=== PATIENT | female | born 1935 | race African-American/Black ===

== ENCOUNTER 2018-06-22 07:30 | Inpatient (IN) | payer MEDICARE, MEDICAID ==
[~2018-06-22] VITALS: Ht 157.5 cm; Wt 79.4 kg
[2018-06-22] MEDS ORDERED: Metoclopramide 10mg/2ml Inj IVP ONE (07:45)
[2018-06-22] MEDS ORDERED: Tylenol #3 tab (300mg/30mg) ORAL ONE (07:45)
[2018-06-22] MEDS ORDERED: DiphenhydrAMINE 50mg/ml Inj IVP ONE (07:45)
--- NOTE | 2018-06-22 07:50 | Emergency Room Report ---
History of Present Illness General Chief Complaint: Nausea Source: Patient Present Illness HPI 83-year-old female with history of hypertension presents with room spinning dizziness and multiple bouts of vomiting nonbloody nonbilious material that started at 5:30 this morning, so just 2 hours prior to arrival. She does report minimal headache, denies any abdominal pain, slurred speech, numbness, tingling, weakness, neck pain, fevers, chest pain, shortness of breath, any other symptoms. He reports he's never had this before, and reports that whenever she opens her eyes she feels the room is spinning. She is not taking anything for symptoms. Allergies: Coded Allergies: No Known Allergies (Unverified , 06/22/18) Patient History Past Medical History: see triage record Reviewed Nursing Documentation: PMH: Agreed; PSxH: Agreed Nursing Documentation-PMH Past Medical History: No History, Except For Hx Hypertension: Yes Review of Systems All Other Systems: negative except mentioned in HPI Physical Exam Vital Signs Date Time Temp Pulse Resp B/P (MAP) Pulse Ox O2 Delivery O2 Flow Rate FiO2 06/22/18 07:30 97.5 95 18 162/85 97 Sp02 EP Interpretation: reviewed, normal General Appearance: no apparent distress, alert, non-toxic Head: normocephalic Eyes: bilateral eye normal inspection, bilateral eye PERRL, bilateral eye EOMI ENT: normal ENT inspection, hearing grossly normal, normal pharynx, no angioedema, normal voice, moist mucus membranes Neck: normal inspection, full range of motion, supple, supple/symm/no masses Respiratory: chest non-tender, lungs clear, normal breath sounds, speaking full sentences, chest symmetrical, palpation of chest normal Cardiovascular #1: normal peripheral pulses, regular rate, rhythm, no edema, no gallop, no JVD, no murmur, no rub Cardiovascular #2: 2+ radial (R), 2+ radial (L) Gastrointestinal: normal inspection, non tender, soft, no mass, no guarding, no rebound Rectal: deferred Genitourinary: normal inspection, no CVA tenderness Musculoskeletal: back normal, gait/station normal, normal range of motion, non- tender, no calf tenderness, Nelli's Sign negative Neurologic: alert, oriented x3, responsive, vault installer III-XII nml as tested, motor strength/tone normal, sensory intact, speech normal, nystagmus - Positive horizontal bilaterally Psychiatric: judgement/insight normal, memory normal, mood/affect normal Skin: normal color, no rash, warm/dry, normal turgor Lymphatic: no adenopathy Medical Decision Making Diagnostic Impression: Primary Impression: Vertigo ER Course 83-year-old female with history of hypertension presents with vertigo that started 2 hours prior to arrival, was offered medications for nausea, vertigo but did not want any medications, and since she wasn't having a headache she didn't want any Tylenol either. I suspect peripheral vertigo, workup thus far has been unremarkable. CT head with chronic changes, no acute bleed or infarct. Patient with no CP, but troponin slightly elevated and potassium low. Will give ASA, KCl, admit for further treatment. Patient now accepting meds. Will give meclizine, reglan, IVF. EKG Diagnostic Results EKG Time: 07:49 EP Interpretation: no stemi Rate: normal Rhythm: NSR ST Segments: no acute changes ASA given to the pt in ED: No Rhythm Strip Diag. Results Rhythm Strip Time: 07:48 EP Interpretation: yes Rate: 103 Rhythm: NSR, no PVC's, no ectopy Chest X-Ray Diagnostic Results Chest X-Ray Diagnostic Results : Chest X-Ray Ordered: Yes # of Views/Limited/Complete: 1 View Indication: Other - htn, dizziness EP Interpretation: Yes Interpretation: no consolidation, no effusion, no pneumothorax, no acute cardiopulmonary disease Impression: No acute disease Electronically Signed by: Logan Blanco MD CT/MRI/US Diagnostic Results CT/MRI/US Diagnostic Results : Imaging Test Ordered: ct head noncontrast Last Vital Signs Date Time Temp Pulse Resp B/P (MAP) Pulse Ox O2 Delivery O2 Flow Rate FiO2 06/22/18 07:30 97.5 95 18 162/85 97 Disposition: ADMITTED INPATIENT Condition: Stable LOGAN BLANCO M.D Jun 22, 2018 07:50
[2018-06-22] MEDS ORDERED: AMLODIPINE BESY10 MG ORAL (07:53)
[2018-06-22] MEDS ORDERED: LOSARTAN-HCTZ1 EACH ORAL (07:53)
[2018-06-22] MEDS ORDERED: CATAPRES0.1 MG ORAL (07:53)
[2018-06-22] MEDS ORDERED: METOPROLOL SUCC50 MG ORAL (07:53)
--- NOTE | 2018-06-22 07:59 | NUR ---
ED Nurse Note: OT LUBNA WISE 89 FROM HOME DAUGHTER CALLED RA. PT STATES SHE WOKE UP AT 0530 AND STARTED VOMITING X10 A HOME AND ONCE IN ED. BLOOD SENT TO LAB. EKG DONE PT DOWN TO CT.
[2018-06-22 08:00] VITALS: BP 151/60
--- NOTE | 2018-06-22 08:05 | NUR ---
ED Nurse Note: PT REFUSING MEDS ERMD AWARE
[2018-06-22 08:10] LABS: BASOPHILS % (AUTO) 0.6 % (0.0-2.0); EOSINOPHILS % (AUTO) 1.7 % (0.0-3.0); HEMATOCRIT 44.3 % (37.0-47.0); HEMOGLOBIN 14.1 G/DL (12.0-16.0); MEAN CORPUSCULAR VOLUME 87 FL (80-99); MONOCYTES % (AUTO) 6.3 % (1.0-10.0); NEUTROPHILS % (AUTO) 65.5 % (45.0-75.0); PLATELET COUNT 313 K/UL (150-450); RED BLOOD COUNT 5.12 M/UL (4.20-5.40); RED CELL DISTRIBUTION WIDTH 12.4 % (11.6-14.8)
[2018-06-22 08:18] LABS: INR 1.1 (0.9-1.1)
[2018-06-22 08:20] LABS: ANION GAP 9 mmol/L (5-15); BLOOD UREA NITROGEN 26 mg/dL (7-18); CALCIUM 9.6 MG/DL (8.5-10.1); CARBON DIOXIDE 30 MMOL/L (21-32); CHLORIDE 103 MMOL/L (98-107); CREATININE 1.6 MG/DL (0.55-1.30); POTASSIUM 3.1 MMOL/L (3.5-5.1); SODIUM 142 MMOL/L (136-145)
--- NOTE | 2018-06-22 08:23 | Diagnostic Imaging Report ---
Indications: Vertigo, room spinning, dizziness, multiple bouts of vomiting, headache Technique: Spiral acquisitions obtained through the brain. Angled axial and coronal 5 x 5 mm slices were reconstructed. Total dose length product 1284.6 mGycm. CTDI vol(s) 70.38 mGy. Dose reduction achieved using automated exposure control Comparison: None. Findings: There is age-related enlargement of the ventricles and extra-axial CSF spaces. There is periventricular deep white matter low-attenuation consistent with chronic microvascular ischemic change. No acute intracranial hemorrhage nor edema. No mass effect nor midline shift. Normal bryant-white differentiation. Visualized orbits are unremarkable. The sinuses are clear. The mastoids are clear. Impression: Chronic and age-related changes Negative for acute intracranial bleed or mass effect The CT scanner at [facility] is accredited by the [employer] and the scans are performed using protocols designed to limit radiation exposure to as low as reasonably achievable to attain images of sufficient resolution adequate for diagnostic evaluation.
[2018-06-22 08:26] LABS: ALANINE AMINOTRANSFERASE 27 U/L (12-78); ALBUMIN 3.7 G/DL (3.4-5.0); ALBUMIN/GLOBULIN RATIO 0.9 (1.0-2.7); ALKALINE PHOSPHATASE 71 U/L (46-116); ASPARTATE AMINO TRANSFERASE 20 U/L (15-37); BILIRUBIN,TOTAL 0.3 MG/DL (0.2-1.0); CHOLESTEROL 140 MG/DL (< 200); HDL CHOLESTEROL 61 MG/DL (40-60); TRIGLYCERIDES 60 MG/DL (30-150)
[2018-06-22] MEDS ORDERED: Aspirin Baby 81mg ORAL ONE (08:30)
[2018-06-22] MEDS: Meclizine 25mg tab ORAL PRN (08:36)
--- NOTE | 2018-06-22 08:54 | Diagnostic Imaging Report ---
Indication: Cough Technique: One view of the chest Comparison: none Findings: No acute infiltrates, effusions, or congestion. Tortuous calcified aorta. Normal heart size. Upper mediastinum unremarkable. Impression: No acute process.
--- NOTE | 2018-06-22 09:14 | NUR ---
ED Nurse Note: urine sent belongings list done pt medicated. Meds well tolerated family at bedside awaiting tele bed. will monitor
[2018-06-22 09:16] VITALS: BP 160/80
[2018-06-22 09:23] LABS: APPEARANCE,URINE CLEAR; BILIRUBIN, URINE NEGATIVE (NEGATIVE); COLOR,URINE PALE YELLOW; GLUCOSE, URINE (UA) NEGATIVE (NEGATIVE); KETONES,URINE NEGATIVE (NEGATIVE); LEUKOCYTE ESTERASE ,URINE 1+ (NEGATIVE); NITRITE,URINE NEGATIVE (NEGATIVE); PH,URINE 7 (4.5-8.0); PROTEIN,URINE NEGATIVE (NEGATIVE); UROBILINOGEN,URINE NORMAL MG/DL (0.0-1.0)
[2018-06-22] MEDS ORDERED: Miralax 17gm pkt ORAL PRN (10:15)
[2018-06-22] MEDS ORDERED: Morphine Sulfate 2mg/ml Inj(IV/IM USE ONLY) IVP PRN (10:15)
[2018-06-22] MEDS ORDERED: Nitroglycerin Subl 0.4mg tab SL PRN (10:15)
[2018-06-22] MEDS ORDERED: Mylanta II UD 30ml ORAL PRN (10:15)
--- NOTE | 2018-06-22 10:40 | NUR ---
NURSE NOTES: Received report from Ed nurse Love/RN, Patient is awake and alert. Inventory check done, Heart monitor placed, IV intact on left forearm 20 sharri. Family at bedside. Bed in low position, Call light within reach. Will continue plan of care.
--- NOTE | 2018-06-22 11:03 | NUR ---
ED Nurse Note: pt up to floor abx ordered by Dr. Scott to be given on floor. Floor RN called and informed.
--- NOTE | 2018-06-22 11:10 | NUR ---
RADIOLOGY DEPT., CHEST X-RAY COMPLETED IN ER PRIOR TO ADMIT.RAMON
--- NOTE | 2018-06-22 11:14 | NUR ---
ED Nurse Note: Dr. Scott stated the pt does not need abx and did not put in order.
[2018-06-22] MEDS: D5 1/2NS 1,000 ML IV SCH ×2 (11:45→22:24)
--- NOTE | 2018-06-22 11:50 | GI Progress Note ---
Assessment/Plan Assessment/Plan patient seen and examined please, see full dictation Objective Last 24 Hour Vital Signs Date Time Temp Pulse Resp B/P (MAP) Pulse Ox O2 Delivery O2 Flow Rate FiO2 06/22/18 10:40 97.5 90 16 160/80 98 Room Air 06/22/18 09:16 97.5 90 16 160/80 98 Room Air 06/22/18 08:00 97.5 89 13 151/60 99 Room Air 06/22/18 07:30 97.5 95 18 162/85 97 Laboratory Tests Test 06/22/18 07:53 06/22/18 09:04 White Blood Count 13.0 K/UL (4.8-10.8) H Red Blood Count 5.12 M/UL (4.20-5.40) Hemoglobin 14.1 G/DL (12.0-16.0) Hematocrit 44.3 % (37.0-47.0) Mean Corpuscular Volume 87 FL (80-99) Mean Corpuscular Hemoglobin 27.6 PG (27.0-31.0) Mean Corpuscular Hemoglobin Concent 31.9 G/DL (32.0-36.0) L Red Cell Distribution Width 12.4 % (11.6-14.8) Platelet Count 313 K/UL (150-450) Mean Platelet Volume 5.8 FL (6.5-10.1) L Neutrophils (%) (Auto) 65.5 % (45.0-75.0) Lymphocytes (%) (Auto) 26.0 % (20.0-45.0) Monocytes (%) (Auto) 6.3 % (1.0-10.0) Eosinophils (%) (Auto) 1.7 % (0.0-3.0) Basophils (%) (Auto) 0.6 % (0.0-2.0) Prothrombin Time 11.7 SEC (9.30-11.50) H Prothromb Time International Ratio 1.1 (0.9-1.1) Activated Partial Thromboplast Time 24 SEC (23-33) Sodium Level 142 MMOL/L (136-145) Potassium Level 3.1 MMOL/L (3.5-5.1) L Chloride Level 103 MMOL/L (98-107) Carbon Dioxide Level 30 MMOL/L (21-32) Anion Gap 9 mmol/L (5-15) Blood Urea Nitrogen 26 mg/dL (7-18) H Creatinine 1.6 MG/DL (0.55-1.30) H Estimat Glomerular Filtration Rate mL/min (>60) Glucose Level 188 MG/DL (74-106) H Calcium Level 9.6 MG/DL (8.5-10.1) Total Bilirubin 0.3 MG/DL (0.2-1.0) Aspartate Amino Transf (AST/SGOT) 20 U/L (15-37) Alanine Aminotransferase (ALT/SGPT) 27 U/L (12-78) Alkaline Phosphatase 71 U/L (46-116) Troponin I 0.068 ng/mL (0.000-0.056) Total Protein 7.8 G/DL (6.4-8.2) Albumin 3.7 G/DL (3.4-5.0) Globulin 4.1 g/dL Albumin/Globulin Ratio 0.9 (1.0-2.7) L Triglycerides Level 60 MG/DL (30-150) Cholesterol Level 140 MG/DL (< 200) LDL Cholesterol 67 mg/dL (<100) HDL Cholesterol 61 MG/DL (40-60) H Cholesterol/HDL Ratio 2.3 (3.3-4.4) L Urine Color Pale yellow Urine Appearance Clear Urine pH 7 (4.5-8.0) Urine Specific [place] 1.010 (1.005-1.035) Urine Protein Negative (NEGATIVE) Urine Glucose (UA) Negative (NEGATIVE) Urine Ketones Negative (NEGATIVE) Urine Blood Negative (NEGATIVE) Urine Nitrite Negative (NEGATIVE) Urine Bilirubin Negative (NEGATIVE) Urine Urobilinogen Normal MG/DL (0.0-1.0) Urine Leukocyte Esterase 1+ (NEGATIVE) H Urine RBC 0-2 /HPF (0 - 2) Urine WBC 0-2 /HPF (0 - 2) Urine Squamous Epithelial Cells Occasional /LPF Urine Bacteria Moderate /HPF (NONE) H Height (Feet): 5 Height (Inches): 2.00 Weight (Pounds): 170 General Appearance: alert Cardiovascular: normal rate Respiratory/Chest: lungs clear Abdominal Exam: soft Giacomo Osborne MD Jun 22, 2018 11:50
--- NOTE | 2018-06-22 12:40 | Consultation ---
History of Present Illness General Date patient seen: Jun 22, 2018 Chief Complaint: Nausea Reason for Consultation: inpatient management Present Illness HPI 83-year-old female with history of hypertension presented to ER with CC of dizziness and multiple bouts of vomiting nonbloody nonbilious this morning. She does report minimal headache, denies any abdominal pain, slurred speech, numbness, tingling, weakness, neck pain, fevers, chest pain, shortness of breath , any other symptoms. she was found to have leukocytosis and her troponin was elevated as well. she is admitted to telemetry for further evaluation. Allergies: Coded Allergies: No Known Allergies (Unverified , 06/22/18) Medication History Scheduled Amlodipine Besylate* (Amlodipine Besylate*), 10 MG ORAL DAILY, (Reported) Clonidine Hcl* (Catapres*), 0.1 MG ORAL EVERY 12 HOURS, (Reported) Losartan/Hydrochlorothiazide (Losartan-Hctz 100-12.5 Mg Tab), 1 TAB ORAL DAILY, (Reported) Metoprolol Succinate* (Metoprolol Succinate*), 50 MG ORAL DAILY, (Reported) Patient History Healthcare decision maker Resuscitation status Advanced Directive on File Past Medical/Surgical History Past Medical/Surgical History: (1) History of hypertension Review of Systems All Other Systems: negative except mentioned in HPI Physical Exam General Appearance: WD/WN Lines, tubes and drains: peripheral HEENT: normocephalic, atraumatic Neck: non-tender, normal alignment Respiratory/Chest: chest wall non-tender, lungs clear Breasts: no masses Cardiovascular/Chest: normal peripheral pulses Abdomen: normal bowel sounds Genitourinary/Rectal: normal genital exam Extremities: normal range of motion Last 24 Hour Vital Signs Date Time Temp Pulse Resp B/P (MAP) Pulse Ox O2 Delivery O2 Flow Rate FiO2 06/22/18 10:40 97.5 90 16 160/80 98 Room Air 06/22/18 09:16 97.5 90 16 160/80 98 Room Air 06/22/18 08:00 97.5 89 13 151/60 99 Room Air 06/22/18 07:30 97.5 95 18 162/85 97 Laboratory Tests Test 06/22/18 07:53 06/22/18 09:04 White Blood Count 13.0 K/UL (4.8-10.8) H Red Blood Count 5.12 M/UL (4.20-5.40) Hemoglobin 14.1 G/DL (12.0-16.0) Hematocrit 44.3 % (37.0-47.0) Mean Corpuscular Volume 87 FL (80-99) Mean Corpuscular Hemoglobin 27.6 PG (27.0-31.0) Mean Corpuscular Hemoglobin Concent 31.9 G/DL (32.0-36.0) L Red Cell Distribution Width 12.4 % (11.6-14.8) Platelet Count 313 K/UL (150-450) Mean Platelet Volume 5.8 FL (6.5-10.1) L Neutrophils (%) (Auto) 65.5 % (45.0-75.0) Lymphocytes (%) (Auto) 26.0 % (20.0-45.0) Monocytes (%) (Auto) 6.3 % (1.0-10.0) Eosinophils (%) (Auto) 1.7 % (0.0-3.0) Basophils (%) (Auto) 0.6 % (0.0-2.0) Prothrombin Time 11.7 SEC (9.30-11.50) H Prothromb Time International Ratio 1.1 (0.9-1.1) Activated Partial Thromboplast Time 24 SEC (23-33) Sodium Level 142 MMOL/L (136-145) Potassium Level 3.1 MMOL/L (3.5-5.1) L Chloride Level 103 MMOL/L (98-107) Carbon Dioxide Level 30 MMOL/L (21-32) Anion Gap 9 mmol/L (5-15) Blood Urea Nitrogen 26 mg/dL (7-18) H Creatinine 1.6 MG/DL (0.55-1.30) H Estimat Glomerular Filtration Rate mL/min (>60) Glucose Level 188 MG/DL (74-106) H Calcium Level 9.6 MG/DL (8.5-10.1) Total Bilirubin 0.3 MG/DL (0.2-1.0) Aspartate Amino Transf (AST/SGOT) 20 U/L (15-37) Alanine Aminotransferase (ALT/SGPT) 27 U/L (12-78) Alkaline Phosphatase 71 U/L (46-116) Troponin I 0.068 ng/mL (0.000-0.056) Total Protein 7.8 G/DL (6.4-8.2) Albumin 3.7 G/DL (3.4-5.0) Globulin 4.1 g/dL Albumin/Globulin Ratio 0.9 (1.0-2.7) L Triglycerides Level 60 MG/DL (30-150) Cholesterol Level 140 MG/DL (< 200) LDL Cholesterol 67 mg/dL (<100) HDL Cholesterol 61 MG/DL (40-60) H Cholesterol/HDL Ratio 2.3 (3.3-4.4) L Urine Color Pale yellow Urine Appearance Clear Urine pH 7 (4.5-8.0) Urine Specific [place] 1.010 (1.005-1.035) Urine Protein Negative (NEGATIVE) Urine Glucose (UA) Negative (NEGATIVE) Urine Ketones Negative (NEGATIVE) Urine Blood Negative (NEGATIVE) Urine Nitrite Negative (NEGATIVE) Urine Bilirubin Negative (NEGATIVE) Urine Urobilinogen Normal MG/DL (0.0-1.0) Urine Leukocyte Esterase 1+ (NEGATIVE) H Urine RBC 0-2 /HPF (0 - 2) Urine WBC 0-2 /HPF (0 - 2) Urine Squamous Epithelial Cells Occasional /LPF Urine Bacteria Moderate /HPF (NONE) H Height (Feet): 5 Height (Inches): 2.00 Weight (Pounds): 170 Medications Current Medications Medications (Trade) Dose Ordered Sig/Radha Route PRN Reason Start Time Stop Time Status Last Admin Dose Admin Acetaminophen (Tylenol) 650 mg Q4H PRN ORAL fever 06/22/18 10:15 07/22/18 10:14 Al Hydroxide/Mg Hydroxide (Mylanta II) 30 ml Q6H PRN ORAL dyspepsia 06/22/18 10:15 07/22/18 10:14 Amlodipine Besylate (Norvasc) 10 mg DAILY ORAL 06/23/18 09:00 07/23/18 08:59 Dextrose (Dextrose 50%) 25 ml Q30M PRN IV Hypoglycemia 06/22/18 10:15 07/22/18 10:14 Dextrose (Dextrose 50%) 50 ml Q30M PRN IV Hypoglycemia 06/22/18 10:15 07/22/18 10:14 Dextrose/Sodium Chloride 1,000 ml @ 75 mls/hr [id number] IV 06/22/18 10:30 07/22/18 10:29 06/22/18 11:45 Diphenhydramine HCl (Benadryl) 25 mg Q6H PRN ORAL Itching/Pruritis 06/22/18 10:15 07/22/18 10:14 Heparin Sodium (Porcine) (Heparin 5000 units/ml) 5,000 units EVERY 12 HOURS SUBQ 06/22/18 21:00 07/22/18 20:59 Meclizine HCl (Antivert) 25 mg Q6H PRN ORAL for dizziness 06/22/18 08:00 07/22/18 07:59 06/22/18 08:36 Metoprolol Succinate (Toprol XL) 50 mg DAILY ORAL 06/23/18 09:00 07/23/18 08:59 Morphine Sulfate (Morphine Sulfate) 2 mg Q4H PRN IVP severe Pain (Pain Scale 7-10) 06/22/18 10:15 06/29/18 10:14 Nitroglycerin (Ntg) 0.4 mg Q5M X 3 DOSES PRN SL Prn Chest Pain 06/22/18 10:15 07/22/18 10:14 Ondansetron HCl (Zofran) 4 mg Q6H PRN IVP Nausea & Vomiting 06/22/18 10:15 07/22/18 10:14 Pantoprazole (Protonix) 40 mg DAILY IVP 06/23/18 09:00 07/23/18 08:59 Polyethylene Glycol (Miralax) 17 gm HSPRN PRN ORAL Constipation 06/22/18 10:15 07/22/18 10:14 Temazepam (Restoril) 15 mg HSPRN PRN ORAL Insomnia 06/22/18 10:15 06/29/18 10:14 Assessment/Plan Problem List: (1) Vertigo ICD Codes: R42 - Dizziness and giddiness SNOMED: 425463172 (2) Intractable nausea and vomiting ICD Codes: R11.2 - Nausea with vomiting, unspecified SNOMED: 269126483 (3) Non-ST elevation (NSTEMI) myocardial infarction ICD Codes: I21.4 - Non-ST elevation (NSTEMI) myocardial infarction SNOMED: 26872624 (4) UTI (urinary tract infection) ICD Codes: N39.0 - Urinary tract infection, site not specified SNOMED: 83834161 (5) History of hypertension ICD Codes: Z86.79 - Personal history of other diseases of the circulatory system SNOMED: 616138908 Assessment/Plan: NPO IV fluids symptomatic treatment echo cardiology evaluation check electrolytes renal studies urine for electrolytes. dvt prophylaxis. Laci Pat MD Jun 22, 2018 12:40
--- NOTE | 2018-06-22 12:41 | Consultation ---
History of Present Illness General Date patient seen: Jun 22, 2018 Chief Complaint: Nausea Present Illness HPI 83 y /o F with hx of HTN presents to ED on 06/22 with dizziness (room spinning sensation) and multiple bouts of vomiting (non bloody/non bilious) that started 2 hours prior to arrival to ED. Also reports minimal headache Denied abd pain, fevers, CP, SOB, dysuria upon admission. Allergies: Coded Allergies: No Known Allergies (Unverified , 06/22/18) Medication History Scheduled Amlodipine Besylate* (Amlodipine Besylate*), 10 MG ORAL DAILY, (Reported) Clonidine Hcl* (Catapres*), 0.1 MG ORAL EVERY 12 HOURS, (Reported) Losartan/Hydrochlorothiazide (Losartan-Hctz 100-12.5 Mg Tab), 1 TAB ORAL DAILY, (Reported) Metoprolol Succinate* (Metoprolol Succinate*), 50 MG ORAL DAILY, (Reported) Patient History Healthcare decision maker Resuscitation status Advanced Directive on File Patient History Narrative Pmhx: as above Shx: reviewed Fhx: non contributory Review of Systems All Other Systems: negative except mentioned in HPI Physical Exam Physical Exam Narrative General Appearance: no apparent distress, alert, non-toxic Head: normocephalic Eyes: bilateral eye normal inspection, bilateral eye PERRL, bilateral eye EOMI ENT: normal ENT inspection, hearing grossly normal, normal pharynx, no angioedema, normal voice, moist mucus membranes Neck: normal inspection, full range of motion, supple, supple/symm/no masses Respiratory: chest non-tender, lungs clear, normal breath sounds, speaking full sentences, chest symmetrical, palpation of chest normal Cardiovascular: normal peripheral pulses, regular rate, rhythm, no edema, no gallop, no JVD, no murmur, no rub Gastrointestinal: normal inspection, non tender, soft, no mass, no guarding, no rebound Genitourinary: normal inspection, no CVA tenderness Musculoskeletal: back normal, gait/station normal, normal range of motion, non- tender, no calf tenderness, Nelli's Sign negative Neurologic: alert, oriented x3, responsive, insurance marketing rep III-XII nml as tested, motor strength/tone normal, sensory intact, speech normal, nystagmus - Positive horizontal bilaterally Skin: normal color, no rash, warm/dry, normal turgor Lymphatic: no adenopathy Last 24 Hour Vital Signs Date Time Temp Pulse Resp B/P (MAP) Pulse Ox O2 Delivery O2 Flow Rate FiO2 06/22/18 10:40 97.5 90 16 160/80 98 Room Air 06/22/18 09:16 97.5 90 16 160/80 98 Room Air 06/22/18 08:00 97.5 89 13 151/60 99 Room Air 06/22/18 07:30 97.5 95 18 162/85 97 Laboratory Tests Test 06/22/18 07:53 06/22/18 09:04 White Blood Count 13.0 K/UL (4.8-10.8) H Red Blood Count 5.12 M/UL (4.20-5.40) Hemoglobin 14.1 G/DL (12.0-16.0) Hematocrit 44.3 % (37.0-47.0) Mean Corpuscular Volume 87 FL (80-99) Mean Corpuscular Hemoglobin 27.6 PG (27.0-31.0) Mean Corpuscular Hemoglobin Concent 31.9 G/DL (32.0-36.0) L Red Cell Distribution Width 12.4 % (11.6-14.8) Platelet Count 313 K/UL (150-450) Mean Platelet Volume 5.8 FL (6.5-10.1) L Neutrophils (%) (Auto) 65.5 % (45.0-75.0) Lymphocytes (%) (Auto) 26.0 % (20.0-45.0) Monocytes (%) (Auto) 6.3 % (1.0-10.0) Eosinophils (%) (Auto) 1.7 % (0.0-3.0) Basophils (%) (Auto) 0.6 % (0.0-2.0) Prothrombin Time 11.7 SEC (9.30-11.50) H Prothromb Time International Ratio 1.1 (0.9-1.1) Activated Partial Thromboplast Time 24 SEC (23-33) Sodium Level 142 MMOL/L (136-145) Potassium Level 3.1 MMOL/L (3.5-5.1) L Chloride Level 103 MMOL/L (98-107) Carbon Dioxide Level 30 MMOL/L (21-32) Anion Gap 9 mmol/L (5-15) Blood Urea Nitrogen 26 mg/dL (7-18) H Creatinine 1.6 MG/DL (0.55-1.30) H Estimat Glomerular Filtration Rate mL/min (>60) Glucose Level 188 MG/DL (74-106) H Calcium Level 9.6 MG/DL (8.5-10.1) Total Bilirubin 0.3 MG/DL (0.2-1.0) Aspartate Amino Transf (AST/SGOT) 20 U/L (15-37) Alanine Aminotransferase (ALT/SGPT) 27 U/L (12-78) Alkaline Phosphatase 71 U/L (46-116) Troponin I 0.068 ng/mL (0.000-0.056) Total Protein 7.8 G/DL (6.4-8.2) Albumin 3.7 G/DL (3.4-5.0) Globulin 4.1 g/dL Albumin/Globulin Ratio 0.9 (1.0-2.7) L Triglycerides Level 60 MG/DL (30-150) Cholesterol Level 140 MG/DL (< 200) LDL Cholesterol 67 mg/dL (<100) HDL Cholesterol 61 MG/DL (40-60) H Cholesterol/HDL Ratio 2.3 (3.3-4.4) L Urine Color Pale yellow Urine Appearance Clear Urine pH 7 (4.5-8.0) Urine Specific [place] 1.010 (1.005-1.035) Urine Protein Negative (NEGATIVE) Urine Glucose (UA) Negative (NEGATIVE) Urine Ketones Negative (NEGATIVE) Urine Blood Negative (NEGATIVE) Urine Nitrite Negative (NEGATIVE) Urine Bilirubin Negative (NEGATIVE) Urine Urobilinogen Normal MG/DL (0.0-1.0) Urine Leukocyte Esterase 1+ (NEGATIVE) H Urine RBC 0-2 /HPF (0 - 2) Urine WBC 0-2 /HPF (0 - 2) Urine Squamous Epithelial Cells Occasional /LPF Urine Bacteria Moderate /HPF (NONE) H Height (Feet): 5 Height (Inches): 2.00 Weight (Pounds): 170 Medications Current Medications Medications (Trade) Dose Ordered Sig/Radha Route PRN Reason Start Time Stop Time Status Last Admin Dose Admin Acetaminophen (Tylenol) 650 mg Q4H PRN ORAL fever 06/22/18 10:15 07/22/18 10:14 Al Hydroxide/Mg Hydroxide (Mylanta II) 30 ml Q6H PRN ORAL dyspepsia 06/22/18 10:15 07/22/18 10:14 Amlodipine Besylate (Norvasc) 10 mg DAILY ORAL 06/23/18 09:00 07/23/18 08:59 Dextrose (Dextrose 50%) 25 ml Q30M PRN IV Hypoglycemia 06/22/18 10:15 07/22/18 10:14 Dextrose (Dextrose 50%) 50 ml Q30M PRN IV Hypoglycemia 06/22/18 10:15 07/22/18 10:14 Dextrose/Sodium Chloride 1,000 ml @ 75 mls/hr [id number] IV 06/22/18 10:30 07/22/18 10:29 06/22/18 11:45 Diphenhydramine HCl (Benadryl) 25 mg Q6H PRN ORAL Itching/Pruritis 06/22/18 10:15 07/22/18 10:14 Heparin Sodium (Porcine) (Heparin 5000 units/ml) 5,000 units EVERY 12 HOURS SUBQ 06/22/18 21:00 07/22/18 20:59 Meclizine HCl (Antivert) 25 mg Q6H PRN ORAL for dizziness 06/22/18 08:00 07/22/18 07:59 06/22/18 08:36 Metoprolol Succinate (Toprol XL) 50 mg DAILY ORAL 06/23/18 09:00 07/23/18 08:59 Morphine Sulfate (Morphine Sulfate) 2 mg Q4H PRN IVP severe Pain (Pain Scale 7-10) 06/22/18 10:15 06/29/18 10:14 Nitroglycerin (Ntg) 0.4 mg Q5M X 3 DOSES PRN SL Prn Chest Pain 06/22/18 10:15 07/22/18 10:14 Ondansetron HCl (Zofran) 4 mg Q6H PRN IVP Nausea & Vomiting 06/22/18 10:15 07/22/18 10:14 Pantoprazole (Protonix) 40 mg DAILY IVP 06/23/18 09:00 07/23/18 08:59 Polyethylene Glycol (Miralax) 17 gm HSPRN PRN ORAL Constipation 06/22/18 10:15 07/22/18 10:14 Temazepam (Restoril) 15 mg HSPRN PRN ORAL Insomnia 06/22/18 10:15 06/29/18 10:14 Assessment/Plan Assessment/Plan: Abx: None Assessment: Dizziness/Nausea/vomiting- has positive trops- ?NSTEMI vs viral gastroenteritis -CT head: no acute findings Afebrile Mild leukocytosis- suspect reactive -CXR: No acute process. -u/a no pyuria AVA vs CKD Hypokalemia HTN Plan: -Continue to monitor off abx unless febrile, increasing WBC and/or HD instability -f/u cx -Monitor CBC/CMP, temperatures -Influenza sc -Trend trops -aspiration precautions Thank you for this consultation. Will continue to follow along with you. Discussed with PAUL. Izabel Mary M.D. Jun 22, 2018 12:41
--- NOTE | 2018-06-22 14:55 | NUR ---
RADIOLOGY DEPT., ABDOMEN X-RAY DONE.-P.DYE
--- NOTE | 2018-06-22 17:15 | Consultation ---
DATE OF CONSULTATION: 06/22/2018 GASTROENTEROLOGY CONSULTATION CHIEF COMPLAINT: Nausea and vomiting. HISTORY OF PRESENT ILLNESS: This is a very pleasant 83-year-old female with past medical history of hypertension, presents to the hospital complaining of severe dizziness and vomited nonbloody bilious material and she was admitted for that. The patient denies any gastrointestinal problems. No prior history of endoscopy. No colonoscopy. No gastrointestinal bleeding. No constipation or diarrhea. No dysphagia. No odynophagia. No melena. No hematochezia. PAST MEDICAL HISTORY: Hypertension. PAST SURGICAL HISTORY: None. MEDICATIONS: Please see medication reconciliation list. ALLERGIES: No known drug allergies. SOCIAL HISTORY: The patient denies any tobacco, alcohol, or drug abuse. FAMILY HISTORY: Noncontributory. REVIEW OF SYSTEMS: A 10-point review of systems was performed and pertinent positives in HPI. PHYSICAL EXAMINATION: VITAL SIGNS: Temperature 97.5, pulse of 90, respirations 16, and blood pressure is 160/80. HEENT: Normocephalic and atraumatic. Sclerae anicteric. NECK: Supple. No obvious evidence of lymphadenopathy. CARDIOVASCULAR: Regular rate and rhythm. Plus S1 and S2. No obvious murmur. LUNGS: Clear to auscultation bilaterally. ABDOMEN: Positive bowel sounds. Soft and nontender. No rebound. No guarding. No peritoneal sign. EXTREMITIES: No cyanosis, no clubbing, no edema. LABORATORY DATA: White count is 13, hemoglobin 14, hematocrit 44, and platelets are 313,000. Chem-7, sodium 142, potassium 3.1, BUN is 26, creatinine 1.2, and glucose is 188. Troponin mildly elevated at 0.068. ASSESSMENT AND PLAN: An 83-year-old female with dizziness causing vomiting. No obvious gastrointestinal problems at this time. No abdominal pain. No dysphagia. No odynophagia. No anemia. Given no prior history of colonoscopy, the patient at least needs a screening colonoscopy. She was given my business card to call my office for follow up. Meanwhile, we are going to order KUB and we are going to order amylase and lipase for tomorrow. We are going to order hemoglobin A1c given glucose of 188 to rule out the new onset diabetes. We are also going to start the patient on diet for now. We will re-examine the patient again tomorrow and make further recommendation. I want to thank, Dr. Stanton, for this kind referral. Giacomo Osborne M.D. DR: OSBALDO JOB#: [id number] CC: Oscar Stanton M.D.; Fax#: [phone]
--- NOTE | 2018-06-22 17:18 | Diagnostic Imaging Report ---
Indication: Abdominal pain Technique: Supine view of the abdomen Comparison: none Findings: Unremarkable bowel gas pattern. No masses or unusual calcifications. There are mild degenerative changes of the lumbar spine and bilateral hips. Impression: Negative
--- NOTE | 2018-06-22 18:39 | History & Physical ---
History and Physical History & Physicial Dictated for Int Med-Dr Stanton no. [id number]. Shailesh Li MD Jun 22, 2018 18:38
[2018-06-22 19:47] LABS: APPEARANCE,URINE CLOUDY; BILIRUBIN, URINE NEGATIVE (NEGATIVE); COLOR,URINE PALE YELLOW; GLUCOSE, URINE (UA) NEGATIVE (NEGATIVE); KETONES,URINE NEGATIVE (NEGATIVE); LEUKOCYTE ESTERASE ,URINE 3+ (NEGATIVE); NITRITE,URINE NEGATIVE (NEGATIVE); PH,URINE 8 (4.5-8.0); PROTEIN,URINE NEGATIVE (NEGATIVE); UROBILINOGEN,URINE NORMAL MG/DL (0.0-1.0)
[2018-06-22 20:00] VITALS: BP 162/88
--- NOTE | 2018-06-22 20:05 | NUR ---
HAND-OFF: Report given to Annabella/RN, Patient is awake and in stable condition. Endorsed plan of care.
--- NOTE | 2018-06-22 20:06 | NUR ---
NURSE NOTES: Received pt from PAUL Figueredo. pt awake, alert, and talkative. Bed in lowest position. Call light within reach. Will continue to monitor.
[2018-06-22 21:35] LABS: CREATINE KINASE 67 U/L (26-308)
--- NOTE | 2018-06-22 21:48 | NUR ---
NURSE NOTES: Called and left a message with Dr. Stanton regarding pts HTN. He gave orders for hydralazine 50 mg q6 prn if sbp>160. Will input orders and will continue to monitor.
[2018-06-22 21:50] VITALS: BP 165/86
[2018-06-22] MEDS: HydrALAZINE 50mg tab ORAL PRN (22:08)
[2018-06-22] MEDS: Heparin 5000 units/ml inj SUBQ SCH (22:18)
--- NOTE | 2018-06-22 23:45 | History and Physical Report ---
DATE OF ADMISSION: 06/22/2018 CHIEF COMPLAINT: The patient is an 83-year-old female, who presents with a chief complaint of "dizzy." HISTORY OF PRESENT ILLNESS: The patient awoke this morning at 5 a.m. The patient states the room was spinning. The patient states it is worse with change of head position. The patient also was experiencing nausea and vomiting. The patient presented to [facility] emergency room. The patient was admitted for vertigo and nausea and vomiting. REVIEW OF SYSTEMS: CONSTITUTIONAL: The patient denies weight loss or weight gain. The patient denies fevers or chills. HEENT: The patient denies ear or throat pain. The patient denies headache. CARDIOVASCULAR: The patient denies palpitations or chest pain. CHEST: The patient denies wheeze or shortness of breath. ABDOMINAL: The patient denies nausea, vomiting, diarrhea, or constipation. GENITOURINARY: The patient denies dysuria or increased frequency of urination. NEUROMUSCULAR: The patient complains of dizziness as above. The patient denies seizures or generalized weakness. PAST MEDICAL HISTORY: Significant for hypertension. PAST SURGICAL HISTORY: Patient denies. CURRENT MEDICATIONS: 1. Amlodipine 10 mg one tablet p.o. daily. 2. Clonidine 0.1 mg p.o. twice daily. 3. Losartan/hydrochlorothiazide 100/12.5 one tablet p.o. daily. 4. Metoprolol 50 mg p.o. daily. ALLERGIES: No known drug allergies. SOCIAL HISTORY: The patient is single and lives alone. The patient is currently . The patient denies tobacco or alcohol use. PHYSICAL EXAMINATION: VITAL SIGNS: Temperature 97.5, respirations 18, pulse 75, and blood pressure 162/85. GENERAL: The patient is well-developed and well-nourished female, in no apparent distress. HEENT: Eyes, pupils are equal and responsive to light and accommodation. Extraocular movements are intact. NECK: Supple without lymphadenopathy. CHEST: Lungs are clear to auscultation bilaterally without wheezes or rales. CARDIOVASCULAR: Regular rhythm and rate. S1 and S2 are normal without murmurs, rubs, or gallops. ABDOMEN: Ssoft, nontender, and nondistended. Positive bowel sounds. No evidence of hepatosplenomegaly. Currently, no rebound or guarding noted. EXTREMITIES: Negative for clubbing, cyanosis, or edema. RECTAL/GENITAL: Refused. NEUROLOGIC: Cranial nerves II through XII are grossly intact without focal deficits. Motor strength is 5/5 bilaterally. Deep tendon reflexes are 2+ plantar. LABORATORY STUDIES: WBC 13.0, hemoglobin 14.1, hematocrit 44.3, and platelets 316,000. Sodium 142, potassium 3.1, chloride 103, CO2 30, BUN 26, creatinine 1.6, and glucose 188. Troponin elevated at 0.068. Urinalysis showed 1+ leukocyte esterase with 0 to 2 wbc's and moderate bacteria. A CT scan of the brain was reported as no acute bleed or mass. ASSESSMENT: This is an 83-year-old female. 1. Vertigo. 2. Nausea with vomiting. 3. Hypertension. 4. Urinary tract infection. TREATMENT: 1. Urinary tract infection. The patient has been started empirically on Levaquin. A culture and sensitivity is pending. Await results of culture and sensitivity as above. 2. Vertigo. This may be secondary to urinary tract infection versus benign positional vertigo. Vertigo is worse with change of head position. 3. Nausea with vomiting. A Gastroenterology consultation has been obtained with Dr. Giacomo Osborne. 4. Hypertension. Continue amlodipine, clonidine, losartan/hydrochlorothiazide, and metoprolol as above. Shailesh Li M.D. DR: ROBERT JOB#: [id number] CC:
[2018-06-23] VITALS (7 sets, daily range): BP systolic 147–176; BP diastolic 71–97
[2018-06-23 07:07] LABS: BASOPHILS % (AUTO) 0.7 % (0.0-2.0); EOSINOPHILS % (AUTO) 0.6 % (0.0-3.0); HEMATOCRIT 42.7 % (37.0-47.0); HEMOGLOBIN 13.8 G/DL (12.0-16.0); LYMPHOCYTES % (AUTO) 19.7 % (20.0-45.0); MEAN CORPUSCULAR VOLUME 87 FL (80-99); MONOCYTES % (AUTO) 8.2 % (1.0-10.0); NEUTROPHILS % (AUTO) 70.8 % (45.0-75.0); PLATELET COUNT 332 K/UL (150-450); RED BLOOD COUNT 4.91 M/UL (4.20-5.40); RED CELL DISTRIBUTION WIDTH 12.7 % (11.6-14.8); WHITE BLOOD COUNT 11.4 K/UL (4.8-10.8)
[2018-06-23 07:28] LABS: ALANINE AMINOTRANSFERASE 26 U/L (12-78); ALBUMIN 3.5 G/DL (3.4-5.0); ALBUMIN/GLOBULIN RATIO 0.9 (1.0-2.7); ALKALINE PHOSPHATASE 68 U/L (46-116); AMYLASE 39 U/L (25-115); ANION GAP 10 mmol/L (5-15); ASPARTATE AMINO TRANSFERASE 29 U/L (15-37); BILIRUBIN,TOTAL 0.5 MG/DL (0.2-1.0); BLOOD UREA NITROGEN 17 mg/dL (7-18); CALCIUM 9.5 MG/DL (8.5-10.1); CARBON DIOXIDE 29 MMOL/L (21-32); CHLORIDE 104 MMOL/L (98-107); CREATININE 1.2 MG/DL (0.55-1.30); POTASSIUM 3.6 MMOL/L (3.5-5.1); SODIUM 142 MMOL/L (136-145)
--- NOTE | 2018-06-23 07:48 | NUR ---
HAND-OFF: Report given to PAUL Laguerre. pt stable.
--- NOTE | 2018-06-23 08:00 | NUR ---
NURSE NOTES: Pt awake/alert in bed, breathing easily on room air, denies SOB and denies pain at this time. Pt denies vertigo at this time. Vital signs stable with SR at 96 on monitor. IV access left forearm with D5 !/2 NS running at 75/hr. Pt places herself on bedpan as needed. Bed left in low position, side rails up x 2 and call light left near pt's hand.
--- NOTE | 2018-06-23 08:52 | NUR ---
CASE MANAGEMENT:REVIEW 83 YR OLD FEMALE BIBA FROM HOME CC: HEADACHE, NAUSEA AND VOMITING X3 HOURS SI: VERTIGO. ELEVATED TROPONIN 97.6 95 18 97% ON RA 162/85 WBC+13.0 K-3.1 BUN+26 CR+1.6 TROPONIN(+) 0.068 IS: 500CC NS BOLUS IV BENADRYL IV REGLAN TYLENOL PO ASA PO K-DUR PO CT HEAD CHEST XRAY : TO TELEMETRY IS: URINE CX IV LEVAQUIN Q24 PLAN: NEURO CHECKS Q4
[2018-06-23] MEDS: Heparin 5000 units/ml inj SUBQ SCH ×2 (09:00→21:47)
[2018-06-23] MEDS ORDERED: Pantoprazole Inj IVP SCH (09:00)
[2018-06-23] MEDS ORDERED: Metoprolol Succinate XL 50mg tab ORAL SCH (09:00)
[2018-06-23] MEDS: Meclizine 25mg tab ORAL PRN (10:19)
--- NOTE | 2018-06-23 10:41 | GI Progress Note ---
Assessment/Plan Problems: (1) Intractable nausea and vomiting ICD Codes: R11.2 - Nausea with vomiting, unspecified SNOMED: 639330403 (2) Vertigo ICD Codes: R42 - Dizziness and giddiness SNOMED: 679564639 Status: unchanged Status Narrative Discussed with Dr. Osborne. Assessment/Plan Vertigo secondary to ?hypertension No obvious gastrointestinal problems at this time KUB negative Amylase and lipase within normal limits Continue meclizine as needed, consider scopolamine patch if patient has persistent vertigo Revert to full liquid diet per request the patient, advance as tolerated ppi fu cardiology recs IV/PO hydration + electrolyte correction Follow labs Outpatient GI procedures The patient was seen and examined at bedside and all new and available data was reviewed in the patients chart. I agree with the above findings, impression and plan. (Patient seen earlier today. Signature stamp does not reflect patient encounter time.). - Giacomo Osborne MD Subjective Subjective The patient still has complaints of dizziness States he had an episode of emesis this morning, denied any hematemesis or coffee-ground Denies any abdominal pain Denies any constipation or diarrhea Objective Last 24 Hour Vital Signs Date Time Temp Pulse Resp B/P (MAP) Pulse Ox O2 Delivery O2 Flow Rate FiO2 06/23/18 10:20 91 158/76 06/23/18 10:20 91 158/76 06/23/18 04:00 91 06/23/18 04:00 98.0 98 18 158/76 (103) 97 06/23/18 00:00 106 06/23/18 00:00 97.9 101 24 158/76 (103) 96 06/22/18 22:08 165/86 06/22/18 21:50 90 165/86 (112) 06/22/18 21:00 Room Air 06/22/18 20:00 98.0 97 24 162/88 (112) 96 06/22/18 20:00 93 06/22/18 16:00 77 06/22/18 15:19 Room Air 06/22/18 12:00 84 06/22/18 10:40 97.5 90 16 160/80 98 Room Air Intake and Output 06/22/18 06/23/18 18:59 06:59 Intake Total 240 ml Output Total 15 ml Balance 225 ml Intake Oral 240 ml Output Emesis 15 ml # Voids 3 4 Laboratory Tests Test 06/22/18 15:20 06/22/18 18:55 06/23/18 06:23 Troponin I 0.055 ng/mL (0.000-0.056) 0.054 ng/mL (0.000-0.056) Urine Color Pale yellow Urine Appearance Cloudy Urine pH 8 (4.5-8.0) Urine Specific [place] 1.010 (1.005-1.035) Urine Protein Negative (NEGATIVE) Urine Glucose (UA) Negative (NEGATIVE) Urine Ketones Negative (NEGATIVE) Urine Blood 2+ (NEGATIVE) H Urine Nitrite Negative (NEGATIVE) Urine Bilirubin Negative (NEGATIVE) Urine Urobilinogen Normal MG/DL (0.0-1.0) Urine Leukocyte Esterase 3+ (NEGATIVE) H Urine RBC 2-4 /HPF (0 - 2) H Urine WBC 40-60 /HPF (0 - 2) H Urine Squamous Epithelial Cells Moderate /LPF (NONE/OCC) H Urine Bacteria Many /HPF (NONE) H Urine Eosinophils None seen (NONE SEEN) Urine Random Creatinine Pending Urine Random Microalbumin Pending Urine Random Sodium 58 mmol/L (20-110) Urine Creatinine 38.4 MG/DL (30.0-125.0) Urine Microalbumin/Creatinine Ratio Pending Urine Potassium Timed 24 mmol/L (12-62) White Blood Count 11.4 K/UL (4.8-10.8) H Red Blood Count 4.91 M/UL (4.20-5.40) Hemoglobin 13.8 G/DL (12.0-16.0) Hematocrit 42.7 % (37.0-47.0) Mean Corpuscular Volume 87 FL (80-99) Mean Corpuscular Hemoglobin 28.1 PG (27.0-31.0) Mean Corpuscular Hemoglobin Concent 32.4 G/DL (32.0-36.0) Red Cell Distribution Width 12.7 % (11.6-14.8) Platelet Count 332 K/UL (150-450) Mean Platelet Volume 5.8 FL (6.5-10.1) L Neutrophils (%) (Auto) 70.8 % (45.0-75.0) Lymphocytes (%) (Auto) 19.7 % (20.0-45.0) L Monocytes (%) (Auto) 8.2 % (1.0-10.0) Eosinophils (%) (Auto) 0.6 % (0.0-3.0) Basophils (%) (Auto) 0.7 % (0.0-2.0) Activated Partial Thromboplast Time 26 SEC (23-33) Sodium Level 142 MMOL/L (136-145) Potassium Level 3.6 MMOL/L (3.5-5.1) Chloride Level 104 MMOL/L (98-107) Carbon Dioxide Level 29 MMOL/L (21-32) Anion Gap 10 mmol/L (5-15) Blood Urea Nitrogen 17 mg/dL (7-18) Creatinine 1.2 MG/DL (0.55-1.30) Estimat Glomerular Filtration Rate mL/min (>60) Glucose Level 133 MG/DL (74-106) H Hemoglobin A1c 6.6 % (4.3-6.0) H Lactic Acid Level 1.40 mmol/L (0.4-2.0) Calcium Level 9.5 MG/DL (8.5-10.1) Total Bilirubin 0.5 MG/DL (0.2-1.0) Aspartate Amino Transf (AST/SGOT) 29 U/L (15-37) Alanine Aminotransferase (ALT/SGPT) 26 U/L (12-78) Alkaline Phosphatase 68 U/L (46-116) Total Protein 7.2 G/DL (6.4-8.2) Albumin 3.5 G/DL (3.4-5.0) Globulin 3.7 g/dL Albumin/Globulin Ratio 0.9 (1.0-2.7) L Amylase Level 39 U/L (25-115) Lipase 147 U/L (73-393) Microbiology Date/Time Source Procedure Growth Status 06/22/18 18:55 Urine,Clean Catch Urine Culture - Preliminary NO GROWTH Resulted Height (Feet): 5 Height (Inches): 2.00 Weight (Pounds): 175 General Appearance: WD/WN, no apparent distress, alert Cardiovascular: normal rate Respiratory/Chest: normal breath sounds, no respiratory distress Abdominal Exam: normal bowel sounds, non tender, soft Extremities: normal range of motion, non-tender Louis Cardoso [employer]PER[employer] Jun 23, 2018 10:41
--- NOTE | 2018-06-23 11:28 | Diagnostic Imaging Report ---
Indication:Elevated Bun and Creatinine. Technique: Grayscale and duplex Doppler imaging of the kidneys performed. Comparison: None Findings: No hydronephrosis demonstrated. Renal cortical echogenicity is within normal limits. Visualized IVC is unremarkable. Echogenic foci noted within cortex of the both kidneys likely scarring. Multiple liver cysts are present. The right kidney measures about 9 cm. Left kidney 8.3 cm. Bladder is unremarkable. IMPRESSION: Borderline small kidneys with the areas of scarring particularly in the right kidney. No hydronephrosis. Liver cysts.
--- NOTE | 2018-06-23 13:07 | Pulmonology Progress Note ---
Assessment/Plan Problems: (1) Vertigo (2) Intractable nausea and vomiting (3) Non-ST elevation (NSTEMI) myocardial infarction (4) UTI (urinary tract infection) (5) History of hypertension Assessment/Plan improving wbc lower urine cultures pending continue iv fluids check electrolytes dvt prophylaxis. Subjective ROS Limited/Unobtainable: No Interval Events: doing better Allergies: Coded Allergies: No Known Allergies (Unverified , 06/22/18) Objective Last 24 Hour Vital Signs Date Time Temp Pulse Resp B/P (MAP) Pulse Ox O2 Delivery O2 Flow Rate FiO2 06/23/18 10:20 91 158/76 06/23/18 10:20 91 158/76 06/23/18 04:00 91 06/23/18 04:00 98.0 98 18 158/76 (103) 97 06/23/18 00:00 106 06/23/18 00:00 97.9 101 24 158/76 (103) 96 06/22/18 22:08 165/86 06/22/18 21:50 90 165/86 (112) 06/22/18 21:00 Room Air 06/22/18 20:00 98.0 97 24 162/88 (112) 96 06/22/18 20:00 93 06/22/18 16:00 77 06/22/18 15:19 Room Air Intake and Output 06/22/18 06/23/18 19:00 07:00 Intake Total 240 ml Output Total 15 ml Balance 225 ml Intake Oral 240 ml Emesis 15 ml # Voids 3 4 General Appearance: WD/WN HEENT: normocephalic Respiratory/Chest: chest wall non-tender, lungs clear Breasts: no masses Cardiovascular: normal peripheral pulses Abdomen: normal bowel sounds, no organomegaly Genitourinary: normal external genitalia Extremities: no clubbing Skin: no rash Microbiology Date/Time Source Procedure Growth Status 06/22/18 18:55 Urine,Clean Catch Urine Culture - Preliminary NO GROWTH Resulted 06/22/18 09:04 Urine,Clean Catch Urine Culture - Preliminary Gram Negative Alfredo Resulted Laboratory Tests 06/22/18 15:20: Troponin I 0.055 06/22/18 18:55: Urine Color Pale yellow, Urine Appearance Cloudy, Urine pH 8, Urine Specific [place] 1.010, Urine Protein Negative, Urine Glucose (UA) Negative, Urine Ketones Negative, Urine Blood 2+H, Urine Nitrite Negative, Urine Bilirubin Negative, Urine Urobilinogen Normal, Urine Leukocyte Esterase 3+H, Urine RBC 2- 4H, Urine WBC 40-60H, Urine Squamous Epithelial Cells ModerateH, Urine Bacteria ManyH, Urine Eosinophils None seen, Urine Random Creatinine [Pending], Urine Random Microalbumin [Pending], Urine Random Sodium 58, Urine Creatinine 38.4, Urine Microalbumin/Creatinine Ratio [Pending], Urine Potassium Timed 24 06/23/18 06:23: Troponin I 0.054, White Blood Count 11.4H, Red Blood Count 4.91, Hemoglobin 13.8 , Hematocrit 42.7, Mean Corpuscular Volume 87, Mean Corpuscular Hemoglobin 28.1 , Mean Corpuscular Hemoglobin Concent 32.4, Red Cell Distribution Width 12.7, Platelet Count 332, Mean Platelet Volume 5.8L, Neutrophils (%) (Auto) 70.8, Lymphocytes (%) (Auto) 19.7L, Monocytes (%) (Auto) 8.2, Eosinophils (%) (Auto) 0.6, Basophils (%) (Auto) 0.7, Activated Partial Thromboplast Time 26, Sodium Level 142, Potassium Level 3.6, Chloride Level 104, Carbon Dioxide Level 29, Anion Gap 10, Blood Urea Nitrogen 17, Creatinine 1.2, Estimat Glomerular Filtration Rate , Glucose Level 133H, Hemoglobin A1c 6.6H, Lactic Acid Level 1.40, Calcium Level 9.5, Total Bilirubin 0.5, Aspartate Amino Transf (AST/SGOT) 29, Alanine Aminotransferase (ALT/SGPT) 26, Alkaline Phosphatase 68, Total Protein 7.2, Albumin 3.5, Globulin 3.7, Albumin/Globulin Ratio 0.9L, Amylase Level 39, Lipase 147 Current Medications Medications (Trade) Dose Ordered Sig/Radha Route PRN Reason Start Time Stop Time Status Last Admin Dose Admin Acetaminophen (Tylenol) 650 mg Q4H PRN ORAL fever 06/22/18 10:15 07/22/18 10:14 Al Hydroxide/Mg Hydroxide (Mylanta II) 30 ml Q6H PRN ORAL dyspepsia 06/22/18 10:15 07/22/18 10:14 Amlodipine Besylate (Norvasc) 10 mg DAILY ORAL 06/23/18 09:00 07/23/18 08:59 06/23/18 10:20 Dextrose (Dextrose 50%) 25 ml Q30M PRN IV Hypoglycemia 06/22/18 10:15 07/22/18 10:14 Dextrose (Dextrose 50%) 50 ml Q30M PRN IV Hypoglycemia 06/22/18 10:15 07/22/18 10:14 Dextrose/Sodium Chloride 1,000 ml @ 75 mls/hr [id number] IV 06/22/18 10:30 07/22/18 10:29 06/22/18 11:45 Diphenhydramine HCl (Benadryl) 25 mg Q6H PRN ORAL Itching/Pruritis 06/22/18 10:15 07/22/18 10:14 Heparin Sodium (Porcine) (Heparin 5000 units/ml) 5,000 units EVERY 12 HOURS SUBQ 06/22/18 21:00 07/22/18 20:59 06/22/18 22:18 Hydralazine HCl (Apresoline) 50 mg Q6H PRN ORAL for SBP > 160 06/22/18 21:52 07/22/18 21:51 06/22/18 22:08 Levofloxacin 50 ml @ 50 mls/hr Q24H IVPB 06/23/18 14:00 06/30/18 13:59 Meclizine HCl (Antivert) 25 mg Q6H PRN ORAL for dizziness 06/22/18 08:00 07/22/18 07:59 06/23/18 10:19 Metoprolol Succinate (Toprol XL) 50 mg DAILY ORAL 06/23/18 09:00 07/23/18 08:59 06/23/18 10:20 Morphine Sulfate (Morphine Sulfate) 2 mg Q4H PRN IVP severe Pain (Pain Scale 7-10) 06/22/18 10:15 06/29/18 10:14 Nitroglycerin (Ntg) 0.4 mg Q5M X 3 DOSES PRN SL Prn Chest Pain 06/22/18 10:15 07/22/18 10:14 Ondansetron HCl (Zofran) 4 mg Q6H PRN IVP Nausea & Vomiting 06/22/18 10:15 07/22/18 10:14 Pantoprazole (Protonix) 40 mg DAILY IVP 06/23/18 09:00 07/23/18 08:59 06/23/18 10:19 Polyethylene Glycol (Miralax) 17 gm HSPRN PRN ORAL Constipation 06/22/18 10:15 07/22/18 10:14 Temazepam (Restoril) 15 mg HSPRN PRN ORAL Insomnia 06/22/18 10:15 06/29/18 10:14 Laci Pat MD Jun 23, 2018 13:07
[2018-06-23] MEDS: D5 1/2NS 1,000 ML IV SCH ×2 (13:14→20:00)
--- NOTE | 2018-06-23 13:19 | NUR ---
NURSE NOTES: Patient arrived to [facility] at 1:10pm. Received report from Clarice Mejia RN. Reported included sigmoid colon mass and only partial colonoscopy. Dr. Velazquez went and spoke with family and patient to discuss findings. Patient was reenforced NPO status for CT of chest and abd/pelvis. Will be endorsed to primary nurse.
[2018-06-23] MEDS ORDERED: Levofloxacin 250mg/D5W 50ml IVPB SCH (14:00)
[2018-06-23] MEDS: HydrALAZINE 50mg tab ORAL PRN (15:01)
--- NOTE | 2018-06-23 15:43 | Infectious Diseases Prog Note ---
Assessment/Plan Assessment/Plan Assessment: Dizziness/Nausea/vomiting- has positive trops - ?NSTEMI vs viral gastroenteritis ; 2nd and 3rd trop normal -KUB: no acute findings -CT head: no acute findings Afebrile Mild leukocytosis- suspect reactive; improving -CXR: No acute process. Bacteriuria (assymptomatic) -u/a no pyuria, ucx >100k GNR; repeat u/a wbc 60-80, nit neg, leuk +3, sq cells moderate; ucx NTD AVA vs CKD; imrpoving Hypokalemia -renal US: Borderline small kidneys with the areas of scarring particularly in the right kidney.No hydronephrosis.Liver cysts. HTN Plan: -Noticed Levaquin #2 started per primary team -f/u cx -Monitor CBC/CMP, temperatures -f/u Influenza sc -Cards, GI, renal f/u -aspiration precautions Thank you for this consultation. Will continue to follow along with you. Discussed with RN. Subjective Allergies: Coded Allergies: No Known Allergies (Unverified , 06/22/18) Subjective afebrile wbc improving started on levaquin per primary Objective Vital Signs Last 24 Hour Vital Signs Date Time Temp Pulse Resp B/P (MAP) Pulse Ox O2 Delivery O2 Flow Rate FiO2 06/23/18 15:01 175/87 06/23/18 12:00 101 06/23/18 10:20 91 158/76 06/23/18 10:20 91 158/76 06/23/18 09:00 Room Air 06/23/18 08:00 98 06/23/18 04:00 91 06/23/18 04:00 98.0 98 18 158/76 (103) 97 06/23/18 00:00 106 06/23/18 00:00 97.9 101 24 158/76 (103) 96 06/22/18 22:08 165/86 06/22/18 21:50 90 165/86 (112) 06/22/18 21:00 Room Air 06/22/18 20:00 98.0 97 24 162/88 (112) 96 06/22/18 20:00 93 06/22/18 16:00 77 Height (Feet): 5 Height (Inches): 2.00 Weight (Pounds): 175 Objective General Appearance: no apparent distress, alert, non-toxic Head: normocephalic Eyes: bilateral eye normal inspection, bilateral eye PERRL, bilateral eye EOMI ENT: normal ENT inspection, hearing grossly normal, normal pharynx, no angioedema, normal voice, moist mucus membranes Neck: normal inspection, full range of motion, supple, supple/symm/no masses Respiratory: chest non-tender, lungs clear, normal breath sounds, speaking full sentences, chest symmetrical, palpation of chest normal Cardiovascular: normal peripheral pulses, regular rate, rhythm, no edema, no gallop, no JVD, no murmur, no rub Gastrointestinal: normal inspection, non tender, soft, no mass, no guarding, no rebound Genitourinary: normal inspection, no CVA tenderness Musculoskeletal: back normal, gait/station normal, normal range of motion, non- tender, no calf tenderness, Nelli's Sign negative Neurologic: alert, oriented x3, responsive, gore maker III-XII nml as tested, motor strength/tone normal, sensory intact, speech normal, nystagmus - Positive horizontal bilaterally Skin: normal color, no rash, warm/dry, normal turgor Microbiology Date/Time Source Procedure Growth Status 06/22/18 18:55 Urine,Clean Catch Urine Culture - Preliminary NO GROWTH Resulted 06/22/18 09:04 Urine,Clean Catch Urine Culture - Preliminary Gram Negative Alfredo Resulted Laboratory Tests Test 06/22/18 18:55 06/23/18 06:23 Urine Color Pale yellow Urine Appearance Cloudy Urine pH 8 (4.5-8.0) Urine Specific [place] 1.010 (1.005-1.035) Urine Protein Negative (NEGATIVE) Urine Glucose (UA) Negative (NEGATIVE) Urine Ketones Negative (NEGATIVE) Urine Blood 2+ (NEGATIVE) H Urine Nitrite Negative (NEGATIVE) Urine Bilirubin Negative (NEGATIVE) Urine Urobilinogen Normal MG/DL (0.0-1.0) Urine Leukocyte Esterase 3+ (NEGATIVE) H Urine RBC 2-4 /HPF (0 - 2) H Urine WBC 40-60 /HPF (0 - 2) H Urine Squamous Epithelial Cells Moderate /LPF (NONE/OCC) H Urine Bacteria Many /HPF (NONE) H Urine Eosinophils None seen (NONE SEEN) Urine Random Creatinine Pending Urine Random Microalbumin Pending Urine Random Sodium 58 mmol/L (20-110) Urine Creatinine 38.4 MG/DL (30.0-125.0) Urine Microalbumin/Creatinine Ratio Pending Urine Potassium Timed 24 mmol/L (12-62) White Blood Count 11.4 K/UL (4.8-10.8) H Red Blood Count 4.91 M/UL (4.20-5.40) Hemoglobin 13.8 G/DL (12.0-16.0) Hematocrit 42.7 % (37.0-47.0) Mean Corpuscular Volume 87 FL (80-99) Mean Corpuscular Hemoglobin 28.1 PG (27.0-31.0) Mean Corpuscular Hemoglobin Concent 32.4 G/DL (32.0-36.0) Red Cell Distribution Width 12.7 % (11.6-14.8) Platelet Count 332 K/UL (150-450) Mean Platelet Volume 5.8 FL (6.5-10.1) L Neutrophils (%) (Auto) 70.8 % (45.0-75.0) Lymphocytes (%) (Auto) 19.7 % (20.0-45.0) L Monocytes (%) (Auto) 8.2 % (1.0-10.0) Eosinophils (%) (Auto) 0.6 % (0.0-3.0) Basophils (%) (Auto) 0.7 % (0.0-2.0) Activated Partial Thromboplast Time 26 SEC (23-33) Sodium Level 142 MMOL/L (136-145) Potassium Level 3.6 MMOL/L (3.5-5.1) Chloride Level 104 MMOL/L (98-107) Carbon Dioxide Level 29 MMOL/L (21-32) Anion Gap 10 mmol/L (5-15) Blood Urea Nitrogen 17 mg/dL (7-18) Creatinine 1.2 MG/DL (0.55-1.30) Estimat Glomerular Filtration Rate mL/min (>60) Glucose Level 133 MG/DL (74-106) H Hemoglobin A1c 6.6 % (4.3-6.0) H Lactic Acid Level 1.40 mmol/L (0.4-2.0) Calcium Level 9.5 MG/DL (8.5-10.1) Total Bilirubin 0.5 MG/DL (0.2-1.0) Aspartate Amino Transf (AST/SGOT) 29 U/L (15-37) Alanine Aminotransferase (ALT/SGPT) 26 U/L (12-78) Alkaline Phosphatase 68 U/L (46-116) Troponin I 0.054 ng/mL (0.000-0.056) Total Protein 7.2 G/DL (6.4-8.2) Albumin 3.5 G/DL (3.4-5.0) Globulin 3.7 g/dL Albumin/Globulin Ratio 0.9 (1.0-2.7) L Amylase Level 39 U/L (25-115) Lipase 147 U/L (73-393) Current Medications Medications (Trade) Dose Ordered Sig/Radha Route PRN Reason Start Time Stop Time Status Last Admin Dose Admin Acetaminophen (Tylenol) 650 mg Q4H PRN ORAL fever 06/22/18 10:15 07/22/18 10:14 Al Hydroxide/Mg Hydroxide (Mylanta II) 30 ml Q6H PRN ORAL dyspepsia 06/22/18 10:15 07/22/18 10:14 Amlodipine Besylate (Norvasc) 10 mg DAILY ORAL 06/23/18 09:00 07/23/18 08:59 06/23/18 10:20 Dextrose (Dextrose 50%) 25 ml Q30M PRN IV Hypoglycemia 06/22/18 10:15 07/22/18 10:14 Dextrose (Dextrose 50%) 50 ml Q30M PRN IV Hypoglycemia 06/22/18 10:15 07/22/18 10:14 Dextrose/Sodium Chloride 1,000 ml @ 75 mls/hr [id number] IV 06/22/18 10:30 07/22/18 10:29 06/23/18 13:14 Diphenhydramine HCl (Benadryl) 25 mg Q6H PRN ORAL Itching/Pruritis 06/22/18 10:15 07/22/18 10:14 Heparin Sodium (Porcine) (Heparin 5000 units/ml) 5,000 units EVERY 12 HOURS SUBQ 06/22/18 21:00 07/22/18 20:59 06/22/18 22:18 Hydralazine HCl (Apresoline) 50 mg Q6H PRN ORAL for SBP > 160 06/22/18 21:52 07/22/18 21:51 06/23/18 15:01 Levofloxacin 50 ml @ 50 mls/hr Q24H IVPB 06/23/18 14:00 06/30/18 13:59 06/23/18 14:25 Meclizine HCl (Antivert) 25 mg Q6H PRN ORAL for dizziness 06/22/18 08:00 07/22/18 07:59 06/23/18 10:19 Metoprolol Succinate (Toprol XL) 50 mg DAILY ORAL 06/23/18 09:00 07/23/18 08:59 06/23/18 10:20 Morphine Sulfate (Morphine Sulfate) 2 mg Q4H PRN IVP severe Pain (Pain Scale 7-10) 06/22/18 10:15 06/29/18 10:14 Nitroglycerin (Ntg) 0.4 mg Q5M X 3 DOSES PRN SL Prn Chest Pain 06/22/18 10:15 07/22/18 10:14 Ondansetron HCl (Zofran) 4 mg Q6H PRN IVP Nausea & Vomiting 06/22/18 10:15 07/22/18 10:14 Pantoprazole (Protonix) 40 mg DAILY IVP 06/23/18 09:00 07/23/18 08:59 06/23/18 10:19 Polyethylene Glycol (Miralax) 17 gm HSPRN PRN ORAL Constipation 06/22/18 10:15 07/22/18 10:14 Temazepam (Restoril) 15 mg HSPRN PRN ORAL Insomnia 06/22/18 10:15 06/29/18 10:14 Izabel Mary M.D. Jun 23, 2018 15:43
--- NOTE | 2018-06-23 16:00 | NUR ---
NURSE NOTES: Pt awake/alert in bed breathing easily on room air, moved to rm [id number] with belongings, chart, bin meds and IV pump. Family at bedside. Report given to PAUL Gutierrez.
--- NOTE | 2018-06-23 18:24 | Internal Med Progress Note ---
Subjective Date of Service: Jun 23, 2018 Physician Name Shailesh Li Attending Physician Oscar Stanton MD Current Medications Medications (Trade) Dose Ordered Sig/Radha Route PRN Reason Start Time Stop Time Status Last Admin Dose Admin Acetaminophen (Tylenol) 650 mg Q4H PRN ORAL fever 06/22/18 10:15 07/22/18 10:14 Al Hydroxide/Mg Hydroxide (Mylanta II) 30 ml Q6H PRN ORAL dyspepsia 06/22/18 10:15 07/22/18 10:14 Amlodipine Besylate (Norvasc) 10 mg DAILY ORAL 06/23/18 09:00 07/23/18 08:59 06/23/18 10:20 Dextrose (Dextrose 50%) 25 ml Q30M PRN IV Hypoglycemia 06/22/18 10:15 07/22/18 10:14 Dextrose (Dextrose 50%) 50 ml Q30M PRN IV Hypoglycemia 06/22/18 10:15 07/22/18 10:14 Dextrose/Sodium Chloride 1,000 ml @ 75 mls/hr [id number] IV 06/22/18 10:30 07/22/18 10:29 06/23/18 13:14 Diphenhydramine HCl (Benadryl) 25 mg Q6H PRN ORAL Itching/Pruritis 06/22/18 10:15 07/22/18 10:14 Heparin Sodium (Porcine) (Heparin 5000 units/ml) 5,000 units EVERY 12 HOURS SUBQ 06/22/18 21:00 07/22/18 20:59 06/22/18 22:18 Hydralazine HCl (Apresoline) 50 mg Q6H PRN ORAL for SBP > 160 06/22/18 21:52 07/22/18 21:51 06/23/18 15:01 Levofloxacin 50 ml @ 50 mls/hr Q24H IVPB 06/23/18 14:00 06/30/18 13:59 06/23/18 14:25 Meclizine HCl (Antivert) 25 mg Q6H PRN ORAL for dizziness 06/22/18 08:00 07/22/18 07:59 06/23/18 10:19 Metoprolol Succinate (Toprol XL) 50 mg DAILY ORAL 06/23/18 09:00 07/23/18 08:59 06/23/18 10:20 Morphine Sulfate (Morphine Sulfate) 2 mg Q4H PRN IVP severe Pain (Pain Scale 7-10) 06/22/18 10:15 06/29/18 10:14 Nitroglycerin (Ntg) 0.4 mg Q5M X 3 DOSES PRN SL Prn Chest Pain 06/22/18 10:15 07/22/18 10:14 Ondansetron HCl (Zofran) 4 mg Q6H PRN IVP Nausea & Vomiting 06/22/18 10:15 07/22/18 10:14 Pantoprazole (Protonix) 40 mg DAILY IVP 06/23/18 09:00 07/23/18 08:59 06/23/18 10:19 Polyethylene Glycol (Miralax) 17 gm HSPRN PRN ORAL Constipation 06/22/18 10:15 07/22/18 10:14 Temazepam (Restoril) 15 mg HSPRN PRN ORAL Insomnia 06/22/18 10:15 06/29/18 10:14 Allergies: Coded Allergies: No Known Allergies (Unverified , 06/22/18) ROS Limited/Unobtainable: No Constitutional: Reports: no symptoms HEENT: Reports: no symptoms Cardiovascular: Reports: no symptoms Respiratory: Reports: no symptoms Gastrointestinal/Abdominal: Reports: no symptoms Genitourinary: Reports: no symptoms Neurologic/Psychiatric: Reports: headache Subjective 83 YO F admitted with vertigo. Now UTI and elevated troponin. Cover for Int Miles-Dr Orourke Objective Last Vital Signs Date Time Temp Pulse Resp B/P (MAP) Pulse Ox O2 Delivery O2 Flow Rate FiO2 06/23/18 16:00 97.6 116 20 165/81 (109) 97 06/23/18 09:00 Room Air Laboratory Tests Test 06/22/18 18:55 06/23/18 06:23 Urine Color Pale yellow Urine Appearance Cloudy Urine pH 8 (4.5-8.0) Urine Specific [place] 1.010 (1.005-1.035) Urine Protein Negative (NEGATIVE) Urine Glucose (UA) Negative (NEGATIVE) Urine Ketones Negative (NEGATIVE) Urine Blood 2+ (NEGATIVE) H Urine Nitrite Negative (NEGATIVE) Urine Bilirubin Negative (NEGATIVE) Urine Urobilinogen Normal MG/DL (0.0-1.0) Urine Leukocyte Esterase 3+ (NEGATIVE) H Urine RBC 2-4 /HPF (0 - 2) H Urine WBC 40-60 /HPF (0 - 2) H Urine Squamous Epithelial Cells Moderate /LPF (NONE/OCC) H Urine Bacteria Many /HPF (NONE) H Urine Eosinophils None seen (NONE SEEN) Urine Random Creatinine Pending Urine Random Microalbumin Pending Urine Random Sodium 58 mmol/L (20-110) Urine Creatinine 38.4 MG/DL (30.0-125.0) Urine Microalbumin/Creatinine Ratio Pending Urine Potassium Timed 24 mmol/L (12-62) White Blood Count 11.4 K/UL (4.8-10.8) H Red Blood Count 4.91 M/UL (4.20-5.40) Hemoglobin 13.8 G/DL (12.0-16.0) Hematocrit 42.7 % (37.0-47.0) Mean Corpuscular Volume 87 FL (80-99) Mean Corpuscular Hemoglobin 28.1 PG (27.0-31.0) Mean Corpuscular Hemoglobin Concent 32.4 G/DL (32.0-36.0) Red Cell Distribution Width 12.7 % (11.6-14.8) Platelet Count 332 K/UL (150-450) Mean Platelet Volume 5.8 FL (6.5-10.1) L Neutrophils (%) (Auto) 70.8 % (45.0-75.0) Lymphocytes (%) (Auto) 19.7 % (20.0-45.0) L Monocytes (%) (Auto) 8.2 % (1.0-10.0) Eosinophils (%) (Auto) 0.6 % (0.0-3.0) Basophils (%) (Auto) 0.7 % (0.0-2.0) Activated Partial Thromboplast Time 26 SEC (23-33) Sodium Level 142 MMOL/L (136-145) Potassium Level 3.6 MMOL/L (3.5-5.1) Chloride Level 104 MMOL/L (98-107) Carbon Dioxide Level 29 MMOL/L (21-32) Anion Gap 10 mmol/L (5-15) Blood Urea Nitrogen 17 mg/dL (7-18) Creatinine 1.2 MG/DL (0.55-1.30) Estimat Glomerular Filtration Rate mL/min (>60) Glucose Level 133 MG/DL (74-106) H Hemoglobin A1c 6.6 % (4.3-6.0) H Lactic Acid Level 1.40 mmol/L (0.4-2.0) Calcium Level 9.5 MG/DL (8.5-10.1) Total Bilirubin 0.5 MG/DL (0.2-1.0) Aspartate Amino Transf (AST/SGOT) 29 U/L (15-37) Alanine Aminotransferase (ALT/SGPT) 26 U/L (12-78) Alkaline Phosphatase 68 U/L (46-116) Troponin I 0.054 ng/mL (0.000-0.056) Total Protein 7.2 G/DL (6.4-8.2) Albumin 3.5 G/DL (3.4-5.0) Globulin 3.7 g/dL Albumin/Globulin Ratio 0.9 (1.0-2.7) L Amylase Level 39 U/L (25-115) Lipase 147 U/L (73-393) Microbiology Date/Time Source Procedure Growth Status 06/22/18 18:55 Urine,Clean Catch Urine Culture - Preliminary NO GROWTH Resulted 06/22/18 09:04 Urine,Clean Catch Urine Culture - Preliminary Gram Negative Alfredo Resulted Intake and Output 06/22/18 06/23/18 19:00 07:00 Intake Total 240 ml Output Total 15 ml Balance 225 ml Intake Oral 240 ml Emesis 15 ml # Voids 3 4 Objective PHYSICAL EXAMINATION: GENERAL: The patient is well-developed and well-nourished female, in no apparent distress. HEENT: Eyes, pupils are equal and responsive to light and accommodation. Extraocular movements are intact. NECK: Supple without lymphadenopathy. CHEST: Lungs are clear to auscultation bilaterally without wheezes or rales. CARDIOVASCULAR: Regular rhythm and rate. S1 and S2 are normal without murmurs, rubs, or gallops. ABDOMEN: Ssoft, nontender, and nondistended. Positive bowel sounds. No evidence of hepatosplenomegaly. Currently, no rebound or guarding noted. EXTREMITIES: Negative for clubbing, cyanosis, or edema. RECTAL/GENITAL: Refused. NEUROLOGIC: Cranial nerves II through XII are grossly intact without focal deficits. Motor strength is 5/5 bilaterally. Deep tendon reflexes are 2+ plantar. Assessment/Plan Assessment/Plan ASSESSMENT: This is an 83-year-old female. 1. Vertigo. 2. Nausea with vomiting. 3. Hypertension. 4. Urinary tract infection. TREATMENT: 1. Urinary tract infection. The patient has been started empirically on Levaquin. A culture and sensitivity is pending. Await results of culture and sensitivity as above. 2. Vertigo. This may be secondary to urinary tract infection versus benign positional vertigo. Vertigo is worse with change of head position. 3. Nausea with vomiting. A Gastroenterology consultation has been obtained with Dr. Giacomo Osborne. 4. Hypertension. Continue amlodipine, clonidine, losartan/hydrochlorothiazide, and metoprolol as above. Shailesh Li MD Jun 23, 2018 18:24
--- NOTE | 2018-06-23 19:02 | NUR ---
HAND-OFF: Report given to MOLINA Ken.
--- NOTE | 2018-06-23 19:30 | NUR ---
NURSE NOTES: RECEIVED PATIENT LYING IN BED, AWAKE, ALERT/ORIENTED X4, ABLE TO VERBALIZE NEEDS, WITH COMPLAINTS OF INTERMITTENT VERTIGO, NO SIGNS AND SYMPTOMS OF ACUTE CARDIO RESPIRATORY DISTRESS/SHORTNESS OF BREATH, DENIES CHEST PAIN, NO PERIPHERAL EDEMA NOTED. CONTINENT OF B/B, BEDPAN WITHIN REACH; ABDOMEN SOFT/NON DISTENDED, BOWEL SOUNDS AUDIBLE. SIDE RAILS UP X3/BED IN LOWEST POSITION FOR SAFETY. ENCOURAGED PATIENT NOT TO ATTEMPT AMBULATION INDEPENDENTLY FOR PREVENTIVE MEASURES, VERBALIZED UNDERSTANDING. CALL LIGHT WITHIN EAST ACCESS AT ALL TIMES. FREQUENT ROUNDING FOR SAFETY/NEEDS.
[2018-06-23] MEDS ORDERED: Mylanta II UD 30ml ORAL PRN (19:46)
[2018-06-23] MEDS ORDERED: Nitroglycerin Subl 0.4mg tab SL PRN (19:46)
[2018-06-23] MEDS ORDERED: HydrALAZINE 50mg tab ORAL PRN (19:48)
[2018-06-23] MEDS ORDERED: Morphine Sulfate 2mg/ml Inj(IV/IM USE ONLY) IVP PRN (19:48)
[2018-06-23] MEDS ORDERED: Meclizine 25mg tab ORAL PRN (19:48)
[2018-06-23] MEDS ORDERED: Miralax 17gm pkt ORAL PRN (21:00)
--- NOTE | 2018-06-23 21:59 | Cardiology Report ---
APPROVED REPORT EKG Measurement Heart [id number] Sinus rhythm with 1st degree AV block Possible Left atrial enlargement Borderline ECG
[2018-06-24] VITALS: BP 107/69
[2018-06-24 04:00] VITALS: BP 136/65
[2018-06-24] MEDS: D5 1/2NS 1,000 ML IV SCH (05:11)
--- NOTE | 2018-06-24 06:17 | NUR ---
NURSE NOTES: RESTED WELL, NO SIGNIFICANT CHANGE OF CONDITION NOTED THROUGHOUT THE NIGHT. SAFETY MAINTAINED. NAD.
[2018-06-24 07:42] LABS: BASOPHILS % (AUTO) 0.9 % (0.0-2.0); EOSINOPHILS % (AUTO) 1.4 % (0.0-3.0); HEMOGLOBIN 14.4 G/DL (12.0-16.0); LYMPHOCYTES % (AUTO) 31.4 % (20.0-45.0); MEAN CORPUSCULAR VOLUME 87 FL (80-99); MONOCYTES % (AUTO) 7.7 % (1.0-10.0); NEUTROPHILS % (AUTO) 58.6 % (45.0-75.0); PLATELET COUNT 335 K/UL (150-450); RED BLOOD COUNT 5.17 M/UL (4.20-5.40); RED CELL DISTRIBUTION WIDTH 12.9 % (11.6-14.8); WHITE BLOOD COUNT 9.7 K/UL (4.8-10.8)
--- NOTE | 2018-06-24 07:48 | NUR ---
HAND-OFF: Report given to MOLINA BENNETT.
[2018-06-24 08:00] VITALS: BP 134/77
--- NOTE | 2018-06-24 08:00 | NUR ---
NURSE NOTES: PATIENT IS VERBALLY RESPONSIVE. ABLE TO TOLERATE FULL LIQUID DIET THIS BREAKFAST. NO ACUTE RESP DISTRESS NOTED. NO DIZZINESS SPELLS NOTED @ THIS TIME. KEEP BED IN THE LOWEST POSITION. SIDERAILS ARE UP X3. CALL LIGHT IS WITHIN REACH. BED ALARM IS ACTIVATED. WILL CONT TO MONITOR.
[2018-06-24 08:17] LABS: ANION GAP 9 mmol/L (5-15); BLOOD UREA NITROGEN 15 mg/dL (7-18); CALCIUM 9.5 MG/DL (8.5-10.1); CARBON DIOXIDE 27 MMOL/L (21-32); CHLORIDE 106 MMOL/L (98-107); CREATININE 1.3 MG/DL (0.55-1.30); PHOSPHORUS 3.5 MG/DL (2.5-4.9); POTASSIUM 3.5 MMOL/L (3.5-5.1); SODIUM 142 MMOL/L (136-145)
[2018-06-24] MEDS: Metoprolol Succinate XL 50mg tab ORAL SCH (09:05)
[2018-06-24] MEDS: Heparin 5000 units/ml inj SUBQ SCH ×2 (09:09→21:19)
[2018-06-24] MEDS: Pantoprazole Inj IVP SCH (09:19)
--- NOTE | 2018-06-24 09:45 | General Progress Note ---
Assessment/Plan Problem List: (1) New onset type 2 diabetes mellitus ICD Codes: E11.9 - Type 2 diabetes mellitus without complications SNOMED: 36233132 (2) Constipation ICD Codes: K59.00 - Constipation, unspecified SNOMED: 65479096 (3) UTI (urinary tract infection) ICD Codes: N39.0 - Urinary tract infection, site not specified SNOMED: 00850158 (4) History of hypertension ICD Codes: Z86.79 - Personal history of other diseases of the circulatory system SNOMED: 157527790 (5) Vertigo ICD Codes: R42 - Dizziness and giddiness SNOMED: 209576694 (6) Intractable nausea and vomiting ICD Codes: R11.2 - Nausea with vomiting, unspecified SNOMED: 594482662 Status: unchanged Assessment/Plan: bowel regimen advance diet consider colonoscopy either as in patient if nausea better o/w as out patient Subjective ROS Limited/Unobtainable: Yes Allergies: Coded Allergies: No Known Allergies (Unverified , 06/22/18) Subjective c/o constipation Objective Last 24 Hour Vital Signs Date Time Temp Pulse Resp B/P (MAP) Pulse Ox O2 Delivery O2 Flow Rate FiO2 06/24/18 09:05 109 134/77 06/24/18 09:05 109 134/77 06/24/18 09:00 Room Air 06/24/18 08:00 98.1 109 20 134/77 (96) 99 06/24/18 04:00 98.0 107 20 136/65 (88) 97 06/24/18 00:00 97.4 101 20 107/69 (82) 06/23/18 21:53 105 152/71 (98) 06/23/18 21:39 162/71 06/23/18 21:00 Room Air 06/23/18 20:00 98.9 108 20 176/97 (123) 98 06/23/18 16:00 97.6 116 20 165/81 (109) 97 06/23/18 15:01 175/87 06/23/18 12:00 101 06/23/18 12:00 98.2 101 18 157/76 (103) 96 06/23/18 10:20 91 158/76 06/23/18 10:20 91 158/76 Intake and Output 06/23/18 06/24/18 19:00 07:00 Intake Total 120 ml 1230 ml Output Total 500 ml Balance -380 ml 1230 ml Intake Oral 120 ml 480 ml IV Total 750 ml Output Urine Total 500 ml Laboratory Tests 06/24/18 06:13: White Blood Count 9.7, Red Blood Count 5.17, Hemoglobin 14.4, Hematocrit 45.0, Mean Corpuscular Volume 87, Mean Corpuscular Hemoglobin 27.9, Mean Corpuscular Hemoglobin Concent 32.0, Red Cell Distribution Width 12.9, Platelet Count 335, Mean Platelet Volume 5.7L, Neutrophils (%) (Auto) 58.6, Lymphocytes (%) (Auto) 31.4, Monocytes (%) (Auto) 7.7, Eosinophils (%) (Auto) 1.4, Basophils (%) (Auto ) 0.9, Sodium Level 142, Potassium Level 3.5, Chloride Level 106, Carbon Dioxide Level 27, Anion Gap 9, Blood Urea Nitrogen 15, Creatinine 1.3, Estimat Glomerular Filtration Rate , Glucose Level 115H, Calcium Level 9.5, Phosphorus Level 3.5, Magnesium Level 2.0 Height (Feet): 5 Height (Inches): 2.00 Weight (Pounds): 175 General Appearance: alert EENT: normal ENT inspection Neck: supple Cardiovascular: normal rate Respiratory/Chest: lungs clear Abdomen: normal bowel sounds, non tender, soft Extremities: non-tender Giacomo Osborne MD Jun 24, 2018 09:45
--- NOTE | 2018-06-24 10:31 | Infectious Diseases Prog Note ---
Assessment/Plan Assessment/Plan Assessment: Dizziness/Nausea/vomiting- has positive trops - ?NSTEMI vs viral gastroenteritis ; 2nd and 3rd trop normal -KUB: no acute findings -CT head: no acute findings Afebrile Mild leukocytosis- suspect reactive; resolved -CXR: No acute process. Bacteriuria (assymptomatic) -u/a no pyuria, ucx >100k E.coli (R Cipro, Levo,Amp); repeat u/a wbc 60-80, nit neg, leuk +3, sq cells moderate; ucx >100K GNR AVA vs CKD; imrpoving Hypokalemia, SP -renal US: Borderline small kidneys with the areas of scarring particularly in the right kidney.No hydronephrosis.Liver cysts. HTN Plan: -Noticed Levaquin #3 started per primary team -f/u cx -Monitor CBC/CMP, temperatures -f/u Influenza sc -Cards, GI, renal f/u -aspiration precautions Thank you for this consultation. Will continue to follow along with you. Discussed with RN. Subjective Allergies: Coded Allergies: No Known Allergies (Unverified , 06/22/18) Subjective afebrile leukocytosis resolved Objective Vital Signs Last 24 Hour Vital Signs Date Time Temp Pulse Resp B/P (MAP) Pulse Ox O2 Delivery O2 Flow Rate FiO2 06/24/18 09:05 109 134/77 06/24/18 09:05 109 134/77 06/24/18 09:00 Room Air 06/24/18 08:00 98.1 109 20 134/77 (96) 99 06/24/18 04:00 98.0 107 20 136/65 (88) 97 06/24/18 00:00 97.4 101 20 107/69 (82) 06/23/18 21:53 105 152/71 (98) 06/23/18 21:39 162/71 06/23/18 21:00 Room Air 06/23/18 20:00 98.9 108 20 176/97 (123) 98 06/23/18 16:00 97.6 116 20 165/81 (109) 97 06/23/18 15:01 175/87 06/23/18 12:00 101 06/23/18 12:00 98.2 101 18 157/76 (103) 96 Height (Feet): 5 Height (Inches): 2.00 Weight (Pounds): 175 Objective General Appearance: no apparent distress, alert, non-toxic Head: normocephalic Eyes: bilateral eye normal inspection, bilateral eye PERRL, bilateral eye EOMI ENT: normal ENT inspection, hearing grossly normal, normal pharynx, no angioedema, normal voice, moist mucus membranes Neck: normal inspection, full range of motion, supple, supple/symm/no masses Respiratory: chest non-tender, lungs clear, normal breath sounds, speaking full sentences, chest symmetrical, palpation of chest normal Cardiovascular: normal peripheral pulses, regular rate, rhythm, no edema, no gallop, no JVD, no murmur, no rub Gastrointestinal: normal inspection, non tender, soft, no mass, no guarding, no rebound Genitourinary: normal inspection, no CVA tenderness Musculoskeletal: back normal, gait/station normal, normal range of motion, non- tender, no calf tenderness, Nelli's Sign negative Neurologic: alert, oriented x3, responsive, hand sewer shoes III-XII nml as tested, motor strength/tone normal, sensory intact, speech normal, nystagmus - Positive horizontal bilaterally Skin: normal color, no rash, warm/dry, normal turgor Microbiology Date/Time Source Procedure Growth Status 06/22/18 18:55 Urine,Clean Catch Urine Culture - Preliminary Gram Negative Alfredo Resulted 06/22/18 09:04 Urine,Clean Catch Urine Culture - Final Escherichia Coli Complete Laboratory Tests Test 06/24/18 06:13 White Blood Count 9.7 K/UL (4.8-10.8) Red Blood Count 5.17 M/UL (4.20-5.40) Hemoglobin 14.4 G/DL (12.0-16.0) Hematocrit 45.0 % (37.0-47.0) Mean Corpuscular Volume 87 FL (80-99) Mean Corpuscular Hemoglobin 27.9 PG (27.0-31.0) Mean Corpuscular Hemoglobin Concent 32.0 G/DL (32.0-36.0) Red Cell Distribution Width 12.9 % (11.6-14.8) Platelet Count 335 K/UL (150-450) Mean Platelet Volume 5.7 FL (6.5-10.1) L Neutrophils (%) (Auto) 58.6 % (45.0-75.0) Lymphocytes (%) (Auto) 31.4 % (20.0-45.0) Monocytes (%) (Auto) 7.7 % (1.0-10.0) Eosinophils (%) (Auto) 1.4 % (0.0-3.0) Basophils (%) (Auto) 0.9 % (0.0-2.0) Sodium Level 142 MMOL/L (136-145) Potassium Level 3.5 MMOL/L (3.5-5.1) Chloride Level 106 MMOL/L (98-107) Carbon Dioxide Level 27 MMOL/L (21-32) Anion Gap 9 mmol/L (5-15) Blood Urea Nitrogen 15 mg/dL (7-18) Creatinine 1.3 MG/DL (0.55-1.30) Estimat Glomerular Filtration Rate mL/min (>60) Glucose Level 115 MG/DL (74-106) H Calcium Level 9.5 MG/DL (8.5-10.1) Phosphorus Level 3.5 MG/DL (2.5-4.9) Magnesium Level 2.0 MG/DL (1.8-2.4) Current Medications Medications (Trade) Dose Ordered Sig/Radha Route PRN Reason Start Time Stop Time Status Last Admin Dose Admin Acetaminophen (Tylenol) 650 mg Q4H PRN ORAL fever 06/23/18 19:46 07/22/18 19:45 Al Hydroxide/Mg Hydroxide (Mylanta II) 30 ml Q6H PRN ORAL dyspepsia 06/23/18 19:46 07/22/18 19:45 Amlodipine Besylate (Norvasc) 10 mg DAILY ORAL 06/24/18 09:00 07/23/18 08:59 06/24/18 09:05 Bisacodyl (Dulcolax) 10 mg ONCE RECTAL 06/24/18 10:10 06/24/18 11:10 Dextrose (Dextrose 50%) 25 ml Q30M PRN IV Hypoglycemia 06/23/18 19:46 07/22/18 19:45 Dextrose (Dextrose 50%) 50 ml Q30M PRN IV Hypoglycemia 06/23/18 19:46 07/22/18 19:45 Dextrose/Sodium Chloride 1,000 ml @ 75 mls/hr [id number] IV 06/23/18 20:00 07/22/18 19:59 06/24/18 05:11 Diphenhydramine HCl (Benadryl) 25 mg Q6H PRN ORAL Itching/Pruritis 06/23/18 19:47 07/22/18 19:46 Docusate Sodium (Colace) 100 mg TWICE A DAY ORAL 06/24/18 18:00 07/24/18 17:59 Heparin Sodium (Porcine) (Heparin 5000 units/ml) 5,000 units EVERY 12 HOURS SUBQ 06/23/18 21:00 07/22/18 20:59 06/24/18 09:09 Hydralazine HCl (Apresoline) 50 mg Q6H PRN ORAL for SBP > 160 06/23/18 19:48 07/22/18 19:47 06/23/18 21:39 Levofloxacin 50 ml @ 50 mls/hr Q24H IVPB 06/24/18 14:00 06/30/18 13:59 Meclizine HCl (Antivert) 25 mg Q6H PRN ORAL for dizziness 06/23/18 19:48 07/22/18 19:47 Metoprolol Succinate (Toprol XL) 50 mg DAILY ORAL 06/24/18 09:00 07/23/18 08:59 06/24/18 09:05 Morphine Sulfate (Morphine Sulfate) 2 mg Q4H PRN IVP severe Pain (Pain Scale 7-10) 06/23/18 19:48 06/29/18 19:47 Nitroglycerin (Ntg) 0.4 mg Q5M X 3 DOSES PRN SL Prn Chest Pain 06/23/18 19:46 07/22/18 19:45 Ondansetron HCl (Zofran) 4 mg Q6H PRN IVP Nausea & Vomiting 06/23/18 19:46 07/22/18 19:45 06/24/18 09:30 Pantoprazole (Protonix) 40 mg DAILY IVP 06/24/18 09:00 07/23/18 08:59 06/24/18 09:19 Polyethylene Glycol (Miralax) 17 gm BEDTIME ORAL 06/24/18 21:00 07/24/18 20:59 Polyethylene Glycol (Miralax) 17 gm HSPRN PRN ORAL Constipation 06/23/18 21:00 07/23/18 20:59 Temazepam (Restoril) 15 mg HSPRN PRN ORAL Insomnia 06/23/18 21:00 06/30/18 20:59 Izabel Mary M.D. Jun 24, 2018 10:31
--- NOTE | 2018-06-24 11:02 | Pulmonology Progress Note ---
Assessment/Plan Problems: (1) Vertigo (2) Intractable nausea and vomiting (3) Non-ST elevation (NSTEMI) myocardial infarction (4) UTI (urinary tract infection) (5) History of hypertension Assessment/Plan improving, still some vertigo wbc lower urine cultures pending continue iv fluids check electrolytes dvt prophylaxis. Subjective ROS Limited/Unobtainable: No Constitutional: Reports: no symptoms Allergies: Coded Allergies: No Known Allergies (Unverified , 06/22/18) Objective Last 24 Hour Vital Signs Date Time Temp Pulse Resp B/P (MAP) Pulse Ox O2 Delivery O2 Flow Rate FiO2 06/24/18 09:05 109 134/77 06/24/18 09:05 109 134/77 06/24/18 09:00 Room Air 06/24/18 08:00 98.1 109 20 134/77 (96) 99 06/24/18 04:00 98.0 107 20 136/65 (88) 97 06/24/18 00:00 97.4 101 20 107/69 (82) 06/23/18 21:53 105 152/71 (98) 06/23/18 21:39 162/71 06/23/18 21:00 Room Air 06/23/18 20:00 98.9 108 20 176/97 (123) 98 06/23/18 16:00 97.6 116 20 165/81 (109) 97 06/23/18 15:01 175/87 06/23/18 12:00 101 06/23/18 12:00 98.2 101 18 157/76 (103) 96 Intake and Output 06/23/18 06/24/18 19:00 07:00 Intake Total 120 ml 1230 ml Output Total 500 ml Balance -380 ml 1230 ml Intake Oral 120 ml 480 ml IV Total 750 ml Output Urine Total 500 ml Objective General Appearance: WD/WN Lines, tubes and drains: peripheral HEENT: normocephalic, atraumatic Neck: non-tender, normal alignment Respiratory/Chest: chest wall non-tender, lungs clear Cardiovascular/Chest: normal peripheral pulses, normal rate Abdomen: normal bowel sounds Extremities: normal range of motion Microbiology Date/Time Source Procedure Growth Status 06/22/18 18:55 Urine,Clean Catch Urine Culture - Preliminary Gram Negative Alfredo Resulted 06/22/18 09:04 Urine,Clean Catch Urine Culture - Final Escherichia Coli Complete Laboratory Tests 06/24/18 06:13: White Blood Count 9.7, Red Blood Count 5.17, Hemoglobin 14.4, Hematocrit 45.0, Mean Corpuscular Volume 87, Mean Corpuscular Hemoglobin 27.9, Mean Corpuscular Hemoglobin Concent 32.0, Red Cell Distribution Width 12.9, Platelet Count 335, Mean Platelet Volume 5.7L, Neutrophils (%) (Auto) 58.6, Lymphocytes (%) (Auto) 31.4, Monocytes (%) (Auto) 7.7, Eosinophils (%) (Auto) 1.4, Basophils (%) (Auto ) 0.9, Sodium Level 142, Potassium Level 3.5, Chloride Level 106, Carbon Dioxide Level 27, Anion Gap 9, Blood Urea Nitrogen 15, Creatinine 1.3, Estimat Glomerular Filtration Rate , Glucose Level 115H, Calcium Level 9.5, Phosphorus Level 3.5, Magnesium Level 2.0 Current Medications Medications (Trade) Dose Ordered Sig/Radha Route PRN Reason Start Time Stop Time Status Last Admin Dose Admin Acetaminophen (Tylenol) 650 mg Q4H PRN ORAL fever 06/23/18 19:46 07/22/18 19:45 Al Hydroxide/Mg Hydroxide (Mylanta II) 30 ml Q6H PRN ORAL dyspepsia 06/23/18 19:46 07/22/18 19:45 Amlodipine Besylate (Norvasc) 10 mg DAILY ORAL 06/24/18 09:00 07/23/18 08:59 06/24/18 09:05 Bisacodyl (Dulcolax) 10 mg ONCE RECTAL 06/24/18 10:10 06/24/18 11:10 Dextrose (Dextrose 50%) 25 ml Q30M PRN IV Hypoglycemia 06/23/18 19:46 07/22/18 19:45 Dextrose (Dextrose 50%) 50 ml Q30M PRN IV Hypoglycemia 06/23/18 19:46 07/22/18 19:45 Dextrose/Sodium Chloride 1,000 ml @ 75 mls/hr [id number] IV 06/23/18 20:00 07/22/18 19:59 06/24/18 05:11 Diphenhydramine HCl (Benadryl) 25 mg Q6H PRN ORAL Itching/Pruritis 06/23/18 19:47 07/22/18 19:46 Docusate Sodium (Colace) 100 mg TWICE A DAY ORAL 06/24/18 18:00 07/24/18 17:59 Heparin Sodium (Porcine) (Heparin 5000 units/ml) 5,000 units EVERY 12 HOURS SUBQ 06/23/18 21:00 07/22/18 20:59 06/24/18 09:09 Hydralazine HCl (Apresoline) 50 mg Q6H PRN ORAL for SBP > 160 06/23/18 19:48 07/22/18 19:47 06/23/18 21:39 Levofloxacin 50 ml @ 50 mls/hr Q24H IVPB 06/24/18 14:00 06/30/18 13:59 Meclizine HCl (Antivert) 25 mg Q6H PRN ORAL for dizziness 06/23/18 19:48 07/22/18 19:47 Metoprolol Succinate (Toprol XL) 50 mg DAILY ORAL 06/24/18 09:00 07/23/18 08:59 06/24/18 09:05 Morphine Sulfate (Morphine Sulfate) 2 mg Q4H PRN IVP severe Pain (Pain Scale 7-10) 06/23/18 19:48 06/29/18 19:47 Nitroglycerin (Ntg) 0.4 mg Q5M X 3 DOSES PRN SL Prn Chest Pain 06/23/18 19:46 07/22/18 19:45 Ondansetron HCl (Zofran) 4 mg Q6H PRN IVP Nausea & Vomiting 06/23/18 19:46 07/22/18 19:45 06/24/18 09:30 Pantoprazole (Protonix) 40 mg DAILY IVP 06/24/18 09:00 07/23/18 08:59 06/24/18 09:19 Polyethylene Glycol (Miralax) 17 gm BEDTIME ORAL 06/24/18 21:00 07/24/18 20:59 Polyethylene Glycol (Miralax) 17 gm HSPRN PRN ORAL Constipation 06/23/18 21:00 07/23/18 20:59 Temazepam (Restoril) 15 mg HSPRN PRN ORAL Insomnia 06/23/18 21:00 06/30/18 20:59 Laci Pat MD Jun 24, 2018 11:02
[2018-06-24 12:00] VITALS: BP 148/76
--- NOTE | 2018-06-24 13:31 | Cardiology Report ---
APPROVED REPORT EXAM: Two-dimensional and M-mode echocardiogram with Doppler and color Doppler. INDICATION C.A.D M-Mode DIMENSIONS IVSd0.8 (0.7-1.1cm)Left Atrium (MM)3.1 (1.6-4.0cm) LVDd4.3 (3.5-5.6cm)Aortic Root2.4 (2.0-3.7cm) PWd0.8 (0.7-1.1cm)Aortic Cusp Exc.1.6 (1.5-2.0cm) IVSs1.3 cm LVDs2.5 (2.5-4.0cm) PWs1.3 cm Technically difficult study due to poor acoustical windows. Normal left ventricular chamber size, systolic function and wall motion to extent visualized. Left ventricular ejection fraction estimated to be 60-65%. No evidence of left ventricular hypertrophy . Anterior Echo-free space, may be due to pericardial fat or effusion. All other cardiac chamber sizes are within normal limits. Focal aortic valve sclerosis with adequate cusp excursion. Thickened mitral valve leaflets with normal excursion. Mitral annulus and aortic root calcification. Normal pulmonic valve structure. Normal tricuspid valve structure. IVC at normal size with physiologic collapse. A color flow and spectral Doppler study was performed and revealed: No aortic insufficiency . Mild to moderate mitral regurgitation. Mitral diastolic velocities suggest reduced left ventricular relaxation c/w mild LV diastolic dysfunction (Grade I ). Mild tricuspid regurgitation. Tricuspid systolic velocities suggests peak right ventricular systolic pressure of 39 mmHg,consistent with mild pulmonary hypertension .
[2018-06-24 16:00] VITALS: BP 133/69
--- NOTE | 2018-06-24 16:18 | Internal Med Progress Note ---
Subjective Date of Service: Jun 24, 2018 Physician Name Shailesh Li Attending Physician Oscar Stanton MD Current Medications Medications (Trade) Dose Ordered Sig/Radha Route PRN Reason Start Time Stop Time Status Last Admin Dose Admin Acetaminophen (Tylenol) 650 mg Q4H PRN ORAL fever 06/23/18 19:46 07/22/18 19:45 Al Hydroxide/Mg Hydroxide (Mylanta II) 30 ml Q6H PRN ORAL dyspepsia 06/23/18 19:46 07/22/18 19:45 Amlodipine Besylate (Norvasc) 10 mg DAILY ORAL 06/24/18 09:00 07/23/18 08:59 06/24/18 09:05 Dextrose (Dextrose 50%) 25 ml Q30M PRN IV Hypoglycemia 06/23/18 19:46 07/22/18 19:45 Dextrose (Dextrose 50%) 50 ml Q30M PRN IV Hypoglycemia 06/23/18 19:46 07/22/18 19:45 Dextrose/Sodium Chloride 1,000 ml @ 75 mls/hr [id number] IV 06/23/18 20:00 07/22/18 19:59 06/24/18 05:11 Diphenhydramine HCl (Benadryl) 25 mg Q6H PRN ORAL Itching/Pruritis 06/23/18 19:47 07/22/18 19:46 Docusate Sodium (Colace) 100 mg TWICE A DAY ORAL 06/24/18 18:00 07/24/18 17:59 Heparin Sodium (Porcine) (Heparin 5000 units/ml) 5,000 units EVERY 12 HOURS SUBQ 06/23/18 21:00 07/22/18 20:59 06/24/18 09:09 Hydralazine HCl (Apresoline) 50 mg Q6H PRN ORAL for SBP > 160 06/23/18 19:48 07/22/18 19:47 06/23/18 21:39 Meclizine HCl (Antivert) 25 mg Q6H PRN ORAL for dizziness 06/23/18 19:48 07/22/18 19:47 Metoprolol Succinate (Toprol XL) 50 mg DAILY ORAL 06/24/18 09:00 07/23/18 08:59 06/24/18 09:05 Morphine Sulfate (Morphine Sulfate) 2 mg Q4H PRN IVP severe Pain (Pain Scale 7-10) 06/23/18 19:48 06/29/18 19:47 Nitroglycerin (Ntg) 0.4 mg Q5M X 3 DOSES PRN SL Prn Chest Pain 06/23/18 19:46 07/22/18 19:45 Ondansetron HCl (Zofran) 4 mg Q6H PRN IVP Nausea & Vomiting 06/23/18 19:46 07/22/18 19:45 06/24/18 09:30 Pantoprazole (Protonix) 40 mg DAILY IVP 06/24/18 09:00 07/23/18 08:59 06/24/18 09:19 Polyethylene Glycol (Miralax) 17 gm BEDTIME ORAL 06/24/18 21:00 07/24/18 20:59 Polyethylene Glycol (Miralax) 17 gm HSPRN PRN ORAL Constipation 06/23/18 21:00 07/23/18 20:59 Temazepam (Restoril) 15 mg HSPRN PRN ORAL Insomnia 06/23/18 21:00 06/30/18 20:59 Allergies: Coded Allergies: No Known Allergies (Unverified , 06/22/18) ROS Limited/Unobtainable: No Constitutional: Reports: no symptoms HEENT: Reports: no symptoms Cardiovascular: Reports: no symptoms Respiratory: Reports: no symptoms Gastrointestinal/Abdominal: Reports: no symptoms Genitourinary: Reports: no symptoms Neurologic/Psychiatric: Reports: no symptoms Subjective 83 YO F admitted with vertigo. Now UTI and elevated troponin. Cover for Int Miles-Dr Orourke Objective Last Vital Signs Date Time Temp Pulse Resp B/P (MAP) Pulse Ox O2 Delivery O2 Flow Rate FiO2 06/24/18 12:00 97.8 90 18 148/76 (100) 98 06/24/18 09:00 Room Air Laboratory Tests Test 06/24/18 06:13 White Blood Count 9.7 K/UL (4.8-10.8) Red Blood Count 5.17 M/UL (4.20-5.40) Hemoglobin 14.4 G/DL (12.0-16.0) Hematocrit 45.0 % (37.0-47.0) Mean Corpuscular Volume 87 FL (80-99) Mean Corpuscular Hemoglobin 27.9 PG (27.0-31.0) Mean Corpuscular Hemoglobin Concent 32.0 G/DL (32.0-36.0) Red Cell Distribution Width 12.9 % (11.6-14.8) Platelet Count 335 K/UL (150-450) Mean Platelet Volume 5.7 FL (6.5-10.1) L Neutrophils (%) (Auto) 58.6 % (45.0-75.0) Lymphocytes (%) (Auto) 31.4 % (20.0-45.0) Monocytes (%) (Auto) 7.7 % (1.0-10.0) Eosinophils (%) (Auto) 1.4 % (0.0-3.0) Basophils (%) (Auto) 0.9 % (0.0-2.0) Sodium Level 142 MMOL/L (136-145) Potassium Level 3.5 MMOL/L (3.5-5.1) Chloride Level 106 MMOL/L (98-107) Carbon Dioxide Level 27 MMOL/L (21-32) Anion Gap 9 mmol/L (5-15) Blood Urea Nitrogen 15 mg/dL (7-18) Creatinine 1.3 MG/DL (0.55-1.30) Estimat Glomerular Filtration Rate mL/min (>60) Glucose Level 115 MG/DL (74-106) H Calcium Level 9.5 MG/DL (8.5-10.1) Phosphorus Level 3.5 MG/DL (2.5-4.9) Magnesium Level 2.0 MG/DL (1.8-2.4) Microbiology Date/Time Source Procedure Growth Status 06/22/18 18:55 Urine,Clean Catch Urine Culture - Preliminary Gram Negative Alfredo Resulted 06/22/18 09:04 Urine,Clean Catch Urine Culture - Final Escherichia Coli Complete Intake and Output 06/23/18 06/24/18 19:00 07:00 Intake Total 120 ml 1230 ml Output Total 500 ml Balance -380 ml 1230 ml Intake Oral 120 ml 480 ml IV Total 750 ml Output Urine Total 500 ml Objective PHYSICAL EXAMINATION: GENERAL: The patient is well-developed and well-nourished female, in no apparent distress. HEENT: Eyes, pupils are equal and responsive to light and accommodation. Extraocular movements are intact. NECK: Supple without lymphadenopathy. CHEST: Lungs are clear to auscultation bilaterally without wheezes or rales. CARDIOVASCULAR: Regular rhythm and rate. S1 and S2 are normal without murmurs, rubs, or gallops. ABDOMEN: Ssoft, nontender, and nondistended. Positive bowel sounds. No evidence of hepatosplenomegaly. Currently, no rebound or guarding noted. EXTREMITIES: Negative for clubbing, cyanosis, or edema. RECTAL/GENITAL: Refused. NEUROLOGIC: Cranial nerves II through XII are grossly intact without focal deficits. Motor strength is 5/5 bilaterally. Deep tendon reflexes are 2+ plantar. Assessment/Plan Assessment/Plan ASSESSMENT: This is an 83-year-old female. 1. Vertigo. 2. Nausea with vomiting. 3. Hypertension. 4. Urinary tract infection=E. Coli TREATMENT: 1. Urinary tract infection=E. Coli. Resistant to Levaquin; Start Ceftriaxone 2. Vertigo. This may be secondary to urinary tract infection versus benign positional vertigo. Vertigo is worse with change of head position. 3. Nausea with vomiting. A Gastroenterology consultation has been obtained with Dr. Giacomo Osborne. 4. Hypertension. Continue amlodipine, clonidine, losartan/hydrochlorothiazide, and metoprolol as above. Shailesh Li MD Jun 24, 2018 16:18
[2018-06-24] MEDS: Docusate 100mg cap ORAL SCH (17:15)
[2018-06-24] MEDS: cefTRIAXone 1 GM in D5W 55 ML IVPB SCH (17:45)
--- NOTE | 2018-06-24 19:34 | NUR ---
HAND-OFF: Report given to
[2018-06-24 20:00] VITALS: BP 158/76
[2018-06-24] MEDS: Miralax 17gm pkt ORAL SCH (21:00)
[2018-06-25] VITALS: BP 135/69
[2018-06-25] MEDS: D5 1/2NS 1,000 ML IV SCH ×2 (00:05→12:11)
[2018-06-25 04:00] VITALS: BP 116/62
[2018-06-25 07:01] LABS: ANION GAP 5 mmol/L (5-15); BLOOD UREA NITROGEN 20 mg/dL (7-18); CALCIUM 9.1 MG/DL (8.5-10.1); CARBON DIOXIDE 28 MMOL/L (21-32); CHLORIDE 108 MMOL/L (98-107); CREATININE 1.5 MG/DL (0.55-1.30); SODIUM 141 MMOL/L (136-145)
[2018-06-25 07:07] LABS: BASOPHILS % (AUTO) 0.8 % (0.0-2.0); EOSINOPHILS % (AUTO) 2.8 % (0.0-3.0); HEMATOCRIT 40.2 % (37.0-47.0); HEMOGLOBIN 12.9 G/DL (12.0-16.0); LYMPHOCYTES % (AUTO) 31.2 % (20.0-45.0); MEAN CORPUSCULAR VOLUME 88 FL (80-99); MONOCYTES % (AUTO) 8.7 % (1.0-10.0); NEUTROPHILS % (AUTO) 56.5 % (45.0-75.0); PLATELET COUNT 284 K/UL (150-450); RED BLOOD COUNT 4.58 M/UL (4.20-5.40)
--- NOTE | 2018-06-25 07:27 | NUR ---
HAND-OFF: Report given to MICHELLE AUGUSTE.
--- NOTE | 2018-06-25 07:32 | General Progress Note ---
Assessment/Plan Problem List: (1) New onset type 2 diabetes mellitus ICD Codes: E11.9 - Type 2 diabetes mellitus without complications SNOMED: 02584193 (2) Constipation ICD Codes: K59.00 - Constipation, unspecified SNOMED: 19282404 (3) UTI (urinary tract infection) ICD Codes: N39.0 - Urinary tract infection, site not specified SNOMED: 32954924 (4) History of hypertension ICD Codes: Z86.79 - Personal history of other diseases of the circulatory system SNOMED: 005102278 (5) Vertigo ICD Codes: R42 - Dizziness and giddiness SNOMED: 102675146 (6) Intractable nausea and vomiting ICD Codes: R11.2 - Nausea with vomiting, unspecified SNOMED: 531447047 Status: unchanged Assessment/Plan: bowel regimen feeling much better today consider colonoscopy as out patient Subjective ROS Limited/Unobtainable: Yes Allergies: Coded Allergies: No Known Allergies (Unverified , 06/22/18) Subjective c/o constipation Objective Last 24 Hour Vital Signs Date Time Temp Pulse Resp B/P (MAP) Pulse Ox O2 Delivery O2 Flow Rate FiO2 06/25/18 04:00 98.3 80 18 116/62 (80) 94 06/25/18 00:00 98.2 89 18 135/69 (91) 94 06/24/18 21:00 Room Air 06/24/18 20:00 97.8 86 18 158/76 (103) 97 06/24/18 16:00 98.0 90 18 133/69 (90) 97 06/24/18 12:00 97.8 90 18 148/76 (100) 98 06/24/18 09:05 109 134/77 06/24/18 09:05 109 134/77 06/24/18 09:00 Room Air 06/24/18 08:00 98.1 109 20 134/77 (96) 99 Intake and Output 06/24/18 06/25/18 19:00 07:00 Intake Total 1730 ml 525 ml Balance 1730 ml 525 ml Intake Oral 720 ml IV Total 1010 ml 525 ml # Voids 4 1 # Bowel Movements 2 Laboratory Tests 06/25/18 05:15: White Blood Count 10.0, Red Blood Count 4.58, Hemoglobin 12.9, Hematocrit 40.2, Mean Corpuscular Volume 88, Mean Corpuscular Hemoglobin 28.2, Mean Corpuscular Hemoglobin Concent 32.0, Red Cell Distribution Width 13.0, Platelet Count 284, Mean Platelet Volume 5.7L, Neutrophils (%) (Auto) 56.5, Lymphocytes (%) (Auto) 31.2, Monocytes (%) (Auto) 8.7, Eosinophils (%) (Auto) 2.8, Basophils (%) (Auto ) 0.8, Sodium Level 141, Potassium Level 4.0, Chloride Level 108H, Carbon Dioxide Level 28, Anion Gap 5, Blood Urea Nitrogen 20H, Creatinine 1.5H, Estimat Glomerular Filtration Rate , Glucose Level 102, Calcium Level 9.1 Height (Feet): 5 Height (Inches): 2.00 Weight (Pounds): 175 General Appearance: alert EENT: normal ENT inspection Neck: normal alignment Cardiovascular: normal rate Respiratory/Chest: lungs clear Abdomen: non tender, soft, hypoactive bowel sounds Extremities: non-tender Giacomo Osborne MD Jun 25, 2018 07:32
[2018-06-25 08:00] VITALS: BP 128/59
[2018-06-25] MEDS: Metoprolol Succinate XL 50mg tab ORAL SCH (08:36)
[2018-06-25] MEDS: Docusate 100mg cap ORAL SCH ×3 (08:36→17:36)
[2018-06-25] MEDS: Heparin 5000 units/ml inj SUBQ SCH ×2 (08:37→20:14)
[2018-06-25] MEDS ORDERED: D5 1/2NS 1000ml IV ONE ×2 (08:40→15:45)
[2018-06-25] MEDS: Pantoprazole Inj IVP SCH (09:22)
--- NOTE | 2018-06-25 10:18 | NUR ---
NURSE NOTES: Physical Therapist was ordered per Dr Stanton. will cont to monitor.
[2018-06-25 12:00] VITALS: BP 124/85
--- NOTE | 2018-06-25 14:44 | Pulmonology Progress Note ---
Assessment/Plan Problems: (1) UTI (urinary tract infection) (2) Vertigo (3) Intractable nausea and vomiting (4) Non-ST elevation (NSTEMI) myocardial infarction (5) History of hypertension Assessment/Plan improving, still some vertigo wbc lower urine cultures pending continue iv fluids check electrolytes dvt prophylaxis. Subjective ROS Limited/Unobtainable: No Constitutional: Reports: no symptoms HEENT: Repors: no symptoms Respiratory: Reports: no symptoms Allergies: Coded Allergies: No Known Allergies (Unverified , 06/22/18) Objective Last 24 Hour Vital Signs Date Time Temp Pulse Resp B/P (MAP) Pulse Ox O2 Delivery O2 Flow Rate FiO2 06/25/18 12:00 98.3 90 20 124/85 (98) 99 06/25/18 09:00 Room Air 06/25/18 08:36 82 128/59 06/25/18 08:36 82 128/59 06/25/18 08:00 97.8 82 20 128/59 (82) 96 06/25/18 04:00 98.3 80 18 116/62 (80) 94 06/25/18 00:00 98.2 89 18 135/69 (91) 94 06/24/18 21:00 Room Air 06/24/18 20:00 97.8 86 18 158/76 (103) 97 06/24/18 16:00 98.0 90 18 133/69 (90) 97 Intake and Output 06/24/18 06/25/18 19:00 07:00 Intake Total 1730 ml 600 ml Balance 1730 ml 600 ml Intake Oral 720 ml IV Total 1010 ml 600 ml # Voids 4 1 # Bowel Movements 2 Objective General Appearance: WD/WN Lines, tubes and drains: peripheral HEENT: normocephalic, atraumatic Neck: non-tender, normal alignment Respiratory/Chest: chest wall non-tender, lungs clear Cardiovascular/Chest: normal peripheral pulses, normal rate Abdomen: normal bowel sounds Extremities: normal range of motion Microbiology Date/Time Source Procedure Growth Status 06/22/18 18:55 Urine,Clean Catch Urine Culture - Final Escherichia Coli Complete Laboratory Tests 06/25/18 05:15: White Blood Count 10.0, Red Blood Count 4.58, Hemoglobin 12.9, Hematocrit 40.2, Mean Corpuscular Volume 88, Mean Corpuscular Hemoglobin 28.2, Mean Corpuscular Hemoglobin Concent 32.0, Red Cell Distribution Width 13.0, Platelet Count 284, Mean Platelet Volume 5.7L, Neutrophils (%) (Auto) 56.5, Lymphocytes (%) (Auto) 31.2, Monocytes (%) (Auto) 8.7, Eosinophils (%) (Auto) 2.8, Basophils (%) (Auto ) 0.8, Sodium Level 141, Potassium Level 4.0, Chloride Level 108H, Carbon Dioxide Level 28, Anion Gap 5, Blood Urea Nitrogen 20H, Creatinine 1.5H, Estimat Glomerular Filtration Rate , Glucose Level 102, Calcium Level 9.1 Current Medications Medications (Trade) Dose Ordered Sig/Radha Route PRN Reason Start Time Stop Time Status Last Admin Dose Admin Acetaminophen (Tylenol) 650 mg Q4H PRN ORAL fever 06/23/18 19:46 07/22/18 19:45 Al Hydroxide/Mg Hydroxide (Mylanta II) 30 ml Q6H PRN ORAL dyspepsia 06/23/18 19:46 07/22/18 19:45 Amlodipine Besylate (Norvasc) 10 mg DAILY ORAL 06/24/18 09:00 07/23/18 08:59 06/25/18 08:36 Ceftriaxone Sodium 1 gm/ Dextrose 55 ml @ 110 mls/hr Q24H IVPB 06/24/18 18:00 07/01/18 17:59 06/24/18 17:45 Dextrose (Dextrose 50%) 25 ml Q30M PRN IV Hypoglycemia 06/23/18 19:46 07/22/18 19:45 Dextrose (Dextrose 50%) 50 ml Q30M PRN IV Hypoglycemia 06/23/18 19:46 07/22/18 19:45 Dextrose/Sodium Chloride 1,000 ml @ 75 mls/hr [id number] IV 06/23/18 20:00 07/22/18 19:59 06/25/18 12:11 Diphenhydramine HCl (Benadryl) 25 mg Q6H PRN ORAL Itching/Pruritis 06/23/18 19:47 07/22/18 19:46 Docusate Sodium (Colace) 100 mg TWICE A DAY ORAL 06/24/18 18:00 07/24/18 17:59 Heparin Sodium (Porcine) (Heparin 5000 units/ml) 5,000 units EVERY 12 HOURS SUBQ 06/23/18 21:00 07/22/18 20:59 06/25/18 08:37 Hydralazine HCl (Apresoline) 50 mg Q6H PRN ORAL for SBP > 160 06/23/18 19:48 07/22/18 19:47 06/23/18 21:39 Meclizine HCl (Antivert) 25 mg Q6H PRN ORAL for dizziness 06/23/18 19:48 07/22/18 19:47 06/25/18 08:35 Metoprolol Succinate (Toprol XL) 50 mg DAILY ORAL 06/24/18 09:00 07/23/18 08:59 06/25/18 08:36 Morphine Sulfate (Morphine Sulfate) 2 mg Q4H PRN IVP severe Pain (Pain Scale 7-10) 06/23/18 19:48 06/29/18 19:47 Nitroglycerin (Ntg) 0.4 mg Q5M X 3 DOSES PRN SL Prn Chest Pain 06/23/18 19:46 07/22/18 19:45 Ondansetron HCl (Zofran) 4 mg Q6H PRN IVP Nausea & Vomiting 06/23/18 19:46 07/22/18 19:45 06/24/18 09:30 Pantoprazole (Protonix) 40 mg DAILY IVP 06/24/18 09:00 07/23/18 08:59 06/25/18 09:22 Polyethylene Glycol (Miralax) 17 gm BEDTIME ORAL 06/24/18 21:00 07/24/18 20:59 Polyethylene Glycol (Miralax) 17 gm HSPRN PRN ORAL Constipation 06/23/18 21:00 07/23/18 20:59 Temazepam (Restoril) 15 mg HSPRN PRN ORAL Insomnia 06/23/18 21:00 06/30/18 20:59 Laci Pat MD Jun 25, 2018 14:44
[2018-06-25 16:00] VITALS: BP 148/74
--- NOTE | 2018-06-25 16:22 | Internal Med Progress Note ---
Subjective Date of Service: Jun 25, 2018 Physician Name Shailesh Li Attending Physician Oscar Stanton MD Current Medications Medications (Trade) Dose Ordered Sig/Radha Route PRN Reason Start Time Stop Time Status Last Admin Dose Admin Acetaminophen (Tylenol) 650 mg Q4H PRN ORAL fever 06/23/18 19:46 07/22/18 19:45 Al Hydroxide/Mg Hydroxide (Mylanta II) 30 ml Q6H PRN ORAL dyspepsia 06/23/18 19:46 07/22/18 19:45 Amlodipine Besylate (Norvasc) 10 mg DAILY ORAL 06/24/18 09:00 07/23/18 08:59 06/25/18 08:36 Ceftriaxone Sodium 1 gm/ Dextrose 55 ml @ 110 mls/hr Q24H IVPB 06/24/18 18:00 07/01/18 17:59 06/24/18 17:45 Dextrose (Dextrose 50%) 25 ml Q30M PRN IV Hypoglycemia 06/23/18 19:46 07/22/18 19:45 Dextrose (Dextrose 50%) 50 ml Q30M PRN IV Hypoglycemia 06/23/18 19:46 07/22/18 19:45 Dextrose/Sodium Chloride 1,000 ml @ 75 mls/hr [id number] IV 06/23/18 20:00 07/22/18 19:59 06/25/18 12:11 Diphenhydramine HCl (Benadryl) 25 mg Q6H PRN ORAL Itching/Pruritis 06/23/18 19:47 07/22/18 19:46 Docusate Sodium (Colace) 100 mg TWICE A DAY ORAL 06/24/18 18:00 07/24/18 17:59 Heparin Sodium (Porcine) (Heparin 5000 units/ml) 5,000 units EVERY 12 HOURS SUBQ 06/23/18 21:00 07/22/18 20:59 06/25/18 08:37 Hydralazine HCl (Apresoline) 50 mg Q6H PRN ORAL for SBP > 160 06/23/18 19:48 07/22/18 19:47 06/23/18 21:39 Meclizine HCl (Antivert) 25 mg Q6H PRN ORAL for dizziness 06/23/18 19:48 07/22/18 19:47 06/25/18 08:35 Metoprolol Succinate (Toprol XL) 50 mg DAILY ORAL 06/24/18 09:00 07/23/18 08:59 06/25/18 08:36 Morphine Sulfate (Morphine Sulfate) 2 mg Q4H PRN IVP severe Pain (Pain Scale 7-10) 06/23/18 19:48 06/29/18 19:47 Nitroglycerin (Ntg) 0.4 mg Q5M X 3 DOSES PRN SL Prn Chest Pain 06/23/18 19:46 07/22/18 19:45 Ondansetron HCl (Zofran) 4 mg Q6H PRN IVP Nausea & Vomiting 06/23/18 19:46 07/22/18 19:45 06/24/18 09:30 Pantoprazole (Protonix) 40 mg DAILY IVP 06/24/18 09:00 07/23/18 08:59 06/25/18 09:22 Polyethylene Glycol (Miralax) 17 gm BEDTIME ORAL 06/24/18 21:00 07/24/18 20:59 Polyethylene Glycol (Miralax) 17 gm HSPRN PRN ORAL Constipation 06/23/18 21:00 07/23/18 20:59 Temazepam (Restoril) 15 mg HSPRN PRN ORAL Insomnia 06/23/18 21:00 06/30/18 20:59 Allergies: Coded Allergies: No Known Allergies (Unverified , 06/22/18) ROS Limited/Unobtainable: No Constitutional: Reports: no symptoms HEENT: Reports: no symptoms Cardiovascular: Reports: no symptoms Respiratory: Reports: no symptoms Gastrointestinal/Abdominal: Reports: no symptoms Genitourinary: Reports: no symptoms Neurologic/Psychiatric: Reports: no symptoms Subjective 83 YO F admitted with vertigo. Now UTI and elevated troponin. Cover for Int [facility]-Dr Orourke Objective Last Vital Signs Date Time Temp Pulse Resp B/P (MAP) Pulse Ox O2 Delivery O2 Flow Rate FiO2 06/25/18 12:00 98.3 90 20 124/85 (98) 99 06/25/18 09:00 Room Air Laboratory Tests Test 06/25/18 05:15 White Blood Count 10.0 K/UL (4.8-10.8) Red Blood Count 4.58 M/UL (4.20-5.40) Hemoglobin 12.9 G/DL (12.0-16.0) Hematocrit 40.2 % (37.0-47.0) Mean Corpuscular Volume 88 FL (80-99) Mean Corpuscular Hemoglobin 28.2 PG (27.0-31.0) Mean Corpuscular Hemoglobin Concent 32.0 G/DL (32.0-36.0) Red Cell Distribution Width 13.0 % (11.6-14.8) Platelet Count 284 K/UL (150-450) Mean Platelet Volume 5.7 FL (6.5-10.1) L Neutrophils (%) (Auto) 56.5 % (45.0-75.0) Lymphocytes (%) (Auto) 31.2 % (20.0-45.0) Monocytes (%) (Auto) 8.7 % (1.0-10.0) Eosinophils (%) (Auto) 2.8 % (0.0-3.0) Basophils (%) (Auto) 0.8 % (0.0-2.0) Sodium Level 141 MMOL/L (136-145) Potassium Level 4.0 MMOL/L (3.5-5.1) Chloride Level 108 MMOL/L (98-107) H Carbon Dioxide Level 28 MMOL/L (21-32) Anion Gap 5 mmol/L (5-15) Blood Urea Nitrogen 20 mg/dL (7-18) H Creatinine 1.5 MG/DL (0.55-1.30) H Estimat Glomerular Filtration Rate mL/min (>60) Glucose Level 102 MG/DL (74-106) Calcium Level 9.1 MG/DL (8.5-10.1) Microbiology Date/Time Source Procedure Growth Status 06/22/18 18:55 Urine,Clean Catch Urine Culture - Final Escherichia Coli Complete Intake and Output 06/24/18 06/25/18 19:00 07:00 Intake Total 1730 ml 600 ml Balance 1730 ml 600 ml Intake Oral 720 ml IV Total 1010 ml 600 ml # Voids 4 1 # Bowel Movements 2 Objective PHYSICAL EXAMINATION: GENERAL: The patient is well-developed and well-nourished female, in no apparent distress. HEENT: Eyes, pupils are equal and responsive to light and accommodation. Extraocular movements are intact. NECK: Supple without lymphadenopathy. CHEST: Lungs are clear to auscultation bilaterally without wheezes or rales. CARDIOVASCULAR: Regular rhythm and rate. S1 and S2 are normal without murmurs, rubs, or gallops. ABDOMEN: Ssoft, nontender, and nondistended. Positive bowel sounds. No evidence of hepatosplenomegaly. Currently, no rebound or guarding noted. EXTREMITIES: Negative for clubbing, cyanosis, or edema. RECTAL/GENITAL: Refused. NEUROLOGIC: Cranial nerves II through XII are grossly intact without focal deficits. Motor strength is 5/5 bilaterally. Deep tendon reflexes are 2+ plantar. Assessment/Plan Assessment/Plan ASSESSMENT: This is an 83-year-old female. 1. Vertigo. 2. Nausea with vomiting. 3. Hypertension. 4. Urinary tract infection=E. Coli TREATMENT: 1. Urinary tract infection=E. Coli. Resistant to Levaquin; Start Ceftriaxone 2. Vertigo. This may be secondary to urinary tract infection versus benign positional vertigo. Vertigo is worse with change of head position. 3. Nausea with vomiting. A Gastroenterology consultation has been obtained with Dr. Giacomo Osborne. 4. Hypertension. Continue amlodipine, clonidine, losartan/hydrochlorothiazide, and metoprolol as above. Shailesh Li MD Jun 25, 2018 16:22
[2018-06-25] MEDS: cefTRIAXone 1 GM in D5W 55 ML IVPB SCH (18:20)
--- NOTE | 2018-06-25 19:23 | NUR ---
HAND-OFF: Report given to Renita.
--- NOTE | 2018-06-25 19:43 | NUR ---
NURSE NOTES: Received patient awake in bed, no c/o pain at this time, no s/s of acute distress. IV access asymptomatic running abx. Fall and safety precautions taken. Call light and belongings within reach.
[2018-06-25 20:00] VITALS: BP 147/86
[2018-06-25] MEDS: Miralax 17gm pkt ORAL SCH (20:14)
[2018-06-26] VITALS: BP 137/70
[2018-06-26] MEDS: D5 1/2NS 1,000 ML IV SCH (01:20)
[2018-06-26 04:00] VITALS: BP 143/68
[2018-06-26 06:50] LABS: BASOPHILS % (AUTO) 0.9 % (0.0-2.0); EOSINOPHILS % (AUTO) 3.6 % (0.0-3.0); HEMATOCRIT 39.2 % (37.0-47.0); HEMOGLOBIN 12.6 G/DL (12.0-16.0); LYMPHOCYTES % (AUTO) 27.5 % (20.0-45.0); MEAN CORPUSCULAR VOLUME 87 FL (80-99); MONOCYTES % (AUTO) 9.8 % (1.0-10.0); NEUTROPHILS % (AUTO) 58.3 % (45.0-75.0); PLATELET COUNT 277 K/UL (150-450); RED BLOOD COUNT 4.48 M/UL (4.20-5.40); RED CELL DISTRIBUTION WIDTH 12.6 % (11.6-14.8); WHITE BLOOD COUNT 9.3 K/UL (4.8-10.8)
[2018-06-26 07:05] LABS: ANION GAP 7 mmol/L (5-15); BLOOD UREA NITROGEN 22 mg/dL (7-18); CARBON DIOXIDE 27 MMOL/L (21-32); CHLORIDE 107 MMOL/L (98-107); CREATININE 1.4 MG/DL (0.55-1.30); POTASSIUM 4.3 MMOL/L (3.5-5.1); SODIUM 141 MMOL/L (136-145)
--- NOTE | 2018-06-26 07:56 | NUR ---
NURSE NOTES: pt in bed with no sob nor in any form of distress noted. breathing regular and unlabored. denies any pain at this time. bed in lowest position. call light within reach. fall precaution provided. will continue to monitor
[2018-06-26 08:00] VITALS: BP 144/72
[2018-06-26 08:36] VITALS: BP 144/72
[2018-06-26] MEDS: Metoprolol Succinate XL 50mg tab ORAL SCH (08:36)
[2018-06-26] MEDS: Pantoprazole Inj IVP SCH (08:36)
[2018-06-26] MEDS: Heparin 5000 units/ml inj SUBQ SCH (08:37)
[2018-06-26] MEDS: Docusate 100mg cap ORAL SCH (08:37)
--- NOTE | 2018-06-26 10:51 | GI Progress Note ---
Assessment/Plan Problems: (1) Intractable nausea and vomiting ICD Codes: R11.2 - Nausea with vomiting, unspecified SNOMED: 367616344 (2) Vertigo ICD Codes: R42 - Dizziness and giddiness SNOMED: 731940866 Status: stable Status Narrative Discussed with Dr. Osborne Assessment/Plan okay for DC per GI standpoint bowel regimen feeling much better today PT evaluation zofran prn consider colonoscopy as out patient The patient was seen and examined at bedside and all new and available data was reviewed in the patients chart. I agree with the above findings, impression and plan. (Patient seen earlier today. Signature stamp does not reflect patient encounter time.). - Giacomo Osborne MD Subjective Subjective States her vertigo has resolved Denies any nausea or vomiting Has been working with physical therapy Denies any abdominal pain Denies any constipation or diarrhea Objective Last 24 Hour Vital Signs Date Time Temp Pulse Resp B/P (MAP) Pulse Ox O2 Delivery O2 Flow Rate FiO2 06/26/18 09:47 Room Air 06/26/18 08:36 100 144/72 06/26/18 08:36 100 144/72 06/26/18 08:00 98.7 100 18 144/72 (96) 97 06/26/18 04:00 98.4 80 18 143/68 (93) 96 06/26/18 00:00 97.4 82 18 137/70 (92) 95 06/25/18 22:39 Room Air 06/25/18 20:00 98.3 83 20 147/86 (106) 95 06/25/18 16:00 98.2 81 20 148/74 (98) 95 06/25/18 12:00 98.3 90 20 124/85 (98) 99 Intake and Output 06/25/18 06/26/18 19:00 07:00 Intake Total 1200 ml 1425 ml Output Total 1000 ml 500 ml Balance 200 ml 925 ml Intake Oral 300 ml 900 ml IV Total 900 ml 525 ml Output Urine Total 1000 ml Stool Total 500 ml # Voids 3 Laboratory Tests Test 06/26/18 05:50 White Blood Count 9.3 K/UL (4.8-10.8) Red Blood Count 4.48 M/UL (4.20-5.40) Hemoglobin 12.6 G/DL (12.0-16.0) Hematocrit 39.2 % (37.0-47.0) Mean Corpuscular Volume 87 FL (80-99) Mean Corpuscular Hemoglobin 28.1 PG (27.0-31.0) Mean Corpuscular Hemoglobin Concent 32.2 G/DL (32.0-36.0) Red Cell Distribution Width 12.6 % (11.6-14.8) Platelet Count 277 K/UL (150-450) Mean Platelet Volume 5.8 FL (6.5-10.1) L Neutrophils (%) (Auto) 58.3 % (45.0-75.0) Lymphocytes (%) (Auto) 27.5 % (20.0-45.0) Monocytes (%) (Auto) 9.8 % (1.0-10.0) Eosinophils (%) (Auto) 3.6 % (0.0-3.0) H Basophils (%) (Auto) 0.9 % (0.0-2.0) Sodium Level 141 MMOL/L (136-145) Potassium Level 4.3 MMOL/L (3.5-5.1) Chloride Level 107 MMOL/L (98-107) Carbon Dioxide Level 27 MMOL/L (21-32) Anion Gap 7 mmol/L (5-15) Blood Urea Nitrogen 22 mg/dL (7-18) H Creatinine 1.4 MG/DL (0.55-1.30) H Estimat Glomerular Filtration Rate mL/min (>60) Glucose Level 102 MG/DL (74-106) Calcium Level 9.0 MG/DL (8.5-10.1) Height (Feet): 5 Height (Inches): 2.00 Weight (Pounds): 175 General Appearance: WD/WN, no apparent distress, alert Cardiovascular: normal rate Respiratory/Chest: normal breath sounds, no respiratory distress Abdominal Exam: normal bowel sounds, non tender, soft Extremities: normal range of motion, non-tender Louis Cardoso NP Jun 26, 2018 10:51
--- NOTE | 2018-06-26 11:34 | Infectious Diseases Prog Note ---
Assessment/Plan Assessment/Plan Assessment: Dizziness/Nausea/vomiting- has positive trops - ?NSTEMI vs viral gastroenteritis ; 2nd and 3rd trop normal -KUB: no acute findings -CT head: no acute findings Afebrile Mild leukocytosis- suspect reactive; resolved -CXR: No acute process. Bacteriuria (assymptomatic) -u/a no pyuria, ucx >100k E.coli (R Cipro, Levo,Amp); repeat u/a wbc 60-80, nit neg, leuk +3, sq cells moderate; ucx >100K GNR AVA vs CKD; imrpoving Hypokalemia, SP -renal US: Borderline small kidneys with the areas of scarring particularly in the right kidney.No hydronephrosis.Liver cysts. HTN Plan: - Rocephin # 3 ( may DC AB Rx upon Discharge ) 427 Sp Levaquin d# 3 -Monitor CBC/CMP, temperatures -f/u Influenza sc -Cards, GI, renal f/u -aspiration precautions Subjective Constitutional: Denies: no symptoms, fever, chills, fatigue, anorexia, drenching sweats, other Allergies: Coded Allergies: No Known Allergies (Unverified , 06/22/18) Objective Vital Signs Last 24 Hour Vital Signs Date Time Temp Pulse Resp B/P (MAP) Pulse Ox O2 Delivery O2 Flow Rate FiO2 06/26/18 09:47 Room Air 06/26/18 08:36 100 144/72 06/26/18 08:36 100 144/72 06/26/18 08:00 98.7 100 18 144/72 (96) 97 06/26/18 04:00 98.4 80 18 143/68 (93) 96 06/26/18 00:00 97.4 82 18 137/70 (92) 95 06/25/18 22:39 Room Air 06/25/18 20:00 98.3 83 20 147/86 (106) 95 06/25/18 16:00 98.2 81 20 148/74 (98) 95 06/25/18 12:00 98.3 90 20 124/85 (98) 99 Height (Feet): 5 Height (Inches): 2.00 Weight (Pounds): 175 HEENT: anicteric Respiratory/Chest: normal breath sounds Cardiovascular: normal rate Abdomen: soft, non tender Laboratory Tests Test 06/26/18 05:50 White Blood Count 9.3 K/UL (4.8-10.8) Red Blood Count 4.48 M/UL (4.20-5.40) Hemoglobin 12.6 G/DL (12.0-16.0) Hematocrit 39.2 % (37.0-47.0) Mean Corpuscular Volume 87 FL (80-99) Mean Corpuscular Hemoglobin 28.1 PG (27.0-31.0) Mean Corpuscular Hemoglobin Concent 32.2 G/DL (32.0-36.0) Red Cell Distribution Width 12.6 % (11.6-14.8) Platelet Count 277 K/UL (150-450) Mean Platelet Volume 5.8 FL (6.5-10.1) L Neutrophils (%) (Auto) 58.3 % (45.0-75.0) Lymphocytes (%) (Auto) 27.5 % (20.0-45.0) Monocytes (%) (Auto) 9.8 % (1.0-10.0) Eosinophils (%) (Auto) 3.6 % (0.0-3.0) H Basophils (%) (Auto) 0.9 % (0.0-2.0) Sodium Level 141 MMOL/L (136-145) Potassium Level 4.3 MMOL/L (3.5-5.1) Chloride Level 107 MMOL/L (98-107) Carbon Dioxide Level 27 MMOL/L (21-32) Anion Gap 7 mmol/L (5-15) Blood Urea Nitrogen 22 mg/dL (7-18) H Creatinine 1.4 MG/DL (0.55-1.30) H Estimat Glomerular Filtration Rate mL/min (>60) Glucose Level 102 MG/DL (74-106) Calcium Level 9.0 MG/DL (8.5-10.1) Current Medications Medications (Trade) Dose Ordered Sig/Radha Route PRN Reason Start Time Stop Time Status Last Admin Dose Admin Acetaminophen (Tylenol) 650 mg Q4H PRN ORAL fever 06/23/18 19:46 07/22/18 19:45 Al Hydroxide/Mg Hydroxide (Mylanta II) 30 ml Q6H PRN ORAL dyspepsia 06/23/18 19:46 07/22/18 19:45 Amlodipine Besylate (Norvasc) 10 mg DAILY ORAL 06/24/18 09:00 07/23/18 08:59 06/26/18 08:36 Ceftriaxone Sodium 1 gm/ Dextrose 55 ml @ 110 mls/hr Q24H IVPB 06/24/18 18:00 07/01/18 17:59 06/25/18 18:20 Dextrose (Dextrose 50%) 25 ml Q30M PRN IV Hypoglycemia 06/23/18 19:46 07/22/18 19:45 Dextrose (Dextrose 50%) 50 ml Q30M PRN IV Hypoglycemia 06/23/18 19:46 07/22/18 19:45 Dextrose/Sodium Chloride 1,000 ml @ 75 mls/hr [id number] IV 06/23/18 20:00 07/22/18 19:59 06/25/18 12:11 Diphenhydramine HCl (Benadryl) 25 mg Q6H PRN ORAL Itching/Pruritis 06/23/18 19:47 07/22/18 19:46 Docusate Sodium (Colace) 100 mg TWICE A DAY ORAL 06/24/18 18:00 07/24/18 17:59 Heparin Sodium (Porcine) (Heparin 5000 units/ml) 5,000 units EVERY 12 HOURS SUBQ 06/23/18 21:00 07/22/18 20:59 06/25/18 08:37 Hydralazine HCl (Apresoline) 50 mg Q6H PRN ORAL for SBP > 160 06/23/18 19:48 07/22/18 19:47 06/23/18 21:39 Meclizine HCl (Antivert) 25 mg Q6H PRN ORAL for dizziness 06/23/18 19:48 07/22/18 19:47 06/25/18 08:35 Metoprolol Succinate (Toprol XL) 50 mg DAILY ORAL 06/24/18 09:00 07/23/18 08:59 06/26/18 08:36 Morphine Sulfate (Morphine Sulfate) 2 mg Q4H PRN IVP severe Pain (Pain Scale 7-10) 06/23/18 19:48 06/29/18 19:47 Nitroglycerin (Ntg) 0.4 mg Q5M X 3 DOSES PRN SL Prn Chest Pain 06/23/18 19:46 07/22/18 19:45 Ondansetron HCl (Zofran) 4 mg Q6H PRN IVP Nausea & Vomiting 06/23/18 19:46 07/22/18 19:45 06/24/18 09:30 Pantoprazole (Protonix) 40 mg DAILY IVP 06/24/18 09:00 07/23/18 08:59 06/26/18 08:36 Polyethylene Glycol (Miralax) 17 gm BEDTIME ORAL 06/24/18 21:00 07/24/18 20:59 Polyethylene Glycol (Miralax) 17 gm HSPRN PRN ORAL Constipation 06/23/18 21:00 07/23/18 20:59 Temazepam (Restoril) 15 mg HSPRN PRN ORAL Insomnia 06/23/18 21:00 06/30/18 20:59 06/25/18 20:54 Jason Charles MD Jun 26, 2018 11:34
[2018-06-26] MEDS ORDERED: MECLIZINE HCL25 MG ORAL (12:17)
--- NOTE | 2018-06-26 12:18 | Pulmonology Progress Note ---
Assessment/Plan Problems: (1) UTI (urinary tract infection) (2) Vertigo (3) Intractable nausea and vomiting (4) Non-ST elevation (NSTEMI) myocardial infarction (5) History of hypertension Assessment/Plan feeling better wbc lower urine cultures pending continue iv fluids check electrolytes dvt prophylaxis. wants to go home Subjective ROS Limited/Unobtainable: No Constitutional: Reports: no symptoms HEENT: Repors: no symptoms Respiratory: Reports: no symptoms Allergies: Coded Allergies: No Known Allergies (Unverified , 06/22/18) Objective Last 24 Hour Vital Signs Date Time Temp Pulse Resp B/P (MAP) Pulse Ox O2 Delivery O2 Flow Rate FiO2 06/26/18 09:47 Room Air 06/26/18 08:36 100 144/72 06/26/18 08:36 100 144/72 06/26/18 08:00 98.7 100 18 144/72 (96) 97 06/26/18 04:00 98.4 80 18 143/68 (93) 96 06/26/18 00:00 97.4 82 18 137/70 (92) 95 06/25/18 22:39 Room Air 06/25/18 20:00 98.3 83 20 147/86 (106) 95 06/25/18 16:00 98.2 81 20 148/74 (98) 95 Intake and Output 06/25/18 06/26/18 19:00 07:00 Intake Total 1200 ml 1425 ml Output Total 1000 ml 500 ml Balance 200 ml 925 ml Intake Oral 300 ml 900 ml IV Total 900 ml 525 ml Output Urine Total 1000 ml Stool Total 500 ml # Voids 3 Objective General Appearance: WD/WN Lines, tubes and drains: peripheral HEENT: normocephalic, atraumatic Neck: non-tender, normal alignment Respiratory/Chest: chest wall non-tender, lungs clear Cardiovascular/Chest: normal peripheral pulses, normal rate Abdomen: normal bowel sounds Extremities: normal range of motion Laboratory Tests 06/26/18 05:50: White Blood Count 9.3, Red Blood Count 4.48, Hemoglobin 12.6, Hematocrit 39.2, Mean Corpuscular Volume 87, Mean Corpuscular Hemoglobin 28.1, Mean Corpuscular Hemoglobin Concent 32.2, Red Cell Distribution Width 12.6, Platelet Count 277, Mean Platelet Volume 5.8L, Neutrophils (%) (Auto) 58.3, Lymphocytes (%) (Auto) 27.5, Monocytes (%) (Auto) 9.8, Eosinophils (%) (Auto) 3.6H, Basophils (%) (Auto ) 0.9, Sodium Level 141, Potassium Level 4.3, Chloride Level 107, Carbon Dioxide Level 27, Anion Gap 7, Blood Urea Nitrogen 22H, Creatinine 1.4H, Estimat Glomerular Filtration Rate , Glucose Level 102, Calcium Level 9.0 Current Medications Medications (Trade) Dose Ordered Sig/Radha Route PRN Reason Start Time Stop Time Status Last Admin Dose Admin Acetaminophen (Tylenol) 650 mg Q4H PRN ORAL fever 06/23/18 19:46 07/22/18 19:45 Al Hydroxide/Mg Hydroxide (Mylanta II) 30 ml Q6H PRN ORAL dyspepsia 06/23/18 19:46 07/22/18 19:45 Amlodipine Besylate (Norvasc) 10 mg DAILY ORAL 06/24/18 09:00 07/23/18 08:59 06/26/18 08:36 Ceftriaxone Sodium 1 gm/ Dextrose 55 ml @ 110 mls/hr Q24H IVPB 06/24/18 18:00 07/01/18 17:59 06/25/18 18:20 Dextrose (Dextrose 50%) 25 ml Q30M PRN IV Hypoglycemia 06/23/18 19:46 07/22/18 19:45 Dextrose (Dextrose 50%) 50 ml Q30M PRN IV Hypoglycemia 06/23/18 19:46 07/22/18 19:45 Dextrose/Sodium Chloride 1,000 ml @ 75 mls/hr [id number] IV 06/23/18 20:00 07/22/18 19:59 06/25/18 12:11 Diphenhydramine HCl (Benadryl) 25 mg Q6H PRN ORAL Itching/Pruritis 06/23/18 19:47 07/22/18 19:46 Docusate Sodium (Colace) 100 mg TWICE A DAY ORAL 06/24/18 18:00 07/24/18 17:59 Heparin Sodium (Porcine) (Heparin 5000 units/ml) 5,000 units EVERY 12 HOURS SUBQ 06/23/18 21:00 07/22/18 20:59 06/25/18 08:37 Hydralazine HCl (Apresoline) 50 mg Q6H PRN ORAL for SBP > 160 06/23/18 19:48 07/22/18 19:47 06/23/18 21:39 Meclizine HCl (Antivert) 25 mg Q6H PRN ORAL for dizziness 06/23/18 19:48 07/22/18 19:47 06/25/18 08:35 Metoprolol Succinate (Toprol XL) 50 mg DAILY ORAL 06/24/18 09:00 07/23/18 08:59 06/26/18 08:36 Morphine Sulfate (Morphine Sulfate) 2 mg Q4H PRN IVP severe Pain (Pain Scale 7-10) 06/23/18 19:48 06/29/18 19:47 Nitroglycerin (Ntg) 0.4 mg Q5M X 3 DOSES PRN SL Prn Chest Pain 06/23/18 19:46 07/22/18 19:45 Ondansetron HCl (Zofran) 4 mg Q6H PRN IVP Nausea & Vomiting 06/23/18 19:46 07/22/18 19:45 06/24/18 09:30 Pantoprazole (Protonix) 40 mg DAILY IVP 06/24/18 09:00 07/23/18 08:59 06/26/18 08:36 Polyethylene Glycol (Miralax) 17 gm BEDTIME ORAL 06/24/18 21:00 07/24/18 20:59 Polyethylene Glycol (Miralax) 17 gm HSPRN PRN ORAL Constipation 06/23/18 21:00 07/23/18 20:59 Temazepam (Restoril) 15 mg HSPRN PRN ORAL Insomnia 06/23/18 21:00 06/30/18 20:59 06/25/18 20:54 Laci Pat MD Jun 26, 2018 12:18
--- NOTE | 2018-06-26 12:52 | NUR ---
P.T Note: P.T evaluation completed. Pt is currently baseline independent with ADL/functional mobility and gait/locomotion. Skilled P.T service not needed at this time. See P.T evaluation for details.
--- NOTE | 2018-06-26 14:10 | NUR ---
NURSE NOTES: pt discharged to home picked up by family member with stable condition. all discharge instruction given to pt and verbalized understanding. iv heplock removed and covered with gauze and taped. no bleeding noted. denies any pain. vss.
--- NOTE | 2018-06-27 12:34 | Discharge Summary ---
Discharge Summary Discharge Summary _ DATE OF ADMISSION: 06/22/2018 DATE OF DISCHARGE: 06/26/2018 DISCHARGED BY: Dr. Stanton REASON FOR ADMISSION: 83 years old female with past medical history of hypertension, presented to emergency department with chief complaint of room spinning dizziness and multiple bouts of nonbloody nonbilious vomiting. Symptoms started 2 hours prior to arrival. Patient reported minimal headache. Patient denied abdominal pain. No slurred speech , no numbness , no tingling, no focal weakness, no neck pain. Patient denied fever or chills. Patient denied chest pain or shortness of breath. On evaluation vital signs revealed elevated blood pressure 162/85 , otherwise we re stable. Chest x-ray revealed no acute cardiopulmonary pathology. EKG revealed sinus rhythm , no acute ischemic changes. CT of the head demonstrated no acute intracranial pathology. Chronic and age- related changes noted. Laboratory work-up revealed leukocytosis with WBC 13 , stable hemoglobin and hematocrit. Potassium 3.1. BUN 26, creatinine 1.6. Glucose 188. Troponin elevated 0.068. Urinalysis revealed moderate bacteria, +1 leukocyte esterase. Patient subsequently admitted for work-up for vertigo. CONSULTANTS: pulmonary Dr. Pat ID specialist Dr. Charles GI specialist Dr. Osborne [facility] COURSE: Patient initially admitted to telemetry floor. The next two troponin were negative. EKG revealed no acute ischemic changes. Echocardiogram demonstrated preserved ejection fraction of 60 to 65% with no evidence of left ventricular hypertrophy. No evidence of wall motion abnormality. Right ventricular systolic pressure of 39 consistent with mild pulmonary hypertension. Mild to moderate mitral agitation. Lipid panel was stable. Patient started on antiplatelet therapy with aspirin and beta blockage. Blood pressure was managed with calcium channel owen and beta-owen. Patient started on meclizine. Fall precaution maintained. Patient was working with physical therapist. Renal parameters and electrolytes were closely monitored. Electrolytes further corrected as needed/ potassium. Nephrotoxins were avoided. Renal ultrasound revealed borderline small kidneys with areas of scaring, particular in the right kidney , but no hydronephrosis. Prior to discharge BUN from 26 down to 22 and creatinine from 1.6 down to 1.4. Potassium stable after replacement -3.6. Patient apparently had acute kidney injury on chronic renal insufficiency. DVT prophylaxis provided. Symptomatic care provided. Bowel regimen instituted. GI prophylaxis provided . Infectious disease specialist followed . Urine culture revealed E. coli. Patient was on antibiotic while in the hospital no need for outpatient antibiotic as per ID recommendation. Initial leukocytosis resolved , no fevers. Dizziness, nausea and vomiting with a single positive troponin were possibly due to non-STEMI versus viral gastroenteritis. KUB revealed no acute findings. CT of the head revealed no acute findings. Hemoglobin A1c 6.6. Patient apparently had a new onset of diabetes. Diabetic diet provided. Patient was provided with a basic diabetic teaching. Blood sugar was closely monitored and remained stable. Patient recommended to follow-up with her primary care provider to initiate anti -glycemic regimen . At this time blood sugar was stable and anti-glycemic regimen was not initiated. GI specialist followed. Per GI specialist intractable nausea and vomiting were possibly due to viral gastroenteritis. Patient was on GI prophylaxis, antiemetic provided as needed. Bowel regimen instituted. Diet started and was advanced as tolerated. Patient was able to tolerate diet. GI specialist recommended to consider colonoscopy as outpatient. Patient clinically stabilized, vertigo resolved Vertigo was potentially due to non-STEMI versus viral gastroenteritis . Patient was on meclizine which controlled her symptoms . patient clinically stabilized , vertigo subsided. Patient was ready for discharge home. Outpatient follow-up with a primary care provider in 1 week recommended. FINAL DIAGNOSES: Vertigo -resolved Possible NSTEMI Possible viral gastroenteritis New onset of type 2 diabetes mellitus UTI with E. coli Acute kidney injury on chronic kidney disease Hypokalemia-resolved Hypertension DISCHARGE MEDICATIONS: See Medication Reconciliation list. DISCHARGE INSTRUCTIONS: Patient was discharged home . Follow up with primary care provider in one week. I have been assigned to dictate discharge summary for this account. I was not involved in the patient's management. Michelle Baig NP Jun 27, 2018 12:34
== END 2018-06-26 14:10 | disposition home or self-care (01) | DRG 281 ==
LOC: EDBD 07:30 → EMR 07:50 → 2E 08:43 → EDBEDREQ 10:24 → 4E 06-23 16:07
DX: I21.4 Non-ST elevation (NSTEMI) myocardial infarction (principal); N39.0 Urinary tract infection, site not specified; N17.9 Acute kidney failure, unspecified; A08.4 Viral intestinal infection, unspecified; I12.9 Hypertensive chronic kidney disease with stage 1 through stage 4 chronic kidney disease, or unspecified chronic kidney disease; N18.9 Chronic kidney disease, unspecified; B96.20 Unspecified Escherichia coli [E. coli] as the cause of diseases classified elsewhere; E87.6 Hypokalemia; E11.22 Type 2 diabetes mellitus with diabetic chronic kidney disease; R42 Dizziness and giddiness
CPT/HCPCS: 36415; 70450; 71045; 74018; 76770; 80048; 80053; 80061; 81001; 81003; 82043; 82150; 82550; 82570; 82962; 83036; 83605; 83690; 83735; 84100; 84133; 84300; 84484; 84550; 85025; 85610; 85730; 86710; 87086; 87181; 89050; 93005; 93306; 96374; 96375; 99285; J2405; J2765; J8499

== ENCOUNTER 2018-08-11 13:02 | Emergency (ER) | payer MEDICARE, MEDICAID ==
[~2018-08-11] VITALS: Ht 157.5 cm; Wt 80.7 kg
[~2018-08-11 13:02] MED LIST: AMLODIPINE BESY10 MG ORAL; CATAPRES0.1 MG ORAL; LOSARTAN-HCTZ1 EACH ORAL; MECLIZINE HCL25 MG ORAL; METOPROLOL SUCC50 MG ORAL
[2018-08-11 13:11] VITALS: BP 148/84
--- NOTE | 2018-08-11 13:26 | NUR ---
ED Nurse Note: pt walked in c/o left knee pain denies any injury pt pacing in room awaiting concepción soliz
--- NOTE | 2018-08-11 13:58 | Emergency Room Report ---
History of Present Illness General Chief Complaint: Pain Source: Medical Record Present Illness HPI 83 YO female presents to the ED c/o 12/07 in severity progressive pain with associated ST tenderness and swelling to the posterior left knee x 3 days. Has not tried any otc medications. Denies trauma or fall. denies calf pain/ claudication. only pmhx is HTN. pt. reports she is an avid walker and walks regularly. Denies fevers, chills, CP, SOB, palpitations, paresthesias or weakness. palpation aggravates her sx. She denies knee instability. Pt. reports she is able to bear weight. Denies recent travel and is not taking estrogen. Pt. denies CP or SOB. Denies hx of arthritis. Allergies: Coded Allergies: No Known Allergies (Unverified , 06/22/18) Patient History Past Medical History: see triage record Past Surgical History: none Pertinent Family History: HTN Now: No Reviewed Nursing Documentation: PMH: Agreed; PSxH: Agreed Nursing Documentation-PMH Past Medical History: No History, Except For Hx Cardiac Problems: No Hx Hypertension: Yes Hx Cancer: No Hx Gastrointestinal Problems: No Hx Neurological Problems: No Review of Systems All Other Systems: negative except mentioned in HPI Physical Exam Vital Signs Date Time Temp Pulse Resp B/P (MAP) Pulse Ox O2 Delivery O2 Flow Rate FiO2 08/11/18 13:07 98.1 84 16 148/84 (105) 96 Room Air Sp02 EP Interpretation: reviewed, normal General Appearance: no apparent distress, alert, GCS 15, non-toxic Head: normocephalic, atraumatic Eyes: bilateral eye normal inspection, bilateral eye PERRL ENT: hearing grossly normal, normal voice Neck: full range of motion Respiratory: lungs clear, normal breath sounds, no accessory muscle use, no wheezing, speaking full sentences Cardiovascular #1: regular rate, rhythm, no edema, normal capillary refill Cardiovascular #2: 2+ dorsalis pedis (R), 2+ dorsalis pedis (L) Musculoskeletal: back normal, gait/station normal, normal range of motion, tender - posterior left knee, ST, FROm , no instability, no obvious deformity, palpable posterior ST swelling, no palpable pulsatile mass. Neurologic: alert, oriented x3, responsive, motor strength/tone normal, sensory intact, speech normal, grossly normal Psychiatric: judgement/insight normal Skin: normal color, no rash, warm/dry, well hydrated Medical Decision Making PA Attestation Dr. Marcano is my supervising Physician whom patient management has been discussed with. Diagnostic Impression: Primary Impression: Knee effusion, left ER Course 83 YO female presents to the ED c/o 12/07 in severity progressive pain with associated ST tenderness and swelling to the posterior left knee x 3 days. Has not tried any otc medications. Denies trauma or fall. denies calf pain/ claudication. only pmhx is HTN. pt. reports she is an avid walker and walks regularly. Denies fevers, chills, CP, SOB, palpitations, paresthesias or weakness. palpation aggravates her sx. She denies knee instability. Pt. reports she is able to bear weight. Denies recent travel and is not taking estrogen. Pt. denies CP or SOB. Denies hx of arthritis. Ddx considered but are not limited to Cellulitis, DVT, varicose vein, PAD, Venous insufficiency, popliteal artery dissection, bakers cyst, MSK injury just to name a few. Vital signs: are WNL, pt. is afebrile H&PE are most consistent with possible Bakers cyst will r/o dvt. ORDERS: LE duplex U/s to R/O dvt. : Negative, effusion noted. ED INTERVENTIONS: -Motrin PO -Leonardo wrap applied by electronic train control technician. Pt. remains neurovascularly intact. --Patient is provided with a cane and instructed on its use -I do not identify an emergent condition at this time. With current presentation , pt. is stable for close outpatient follow up and conservative treatment. D/ w pt. to return promptly to ED with worsening or new symptoms.- Pt. verbalizes' understanding and agreement with proposed treatment plan. DISCHARGE: At this time pt. is stable for d/c to home. Will provide printed patient care instructions, and any necessary prescriptions. Care plan and follow up instructions have been discussed with the patient prior to discharge. CT/MRI/US Diagnostic Results CT/MRI/US Diagnostic Results : Imaging Test Ordered: Venous Duplex Left LE Impression Negative for DVT Last Vital Signs Date Time Temp Pulse Resp B/P (MAP) Pulse Ox O2 Delivery O2 Flow Rate FiO2 08/11/18 13:11 98.1 16 148/84 96 Room Air 08/11/18 13:07 84 Status: improved Disposition: HOME, SELF-CARE Condition: Stable Scripts Acetaminophen With Codeine (T#3) (TYLENOL #3 TAB*) Y Tab 1 TAB ORAL Q8HR PRN for For Pain, #12 TAB Prov: Saray Oshea 08/11/18 Naproxen* (NAPROXEN*) 500 Mg Tablet 500 MG ORAL TWICE A DAY for 7 Days, #14 TAB Prov: Saray Oshea 08/11/18 Patient Instructions: Knee Effusion Additional Instructions: Take medications as directed. Follow up with an [facility] in 3-5 days, even if your symptoms have resolved. If symptoms persist MRI may be required at the discretion of your PCP or Ortho Specialist. --Please review list of primary care clinics, if you do not already have a primary care provider who can give you an Orthopedic Referral. Return sooner to ED if new symptoms occur, or current symptoms become worse. Do not drink alcohol, drive, or operate heavy machinery while taking Tylenol # 3 as this may cause drowsiness. - Please note that this Emergency Department Report was dictated using [employer] sourcer technology software, occasionally this can lead to erroneous entry secondary to interpretation by the dictation equipment. Saray Oshea Aug 11, 2018 13:58
[2018-08-11] MEDS ORDERED: ACETAMINOPHEN-1 EAC1 ORAL (14:52)
[2018-08-11] MEDS ORDERED: NAPROXEN500 M2 ORAL (14:52)
--- NOTE | 2018-08-11 14:54 | NUR ---
ED Nurse Note: doppler done acre wrap applied by shield operator awaiting further orders.
--- NOTE | 2018-08-11 15:12 | Diagnostic Imaging Report ---
Indication: Left leg pain Technique: Grayscale and duplex images of the left lower extremity veins Comparison: none Findings: Grayscale cyst images demonstrate no evidence of intraluminal thrombus. Normal phasic Doppler waveforms, demonstrating normal augmentation response. No evidence of valvular insufficiency. Incidentally noted is a left knee joint effusion Impression: Negative for left lower extremity deep venous thrombosis Left knee joint effusion incidentally noted
[2018-08-11 15:31] VITALS: BP 148/84
--- NOTE | 2018-08-11 15:32 | NUR ---
ED Nurse Note: pt also provided with a cane ermd re-eval done pt given aci and script verbalized understanding ambulated out of er with strong and steady gait with daughter at side.
== END 2018-08-11 15:34 | disposition home or self-care (01) ==
LOC: EMR 13:40
DX: M25.462 Effusion, left knee (principal); I10 Essential (primary) hypertension
CPT/HCPCS: 93971; 99284

== ENCOUNTER 2018-10-03 10:02 | Outpatient (CLI) | payer MEDICARE, MEDICAID ==
[~2018-10-03 10:02] MED LIST changes: +ACETAMINOPHEN-1 EAC1 ORAL; +NAPROXEN500 M2 ORAL
--- NOTE | 2018-10-03 17:15 | Consultation ---
DATE OF CONSULTATION: 10/03/2018 CONSULTING PHYSICIAN: Giacomo Osborne M.D. REFERRING PHYSICIAN: Oscar Stanton M.D. CHIEF COMPLAINT: Referral for screening colonoscopy. HISTORY OF PRESENT ILLNESS: This is a very pleasant 83-year-old female without any significant past medical history except for high blood pressure, who recently was admitted to the hospital with having dizzy spell. The patient, GI garcia, complained of some chronic GERD, never had a colonoscopy and the primary physician was concerned and referred to us for that. PAST MEDICAL HISTORY: 1. Hypertension. 2. GERD. PAST SURGICAL HISTORY: None. MEDICATIONS: Amlodipine, metoprolol, and hydralazine. FAMILY HISTORY: No family history of GI malignancies. SOCIAL HISTORY: The patient drinks beers here and there. No tobacco or drug abuse. Lives at home. ALLERGIES: No known allergies. REVIEW OF SYSTEMS: A 10-point review of systems was performed and pertinent positives in HPI. PHYSICAL EXAMINATION: GENERAL: This is a well-developed female, in no acute distress. HEENT: Normocephalic and atraumatic. Sclerae anicteric. NECK: Supple. No obvious evidence of lymphadenopathy. CARDIOVASCULAR: Regular rate and rhythm. Plus S1 and S2. No obvious murmur. LUNGS: Clear to auscultation bilaterally. ABDOMEN: Positive bowel sounds. Soft and nontender. No rebound. No guarding. No peritoneal sign. EXTREMITIES: No cyanosis, no clubbing, no edema. ASSESSMENT AND PLAN: This is an 83-year-old female with chronic GERD and need for screening colonoscopy. The risks and benefits of procedure was explained to the patient. She is 83 and she was told that there is no colonoscopy at this age has some risk and given she is 83 and never had a problem she can skip it, but she is really adamant that she wants to have a colonoscopy. She is a very active 83, she is not bedbound and she is walking everyday over half an hour at least and states she wants to have a colonoscopy. So, we will plan to do endoscopy and colonoscopy scheduled for 10/13/2018 at 7 a.m. I want to thank Dr. Oscar Stanton for this kind referral. Giacomo Pooja Osborne DR: SNEHAL JOB#: [id number] CC: Oscar Stanton M.D.; Fax#: [phone]
== END 2018-10-03 12:02 | disposition home or self-care (01) ==
LOC: PAN 10:02
DX: K21.9 Gastro-esophageal reflux disease without esophagitis (principal); I10 Essential (primary) hypertension; Z79.899 Other long term (current) drug therapy

== ENCOUNTER 2018-10-13 07:26 | Day surgery (SDC) | payer MEDICARE, MEDICAID ==
[2018-10-13] VITALS (10 sets, daily range): BP systolic 166–219; BP diastolic 84–104
[~2018-10-13] VITALS: Ht 157.5 cm; Wt 77.6 kg
[2018-10-13] MEDS ORDERED: NAPROXEN SODIU500 MG PO (08:02)
[2018-10-13] MEDS ORDERED: Succinylcholine 20mg/ml 10ml vial ONE (08:09)
[2018-10-13] MEDS ORDERED: LR 1000ml 1,000 ML IVLG SCH (08:19)
--- NOTE | 2018-10-13 08:19 | Anethesia Preoperative Eval ---
Anesthesia Pre-op PMH/ROS General Date of Evaluation: Oct 13, 2018 Anesthesiologist: Braden ASA Score: ASA 2 Mallampati Score Class I : Soft palate, uvula, fauces, pillars visible Class II: Soft palate, uvula, fauces visible Class III: Soft palate, base of uvula visible Class IV: Only hard plate visible Mallampati Classification: Class II Surgeon: [place] Diagnosis: screening Surgical Procedure: egd and colonoscopy Anesthesia History: none Family History: no anesthesia problems Allergies: Coded Allergies: No Known Allergies (Unverified , 10/13/18) Medications: see eMAR Patient NPO?: Yes NPO Date: Oct 12, 2018 NPO Time: 22:00 Past Medical History Cardiovascular: Reports: HTN; Denies: CAD, ME, valve dz, arrhythmia, other Pulmonary: Denies: asthma, COPD, KARLA, other Gastrointestinal/Genitourinary: Denies: GERD, CRI, ESRD, other Neurologic/Psychiatric: Reports: other - migraines; Denies: dementia, CVA, depression/anxiety, TIA Endocrine: Denies: DM, hypothyroidism, steroids, other HEENT: Denies: cataract (L), cataract (R), glaucoma, SHINNECOCK (L), SHINNECOCK (R), other Hematology/Immune: Denies: anemia, DVT, bleeding disorder, other Musculoskeletal/Integumentary: Reports: OA; Denies: RA, DJD, DDD, edema, other PSxH Narrative: Denies Anesthesia Pre-op Phys. Exam Physician Exam Last Vital Signs Date Time Temp Pulse Resp B/P (MAP) Pulse Ox O2 Delivery O2 Flow Rate FiO2 10/13/18 08:14 97.0 71 18 166/93 98 Room Air Constitutional: NAD Cardiovascular: RRR Respiratory: CTA Airway Exam Mallampati Score: Class II MO: full ROM: full Anesthesia Pre-op A/P Labs see chart Studies Pre-op Studies: EKG - sr Risk Assessment & Plan Assessment: ASA II Plan: MAC Status Change Before Surgery: No Pre-Antibiotics Drug: N/A Rosie Joya MD Oct 13, 2018 08:19
[2018-10-13] MEDS ORDERED: DiphenhydrAMINE 50mg/ml Inj IVP PRN (08:30)
[2018-10-13] MEDS ORDERED: Propofol 200mg/20ml IV ONE (08:30)
[2018-10-13] MEDS ORDERED: Lidocaine 1% MPF 10mg/ml 5ml ONE (08:30)
--- NOTE | 2018-10-13 08:37 | Pre-Procedure Note/Attestation ---
Pre-Procedure Note/Attestation Complete Prior to Procedure Planned Procedure: not applicable Procedure Narrative: esophagogastroduodenoscopy and colonoscopy Indications for Procedure Pre-Operative Diagnosis: screening colon GERD Attestation I attest that I discussed the nature of the procedure; its benefits; risks and complications; and alternatives (and the risks and benefits of such alternatives ), prior to the procedure, with the patient (or the patient's legal leather goods sales representative). I attest that, if there was a reasonable possibility of needing a blood transfusion, the patient (or the patient's legal leather goods sales representative) was given the [facility] standardized written summary, pursuant to the Marcelino Edgar Blood Safety Act ([place] Health and Safety Code # 1645, as amended). I attest that I re-evaluated the patient just prior to the surgery and that there has been no change in the patient's H&P, except as documented below: Giacomo Osborne MD Oct 13, 2018 08:37
--- NOTE | 2018-10-13 08:37 | Short Stay Surgery H&P ---
History of Present Illness History of Present Illness Chief Complaint see recent office note HPI Julianne Garcia is a 83 year old female who was admitted on for Abdominal Pain, Gerd Patient History Allergies: Coded Allergies: No Known Allergies (Unverified , 10/13/18) Medication History Scheduled Losartan/Hydrochlorothiazide (Losartan-Hctz 100-12.5 Mg Tab), 1 TAB ORAL DAILY, (Reported) Metoprolol Succinate* (Metoprolol Succinate*), 50 MG ORAL DAILY, (Reported) Naproxen Sodium (Naproxen Sodium ER), 500 MG PO NEEDED, (Reported) Scheduled PRN Acetaminophen With Codeine (T#3) (Tylenol #3 Tab*), 1 TAB ORAL Q8HR PRN for For Pain Discontinued Medications Amlodipine Besylate* (Amlodipine Besylate*), 10 MG ORAL DAILY, (Reported) Discontinued Reason: Pt stopped taking med Clonidine Hcl* (Catapres*), 0.1 MG ORAL EVERY 12 HOURS, (Reported) Discontinued Reason: Pt stopped taking med Meclizine Hcl* (Meclizine*), 25 MG ORAL Q6H PRN Discontinued Reason: Pt stopped taking med Physical Exam Vital Signs Last Vital Signs Date Time Temp Pulse Resp B/P (MAP) Pulse Ox O2 Delivery O2 Flow Rate FiO2 10/13/18 08:14 97.0 71 18 166/93 98 Room Air Plan Attestation Are the patient's medical conditions optimized for surgery? Giacomo Osborne MD Oct 13, 2018 08:37
--- NOTE | 2018-10-13 09:07 | Endoscopy Procedure Note ---
Endoscopy Procedure Note General Indication for Procedure: screening colon, GERD Procedures Performed: EGD, colonoscopy Operative Findings/Diagnosis: 4 polyps, diverticulosis Specimen: yes Pt Tolerated Procedure Well: Yes Estimated Blood Loss: none Anesthesia Anesthesiologist: jerome Anesthesia: MAC Inserted Devices Implant(s) used?: No Quality Quality of Bowel Preparation: Good Did scope reach the cecum?: Yes Was there any complications?: No GI Core Measures 50 yrs or older w/o bx or poly: No 10yrs. F/U recommended: Yes If not recommended, why?: Above average risk 18 years or older w/prev. colo: No Giacomo Osborne MD Oct 13, 2018 09:07
--- NOTE | 2018-10-13 09:14 | Immediate Post-Op Evaluation ---
Immediate Post-Op Evalulation Immediate Post-Op Evalulation Procedure: EGD and colonoscopy Date of Evaluation: Oct 13, 2018 Time of Evaluation: 09:15 IV Fluids: 200 Blood Products: 0 Estimated Blood Loss: 0 Urinary Output: 0 Pulse Rate: 62 Respiratory Rate: 16 O2 Sat by Pulse Oximetry: 97 Temperature (Fahrenheit): 97.5 Pain Score (1-10): 0 Nausea: No Vomiting: No Complications 0 Patient Status: awake, reacts, patent, none Hydration Status: adequate Drug: N/A Rosie Joya MD Oct 13, 2018 09:14
--- NOTE | 2018-10-13 09:15 | 48 Hour Post Anesthesia Eval ---
Post Anesthesia Evaluation Procedure: EGD and colonoscopy Date of Evaluation: Oct 13, 2018 Airway: patent Nausea: No Vomiting: No Hydration Status: adequate Cardiopulmonary Status: at baseline Mental Status/LOC: patient returned to baseline Post-Anesthesia Complications: 0 Follow-up care needed: ready to discharge Rosie Joya MD Oct 13, 2018 09:15
--- NOTE | 2018-10-13 17:15 | Procedure Note ---
DATE OF PROCEDURE: 10/13/2018 SURGEON: Giacomo Osborne M.D. PROCEDURE: Upper endoscopy with biopsy and colonoscopy with biopsy. ANESTHESIA: Per Dr. Feliciano. INSTRUMENT: Olympus adult flexible upper endoscope and colonoscope. INDICATION: Screening colonoscopy evaluation chronic. REASON FOR PROCEDURE: The procedure, risks, benefits, and possible consequences, including hemorrhage, aspiration, perforation and infection, and alternative treatments, were explained to the patient/legal guardian by Dr. Giacomo Osborne and the patient/legal guardian understood and accepted these risks. PROCEDURE IN DETAIL: After informed consent was obtained and the patient was adequately sedated, Olympus upper endoscope was advanced from mouth into the second portion of the duodenum and retroflexion was performed in the stomach. The patient had evidence of diffuse atrophic gastritis. Random biopsies from antrum and body was obtained to rule out H. pylori infection. GE junction was found to be about 37 cm from the incisors. No evidence of any esophagitis or esophageal pathology. At this time, the upper endoscope was retrieved and the patient was turned over for colonoscopy. normal. Then, the scope was advanced from the rectum into the cecum, the appendix orifice, ileocecal valve, and right upper quadrant palpation. Quality of prep was good. 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 The patient had total of four polyps in the transverse colon are diminutive, all removed with the cold biopsy forceps technique. The rest of the examination was within normal limits. Retroflexion of rectum showed no obvious large internal hemorrhoids. The patient had evidence of moderate diverticulosis in the left colon. SUMMARY OF FINDINGS: 1. Atrophic gastritis, status post biopsy. 2. Diverticulosis. 3. Four colonic polyps removed, see above for details. 4. Melanosis coli. RECOMMENDATIONS: Follow up path and treat accordingly. I want to thank Dr. Stanton, for this kind referral. Giacomo Osborne M.D. DR: YEE JOB#: [id number] CC: Oscar Stanton M.D.; Fax#: [phone]
--- NOTE | 2018-10-14 14:41 | Cardiology Report ---
APPROVED REPORT EKG Measurement Heart [id number] Normal sinus rhythm Normal ECG
== END 2018-10-13 11:10 | disposition home or self-care (01) ==
LOC: GAS 07:26
DX: Z12.11 Encounter for screening for malignant neoplasm of colon (principal); K29.70 Gastritis, unspecified, without bleeding; K57.90 Diverticulosis of intestine, part unspecified, without perforation or abscess without bleeding; K63.5 Polyp of colon; K63.89 Other specified diseases of intestine; K21.9 Gastro-esophageal reflux disease without esophagitis; Z79.899 Other long term (current) drug therapy; I10 Essential (primary) hypertension; M19.90 Unspecified osteoarthritis, unspecified site; K29.50 Unspecified chronic gastritis without bleeding; D12.3 Benign neoplasm of transverse colon
CPT/HCPCS: 43239; 45380; 93005; J0330; J2704; 94003; 94150

== ENCOUNTER 2018-10-26 13:32 | Outpatient (CLI) | payer MEDICARE, MEDICAID ==
[~2018-10-26 13:32] MED LIST changes: +NAPROXEN SODIU500 MG PO
--- NOTE | 2018-11-02 13:24 | General Progress Note ---
Assessment/Plan Problem List: (1) Non-ST elevation (NSTEMI) myocardial infarction ICD Codes: I21.4 - Non-ST elevation (NSTEMI) myocardial infarction SNOMED: 09121156 (2) History of hypertension ICD Codes: Z86.79 - Personal history of other diseases of the circulatory system SNOMED: 022856570 (3) New onset type 2 diabetes mellitus ICD Codes: E11.9 - Type 2 diabetes mellitus without complications SNOMED: 10470956 (4) Constipation ICD Codes: K59.00 - Constipation, unspecified SNOMED: 45432956 (5) Intractable nausea and vomiting ICD Codes: R11.2 - Nausea with vomiting, unspecified SNOMED: 483171966 Assessment/Plan: INDICATION: Screening colonoscopy evaluation chronic. REASON FOR PROCEDURE: The procedure, risks, benefits, and possible consequences, including hemorrhage, aspiration, perforation and infection, and alternative treatments, were explained to the patient/legal guardian by Dr. Giacomo Osborne and the patient/legal guardian understood and accepted these risks. PROCEDURE IN DETAIL: After informed consent was obtained and the patient was adequately sedated, Olympus upper endoscope was advanced from mouth into the second portion of the duodenum and retroflexion was performed in the stomach. The patient had evidence of diffuse atrophic gastritis. Random biopsies from antrum and body was obtained to rule out H. pylori infection. GE junction was found to be about 37 cm from the incisors. No evidence of any esophagitis or esophageal pathology. At this time, the upper endoscope was retrieved and the patient was turned over for colonoscopy. normal. Then, the scope was advanced from the rectum into the cecum, the appendix orifice, ileocecal valve, and right upper quadrant palpation. Quality of prep was good. 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 The patient had total of four polyps in the transverse colon are diminutive, all removed with the cold biopsy forceps technique. The rest of the examination was within normal limits. Retroflexion of rectum showed no obvious large internal hemorrhoids. The patient had evidence of moderate diverticulosis in the left colon. SUMMARY OF FINDINGS: 1. Atrophic gastritis, status post biopsy. 2. Diverticulosis. 3. Four colonic polyps removed, see above for details. 4. Melanosis coli. Repeat colonoscopy in 3 years Subjective ROS Limited/Unobtainable: Yes Allergies: Coded Allergies: No Known Allergies (Unverified , 10/13/18) Objective General Appearance: alert EENT: normal ENT inspection Neck: supple Cardiovascular: normal rate Respiratory/Chest: decreased breath sounds Abdomen: normal bowel sounds, non tender, soft Extremities: non-tender Giacomo Osborne MD Nov 02, 2018 13:24
== END 2018-10-26 15:32 | disposition home or self-care (01) ==
LOC: PAN 13:32
DX: K59.00 Constipation, unspecified (principal); R11.2 Nausea with vomiting, unspecified; E11.9 Type 2 diabetes mellitus without complications; Z86.79 Personal history of other diseases of the circulatory system; I21.4 Non-ST elevation (NSTEMI) myocardial infarction; K29.40 Chronic atrophic gastritis without bleeding; B96.89 Other specified bacterial agents as the cause of diseases classified elsewhere; K57.90 Diverticulosis of intestine, part unspecified, without perforation or abscess without bleeding; Z86.010 Personal history of colon polyps
CPT/HCPCS: 99212

== ENCOUNTER 2019-01-12 19:03 | Inpatient (IN) | payer MEDICARE, MEDICAID ==
[~2019-01-12] VITALS: Ht 157.5 cm; Wt 72.6 kg
--- NOTE | 2019-01-12 20:15 | NUR ---
NURSE NOTES: Received report from PAUL Sheridan from [facility].
--- NOTE | 2019-01-12 22:15 | NUR ---
NURSE NOTES: Patient arrived to tele unit via [facility] ambulance transportation, transferred to bed with 4 staff member assist without incidence. Daughter, Ace, and grand daughter, Kate, at the bedside with the patient. Patient AOx4, talkative. No signs of distress, shortness of breath, or pain noted. Skin assessed, intact. Belongings list signed by patient, no belongings. IV site checked, intact and patent, no bleeding, redness, or infiltration noted. Patient oriented to room. Bed in lowest position, brakes on, side rails up x2, and call light within reach. Will continue to monitor.
[2019-01-12] MEDS ORDERED: AMLODIPINE BESY10 MG ORAL (22:29)
[2019-01-12] MEDS ORDERED: MECLIZINE HCL25 MG ORAL (22:29)
[2019-01-12] MEDS ORDERED: HYDRALAZINE HCL50 MG ORAL (22:29)
[2019-01-12] MEDS ORDERED: ASPIRIN81 MG ORAL (22:32)
[2019-01-12 22:34] VITALS: BP 182/69
--- NOTE | 2019-01-12 22:51 | NUR ---
NURSE NOTES: Received admission orders from Dr. Stanton. Noted and carried out.
[2019-01-12] MEDS ORDERED: HydrALAZINE 50mg tab ORAL PRN (23:15)
[2019-01-12] MEDS ORDERED: Meclizine 25mg tab ORAL PRN (23:15)
[2019-01-13] VITALS: BP 157/98
[2019-01-13 04:00] VITALS: BP 156/73
[2019-01-13] MEDS ORDERED: HydrALAZINE 50mg tab ORAL SCH (06:00)
[2019-01-13 06:17] LABS: BASOPHILS % (AUTO) 0.9 % (0.0-2.0); EOSINOPHILS % (AUTO) 2.8 % (0.0-3.0); HEMATOCRIT 40.3 % (37.0-47.0); HEMOGLOBIN 13.2 G/DL (12.0-16.0); LYMPHOCYTES % (AUTO) 28.6 % (20.0-45.0); MEAN CORPUSCULAR VOLUME 87 FL (80-99); MONOCYTES % (AUTO) 7.8 % (1.0-10.0); NEUTROPHILS % (AUTO) 59.9 % (45.0-75.0); PLATELET COUNT 276 K/UL (150-450); RED BLOOD COUNT 4.64 M/UL (4.20-5.40); RED CELL DISTRIBUTION WIDTH 12.8 % (11.6-14.8); WHITE BLOOD COUNT 9.2 K/UL (4.8-10.8)
[2019-01-13 06:53] LABS: ALANINE AMINOTRANSFERASE 20 U/L (12-78); ALBUMIN 3.4 G/DL (3.4-5.0); ALBUMIN/GLOBULIN RATIO 0.9 (1.0-2.7); ALKALINE PHOSPHATASE 58 U/L (46-116); ANION GAP 9 mmol/L (5-15); ASPARTATE AMINO TRANSFERASE 19 U/L (15-37); BILIRUBIN,TOTAL 0.5 MG/DL (0.2-1.0); BLOOD UREA NITROGEN 21 mg/dL (7-18); CARBON DIOXIDE 27 MMOL/L (21-32); CHLORIDE 108 MMOL/L (98-107); CHOLESTEROL 178 MG/DL (< 200); CREATININE 1.3 MG/DL (0.55-1.30); HDL CHOLESTEROL 53 MG/DL (40-60); PHOSPHORUS 3.8 MG/DL (2.5-4.9); POTASSIUM 3.9 MMOL/L (3.5-5.1); SODIUM 144 MMOL/L (136-145); TRIGLYCERIDES 68 MG/DL (30-150)
[2019-01-13] MEDS: Heparin 5000 units/ml inj SUBQ SCH ×3 (07:10→21:09)
--- NOTE | 2019-01-13 07:20 | NUR ---
NURSE NOTES: Report received from PAUL Mcdaniels. Pt. AOx4. In RA. Denies any pain or SOB. No S/S of neurological deficit noted at this time. R IV 20g SL. Bed on lowest position, side rails upx2, brakes engaged, alarm on. Call light left within easy reach.
--- NOTE | 2019-01-13 07:22 | NUR ---
HAND-OFF: Report given to PAUL Pascal. Plan of care endorsed.
[2019-01-13 08:00] VITALS: BP 102/58
[2019-01-13] MEDS: Aspirin Baby 81mg ORAL SCH (08:23)
--- NOTE | 2019-01-13 08:23 | NUR ---
NURSE NOTES: Pt. had hydralizine >2hrs ago BP 102/58 P 91 at this time. Pt. feeling dizzy. BP medication held. Will check BP and administer med per protocol
--- NOTE | 2019-01-13 08:46 | NUR ---
NURSE NOTES: Pt. communicated concern regarding not feeling her usual self and she might be having stroke. communicated with PRODUCT SAFETY EXPERT Claudia.
[2019-01-13] MEDS ORDERED: Metoprolol Succinate XL 25mg tab ORAL SCH ×2 (09:00→21:00)
--- NOTE | 2019-01-13 10:22 | Diagnostic Imaging Report ---
EXAM: US Duplex Bilateral Extracranial Arteries CLINICAL HISTORY: DIZZY TECHNIQUE: Real-time duplex ultrasound scan of the extracranial arteries integrating B-mode two-dimensional vascular structure, Doppler spectral analysis and color flow Doppler imaging. COMPARISON: None FINDINGS: Right common carotid artery: Unremarkable. No occlusion or significant stenosis on color flow and spectral Doppler imaging. Right internal carotid artery: Peak systolic velocity in the right ICA measures 64.1 cm s. Nonspecific decreased flow velocities obtained in the distal right ICA measuring 17.5 cm s. No occlusion or significant stenosis on color flow and spectral Doppler imaging. Right external carotid artery: Unremarkable. No occlusion or significant stenosis on color flow and spectral Doppler imaging. Right vertebral artery: Unremarkable. Antegrade flow. Right ICA CCA ratio: 0.6. Within normal limits. Left common carotid artery: Unremarkable. No occlusion or significant stenosis on color flow and spectral Doppler imaging. Left internal carotid artery: Peak systolic velocity in the left ICA measures 73.8 cm s. Nonspecific decreased flow velocities obtained in the distal left ICA, measuring 25.2 cm s. No occlusion or significant stenosis on color flow and spectral Doppler imaging. Left external carotid artery: Unremarkable. No occlusion or significant stenosis on color flow and spectral Doppler imaging. Left vertebral artery: Unremarkable. Antegrade flow. Left ICA CCA ratio: Unremarkable. Within normal limits. Lymph nodes: 0.7. No lymphadenopathy. CAROTID STENOSIS REFERENCE USING SRU CRITERIA: Mild - <50% stenosis. ICA PSV is less than 125 cm second and plaque or intimal thickening is visible. Moderate - 50-69% stenosis. ICA PSV is 125 to 230 cm second and plaque is visible. Severe - 70-94% stenosis. ICA PSV is more than 230 cm second and visible plaque with lumen narrowing is seen. Near occlusion - 95-99% stenosis. ICA PSV is variable and significant plaque with luminal narrowing is seen. Occluded - 100% stenosis. No flow identified. IMPRESSION: 1. No hemodynamically significant stenosis identified in either ICA. However, decreased flow velocities in the distal portions of both ICAs are nonspecific, and an upstream stenosis not visualized on this exam is not excluded. 2. Normal antegrade flow in bilateral vertebral arteries.
--- NOTE | 2019-01-13 11:43 | NUR ---
NURSE NOTES: Patient's concern regarding not feeling self communicated with Dr. Stanton.
--- NOTE | 2019-01-13 11:55 | Consultation ---
History of Present Illness General Date patient seen: Jan 13, 2019 Time patient seen: 10:00 Chief Complaint: HTN crisis, TIA Referring physician: Dr Stanton Reason for Consultation: in hospital manageemnt /critical care Present Illness HPI 83 y/old female with PMH of HTN initially presented to [facility] for evaluation . She reported slurred speech and left side weakness for 15-20 minutes, which resolved. Upon evaluation CT head revealed no acute IC pathology, patient was found to have HTN emergency with BP 236/102. Patient received ASA and Labetalol, however physician preferred to have permissive hypertension in lieu of probable recent cerebrovascular event. Patient was subsequently transferred to [facility] for further management. Upon evaluation patient denied chest pain, SOB. She does have slightly dysarthric speech. No new focal weakness No fevers, chills . No headache, BP stabilized. Allergies: Coded Allergies: No Known Allergies (Unverified , 10/13/18) Medication History Scheduled Amlodipine Besylate* (Amlodipine Besylate*), 10 MG ORAL DAILY, (Reported) Aspirin* (Aspirin*), 81 MG ORAL DAILY, (Reported) Hydralazine Hcl* (Hydralazine Hcl*), 50 MG ORAL DAILY, (Reported) Meclizine Hcl* (Meclizine*), 25 MG ORAL DAILY, (Reported) Metoprolol Succinate* (Metoprolol Succinate*), 50 MG ORAL DAILY, (Reported) Discontinued Medications Acetaminophen With Codeine (T#3) (Tylenol #3 Tab*), 1 TAB ORAL Q8HR PRN for For Pain Discontinued Reason: Pt stopped taking med Losartan/Hydrochlorothiazide (Losartan-Hctz 100-12.5 Mg Tab), 1 TAB ORAL DAILY, (Reported) Discontinued Reason: Pt stopped taking med Naproxen Sodium (Naproxen Sodium ER), 500 MG PO NEEDED, (Reported) Discontinued Reason: Pt stopped taking med Patient History History Provided By: Patient Healthcare decision maker N Resuscitation status Full Code Advanced Directive on File No Past Medical/Surgical History Past Medical/Surgical History: (1) Non-ST elevation (NSTEMI) myocardial infarction (2) History of hypertension Review of Systems Constitutional: Reports: other - slurred speech x 15 min Eye: Reports: no symptoms Respiratory: Reports: no symptoms Cardiovascular: Reports: other - severely elevated BP Gastrointestinal: Reports: constipation Genitourinary: Reports: other - hx of UTI Musculoskeletal: Reports: joint pain Skin: Reports: no symptoms Psychiatric: Reports: no symptoms Neurological: Reports: see HPI Endocrine: Reports: no symptoms Hematologic/Lymphatic: Reports: no symptoms Physical Exam General Appearance: WD/WN, no apparent distress, alert Lines, tubes and drains: peripheral HEENT: normocephalic, atraumatic, anicteric, mucous membranes moist, PERRL Neck: supple Respiratory/Chest: lungs clear, no respiratory distress, no accessory muscle use Cardiovascular/Chest: normal rate, regular rhythm - SR on tele Abdomen: normal bowel sounds, non tender, soft Extremities: normal range of motion, no calf tenderness Skin Exam: warm/dry Neurologic: alert, oriented x 3, responsive, other - motor stsrength 5/5 BUE and BLE , no arm drift Musculoskeletal: normal muscle bulk Last 24 Hour Vital Signs Date Time Temp Pulse Resp B/P (MAP) Pulse Ox O2 Delivery O2 Flow Rate FiO2 01/13/19 09:00 Room Air 01/13/19 08:44 91 102/58 01/13/19 08:00 97.5 91 17 102/58 (73) 97 01/13/19 08:00 97 01/13/19 06:09 128/75 01/13/19 04:09 Room Air 01/13/19 04:00 98.1 77 16 156/73 (100) 99 01/13/19 04:00 86 01/13/19 00:00 98.0 77 16 157/98 (117) 100 01/13/19 00:00 77 01/12/19 22:34 97.9 79 18 182/69 (106) 97 01/12/19 22:33 Room Air Intake and Output 01/12/19 01/13/19 18:59 06:59 Intake Total 60 ml Output Total 200 ml Balance -140 ml Intake Oral 60 ml Output Urine Total 200 ml Laboratory Tests Test 01/13/19 05:30 White Blood Count 9.2 K/UL (4.8-10.8) Red Blood Count 4.64 M/UL (4.20-5.40) Hemoglobin 13.2 G/DL (12.0-16.0) Hematocrit 40.3 % (37.0-47.0) Mean Corpuscular Volume 87 FL (80-99) Mean Corpuscular Hemoglobin 28.4 PG (27.0-31.0) Mean Corpuscular Hemoglobin Concent 32.6 G/DL (32.0-36.0) Red Cell Distribution Width 12.8 % (11.6-14.8) Platelet Count 276 K/UL (150-450) Mean Platelet Volume 5.6 FL (6.5-10.1) L Neutrophils (%) (Auto) 59.9 % (45.0-75.0) Lymphocytes (%) (Auto) 28.6 % (20.0-45.0) Monocytes (%) (Auto) 7.8 % (1.0-10.0) Eosinophils (%) (Auto) 2.8 % (0.0-3.0) Basophils (%) (Auto) 0.9 % (0.0-2.0) Sodium Level 144 MMOL/L (136-145) Potassium Level 3.9 MMOL/L (3.5-5.1) Chloride Level 108 MMOL/L (98-107) H Carbon Dioxide Level 27 MMOL/L (21-32) Anion Gap 9 mmol/L (5-15) Blood Urea Nitrogen 21 mg/dL (7-18) H Creatinine 1.3 MG/DL (0.55-1.30) Estimat Glomerular Filtration Rate mL/min (>60) Glucose Level 97 MG/DL (74-106) Calcium Level 9.0 MG/DL (8.5-10.1) Phosphorus Level 3.8 MG/DL (2.5-4.9) Magnesium Level 1.9 MG/DL (1.8-2.4) Total Bilirubin 0.5 MG/DL (0.2-1.0) Aspartate Amino Transf (AST/SGOT) 19 U/L (15-37) Alanine Aminotransferase (ALT/SGPT) 20 U/L (12-78) Alkaline Phosphatase 58 U/L (46-116) Troponin I 0.064 ng/mL (0.000-0.056) Total Protein 7.0 G/DL (6.4-8.2) Albumin 3.4 G/DL (3.4-5.0) Globulin 3.6 g/dL Albumin/Globulin Ratio 0.9 (1.0-2.7) L Triglycerides Level 68 MG/DL (30-150) Cholesterol Level 178 MG/DL (< 200) LDL Cholesterol 112 mg/dL (<100) H HDL Cholesterol 53 MG/DL (40-60) Cholesterol/HDL Ratio 3.4 (3.3-4.4) Microbiology Date/Time Source Procedure Growth Status 01/12/19 21:45 Rectum Received Height (Feet): 5 Height (Inches): 2.00 Weight (Pounds): 160 Medications Current Medications Medications (Trade) Dose Ordered Sig/Radha Route PRN Reason Start Time Stop Time Status Last Admin Dose Admin Acetaminophen (Tylenol) 650 mg Q6H PRN ORAL Mild Pain/Temp > 100.5 01/12/19 23:15 02/11/19 23:14 Amlodipine Besylate (Norvasc) 10 mg DAILY ORAL 01/13/19 09:00 02/12/19 08:59 01/13/19 08:44 Aspirin (ASA) 81 mg DAILY ORAL 01/13/19 09:00 02/12/19 08:59 01/13/19 08:23 Atorvastatin Calcium (Lipitor) 40 mg BEDTIME ORAL 01/13/19 21:00 02/12/19 20:59 Heparin Sodium (Porcine) (Heparin 5000 units/ml) 5,000 units EVERY 8 HOURS SUBQ 01/13/19 07:00 02/12/19 06:59 01/13/19 07:10 Hydralazine HCl (Apresoline) 50 mg Q6H PRN ORAL SBP >160 01/12/19 23:15 02/11/19 23:14 Hydralazine HCl (Apresoline) 50 mg TID@0600,1400,2200 ORAL 01/13/19 06:00 02/12/19 05:59 01/13/19 06:09 Meclizine HCl (Antivert) 25 mg Q8H PRN ORAL for dizziness 01/12/19 23:15 02/11/19 23:14 Metoprolol Succinate (Toprol XL) 50 mg BID ORAL 01/13/19 09:00 02/12/19 08:59 UNV Ondansetron HCl (Zofran) 4 mg Q4H PRN IVP Nausea & Vomiting 01/12/19 23:15 02/11/19 23:14 Assessment/Plan Assessment/Plan: ASSESSMENT Possible TIA HTN emergency Elevated troponin, r/o ACS vs demand ischemia Hyperlipidemia PLAN OF CARE tele MRI brain Carotid Duplex ASA, statin lipid panel noted low fat low cholesterol cardiac diet consider neuro eval swallow eval PT eval BP management with CCB and BB, decrease metoprolol dose, holding parameters, not to get BP too low O2 prn titrate to keep sat above 92% Venous Duplex BLE serial troponin, ECG , ECHO-> although minimal elevation, no ECG changes, no complain of chest pain supportive care case discussed and evaluated by supervising physician Michelle Baig NP Jan 13, 2019 11:55
[2019-01-13 12:00] VITALS: BP 170/98
--- NOTE | 2019-01-13 14:23 | Cardiology Report ---
APPROVED REPORT EXAM: Two-dimensional and M-mode echocardiogram with Doppler and color Doppler. INDICATION HTN M-Mode DIMENSIONS IVSd1.0 (0.7-1.1cm)Left Atrium (MM)3.5 (1.6-4.0cm) LVDd3.4 (3.5-5.6cm)Aortic Root2.7 (2.0-3.7cm) PWd0.8 (0.7-1.1cm)Aortic Cusp Exc.1.6 (1.5-2.0cm) IVSs1.0 cm LVDs2.2 (2.5-4.0cm) PWs1.0 cm Technically difficult study due to poor acoustical windows. Normal left ventricular chamber size, systolic function and wall motion to extent visualized. Left ventricular ejection fraction estimated to be 55-60 %. No evidence of left ventricular hypertrophy. No evidence of pericardial effusion. All other cardiac chamber sizes are within normal limits. Focal aortic valve sclerosis with adequate cusp excursion. Thickened mitral valve leaflets with normal excursion. Mitral annulus and aortic root calcification. Normal pulmonic valve structure. Normal tricuspid valve structure. IVC at normal size with physiologic collapse. A color flow and spectral Doppler study was performed and revealed: No aortic insufficiency. Moderate mitral regurgitation. Mitral diastolic velocities suggest reduced left ventricular relaxation c/w mild LV diastolic dysfunction (Grade I ). Mild tricuspid regurgitation. Tricuspid systolic velocities suggests peak right ventricular systolic pressure of 31 mmHg.
--- NOTE | 2019-01-13 14:27 | History & Physical ---
History and Physical History & Physicial Dictated for Int Med-Dr Stanton no. [id number]. Shailesh Li MD Jan 13, 2019 14:27
--- NOTE | 2019-01-13 14:38 | NUR ---
MRI BRAIN COMPLETED.
--- NOTE | 2019-01-13 15:24 | Diagnostic Imaging Report ---
EXAM: MR Head Without Intravenous Contrast CLINICAL HISTORY: CVA TECHNIQUE: Magnetic resonance images of the head brain without intravenous contrast in multiple planes. COMPARISON: Head CT of 06 22 18 FINDINGS: Brain: No acute infarct. 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 T2 prolongation within periventricular and subcortical white matter most likely reflects advanced microvascular ischemia. Several tiny foci of susceptibility artifact on T2 gradient echo sequence. These are predominantly subcortical in distribution. Possible amyloid angiopathy related microhemorrhage syndrome. Ventricles: Unremarkable. No ventriculomegaly. Bones joints: Unremarkable. Sinuses: Unremarkable as visualized. No acute sinusitis. Mastoid air cells: Unremarkable as visualized. No mastoid effusion. Orbits: Unremarkable as visualized. IMPRESSION: No acute infarct. 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 Tiny subcortical hemosiderin deposits may reflect a chronic micro- hemorrhagic syndrome such as amyloid angiopathy. Extensive white matter signal abnormality, most likely advanced microvascular ischemia. Moderate atrophy.
[2019-01-13] MEDS: HydrALAZINE 50mg tab ORAL SCH ×2 (15:25→21:07)
[2019-01-13 16:00] VITALS: BP 116/59
--- NOTE | 2019-01-13 19:15 | NUR ---
NURSE NOTES: Received report from PAUL Pascal. Patient is awake, lying in semi camarena's; resting comfortably. A/Ox4. Denies pain at this time. No signs of distress noted. Checked IV site and flushed. No erythema, bleeding or infiltration noted. Bed at lowest position, brakes on, siderailsx3. Call light within reach. Will continue to monitor.
--- NOTE | 2019-01-13 19:16 | History and Physical Report ---
DATE OF ADMISSION: 01/12/2019 CHIEF COMPLAINT: The patient is an 83-year-old female, who presents with a chief complaint of slurred speech. HISTORY OF PRESENT ILLNESS: The patient has a history of cerebrovascular accident approximately 10 years ago. The patient also has a history of hypertension. The patient presented initially to [facility] emergency room with complaint of slurred speech. The patient states her tongue felt heavy. The patient was unable to speak for approximately 5 minutes. Those symptoms resolved by the time the patient presented to [facility] emergency room. The patient is transferred to [facility] for insurance purposes. The patient is admitted with slurred speech to rule out acute cerebrovascular accident. REVIEW OF SYSTEMS: CONSTITUTIONAL: The patient denies weight loss or weight gain. The patient denies fevers or chills. HEENT: The patient denies ear or throat pain. The patient denies headache. CARDIOVASCULAR: The patient denies palpitations or chest pain. CHEST: The patient denies wheeze or shortness of breath. ABDOMEN: The patient denies nausea, vomiting, diarrhea, or constipation. GENITOURINARY: The patient denies dysuria or increased frequency of urination. NEUROMUSCULAR: The patient complains of slurred speech as above. The patient denies seizures or generalized weakness. PAST MEDICAL HISTORY: Significant for: 1. Hypertension. 2. History of cerebrovascular disease, status post cerebrovascular accident 10 years ago. PAST SURGICAL HISTORY: The patient denies. CURRENT MEDICATIONS: 1. Amlodipine 10 mg one tablet p.o. daily. 2. Aspirin 81 mg p.o. daily. 3. Hydralazine 50 mg p.o. daily. 4. Metoprolol 50 mg p.o. daily. ALLERGIES: No known drug allergies. SOCIAL HISTORY: The patient is single and lives alone. The patient denies tobacco or alcohol use. PHYSICAL EXAMINATION: VITAL SIGNS: Temperature 97.9, respirations 16, pulse 72, and blood pressure 236/102. GENERAL: The patient is a well-developed and well-nourished female, in no apparent distress. HEENT: Eyes, pupils are equal and responsive to light and accommodation. Extraocular movements are intact. NECK: Supple without lymphadenopathy. CHEST: Lungs are clear to auscultation bilaterally without wheezes or rales. CARDIOVASCULAR: Regular rhythm and rate. S1, S2 normal without murmurs, rubs, or gallops. ABDOMEN: Soft, nontender, and nondistended. Positive bowel sounds. No evidence of hepatosplenomegaly. Currently, no rebound or guarding noted. EXTREMITIES: Negative for clubbing, cyanosis, or edema. RECTAL/GENITAL: Not performed. NEUROLOGICAL: Cranial nerves II through XII are grossly intact without focal deficits. Motor strength is 5/5 bilaterally. Deep tendon reflexes are 2+ plantar. LABORATORY STUDIES: WBC 8.7, hemoglobin 13.9, hematocrit 45.0, and platelets 321,000. Sodium 140, potassium 4.0, chloride 101, CO2 27, BUN 21, and creatinine 1.33. Glucose 100. A CT scan of the brain without contrast failed to demonstrate acute bleed or mass. ASSESSMENT: This is an 83-year-old female with: 1. Dysarthria. 2. Probable transient ischemic attack. 3. History of cerebrovascular disease. 4. Hypertensive emergency. TREATMENT: 1. Dysarthria/transient ischemic attack/cerebrovascular disease. An MRI of the brain is pending. A Neurology consultation has been obtained with Dr. Philippe Lofton. We will follow recommendations of Neurology. This appears to be a transient ischemic attack since the symptoms have now resolved. 2. Hypertensive emergency. A Cardiology consultation has been obtained with Dr. Micah Vega. The patient has been started empirically on amlodipine, hydralazine, and metoprolol. Shailesh Li M.D. DR: HEAVEN JOB#: [id number] CC:
--- NOTE | 2019-01-13 19:30 | NUR ---
HAND-OFF: Report given to PAUL Reyna. Pt. in stable condition. VS stable.
[2019-01-13 20:00] VITALS: BP 120/63
[2019-01-13] MEDS: Metoprolol 25mg tab ORAL SCH (20:23)
[2019-01-13] MEDS: Atorvastatin 20mg tab ORAL SCH (20:23)
[2019-01-14] VITALS: BP 118/60
--- NOTE | 2019-01-14 01:20 | NUR ---
NURSE NOTES: Patient is SR with PVC on the monitor, 89 bpm. No signs of distress noted. Paged Dr. Stanton for further orders. Awaiting for callback.
--- NOTE | 2019-01-14 01:22 | NUR ---
NURSE NOTES: Per Dr. Stanton, no new orders at this time.
--- NOTE | 2019-01-14 02:14 | NUR ---
NURSE NOTES: Resting throughout the night. No significant change of condition noted. Will continue to monitor.
[2019-01-14 04:00] VITALS: BP 140/64
[2019-01-14] MEDS: HydrALAZINE 50mg tab ORAL SCH ×3 (05:22→21:13)
[2019-01-14] MEDS: Heparin 5000 units/ml inj SUBQ SCH (05:23)
--- NOTE | 2019-01-14 07:30 | NUR ---
HAND-OFF: Report given to PAUL Pascal. Plan of care endorsed. Patient is in stable condition.
[2019-01-14 07:36] LABS: BASOPHILS % (AUTO) 0.8 % (0.0-2.0); EOSINOPHILS % (AUTO) 1.3 % (0.0-3.0); HEMATOCRIT 40.4 % (37.0-47.0); HEMOGLOBIN 13.3 G/DL (12.0-16.0); LYMPHOCYTES % (AUTO) 31.9 % (20.0-45.0); MEAN CORPUSCULAR VOLUME 86 FL (80-99); MONOCYTES % (AUTO) 7.8 % (1.0-10.0); NEUTROPHILS % (AUTO) 58.2 % (45.0-75.0); PLATELET COUNT 309 K/UL (150-450); RED CELL DISTRIBUTION WIDTH 12.6 % (11.6-14.8); WHITE BLOOD COUNT 11.8 K/UL (4.8-10.8)
[2019-01-14 07:47] LABS: ANION GAP 3 mmol/L (5-15); BLOOD UREA NITROGEN 34 mg/dL (7-18); CALCIUM 9.2 MG/DL (8.5-10.1); CARBON DIOXIDE 29 MMOL/L (21-32); CHLORIDE 102 MMOL/L (98-107); CREATININE 1.8 MG/DL (0.55-1.30); POTASSIUM 3.5 MMOL/L (3.5-5.1); SODIUM 134 MMOL/L (136-145)
[2019-01-14 08:00] VITALS: BP 99/60
--- NOTE | 2019-01-14 08:26 | NUR ---
NURSE NOTES: BP results communicated with Michelle Baig NP. Medications to be adjusted.
[2019-01-14] MEDS ORDERED: Heparin 25,000u/D5W 500ml 500 ML IV SCH ×2 (08:30→20:30)
[2019-01-14] MEDS ORDERED: Heparin 5000 units/ml inj IV SCH (08:30)
--- NOTE | 2019-01-14 08:48 | Pulmonology Progress Note ---
Assessment/Plan Assessment/Plan ASSESSMENT Cerebrovasculars disease, probably TIA HTN emergency-resolved Elevated troponin, possible NSTEMI type2 Hyperlipidemia AVA PLAN OF CARE tele MRI brain -negative for acute IC pathology, + cerebrovascular disease Carotid Duplex essentially stable ASA, statin lipid panel noted low fat low cholesterol cardiac diet neuro eval pending elevated troponin -8.9 this am pt asymptomatic will start heparin gtt, until evaluated by cardio repeat troponin in 6 hrs x 2, get ECG cardio eval pending BP management with CCB , hydralazine and BB, decreased metoprolol dose yesterday , holding parameters, O2 prn titrate to keep sat above 92% Venous Duplex BLE evidence of AVA today 500 ml NS bolus monitor renal paramerts, lytes, avoid nephrotoxic mild leukocytosis possibly reactive, due tto elev troponin; will monitor swallow eval PT eval case discussed and evaluated by supervising physician Subjective Allergies: Coded Allergies: No Known Allergies (Unverified , 10/13/18) Subjective reports feeling better MRI brain no acute IC pathology troponin back elevated-8. tele SR no c/o CP, SOB, palpitations, abd pain creat up to 1.8 mild leukocytosis, no fever pulse ox stable on RA Objective Last 24 Hour Vital Signs Date Time Temp Pulse Resp B/P (MAP) Pulse Ox O2 Delivery O2 Flow Rate FiO2 01/14/19 08:00 98.1 91 18 99/60 (73) 96 01/14/19 05:22 140/64 01/14/19 04:00 86 01/14/19 04:00 98.7 91 18 140/64 (89) 98 01/14/19 00:00 98.8 92 18 118/60 (79) 96 01/14/19 00:00 89 01/13/19 21:07 132/52 01/13/19 21:00 Room Air 01/13/19 20:23 110 120/63 01/13/19 20:00 99.7 110 20 120/63 (82) 97 01/13/19 20:00 106 01/13/19 16:00 99.9 102 18 116/59 (78) 95 01/13/19 16:00 109 01/13/19 15:25 115/59 01/13/19 12:11 188/84 01/13/19 12:00 87 01/13/19 12:00 97.5 91 17 170/98 (122) 97 01/13/19 09:00 Room Air 01/13/19 08:44 91 102/58 Intake and Output 01/13/19 01/14/19 18:59 06:59 Intake Total 600 ml Balance 600 ml Other 600 ml # Voids 3 Objective General Appearance: WD/WN, no apparent distress, alert Lines, tubes and drains: peripheral HEENT: normocephalic, atraumatic, anicteric, mucous membranes moist, PERRL Neck: supple Respiratory/Chest: lungs clear, no respiratory distress, no accessory muscle use Cardiovascular/Chest: normal rate, regular rhythm - SR on tele Abdomen: normal bowel sounds, non tender, soft Extremities: normal range of motion, no calf tenderness Skin Exam: warm/dry Neurologic: alert, oriented x 3, responsive, motor strength 5/5 BUE and BLE , Musculoskeletal: normal muscle bulk Microbiology Date/Time Source Procedure Growth Status 01/12/19 21:45 Rectum Received Laboratory Tests 01/14/19 05:40: White Blood Count 11.8H, Red Blood Count 4.70, Hemoglobin 13.3, Hematocrit 40.4 , Mean Corpuscular Volume 86, Mean Corpuscular Hemoglobin 28.4, Mean Corpuscular Hemoglobin Concent 33.0, Red Cell Distribution Width 12.6, Platelet Count 309, Mean Platelet Volume 5.2L, Neutrophils (%) (Auto) 58.2, Lymphocytes ( %) (Auto) 31.9, Monocytes (%) (Auto) 7.8, Eosinophils (%) (Auto) 1.3, Basophils (%) (Auto) 0.8, Sodium Level 134L, Potassium Level 3.5, Chloride Level 102, Carbon Dioxide Level 29, Anion Gap 3L, Blood Urea Nitrogen 34H, Creatinine 1.8H , Estimat Glomerular Filtration Rate , Glucose Level 111H, Calcium Level 9.2, Troponin I 8.910H Current Medications Medications (Trade) Dose Ordered Sig/Radha Route PRN Reason Start Time Stop Time Status Last Admin Dose Admin Acetaminophen (Tylenol) 650 mg Q6H PRN ORAL Mild Pain/Temp > 100.5 01/12/19 23:15 02/11/19 23:14 Amlodipine Besylate (Norvasc) 10 mg DAILY ORAL 01/13/19 09:00 02/12/19 08:59 01/13/19 08:44 Aspirin (ASA) 81 mg DAILY ORAL 01/13/19 09:00 02/12/19 08:59 01/13/19 08:23 Atorvastatin Calcium (Lipitor) 40 mg BEDTIME ORAL 01/13/19 21:00 02/12/19 20:59 01/13/19 20:23 Heparin Sodium (Porcine) (Heparin 5000 units/ml) 4,500 units ONCE IV 01/14/19 08:30 01/14/19 10:30 Heparin Sodium/ Dextrose 500 ml @ 17.418 mls/ hr ADJUST PER PROTOCOL IV 01/14/19 08:30 02/13/19 08:29 Hydralazine HCl (Apresoline) 50 mg Q6H PRN ORAL SBP >160 01/12/19 23:15 02/11/19 23:14 01/13/19 12:11 Hydralazine HCl (Apresoline) 50 mg TID@0600,1400,2200 ORAL 01/13/19 14:00 02/12/19 05:59 01/14/19 05:22 Meclizine HCl (Antivert) 25 mg Q8H PRN ORAL for dizziness 01/12/19 23:15 02/11/19 23:14 Metoprolol Tartrate (Lopressor) 25 mg Q12HR ORAL 01/13/19 21:00 02/12/19 20:59 01/13/19 20:23 Ondansetron HCl (Zofran) 4 mg Q4H PRN IVP Nausea & Vomiting 01/12/19 23:15 02/11/19 23:14 Michelle Baig CAREER PLACEMENT SERVICES COUNSELOR Jan 14, 2019 08:48
[2019-01-14] MEDS: Metoprolol 25mg tab ORAL SCH ×2 (09:00→21:13)
[2019-01-14 09:29] LABS: BASOPHILS % (AUTO) 1.1 % (0.0-2.0); EOSINOPHILS % (AUTO) 1.4 % (0.0-3.0); HEMATOCRIT 40.9 % (37.0-47.0); HEMOGLOBIN 13.5 G/DL (12.0-16.0); LYMPHOCYTES % (AUTO) 29.3 % (20.0-45.0); MEAN CORPUSCULAR VOLUME 87 FL (80-99); MONOCYTES % (AUTO) 6.7 % (1.0-10.0); NEUTROPHILS % (AUTO) 61.4 % (45.0-75.0); PLATELET COUNT 317 K/UL (150-450); RED BLOOD COUNT 4.73 M/UL (4.20-5.40); RED CELL DISTRIBUTION WIDTH 12.8 % (11.6-14.8); WHITE BLOOD COUNT 10.7 K/UL (4.8-10.8)
[2019-01-14] MEDS: Aspirin Baby 81mg ORAL SCH (10:54)
[2019-01-14 12:00] VITALS: BP 141/59
--- NOTE | 2019-01-14 13:39 | Internal Med Progress Note ---
Subjective Date of Service: Jan 14, 2019 Physician Name Shailesh Li Attending Physician Oscar Stanton MD Current Medications Medications (Trade) Dose Ordered Sig/Radha Route PRN Reason Start Time Stop Time Status Last Admin Dose Admin Acetaminophen (Tylenol) 650 mg Q6H PRN ORAL Mild Pain/Temp > 100.5 01/12/19 23:15 02/11/19 23:14 Amlodipine Besylate (Norvasc) 10 mg DAILY ORAL 01/13/19 09:00 02/12/19 08:59 01/13/19 08:44 Aspirin (ASA) 81 mg DAILY ORAL 01/13/19 09:00 02/12/19 08:59 01/14/19 10:54 Atorvastatin Calcium (Lipitor) 40 mg BEDTIME ORAL 01/13/19 21:00 02/12/19 20:59 01/13/19 20:23 Heparin Sodium/ Dextrose 500 ml @ 17.418 mls/ hr ADJUST PER PROTOCOL IV 01/14/19 08:30 02/13/19 08:29 01/14/19 10:15 Hydralazine HCl (Apresoline) 50 mg Q6H PRN ORAL SBP >160 01/12/19 23:15 02/11/19 23:14 01/13/19 12:11 Hydralazine HCl (Apresoline) 50 mg TID@0600,1400,2200 ORAL 01/13/19 14:00 02/12/19 05:59 01/14/19 05:22 Meclizine HCl (Antivert) 25 mg Q8H PRN ORAL for dizziness 01/12/19 23:15 02/11/19 23:14 Metoprolol Tartrate (Lopressor) 25 mg Q12HR ORAL 01/13/19 21:00 02/12/19 20:59 01/13/19 20:23 Ondansetron HCl (Zofran) 4 mg Q4H PRN IVP Nausea & Vomiting 01/12/19 23:15 02/11/19 23:14 Allergies: Coded Allergies: No Known Allergies (Unverified , 10/13/18) ROS Limited/Unobtainable: No Constitutional: Reports: no symptoms HEENT: Reports: no symptoms Cardiovascular: Reports: no symptoms Respiratory: Reports: no symptoms Gastrointestinal/Abdominal: Reports: no symptoms Genitourinary: Reports: no symptoms Neurologic/Psychiatric: Reports: no symptoms Subjective 83 YO F admitted with slurred speech. Now elevated troponin. Cover for Int Miles -Dr Stanton Objective Last Vital Signs Date Time Temp Pulse Resp B/P (MAP) Pulse Ox O2 Delivery O2 Flow Rate FiO2 01/14/19 09:00 Room Air 01/14/19 09:00 91 99/60 01/14/19 08:00 98.1 18 96 Laboratory Tests Test 01/14/19 05:40 01/14/19 08:30 01/14/19 11:45 White Blood Count 11.8 K/UL (4.8-10.8) H 10.7 K/UL (4.8-10.8) Red Blood Count 4.70 M/UL (4.20-5.40) 4.73 M/UL (4.20-5.40) Hemoglobin 13.3 G/DL (12.0-16.0) 13.5 G/DL (12.0-16.0) Hematocrit 40.4 % (37.0-47.0) 40.9 % (37.0-47.0) Mean Corpuscular Volume 86 FL (80-99) 87 FL (80-99) Mean Corpuscular Hemoglobin 28.4 PG (27.0-31.0) 28.5 PG (27.0-31.0) Mean Corpuscular Hemoglobin Concent 33.0 G/DL (32.0-36.0) 33.0 G/DL (32.0-36.0) Red Cell Distribution Width 12.6 % (11.6-14.8) 12.8 % (11.6-14.8) Platelet Count 309 K/UL (150-450) 317 K/UL (150-450) Mean Platelet Volume 5.2 FL (6.5-10.1) L 5.2 FL (6.5-10.1) L Neutrophils (%) (Auto) 58.2 % (45.0-75.0) 61.4 % (45.0-75.0) Lymphocytes (%) (Auto) 31.9 % (20.0-45.0) 29.3 % (20.0-45.0) Monocytes (%) (Auto) 7.8 % (1.0-10.0) 6.7 % (1.0-10.0) Eosinophils (%) (Auto) 1.3 % (0.0-3.0) 1.4 % (0.0-3.0) Basophils (%) (Auto) 0.8 % (0.0-2.0) 1.1 % (0.0-2.0) Sodium Level 134 MMOL/L (136-145) L Potassium Level 3.5 MMOL/L (3.5-5.1) Chloride Level 102 MMOL/L (98-107) Carbon Dioxide Level 29 MMOL/L (21-32) Anion Gap 3 mmol/L (5-15) L Blood Urea Nitrogen 34 mg/dL (7-18) H Creatinine 1.8 MG/DL (0.55-1.30) H Estimat Glomerular Filtration Rate mL/min (>60) Glucose Level 111 MG/DL (74-106) H Calcium Level 9.2 MG/DL (8.5-10.1) Troponin I 8.910 ng/mL (0.000-0.056) 6.738 ng/mL (0.000-0.056) Activated Partial Thromboplast Time 40 SEC (23-33) H Microbiology Date/Time Source Procedure Growth Status 01/12/19 21:45 Rectum Received Intake and Output 01/13/19 01/14/19 18:59 06:59 Intake Total 600 ml Balance 600 ml Other 600 ml # Voids 3 Objective PHYSICAL EXAMINATION: GENERAL: The patient is a well-developed and well-nourished female, in no apparent distress. HEENT: Eyes, pupils are equal and responsive to light and accommodation. Extraocular movements are intact. NECK: Supple without lymphadenopathy. CHEST: Lungs are clear to auscultation bilaterally without wheezes or rales. CARDIOVASCULAR: Regular rhythm and rate. S1, S2 normal without murmurs, rubs, or gallops. ABDOMEN: Soft, nontender, and nondistended. Positive bowel sounds. No evidence of hepatosplenomegaly. Currently, no rebound or guarding noted. EXTREMITIES: Negative for clubbing, cyanosis, or edema. RECTAL/GENITAL: Not performed. NEUROLOGICAL: Cranial nerves II through XII are grossly intact without focal deficits. Motor strength is 5/5 bilaterally. Deep tendon reflexes are 2+ plantar. Assessment/Plan Assessment/Plan ASSESSMENT: This is an 83-year-old female with: 1. Dysarthria. 2. Probable transient ischemic attack. 3. History of cerebrovascular disease. 4. Hypertensive emergency. 5. Elevated troponin TREATMENT: 1. Dysarthria/transient ischemic attack/cerebrovascular disease. An MRI of the brain =no acute infarc. A Neurology consultation has been obtained with Dr. Philippe Lofton. We will follow recommendations of Neurology. This appears to be a transient ischemic attack since the symptoms have now resolved. 2. Hypertensive emergency. A Cardiology consultation has been obtained with Dr. Micah Vega. Continue amlodipine, hydralazine, and metoprolol 3. Elevated troponin ?demand ischemia vs acute coronary syndrome. On heparin drip. Await cardiology consult. Shailesh Li MD Jan 14, 2019 13:39
--- NOTE | 2019-01-14 15:59 | NUR ---
PT Note PT martínez completed, treatment initiated. Was unable to fully assess patient's gait as RN advised to defer further gait training due to pt receiving medication per IV that can potentially increase patient's HR. Patient needs PT to increase her muscle strength and balance to improve her safety in mobility and gait to enable her to return to [facility]. Addendum: 01/14/19 at 1600 by SHASHANK SILVER PT Amended: Links added.
[2019-01-14 16:00] VITALS: BP 126/60
--- NOTE | 2019-01-14 16:23 | Consultation ---
Consult Note Assessment/Plan Cardiology for Dr. Vega Full consult dictated # [id number] 83 yo AAF w/ HTN, remote hx of CVA who is adm w/ transient dysarthria in setting of BP 236/110. Head CT negative. Being evaluated by neurology. In this setting , she has suffered a nonSTEMI, w/ trop peak of 8. No ST changes and normal wall motion, EF on ECHO REc: asa, iv heparin, statin and b owen. BP control . Diagnostic cor angiogram over next 1-2 days, once neuro status stable. Klarissa Benavidez MD Jan 14, 2019 16:23
--- NOTE | 2019-01-14 18:00 | Consultation ---
DATE OF CONSULTATION: 01/14/2019 CARDIOLOGY CONSULT CONSULTING PHYSICIAN: Klarissa Benavidez M.D. REQUESTED PHYSICIAN: Oscar Stanton M.D. [facility] am covering [facility]. REASON FOR CONSULTATION: Elevated troponin. HISTORY OF PRESENT ILLNESS: The patient is an 83-year-old woman with history of hypertension, previous CVA, no previous history of coronary disease who was riding in the car with her granddaughter when she suddenly developed garbled speech. She was brought to [facility] emergency room and symptoms resolved while there. Her blood pressure on admission there was 236/102, and pulse is 72 beats per minute. She was transferred to [facility] for insurance reasons. A CT scan of the brain without contrast showed no acute mass or bleed. She has had a few brief episodes of similar garbled speech since transfer to [facility] which have resolved within minutes. Head CT showed no acute mass or bleed. She was transferred to [facility]. Here, she has had a few brief similar episodes of garbled speech which has resolved. She is being evaluated by Neurology. Brain MRI is pending. She was noted to have a troponin level of 0.06 on admission with repeat 8.9 and followup 6.7. Cardiology evaluation was requested. She denies any chest pain or pressure, dyspnea, or palpitations. MEDICATIONS: Currently atorvastatin 40 mg daily, metoprolol 25 mg q.12 h., hydralazine 50 mg t.i.d., amlodipine 10 mg daily, aspirin 81 mg daily, meclizine as needed, Zofran, Tylenol, and hydralazine p.r.n. ALLERGIES: No known drug allergies. PAST MEDICAL HISTORY: As noted above. SOCIAL HISTORY: The patient is a nonsmoker. She has no history of alcohol or drug use. PHYSICAL EXAMINATION: VITAL SIGNS: Blood pressure 128/75, pulse 77, respirations 16, afebrile. GENERAL: Alert, well-developed woman, in no acute distress. HEENT: Normocephalic and atraumatic. Pupils are equal, round, and reactive to light. Sclerae anicteric. Oral mucosa moist. NECK: Supple. There is no jugular venous distention. Carotid pulses are 2+ with normal upstrokes. Bilateral soft bruits. LUNGS: Clear to auscultation bilaterally. HEART: Regular rate and rhythm. S1 and S2 with a 2-3/6 systolic ejection murmur at the right second intercostal space radiating across the precordium. Positive S4. No S3. No rubs. ABDOMEN: Soft, nontender. No palpable mass. No bruits. EXTREMITIES: No cyanosis, clubbing, or edema. NEUROLOGIC: A 5/5 motor of the upper and lower extremities. Light touch is intact. Speech is normal. Gait, not tested. LABORATORY AND DIAGNOSTIC DATA: Troponin has noted above 0.064, repeat 8.9 and 6.7. Sodium 134, potassium 3.5, BUN 34, creatinine 1.8, glucose 111. Hemoglobin 13, hematocrit 40, white blood count 92976, and platelets 317,000. EKG shows sinus rhythm at a rate of 84 beats per minute, axis +60 degrees, left atrial enlargement, poor R-wave progression V1 to V2, nonspecific T-wave changes, mild increased in QT, QT corrected 470 milliseconds (no old EKG available for comparison). Her echo shows an ejection fraction of 55% to 60%, no left ventricular hypertrophy, mild tricuspid regurgitation, moderate mitral regurgitation, no aortic regurgitation. Carotid duplex shows bilateral plaque, no stenosis. Chest x-ray is pending. PLAN AND ASSESSMENT: The patient is an 83-year-old woman with hypertension who was admitted with an acute transient ischemic attack versus CVA with symptoms of transient dysarthria. She had uncontrolled hypertension on initial presentation to [facility]. Blood pressure has now improved with medication. She is being evaluated by Neurology. She has been evaluated with a head CT, which did not show any acute bleed. She has been started on aspirin, heparin. MRI is pending. She appears to have suffered a non-ST elevation myocardial infarction in the setting of severely elevated blood pressure. Her troponin levels are now decreasing. Her EKG does not show any focal in the setting of uncontrolled hypertension. Her echo does not show any focal wall motion abnormalities. It shows normal left ventricular systolic function. EKG does not show any acute ST-segment changes. Troponin levels are decreasing. I would favor continuing aspirin, statin, and beta-blockers. I would favor diagnostic coronary angiography once she has been stabilized from a neurologic standpoint. We would continue intravenous heparin for now. We would continue to trend troponins and will check additional serial EKGs. Dr. Vega will continue to follow the patient starting 01/15/2019. Thank you for involving us in the care. Klarissa Benavidez M.D. DR: Moe JOB#: [id number] CC:
--- NOTE | 2019-01-14 19:05 | NUR ---
NURSE NOTES: Heparin stopped @ 1905. Per pharmacy protocol.
--- NOTE | 2019-01-14 19:15 | NUR ---
NURSE NOTES: Received report from PAUL Pascal. Patient is awake, lying in semi camarena's; resting comfortably. A/Ox3. Denies pain at this time. No signs of distress noted. Checked IV site and flushed. No erythema, bleeding or infiltration noted. Bed at lowest position, brakes on, siderailsx3. Call light within reach. Will continue to monitor.
--- NOTE | 2019-01-14 19:15 | NUR ---
HAND-OFF: Report given to PAUL Reyna. Plan of care endorsed.
--- NOTE | 2019-01-14 19:15 | NUR ---
NURSE NOTES: Left a message to Dr. Gomes regarding Pt's aPTT level as well troponin level. Waiting for a call back.
[2019-01-14 20:00] VITALS: BP 144/66
--- NOTE | 2019-01-14 21:00 | NUR ---
NURSE NOTES: Restarted heparin drip as per pharmacy protocol. Will monitor signs of bleeding.
[2019-01-14] MEDS: Atorvastatin 20mg tab ORAL SCH (21:11)
[2019-01-15] VITALS: BP 110/55
--- NOTE | 2019-01-15 02:45 | NUR ---
NURSE NOTES: Resting throughout the night. No significant change of condition noted. No signs of bleeding. Will continue to monitor.
[2019-01-15 03:09] LABS: BASOPHILS % (AUTO) 0.8 % (0.0-2.0); EOSINOPHILS % (AUTO) 3.4 % (0.0-3.0); HEMATOCRIT 38.9 % (37.0-47.0); HEMOGLOBIN 13.4 G/DL (12.0-16.0); LYMPHOCYTES % (AUTO) 27.5 % (20.0-45.0); MEAN CORPUSCULAR VOLUME 83 FL (80-99); MONOCYTES % (AUTO) 9.1 % (1.0-10.0); NEUTROPHILS % (AUTO) 59.2 % (45.0-75.0); PLATELET COUNT 302 K/UL (150-450); RED CELL DISTRIBUTION WIDTH 11.5 % (11.6-14.8); WHITE BLOOD COUNT 10.9 K/UL (4.8-10.8)
[2019-01-15 03:21] LABS: ANION GAP 10 mmol/L (5-15); BLOOD UREA NITROGEN 38 mg/dL (7-18); CALCIUM 9.1 MG/DL (8.5-10.1); CARBON DIOXIDE 24 MMOL/L (21-32); CHLORIDE 107 MMOL/L (98-107); CREATININE 1.7 MG/DL (0.55-1.30); POTASSIUM 3.8 MMOL/L (3.5-5.1); SODIUM 141 MMOL/L (136-145)
--- NOTE | 2019-01-15 03:37 | NUR ---
NURSE NOTES: Received call from lab with regards to Trop I 4.837 and PTT 104. Called [facility] and spoke with Carmen, reported PTT result and instructed to decrease 2 U/kg/hr at rate of 8.7mls/hr, PTT after 6 hours @ 0930. Noted and carried out. Informed Dr Jean of patient's lab results, awaiting for callback.
[2019-01-15] MEDS ORDERED: Heparin 25,000u/D5W 500ml 500 ML IV SCH ×2 (03:45→04:45)
[2019-01-15 04:00] VITALS: BP 114/48
--- NOTE | 2019-01-15 04:30 | NUR ---
NURSE NOTES: 0340 Started heparin drip as instructed by pharmacy [facility] soraida c/o Carmen. 0400 Called soraida several times due to incorrect rate 8U/kg/hr printed at heparin label. 0430 Scanned heparin label late. Addendum: 01/15/19 at 0507 by Maribell Kruse RN 0340 Verified heparin rate with PAUL Winchester. Charge nurse made aware.
[2019-01-15] MEDS: HydrALAZINE 50mg tab ORAL SCH ×3 (05:30→21:03)
--- NOTE | 2019-01-15 07:15 | NUR ---
HAND-OFF: Report given to PAUL Escalante. Plan of care endorsed. With on going Heparin drip, no signs of bleeding. Patient is in stable condition.
--- NOTE | 2019-01-15 07:15 | NUR ---
NURSE NOTES: Nurse report given by PAUL Reyna. Patient's sleeping in bed but easily awake. Denies pain, no s/s distress or SOB. Bed low and locked, call light within reach, side rails x 2, bed alarm is armed. IV is running heparin drip at 8.7ml/hr' 6 units, no s/s of active bleeding. IV site no s/s of tenderness or infiltration. Will continue to monitor.
[2019-01-15 08:00] VITALS: BP 106/54
[2019-01-15] MEDS: Metoprolol 25mg tab ORAL SCH ×2 (08:56→21:03)
[2019-01-15] MEDS: Aspirin Baby 81mg ORAL SCH (08:56)
--- NOTE | 2019-01-15 09:46 | NUR ---
RADIOLOGY: PCXR COMPLETED 0945HRS. NF
[2019-01-15] MEDS ORDERED: Heparin 5000 units/ml inj IV SCH (10:02)
[2019-01-15] MEDS: Heparin 25,000u/D5W 500ml 500 ML IV SCH ×2 (10:36→23:51)
--- NOTE | 2019-01-15 10:40 | Diagnostic Imaging Report ---
Indication: Shortness of breath Technique: One view of the chest Comparison: For 17/07/2018 Findings: No acute infiltrates, effusions, or congestion. Tortuous calcified aorta. Normal heart size. Upper mediastinum unremarkable. No significant change Impression: No acute process.
--- NOTE | 2019-01-15 11:26 | Pulmonology Progress Note ---
Assessment/Plan Problems: (1) Non-ST elevation (NSTEMI) myocardial infarction (2) TIA (transient ischemic attack) (3) History of hypertension Assessment/Plan continue heparin drip monitor BP renal studies check troponin in am check electrolytes will need Cardiac cath, once more stable. Subjective ROS Limited/Unobtainable: No Constitutional: Reports: no symptoms HEENT: Repors: no symptoms Cardiovascular: Reports: no symptoms Allergies: Coded Allergies: No Known Allergies (Unverified , 10/13/18) Objective Last 24 Hour Vital Signs Date Time Temp Pulse Resp B/P (MAP) Pulse Ox O2 Delivery O2 Flow Rate FiO2 01/15/19 09:00 Room Air 01/15/19 08:56 89 106/54 01/15/19 08:56 89 106/54 01/15/19 08:00 92 01/15/19 08:00 98.3 89 18 106/54 (71) 97 01/15/19 05:30 146/78 01/15/19 04:00 76 01/15/19 04:00 97.7 82 20 114/48 (70) 97 01/15/19 00:00 97.5 85 20 110/55 (73) 97 01/15/19 00:00 81 01/14/19 21:13 110 144/66 01/14/19 21:13 144/66 01/14/19 21:00 Room Air 01/14/19 20:00 106 01/14/19 20:00 98.1 110 18 144/66 (92) 96 01/14/19 16:00 94 01/14/19 16:00 97.9 97 18 126/60 (82) 98 01/14/19 14:06 141/59 01/14/19 12:00 91 01/14/19 12:00 97.9 86 18 141/59 (86) 97 Intake and Output 01/14/19 01/15/19 19:00 07:00 Intake Total 240 ml 219.778 ml Output Total 200 ml Balance 40 ml 219.778 ml Intake Oral 240 ml 120 ml IV Total 99.778 ml Output Urine Total 200 ml # Voids 1 General Appearance: WD/WN HEENT: normocephalic, atraumatic Breasts: no masses Cardiovascular: normal rate Abdomen: normal bowel sounds, soft, non tender Genitourinary: normal external genitalia Extremities: no cyanosis Neurologic/Psychiatric: 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 Complete 01/12/19 21:45 Rectum - Final NO CARBAPENEM-RESISTANT ENTEROBACTERI... Complete 01/12/19 21:45 Rectum VRE Culture - Final NO VANCOMYCIN RESISTANT ENTEROCOCCUS ... Complete Laboratory Tests 01/14/19 11:45: Troponin I 6.738H 01/14/19 17:20: Troponin I 5.683H, Activated Partial Thromboplast Time > 150*H 01/15/19 02:50: Troponin I 4.837H, Activated Partial Thromboplast Time 104H, White Blood Count 10.9H, Red Blood Count 4.70, Hemoglobin 13.4, Hematocrit 38.9, Mean Corpuscular Volume 83, Mean Corpuscular Hemoglobin 28.4, Mean Corpuscular Hemoglobin Concent 34.4, Red Cell Distribution Width 11.5L, Platelet Count 302, Mean Platelet Volume 5.5L, Neutrophils (%) (Auto) 59.2, Lymphocytes (%) (Auto) 27.5, Monocytes (%) (Auto) 9.1, Eosinophils (%) (Auto) 3.4H, Basophils (%) (Auto) 0.8 , Sodium Level 141, Potassium Level 3.8, Chloride Level 107, Carbon Dioxide Level 24, Anion Gap 10, Blood Urea Nitrogen 38H, Creatinine 1.7H, Estimat Glomerular Filtration Rate , Glucose Level 127H, Hemoglobin A1c 6.1H, Calcium Level 9.1, Thyroid Stimulating Hormone (TSH) 3.041 01/15/19 09:17: Activated Partial Thromboplast Time 58H Current Medications Medications (Trade) Dose Ordered Sig/Radha Route PRN Reason Start Time Stop Time Status Last Admin Dose Admin Acetaminophen (Tylenol) 650 mg Q6H PRN ORAL Mild Pain/Temp > 100.5 01/12/19 23:15 02/11/19 23:14 Amlodipine Besylate (Norvasc) 10 mg DAILY ORAL 01/13/19 09:00 02/12/19 08:59 01/15/19 08:56 Aspirin (ASA) 81 mg DAILY ORAL 01/13/19 09:00 02/12/19 08:59 01/15/19 08:56 Atorvastatin Calcium (Lipitor) 40 mg BEDTIME ORAL 01/13/19 21:00 02/12/19 20:59 01/14/19 21:11 Heparin Sodium/ Dextrose 500 ml @ 11.612 mls/ hr ADJUST PER PROTOCOL IV 01/15/19 10:15 02/14/19 10:14 01/15/19 10:36 Hydralazine HCl (Apresoline) 50 mg Q6H PRN ORAL SBP >160 01/12/19 23:15 02/11/19 23:14 01/13/19 12:11 Hydralazine HCl (Apresoline) 50 mg TID@0600,1400,2200 ORAL 01/13/19 14:00 02/12/19 05:59 01/15/19 05:30 Meclizine HCl (Antivert) 25 mg Q8H PRN ORAL for dizziness 01/12/19 23:15 02/11/19 23:14 Metoprolol Tartrate (Lopressor) 25 mg Q12HR ORAL 01/13/19 21:00 02/12/19 20:59 01/15/19 08:56 Ondansetron HCl (Zofran) 4 mg Q4H PRN IVP Nausea & Vomiting 01/12/19 23:15 02/11/19 23:14 Laci Pat MD Jan 15, 2019 11:26
[2019-01-15 12:00] VITALS: BP 110/57
[2019-01-15 12:01] LABS: CREATINE KINASE 128 U/L (26-308)
--- NOTE | 2019-01-15 12:41 | NUR ---
ST NOTES: REFERRED FOR SWALLOW EVAL BY LUBNA GERMAN (PRIMARY DR ELLIOTT, ALSO DR VELEZ), SEE REPORT. DYSPHAGIA RISK FACTORS FOR THIS 83 Y.O. 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 T2 prolongation within periventricular and subcortical white matter most likely reflects advanced microvascular ischemia. Several tiny foci of susceptibility artifact on T2 gradient echo sequence. These are predominantly subcortical in distribution. Possible amyloid angiopathy related microhemorrhage syndrome. Ventricles: Unremarkable. No ventriculomegaly. Bones joints: Unremarkable. Sinuses: Unremarkable as visualized. No acute sinusitis. Mastoid air cells: Unremarkable as visualized. No mastoid effusion. Orbits: Unremarkable as visualized. IMPRESSION: No acute infarct. 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 Tiny subcortical hemosiderin deposits may reflect a chronic micro- hemorrhagic syndrome such as amyloid angiopathy. Extensive white matter signal abnormality, most likely advanced microvascular ischemia. Moderate atrophy. (OLD ISCHEMIC STROKE HX). LUNGS CLEAR WITH GOOD RESP RATE 18 ON ROOM AIR. H/O CVA 10 YEARS AGO MIN STROKE RESIDUALS PER PT, ADVANCED AGE. POLST/ADVANCE DIRECTIVE RE: TUBE FEEDINGS NOT IN CHART AT HOME ALONE (HAS ONE DTR) ON REGULAR TEXTURE DIET/LIQUIDS AND DOES SAY THAT RECENTLY SHE FEELS SHE HAS TO SWALLOW AGAIN FOR SOME FOODS THAT STICK IN HER THROAT BUT NO CHOKING EPISODES. DENIES PROBLEMS WITH REFLUX. NOW ON CARDIAC DIET REG TEXTURE AND THIN LIQUIDS WITH 50/75 % INTAKE AND NO PROBLEMS WITH PILLS WHOLE (SMALL ONES). NO RD NOTES. ALERT AND ABLE TO EXPRESS BASIC NEEDS BUT HAS DYSARTHRIA/DYSPHONIA (REDUCED LOUDNESS AND IMPRECISE ARTICULATION, MIN MOUTH OPENING) AND EXPRESSIVE APHASIA (WORD FINDING PROBLEMS SO PAUSES AND IS DYSFLUENT) AND C/O RECENT MEMORY PROBLEMS LAST FEW MONTHS. WILL CHECK FURTHER. INITIAL IMPRESSIONS: S/S OF AT LEAST A MILD OROPHARYNGEAL DYSPHAGIA WITH MILD OVERALL INCREASE IN OP TRANSIT TIMES. TONGUE DEVIATES SLIGHTLY TO LEFT HAS LARGE GROOVE IN MIDDLE, FAIR ROM AND STRENGTH, SLOWER SPEED, LIPS FUNCTIONAL, VOICE SOFT, COUGH FAIR. GIVEN THIN LIQUIDS VIA STRAW SEQUENTIAL SIPS, SWALLOWED WITH FAIR HYOLARYNGEAL EXCURSION AND COMPLETED ENTIRE 3 OZ OF WATER W/O OVERT ASPIRATION. GIVEN PUREED TSP X2, CHEWED UNNECESSARILY FOR 4-6 SECONDS AND SWALLOWED WITH FAIR HYOLARYNGEAL EXCURSION, NO ORAL RESIDUE BUT SWALLOWED AGAIN TO CLEAR PHARYNGEAL RESIDUE, NO OVERT ASPIRATION. GIVEN MASTICATED SOLID (1/2 BUTTER COOKIE) W/O LOWER MOLARS JUST ANTERIOR TEETH AND FULL UPPER DENTURES, NEEDED TO CHEW 10 SECONDS AND USE LIQUID WASH (THIN), SWALLOWED X2 BUT W/O OVERT ASPIRATION. POOR FAIR INTAKE OF REG TEXTURE THIN LIQUIDS SELF-FEEDING RECOMMENDATIONS CONSIDER COMPLETING MOD BARIUM SWALLOW STUDY IP OR OP IF DC TO FURTHER ASSESS SWALLOW, DETERMINE SILENT ASP RISK AND ATTEMPT TRIAL TX. CONTINUE WITH PO INTAKE OF CURRENT CARDIAC REG TEXTURE DIET AND THIN LIQUIDS WITH POSTED ASPIRATION PRECAUTIONS AND SUPERVISION PRN SEND HIGH CALORIE SUPPLEMENTS IF NEEDS PER RD RECOMMENDATIONS (NO REPORT TO DATE) SKILLED DYSPHAGIA MANAGEMENT AND TX AND COG-COM EVAL/TX EDUCATED/TRAINED PAUL MOCK IN POSTED ASPIRATION PRECAUTIONS. 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
--- NOTE | 2019-01-15 13:30 | NUR ---
CASE MANAGEMENT:REVIEW 83 YR OLD FEMALE TRANSFERRED FROM [place] CC: SLURRED SPEECH. TONGUE FELT HEAVY SI: DYSARTHRIA. PROBABLE TIA HTN EMERGENCY 97.9 79 18 182/69 97% ON RA TROPONIN(+) 0.064 IS: HYDRALAZINE PO TID HEPARIN SQ Q8HRS TOPROL XL PO Q12 : DIRECTLY ADMITTED TO TELEMETRY 01/14/19 SI: TROPONIN(+) 8.910 IS: START HEPARIN GTT : TELEMETRY STATUS
--- NOTE | 2019-01-15 14:32 | NUR ---
NURSE NOTES: Patient's blood pressure is low so held 1400 hydralazine medication. Will continue to monitor closely.
--- NOTE | 2019-01-15 15:12 | Diagnostic Imaging Report ---
Indication: Abnormal renal function tests Technique: Grayscale and duplex images of the kidneys, retroperitoneum, and bladder were obtained. Comparison: 06/22/2018 Findings: Right kidney measures 8.5 cm in length. Left kidney measures 7.5 cm in length. Both kidneys demonstrate normal echogenicity. No hydronephrosis. Nonshadowing echogenic foci are seen in the renal sinuses bilaterally. Normal inferior vena cava. Bladder is normal. Impression: Negative for hydronephrosis Nonshadowing echogenic foci in the bilateral renal sinuses, artifact versus nonobstructive calyceal calculi Small kidneys bilaterally.
[2019-01-15 15:38] VITALS: BP 116/45
[2019-01-15 17:12] LABS: BILIRUBIN, URINE NEGATIVE (NEGATIVE); COLOR,URINE PALE YELLOW; GLUCOSE, URINE (UA) NEGATIVE (NEGATIVE); KETONES,URINE NEGATIVE (NEGATIVE); LEUKOCYTE ESTERASE ,URINE 2+ (NEGATIVE); NITRITE,URINE NEGATIVE (NEGATIVE); PH,URINE 6 (4.5-8.0); PROTEIN,URINE NEGATIVE (NEGATIVE); UROBILINOGEN,URINE NORMAL MG/DL (0.0-1.0)
[2019-01-15 17:17] LABS: APPEARANCE,URINE SLIGHTLY CLOUDY
--- NOTE | 2019-01-15 18:36 | Internal Med Progress Note ---
Subjective Date of Service: Jan 15, 2019 Physician Name Shailesh Li Attending Physician Oscar Stanton MD Current Medications Medications (Trade) Dose Ordered Sig/Radha Route PRN Reason Start Time Stop Time Status Last Admin Dose Admin Acetaminophen (Tylenol) 650 mg Q6H PRN ORAL Mild Pain/Temp > 100.5 01/12/19 23:15 02/11/19 23:14 Amlodipine Besylate (Norvasc) 10 mg DAILY ORAL 01/13/19 09:00 02/12/19 08:59 01/15/19 08:56 Aspirin (ASA) 81 mg DAILY ORAL 01/13/19 09:00 02/12/19 08:59 01/15/19 08:56 Atorvastatin Calcium (Lipitor) 40 mg BEDTIME ORAL 01/13/19 21:00 02/12/19 20:59 01/14/19 21:11 Heparin Sodium/ Dextrose 500 ml @ 11.612 mls/ hr ADJUST PER PROTOCOL IV 01/15/19 10:15 02/14/19 10:14 01/15/19 10:36 Hydralazine HCl (Apresoline) 50 mg Q6H PRN ORAL SBP >160 01/12/19 23:15 02/11/19 23:14 01/13/19 12:11 Hydralazine HCl (Apresoline) 50 mg TID@0600,1400,2200 ORAL 01/13/19 14:00 02/12/19 05:59 01/15/19 05:30 Meclizine HCl (Antivert) 25 mg Q8H PRN ORAL for dizziness 01/12/19 23:15 02/11/19 23:14 Metoprolol Tartrate (Lopressor) 25 mg Q12HR ORAL 01/13/19 21:00 02/12/19 20:59 01/15/19 08:56 Ondansetron HCl (Zofran) 4 mg Q4H PRN IVP Nausea & Vomiting 01/12/19 23:15 02/11/19 23:14 Allergies: Coded Allergies: No Known Allergies (Unverified , 10/13/18) ROS Limited/Unobtainable: No Constitutional: Reports: no symptoms HEENT: Reports: no symptoms Cardiovascular: Reports: no symptoms Respiratory: Reports: no symptoms Gastrointestinal/Abdominal: Reports: no symptoms Genitourinary: Reports: no symptoms Neurologic/Psychiatric: Reports: no symptoms Subjective 83 YO F admitted with slurred speech. Now elevated troponin. Cover for Int Miles -Dr Stanton Objective Last Vital Signs Date Time Temp Pulse Resp B/P (MAP) Pulse Ox O2 Delivery O2 Flow Rate FiO2 01/15/19 16:00 84 01/15/19 15:38 97.9 18 116/45 (68) 96 01/15/19 09:00 Room Air Laboratory Tests Test 01/15/19 02:50 01/15/19 09:17 01/15/19 13:10 01/15/19 16:20 White Blood Count 10.9 K/UL (4.8-10.8) H Red Blood Count 4.70 M/UL (4.20-5.40) Hemoglobin 13.4 G/DL (12.0-16.0) Hematocrit 38.9 % (37.0-47.0) Mean Corpuscular Volume 83 FL (80-99) Mean Corpuscular Hemoglobin 28.4 PG (27.0-31.0) Mean Corpuscular Hemoglobin Concent 34.4 G/DL (32.0-36.0) Red Cell Distribution Width 11.5 % (11.6-14.8) L Platelet Count 302 K/UL (150-450) Mean Platelet Volume 5.5 FL (6.5-10.1) L Neutrophils (%) (Auto) 59.2 % (45.0-75.0) Lymphocytes (%) (Auto) 27.5 % (20.0-45.0) Monocytes (%) (Auto) 9.1 % (1.0-10.0) Eosinophils (%) (Auto) 3.4 % (0.0-3.0) H Basophils (%) (Auto) 0.8 % (0.0-2.0) Activated Partial Thromboplast Time 104 SEC (23-33) H 58 SEC (23-33) H 82 SEC (23-33) H Sodium Level 141 MMOL/L (136-145) Potassium Level 3.8 MMOL/L (3.5-5.1) Chloride Level 107 MMOL/L (98-107) Carbon Dioxide Level 24 MMOL/L (21-32) Anion Gap 10 mmol/L (5-15) Blood Urea Nitrogen 38 mg/dL (7-18) H Creatinine 1.7 MG/DL (0.55-1.30) H Estimat Glomerular Filtration Rate mL/min (>60) Glucose Level 127 MG/DL (74-106) H Hemoglobin A1c 6.1 % (4.3-6.0) H Uric Acid 7.4 MG/DL (2.6-7.2) H Calcium Level 9.1 MG/DL (8.5-10.1) Total Creatine Kinase 128 U/L (26-308) Troponin I 4.837 ng/mL (0.000-0.056) Thyroid Stimulating Hormone (TSH) 3.041 uiU/mL (0.358-3.740) Urine Color Pale yellow Urine Appearance Slightly cloudy Urine pH 6 (4.5-8.0) Urine Specific [place] 1.015 (1.005-1.035) Urine Protein Negative (NEGATIVE) Urine Glucose (UA) Negative (NEGATIVE) Urine Ketones Negative (NEGATIVE) Urine Blood Negative (NEGATIVE) Urine Nitrite Negative (NEGATIVE) Urine Bilirubin Negative (NEGATIVE) Urine Urobilinogen Normal MG/DL (0.0-1.0) Urine Leukocyte Esterase 2+ (NEGATIVE) H Urine RBC 0 /HPF (0 - 2) Urine WBC 10-15 /HPF (0 - 2) H Urine Squamous Epithelial Cells Moderate /LPF (NONE/OCC) H Urine Bacteria Many /HPF (NONE) H Urine Eosinophils None seen (NONE SEEN) Urine Osmolality 464 mOsm/kg (429-449) H Urine Random Creatinine Pending Urine Random Microalbumin Pending Urine Random Sodium 25 mmol/L (20-110) Urine Microalbumin/Creatinine Ratio Pending Microbiology Date/Time Source Procedure Growth Status 01/12/19 21:45 Nasal Nares MRSA Culture - Final NO METHICILLIN RESISTANT STAPH AUREUS... Complete 01/12/19 21:45 Rectum - Final NO CARBAPENEM-RESISTANT ENTEROBACTERI... Complete 01/12/19 21:45 Rectum VRE Culture - Final NO VANCOMYCIN RESISTANT ENTEROCOCCUS ... Complete Intake and Output 01/14/19 01/15/19 18:59 06:59 Intake Total 240 ml 211.069 ml Output Total 200 ml Balance 40 ml 211.069 ml Intake Oral 240 ml 120 ml IV Total 91.069 ml Output Urine Total 200 ml # Voids 1 Objective PHYSICAL EXAMINATION: GENERAL: The patient is a well-developed and well-nourished female, in no apparent distress. HEENT: Eyes, pupils are equal and responsive to light and accommodation. Extraocular movements are intact. NECK: Supple without lymphadenopathy. CHEST: Lungs are clear to auscultation bilaterally without wheezes or rales. CARDIOVASCULAR: Regular rhythm and rate. S1, S2 normal without murmurs, rubs, or gallops. ABDOMEN: Soft, nontender, and nondistended. Positive bowel sounds. No evidence of hepatosplenomegaly. Currently, no rebound or guarding noted. EXTREMITIES: Negative for clubbing, cyanosis, or edema. RECTAL/GENITAL: Not performed. NEUROLOGICAL: Cranial nerves II through XII are grossly intact without focal deficits. Motor strength is 5/5 bilaterally. Deep tendon reflexes are 2+ plantar. Assessment/Plan Assessment/Plan ASSESSMENT: This is an 83-year-old female with: 1. Dysarthria. 2. Probable transient ischemic attack. 3. History of cerebrovascular disease. 4. Hypertensive emergency. 5. Elevated troponin 6. Non ST elevated myocardial infarction TREATMENT: 1. Dysarthria/transient ischemic attack/cerebrovascular disease. An MRI of the brain =no acute infarc. A Neurology consultation has been obtained with Dr. Philippe Lofton. We will follow recommendations of Neurology. This appears to be a transient ischemic attack since the symptoms have now resolved. 2. Hypertensive emergency. A Cardiology consultation has been obtained with Dr. Micah Vega. Continue amlodipine, hydralazine, and metoprolol 3. Elevated troponin/non ST elevated Myocardial infarction ?demand ischemia vs acute coronary syndrome. On heparin drip. See cardiology note. Shailesh Li MD Jan 15, 2019 18:36
--- NOTE | 2019-01-15 19:05 | NUR ---
HAND-OFF: Report given to PAUL Wayne. Patient's stable, Plan of care endorsed.
--- NOTE | 2019-01-15 19:51 | NUR ---
NURSE NOTES: Received report from PAUL Escalante. Patient is in bed, awake and responsive. Breathing regular and unlabored with no SOB noted at this time. Patient's IV is intact, running Heparin at prescribed rate per MD orders. No redness, infiltration noted at the site. Patient denies any pain or discomfort at this time. Bed is in lowest position, breaks engaged, and call light within reach at all times. Will continue to monitor.
[2019-01-15 20:00] VITALS: BP 136/78
[2019-01-15] MEDS: Atorvastatin 20mg tab ORAL SCH (21:03)
[2019-01-16] VITALS: BP 107/49
[2019-01-16 04:00] VITALS: BP 140/64
[2019-01-16 04:37] LABS: BASOPHILS % (AUTO) 1.1 % (0.0-2.0); EOSINOPHILS % (AUTO) 3.8 % (0.0-3.0); HEMATOCRIT 37.2 % (37.0-47.0); HEMOGLOBIN 12.6 G/DL (12.0-16.0); LYMPHOCYTES % (AUTO) 26.5 % (20.0-45.0); MEAN CORPUSCULAR VOLUME 85 FL (80-99); MONOCYTES % (AUTO) 9.4 % (1.0-10.0); NEUTROPHILS % (AUTO) 59.2 % (45.0-75.0); PLATELET COUNT 280 K/UL (150-450); RED CELL DISTRIBUTION WIDTH 11.6 % (11.6-14.8); WHITE BLOOD COUNT 10.3 K/UL (4.8-10.8)
[2019-01-16 05:08] LABS: ALANINE AMINOTRANSFERASE 26 U/L (12-78); ALBUMIN 3.1 G/DL (3.4-5.0); ALBUMIN/GLOBULIN RATIO 0.9 (1.0-2.7); ALKALINE PHOSPHATASE 51 U/L (46-116); ANION GAP 10 mmol/L (5-15); ASPARTATE AMINO TRANSFERASE 34 U/L (15-37); BILIRUBIN,TOTAL 0.4 MG/DL (0.2-1.0); BLOOD UREA NITROGEN 37 mg/dL (7-18); CALCIUM 8.7 MG/DL (8.5-10.1); CARBON DIOXIDE 22 MMOL/L (21-32); CHLORIDE 109 MMOL/L (98-107); CREATININE 1.5 MG/DL (0.55-1.30); PHOSPHORUS 4.2 MG/DL (2.5-4.9); SODIUM 141 MMOL/L (136-145)
[2019-01-16] MEDS ORDERED: Heparin 25,000u/D5W 500ml 500 ML IV SCH ×4 (05:15→20:02)
[2019-01-16] MEDS ORDERED: Heparin 5000 units/ml inj IV SCH ×2 (05:30→20:02)
[2019-01-16] MEDS: HydrALAZINE 50mg tab ORAL SCH ×3 (05:38→22:50)
--- NOTE | 2019-01-16 07:10 | NUR ---
HAND-OFF: Report given to PAUL Escalante. Patient in stable condition. Plan of care endorsed.
--- NOTE | 2019-01-16 07:12 | NUR ---
NURSE NOTES: Nurse report given by PAUL Wayne. Patient's awake and sitting in bed, AO x4, denies pain, denies chest pain, no s/s of distress or SOB. Bed low and locked, call light within reach, side rails x 2, safety alarm is armed. IV is running heparin drip, no s/s of bleeding, tenderness or infiltration. hall monitor is connected. All current needs met. Will continue to monitor.
[2019-01-16 08:00] VITALS: BP 131/57
[2019-01-16] MEDS: Aspirin Baby 81mg ORAL SCH (09:15)
[2019-01-16] MEDS: Metoprolol 25mg tab ORAL SCH ×2 (09:16→20:35)
--- NOTE | 2019-01-16 09:40 | Cardiology Progress Note ---
Assessment/Plan Assessment/Plan hypertension acute transient ischemic attack with symptoms of transient dysarthria dementia renal insuf some of old [facility] record reviewed echo here showed normal lv function trop down trend bp imporved cr is better as well d/w dtr, pt has poor short term memory , we discussed optionw with dtr including risk of cath renal failure and risk of cva ... the risk will be d/w her by the interventional cards once she gets there has not seen her card dr bonilla for many years , per dtr dr bonilla no longer her cards put her on transfer list at [facility] , no bed now but they will call heparin, asa , bb , statin repat trop and ekg in am tele and ekg reviewed Subjective Cardiovascular: Reports: lightheadedness - occasioan ; Denies: chest pain Respiratory: Reports: SOB with excertion - occasioan Gastrointestinal/Abdominal: Reports: abdominal pain Genitourinary: Reports: burning Objective Last 24 Hour Vital Signs Date Time Temp Pulse Resp B/P (MAP) Pulse Ox O2 Delivery O2 Flow Rate FiO2 01/16/19 09:16 83 131/57 01/16/19 09:16 89 131/57 01/16/19 08:00 97.9 89 18 131/57 (81) 98 01/16/19 05:38 140/64 01/16/19 04:00 90 01/16/19 04:00 97.9 83 17 140/64 (89) 97 01/16/19 00:00 83 01/16/19 00:00 97.8 84 18 107/49 (68) 97 01/15/19 21:03 90 136/78 01/15/19 21:03 136/78 01/15/19 21:00 Room Air 01/15/19 20:00 87 01/15/19 20:00 98.0 90 19 136/78 (97) 98 01/15/19 16:00 84 01/15/19 15:38 97.9 85 18 116/45 (68) 96 01/15/19 14:00 110/57 01/15/19 12:00 97.7 78 18 110/57 (74) 97 01/15/19 12:00 75 General Appearance: no apparent distress, alert Neck: supple Cardiovascular: normal rate Respiratory/Chest: lungs clear Abdomen: normal bowel sounds, non tender, soft Extremities: no swelling Intake and Output 01/15/19 01/16/19 19:00 07:00 Intake Total 916.120 ml 78.472 ml Output Total 950 ml 400 ml Balance -33.880 ml -321.528 ml Intake Oral 800 ml IV Total 116.120 ml 78.472 ml Output Urine Total 950 ml 400 ml # Voids 1 1 Laboratory Tests Test 01/15/19 13:10 01/15/19 16:20 01/16/19 04:00 Urine Color Pale yellow Urine Appearance Slightly cloudy Urine pH 6 (4.5-8.0) Urine Specific [place] 1.015 (1.005-1.035) Urine Protein Negative (NEGATIVE) Urine Glucose (UA) Negative (NEGATIVE) Urine Ketones Negative (NEGATIVE) Urine Blood Negative (NEGATIVE) Urine Nitrite Negative (NEGATIVE) Urine Bilirubin Negative (NEGATIVE) Urine Urobilinogen Normal MG/DL (0.0-1.0) Urine Leukocyte Esterase 2+ (NEGATIVE) H Urine RBC 0 /HPF (0 - 2) Urine WBC 10-15 /HPF (0 - 2) H Urine Squamous Epithelial Cells Moderate /LPF (NONE/OCC) H Urine Bacteria Many /HPF (NONE) H Urine Eosinophils None seen (NONE SEEN) Urine Osmolality 464 mOsm/kg (429-449) H Urine Random Creatinine Pending Urine Random Microalbumin Pending Urine Random Sodium 25 mmol/L (20-110) Urine Microalbumin/Creatinine Ratio Pending Activated Partial Thromboplast Time 82 SEC (23-33) H 46 SEC (23-33) H White Blood Count 10.3 K/UL (4.8-10.8) Red Blood Count 4.40 M/UL (4.20-5.40) Hemoglobin 12.6 G/DL (12.0-16.0) Hematocrit 37.2 % (37.0-47.0) Mean Corpuscular Volume 85 FL (80-99) Mean Corpuscular Hemoglobin 28.6 PG (27.0-31.0) Mean Corpuscular Hemoglobin Concent 33.8 G/DL (32.0-36.0) Red Cell Distribution Width 11.6 % (11.6-14.8) Platelet Count 280 K/UL (150-450) Mean Platelet Volume 6.0 FL (6.5-10.1) L Neutrophils (%) (Auto) 59.2 % (45.0-75.0) Lymphocytes (%) (Auto) 26.5 % (20.0-45.0) Monocytes (%) (Auto) 9.4 % (1.0-10.0) Eosinophils (%) (Auto) 3.8 % (0.0-3.0) H Basophils (%) (Auto) 1.1 % (0.0-2.0) Erythrocyte Sedimentation Rate 26 MM/HR (0-30) Sodium Level 141 MMOL/L (136-145) Potassium Level 4.0 MMOL/L (3.5-5.1) Chloride Level 109 MMOL/L (98-107) H Carbon Dioxide Level 22 MMOL/L (21-32) Anion Gap 10 mmol/L (5-15) Blood Urea Nitrogen 37 mg/dL (7-18) H Creatinine 1.5 MG/DL (0.55-1.30) H Estimat Glomerular Filtration Rate mL/min (>60) Glucose Level 114 MG/DL (74-106) H Calcium Level 8.7 MG/DL (8.5-10.1) Phosphorus Level 4.2 MG/DL (2.5-4.9) Magnesium Level 1.8 MG/DL (1.8-2.4) Total Bilirubin 0.4 MG/DL (0.2-1.0) Aspartate Amino Transf (AST/SGOT) 34 U/L (15-37) Alanine Aminotransferase (ALT/SGPT) 26 U/L (12-78) Alkaline Phosphatase 51 U/L (46-116) Troponin I 2.944 ng/mL (0.000-0.056) Total Protein 6.5 G/DL (6.4-8.2) Albumin 3.1 G/DL (3.4-5.0) L Globulin 3.4 g/dL Albumin/Globulin Ratio 0.9 (1.0-2.7) L Microbiology Date/Time Source Procedure Growth Status 01/15/19 13:10 Urine,Clean Catch Urine Culture - Preliminary Resulted Micah Vega MD Jan 16, 2019 09:40
--- NOTE | 2019-01-16 10:32 | NUR ---
TRANSFER UPDATE PATIENT HAS BEEN PLACED ON THE [facility] TRANSFER LIST BY DR HENLEY ~ CONFIRMED WITH [employer]AK[employer] AND [employer]ICALS FAXED TO THE TRANSFER CENTER [facility] TRANSFER [facility] T: [phone] F: [phone]
--- NOTE | 2019-01-16 11:13 | Pulmonology Progress Note ---
Assessment/Plan Problems: (1) Non-ST elevation (NSTEMI) myocardial infarction (2) TIA (transient ischemic attack) (3) History of hypertension Assessment/Plan continue heparin drip monitor BP renal studies check troponin in am check electrolytes will need Cardiac cath, once more stable. d/w pts daughter Subjective ROS Limited/Unobtainable: Yes Constitutional: Reports: no symptoms HEENT: Repors: no symptoms Allergies: Coded Allergies: No Known Allergies (Unverified , 10/13/18) Objective Last 24 Hour Vital Signs Date Time Temp Pulse Resp B/P (MAP) Pulse Ox O2 Delivery O2 Flow Rate FiO2 01/16/19 09:16 83 131/57 01/16/19 09:16 89 131/57 01/16/19 09:00 Room Air 01/16/19 08:00 93 01/16/19 08:00 97.9 89 18 131/57 (81) 98 01/16/19 05:38 140/64 01/16/19 04:00 90 01/16/19 04:00 97.9 83 17 140/64 (89) 97 01/16/19 00:00 83 01/16/19 00:00 97.8 84 18 107/49 (68) 97 01/15/19 21:03 90 136/78 01/15/19 21:03 136/78 01/15/19 21:00 Room Air 01/15/19 20:00 87 01/15/19 20:00 98.0 90 19 136/78 (97) 98 01/15/19 16:00 84 01/15/19 15:38 97.9 85 18 116/45 (68) 96 01/15/19 14:00 110/57 01/15/19 12:00 97.7 78 18 110/57 (74) 97 01/15/19 12:00 75 Intake and Output 01/15/19 01/16/19 19:00 07:00 Intake Total 916.120 ml 78.472 ml Output Total 950 ml 400 ml Balance -33.880 ml -321.528 ml Intake Oral 800 ml IV Total 116.120 ml 78.472 ml Output Urine Total 950 ml 400 ml # Voids 1 1 General Appearance: WD/WN, no acute distress HEENT: normocephalic, atraumatic Respiratory/Chest: chest wall non-tender, lungs clear Breasts: no masses Cardiovascular: normal peripheral pulses Genitourinary: normal external genitalia Extremities: no cyanosis, no clubbing 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 Lymphatic: no neck adenopathy Microbiology Date/Time Source Procedure Growth Status 01/15/19 13:10 Urine,Clean Catch Urine Culture - Preliminary Resulted Laboratory Tests 01/15/19 13:10: Urine Color Pale yellow, Urine Appearance Slightly cloudy, Urine pH 6, Urine Specific [place] 1.015, Urine Protein Negative, Urine Glucose (UA) Negative, Urine Ketones Negative, Urine Blood Negative, Urine Nitrite Negative, Urine Bilirubin Negative, Urine Urobilinogen Normal, Urine Leukocyte Esterase 2+H, Urine RBC 0, Urine WBC 10-15H, Urine Squamous Epithelial Cells ModerateH, Urine Bacteria ManyH, Urine Eosinophils None seen, Urine Osmolality 464H, Urine Random Creatinine [Pending], Urine Random Microalbumin [Pending], Urine Random Sodium 25, Urine Microalbumin/Creatinine Ratio [Pending] 01/15/19 16:20: Activated Partial Thromboplast Time 82H 01/16/19 04:00: Activated Partial Thromboplast Time 46H, White Blood Count 10.3, Red Blood Count 4.40, Hemoglobin 12.6, Hematocrit 37.2, Mean Corpuscular Volume 85, Mean Corpuscular Hemoglobin 28.6, Mean Corpuscular Hemoglobin Concent 33.8, Red Cell Distribution Width 11.6, Platelet Count 280, Mean Platelet Volume 6.0L, Neutrophils (%) (Auto) 59.2, Lymphocytes (%) (Auto) 26.5, Monocytes (%) (Auto) 9.4, Eosinophils (%) (Auto) 3.8H, Basophils (%) (Auto) 1.1, Erythrocyte Sedimentation Rate 26, Sodium Level 141, Potassium Level 4.0, Chloride Level 109H, Carbon Dioxide Level 22, Anion Gap 10, Blood Urea Nitrogen 37H, Creatinine 1.5H, Estimat Glomerular Filtration Rate , Glucose Level 114H, Calcium Level 8.7, Phosphorus Level 4.2, Magnesium Level 1.8, Total Bilirubin 0.4, Aspartate Amino Transf (AST/SGOT) 34, Alanine Aminotransferase (ALT/SGPT) 26, Alkaline Phosphatase 51, Troponin I 2.944H, Total Protein 6.5, Albumin 3.1L , Globulin 3.4, Albumin/Globulin Ratio 0.9L Current Medications Medications (Trade) Dose Ordered Sig/Radha Route PRN Reason Start Time Stop Time Status Last Admin Dose Admin Acetaminophen (Tylenol) 650 mg Q6H PRN ORAL Mild Pain/Temp > 100.5 01/12/19 23:15 02/11/19 23:14 Amlodipine Besylate (Norvasc) 10 mg DAILY ORAL 01/13/19 09:00 02/12/19 08:59 01/16/19 09:16 Aspirin (ASA) 81 mg DAILY ORAL 01/13/19 09:00 02/12/19 08:59 01/16/19 09:15 Atorvastatin Calcium (Lipitor) 40 mg BEDTIME ORAL 01/13/19 21:00 02/12/19 20:59 01/15/19 21:03 Heparin Sodium/ Dextrose 500 ml @ 17.418 mls/ hr ADJUST PER PROTOCOL IV 01/16/19 05:30 02/15/19 05:29 01/16/19 05:36 Hydralazine HCl (Apresoline) 50 mg Q6H PRN ORAL SBP >160 01/12/19 23:15 02/11/19 23:14 01/13/19 12:11 Hydralazine HCl (Apresoline) 50 mg TID@0600,1400,2200 ORAL 01/13/19 14:00 02/12/19 05:59 01/16/19 05:38 Meclizine HCl (Antivert) 25 mg Q8H PRN ORAL for dizziness 01/12/19 23:15 02/11/19 23:14 Metoprolol Tartrate (Lopressor) 25 mg Q12HR ORAL 01/13/19 21:00 02/12/19 20:59 01/16/19 09:16 Ondansetron HCl (Zofran) 4 mg Q4H PRN IVP Nausea & Vomiting 01/12/19 23:15 02/11/19 23:14 Laci Pat MD Jan 16, 2019 11:13
[2019-01-16 11:54] VITALS: BP 123/61
[2019-01-16 16:00] VITALS: BP 143/66
--- NOTE | 2019-01-16 16:22 | Internal Med Progress Note ---
Subjective Date of Service: Jan 16, 2019 Physician Name Shailesh Li Attending Physician Oscar Stanton MD Current Medications Medications (Trade) Dose Ordered Sig/Radha Route PRN Reason Start Time Stop Time Status Last Admin Dose Admin Acetaminophen (Tylenol) 650 mg Q6H PRN ORAL Mild Pain/Temp > 100.5 01/12/19 23:15 02/11/19 23:14 Amlodipine Besylate (Norvasc) 10 mg DAILY ORAL 01/13/19 09:00 02/12/19 08:59 01/16/19 09:16 Aspirin (ASA) 81 mg DAILY ORAL 01/13/19 09:00 02/12/19 08:59 01/16/19 09:15 Atorvastatin Calcium (Lipitor) 40 mg BEDTIME ORAL 01/13/19 21:00 02/12/19 20:59 01/15/19 21:03 Heparin Sodium/ Dextrose 500 ml @ 11.612 mls/ hr ADJUST PER PROTOCOL IV 01/16/19 13:20 02/15/19 13:19 01/16/19 13:35 Hydralazine HCl (Apresoline) 50 mg Q6H PRN ORAL SBP >160 01/12/19 23:15 02/11/19 23:14 01/13/19 12:11 Hydralazine HCl (Apresoline) 50 mg TID@0600,1400,2200 ORAL 01/13/19 14:00 02/12/19 05:59 01/16/19 13:09 Meclizine HCl (Antivert) 25 mg Q8H PRN ORAL for dizziness 01/12/19 23:15 02/11/19 23:14 Metoprolol Tartrate (Lopressor) 25 mg Q12HR ORAL 01/13/19 21:00 02/12/19 20:59 01/16/19 09:16 Ondansetron HCl (Zofran) 4 mg Q4H PRN IVP Nausea & Vomiting 01/12/19 23:15 02/11/19 23:14 Allergies: Coded Allergies: No Known Allergies (Unverified , 10/13/18) ROS Limited/Unobtainable: No Constitutional: Reports: no symptoms HEENT: Reports: no symptoms Cardiovascular: Reports: no symptoms Respiratory: Reports: no symptoms Gastrointestinal/Abdominal: Reports: no symptoms Genitourinary: Reports: no symptoms Neurologic/Psychiatric: Reports: no symptoms Subjective 83 YO F admitted with slurred speech. Now elevated troponin and Non ST Elevated [place]. Cover for Int Med-Dr Stanton Objective Last Vital Signs Date Time Temp Pulse Resp B/P (MAP) Pulse Ox O2 Delivery O2 Flow Rate FiO2 01/16/19 13:09 123/61 01/16/19 12:00 84 01/16/19 11:54 97.1 18 98 01/16/19 09:00 Room Air Laboratory Tests Test 01/16/19 04:00 01/16/19 11:35 White Blood Count 10.3 K/UL (4.8-10.8) Red Blood Count 4.40 M/UL (4.20-5.40) Hemoglobin 12.6 G/DL (12.0-16.0) Hematocrit 37.2 % (37.0-47.0) Mean Corpuscular Volume 85 FL (80-99) Mean Corpuscular Hemoglobin 28.6 PG (27.0-31.0) Mean Corpuscular Hemoglobin Concent 33.8 G/DL (32.0-36.0) Red Cell Distribution Width 11.6 % (11.6-14.8) Platelet Count 280 K/UL (150-450) Mean Platelet Volume 6.0 FL (6.5-10.1) L Neutrophils (%) (Auto) 59.2 % (45.0-75.0) Lymphocytes (%) (Auto) 26.5 % (20.0-45.0) Monocytes (%) (Auto) 9.4 % (1.0-10.0) Eosinophils (%) (Auto) 3.8 % (0.0-3.0) H Basophils (%) (Auto) 1.1 % (0.0-2.0) Erythrocyte Sedimentation Rate 26 MM/HR (0-30) Activated Partial Thromboplast Time 46 SEC (23-33) H > 150 SEC (23-33) *H Sodium Level 141 MMOL/L (136-145) Potassium Level 4.0 MMOL/L (3.5-5.1) Chloride Level 109 MMOL/L (98-107) H Carbon Dioxide Level 22 MMOL/L (21-32) Anion Gap 10 mmol/L (5-15) Blood Urea Nitrogen 37 mg/dL (7-18) H Creatinine 1.5 MG/DL (0.55-1.30) H Estimat Glomerular Filtration Rate mL/min (>60) Glucose Level 114 MG/DL (74-106) H Calcium Level 8.7 MG/DL (8.5-10.1) Phosphorus Level 4.2 MG/DL (2.5-4.9) Magnesium Level 1.8 MG/DL (1.8-2.4) Total Bilirubin 0.4 MG/DL (0.2-1.0) Aspartate Amino Transf (AST/SGOT) 34 U/L (15-37) Alanine Aminotransferase (ALT/SGPT) 26 U/L (12-78) Alkaline Phosphatase 51 U/L (46-116) Troponin I 2.944 ng/mL (0.000-0.056) Total Protein 6.5 G/DL (6.4-8.2) Albumin 3.1 G/DL (3.4-5.0) L Globulin 3.4 g/dL Albumin/Globulin Ratio 0.9 (1.0-2.7) L Microbiology Date/Time Source Procedure Growth Status 01/15/19 13:10 Urine,Clean Catch Urine Culture - Preliminary Resulted Intake and Output 01/15/19 01/16/19 18:59 06:59 Intake Total 913.217 ml 90.084 ml Output Total 950 ml 400 ml Balance -36.783 ml -309.916 ml Intake Oral 800 ml IV Total 113.217 ml 90.084 ml Output Urine Total 950 ml 400 ml # Voids 1 1 Objective PHYSICAL EXAMINATION: GENERAL: The patient is a well-developed and well-nourished female, in no apparent distress. HEENT: Eyes, pupils are equal and responsive to light and accommodation. Extraocular movements are intact. NECK: Supple without lymphadenopathy. CHEST: Lungs are clear to auscultation bilaterally without wheezes or rales. CARDIOVASCULAR: Regular rhythm and rate. S1, S2 normal without murmurs, rubs, or gallops. ABDOMEN: Soft, nontender, and nondistended. Positive bowel sounds. No evidence of hepatosplenomegaly. Currently, no rebound or guarding noted. EXTREMITIES: Negative for clubbing, cyanosis, or edema. RECTAL/GENITAL: Not performed. NEUROLOGICAL: Cranial nerves II through XII are grossly intact without focal deficits. Motor strength is 5/5 bilaterally. Deep tendon reflexes are 2+ plantar. Assessment/Plan Assessment/Plan ASSESSMENT: This is an 83-year-old female with: 1. Dysarthria. 2. Probable transient ischemic attack. 3. History of cerebrovascular disease. 4. Hypertensive emergency. 5. Elevated troponin 6. Non ST elevated myocardial infarction TREATMENT: 1. Dysarthria/transient ischemic attack/cerebrovascular disease. An MRI of the brain =no acute infarc. A Neurology consultation has been obtained with Dr. Philippe Lofton. We will follow recommendations of Neurology. This appears to be a transient ischemic attack since the symptoms have now resolved. 2. Hypertensive emergency. A Cardiology consultation has been obtained with Dr. Micah Vega. Continue amlodipine, hydralazine, and metoprolol 3. Elevated troponin/non ST elevated Myocardial infarction ?demand ischemia vs acute coronary syndrome. On heparin drip. Await transfer to [facility] for cardiac cath. See cardiology note. Shailesh Li MD Jan 16, 2019 16:22
--- NOTE | 2019-01-16 17:27 | Cardiology Report ---
APPROVED REPORT EKG Measurement Heart [id number] Normal sinus rhythm Normal ECG
--- NOTE | 2019-01-16 19:31 | NUR ---
HAND-OFF: Report given to PAUL Archuleta. Patient's stable, plan of care endorsed. .
--- NOTE | 2019-01-16 19:45 | NUR ---
NURSE NOTES: Received report from PAUL Escalante. Patient is awake lying semi-camarena's; resting comfortably. No signs of acute distress noted; denies pain at this time. Daughter at bedside. AOx3-4; able to make needs known. Bedside commode easily accessible. Checked IV site, lines, and IV rate; patent and flushed. No erythema, bleeding, or infiltration noted. Heparin drip running at 8 units/kg/hr for 11.612 mls/hr. Bed at lowest position, brakes on, siderails up x3. Call light within reach. Will continue to monitor.
[2019-01-16 20:00] VITALS: BP 139/58
[2019-01-16] MEDS: Atorvastatin 20mg tab ORAL SCH (20:35)
--- NOTE | 2019-01-16 23:36 | NUR ---
NURSE NOTES: Called Dr. Stanton regarding patient ripping out Heparin drip tubing, insisting on wandering around and screaming in the hallways. Received new order for Ativan 0.5mg IV q8hr PRN. Noted and carried out.
[2019-01-16] MEDS ORDERED: LORazepam Inj 2mg/ml 1ml IV PRN (23:45)
--- NOTE | 2019-01-16 23:50 | NUR ---
NURSE NOTES: Attempted to re-orient patient and administer Ativan to calm patient down. Patient observed to have ripped out her IV access altogether and refuses IV access reinsertion.
--- NOTE | 2019-01-16 23:55 | NUR ---
NURSE NOTES: Left message for Dr. Stanton regarding patient ripping off her IV and adamantly refuses IV access reinsertion. Awaiting callback. Addendum: 01/16/19 at 2356 by ROSA RODRIGUEZ RN RN Also notified him that because patient belligerently refuses IV access, Heparin drip cannot be continued at this time.
[2019-01-17] MEDS ORDERED: Haloperidol 5mg/ml Inj IM ONE
--- NOTE | 2019-01-17 | NUR ---
NURSE NOTES: Received order from Dr. Stanton for Haldol 4mg IM once. Noted and carried out.
--- NOTE | 2019-01-17 00:19 | NUR ---
NURSE NOTES: Notified Michelle Baig NP regarding patient ripping off her IV access and adamantly refuses IV reinsertion for Heparin drip. Awaiting callback.
--- NOTE | 2019-01-17 01:38 | NUR ---
NURSE NOTES: Patient is still refusing IV access at this time. Risks and benefits explained; still refusing.
[2019-01-17 03:20] LABS: BASOPHILS % (AUTO) 0.6 % (0.0-2.0); EOSINOPHILS % (AUTO) 0.8 % (0.0-3.0); HEMATOCRIT 37.2 % (37.0-47.0); HEMOGLOBIN 12.2 G/DL (12.0-16.0); LYMPHOCYTES % (AUTO) 15.4 % (20.0-45.0); MEAN CORPUSCULAR VOLUME 86 FL (80-99); MONOCYTES % (AUTO) 7.2 % (1.0-10.0); NEUTROPHILS % (AUTO) 75.9 % (45.0-75.0); PLATELET COUNT 287 K/UL (150-450); RED BLOOD COUNT 4.32 M/UL (4.20-5.40); WHITE BLOOD COUNT 13.3 K/UL (4.8-10.8)
[2019-01-17] MEDS ORDERED: Heparin 5000 units/ml inj IV SCH (03:45)
[2019-01-17] MEDS ORDERED: Heparin 25,000u/D5W 500ml 500 ML IV SCH ×3 (03:45→08:00)
[2019-01-17 04:00] VITALS: BP 109/62
--- NOTE | 2019-01-17 05:51 | NUR ---
NURSE NOTES: Notified Dr. Vega that patient's Heparin drip had to be held since 2335 since patient ripped out her IV access and adamantly refused reinsertion. Also asked for Off Tele order for patient to take a shower per patient's daughter's request. Awaiting callback. Addendum: 01/17/19 at 0745 by ROSA RODRIGUEZ RN RN NURSE NOTES: Notified him of patient's Troponin level of 1.862.
[2019-01-17] MEDS: HydrALAZINE 50mg tab ORAL SCH ×3 (05:55→22:19)
--- NOTE | 2019-01-17 07:15 | NUR ---
NURSE NOTES: Report received from PAUL Archuleta. Pt. AOx3 at this time. Sitting at the bedside. No IV access. Heparin discontinued at 2336 per night RN. Pt. expressed being upset. "I remember you. But I am upset...." wouldn't say why. Reassured will be back to discuss.
--- NOTE | 2019-01-17 07:18 | NUR ---
HAND-OFF: Report given to PAUL Mahmood. Patient is awake sitting chairfast. Still refusing IV access at this time. In stable condition otherwise.
[2019-01-17 08:00] VITALS: BP 135/83
--- NOTE | 2019-01-17 08:36 | Cardiology Report ---
APPROVED REPORT EKG Measurement Heart [id number] [id number] Normal sinus rhythm Septal infarct, age undetermined Abnormal ECG
[2019-01-17] MEDS: Metoprolol 25mg tab ORAL SCH ×2 (09:54→22:20)
[2019-01-17] MEDS: Aspirin Baby 81mg ORAL SCH (09:54)
--- NOTE | 2019-01-17 10:43 | Internal Med Progress Note ---
Subjective Date of Service: Jan 17, 2019 Physician Name Shailesh Li Attending Physician Oscar Stanton MD Current Medications Medications (Trade) Dose Ordered Sig/Radha Route PRN Reason Start Time Stop Time Status Last Admin Dose Admin Acetaminophen (Tylenol) 650 mg Q6H PRN ORAL Mild Pain/Temp > 100.5 01/12/19 23:15 02/11/19 23:14 Amlodipine Besylate (Norvasc) 10 mg DAILY ORAL 01/13/19 09:00 02/12/19 08:59 01/17/19 09:54 Aspirin (ASA) 81 mg DAILY ORAL 01/13/19 09:00 02/12/19 08:59 01/17/19 09:54 Atorvastatin Calcium (Lipitor) 40 mg BEDTIME ORAL 01/13/19 21:00 02/12/19 20:59 01/16/19 20:35 Heparin Sodium/ Dextrose 500 ml @ 17.418 mls/ hr ADJUST PER PROTOCOL IV 01/17/19 08:00 02/16/19 07:59 Hydralazine HCl (Apresoline) 50 mg Q6H PRN ORAL SBP >160 01/12/19 23:15 02/11/19 23:14 01/13/19 12:11 Hydralazine HCl (Apresoline) 50 mg TID@0600,1400,2200 ORAL 01/13/19 14:00 02/12/19 05:59 01/16/19 22:50 Lorazepam (Ativan 2mg/ml 1ml) 0.5 mg Q8HR PRN IV For Anxiety 01/16/19 23:45 01/23/19 23:44 Meclizine HCl (Antivert) 25 mg Q8H PRN ORAL for dizziness 01/12/19 23:15 02/11/19 23:14 Metoprolol Tartrate (Lopressor) 25 mg Q12HR ORAL 01/13/19 21:00 02/12/19 20:59 01/17/19 09:54 Ondansetron HCl (Zofran) 4 mg Q4H PRN IVP Nausea & Vomiting 01/12/19 23:15 02/11/19 23:14 Allergies: Coded Allergies: No Known Allergies (Unverified , 10/13/18) ROS Limited/Unobtainable: No Constitutional: Reports: no symptoms HEENT: Reports: no symptoms Cardiovascular: Reports: no symptoms Respiratory: Reports: no symptoms Gastrointestinal/Abdominal: Reports: no symptoms Genitourinary: Reports: no symptoms Neurologic/Psychiatric: Reports: no symptoms Subjective 83 YO F admitted with slurred speech. Now elevated troponin and Non ST Elevated [place]. Cover for Int [place]-Dr Stanton Objective Last Vital Signs Date Time Temp Pulse Resp B/P (MAP) Pulse Ox O2 Delivery O2 Flow Rate FiO2 01/17/19 09:54 86 135/83 01/17/19 09:00 Room Air 01/17/19 08:00 98.1 18 97 Laboratory Tests Test 01/16/19 11:35 01/16/19 19:28 01/17/19 02:50 Activated Partial Thromboplast Time > 150 SEC (23-33) *H 48 SEC (23-33) H 50 SEC (23-33) H White Blood Count 13.3 K/UL (4.8-10.8) H Red Blood Count 4.32 M/UL (4.20-5.40) Hemoglobin 12.2 G/DL (12.0-16.0) Hematocrit 37.2 % (37.0-47.0) Mean Corpuscular Volume 86 FL (80-99) Mean Corpuscular Hemoglobin 28.2 PG (27.0-31.0) Mean Corpuscular Hemoglobin Concent 32.7 G/DL (32.0-36.0) Red Cell Distribution Width 13.0 % (11.6-14.8) Platelet Count 287 K/UL (150-450) Mean Platelet Volume 5.9 FL (6.5-10.1) L Neutrophils (%) (Auto) 75.9 % (45.0-75.0) H Lymphocytes (%) (Auto) 15.4 % (20.0-45.0) L Monocytes (%) (Auto) 7.2 % (1.0-10.0) Eosinophils (%) (Auto) 0.8 % (0.0-3.0) Basophils (%) (Auto) 0.6 % (0.0-2.0) Troponin I 1.862 ng/mL (0.000-0.056) Microbiology Date/Time Source Procedure Growth Status 01/15/19 13:10 Urine,Clean Catch Urine Culture - Preliminary Resulted Intake and Output 01/16/19 01/17/19 19:00 07:00 Intake Total 898.060 ml 184.447 ml Output Total 350 ml Balance 548.060 ml 184.447 ml Intake Oral 840 ml 120 ml IV Total 58.060 ml 64.447 ml Output Urine Total 350 ml # Voids 3 2 # Bowel Movements 1 Objective PHYSICAL EXAMINATION: GENERAL: The patient is a well-developed and well-nourished female, in no apparent distress. HEENT: Eyes, pupils are equal and responsive to light and accommodation. Extraocular movements are intact. NECK: Supple without lymphadenopathy. CHEST: Lungs are clear to auscultation bilaterally without wheezes or rales. CARDIOVASCULAR: Regular rhythm and rate. S1, S2 normal without murmurs, rubs, or gallops. ABDOMEN: Soft, nontender, and nondistended. Positive bowel sounds. No evidence of hepatosplenomegaly. Currently, no rebound or guarding noted. EXTREMITIES: Negative for clubbing, cyanosis, or edema. RECTAL/GENITAL: Not performed. NEUROLOGICAL: Cranial nerves II through XII are grossly intact without focal deficits. Motor strength is 5/5 bilaterally. Deep tendon reflexes are 2+ plantar. Assessment/Plan Assessment/Plan ASSESSMENT: This is an 83-year-old female with: 1. Dysarthria. 2. Probable transient ischemic attack. 3. History of cerebrovascular disease. 4. Hypertensive emergency. 5. Elevated troponin 6. Non ST elevated myocardial infarction TREATMENT: 1. Dysarthria/transient ischemic attack/cerebrovascular disease. An MRI of the brain =no acute infarc. A Neurology consultation has been obtained with Dr. Philippe Lofton. We will follow recommendations of Neurology. This appears to be a transient ischemic attack since the symptoms have now resolved. 2. Hypertensive emergency. A Cardiology consultation has been obtained with Dr. Micah Vega. Continue amlodipine, hydralazine, and metoprolol 3. Elevated troponin/non ST elevated Myocardial infarction ?demand ischemia vs acute coronary syndrome. On heparin drip. Await transfer to [facility] for cardiac cath. See cardiology note. Shailesh Li MD Jan 17, 2019 10:43
--- NOTE | 2019-01-17 11:08 | NUR ---
CASE MANAGEMENT:REVIEW 01/17/19 SI: NSTEMI. TIA 98.1 86 18 135/83 97% ON RA WBC+13.3 TROPONIN(+) 1.862 IS: HEPARIN GTT LOPRESSOR PO Q12 HYDRALAZINE PO TID NORVASC PO QD ASA PO QD :TELEMETRY STATUS DCP: FROM HOME PLAN TRANSFER TO [facility] FOR HEART CATH
--- NOTE | 2019-01-17 11:15 | NUR ---
TRANSFER UPDATE CALLED [facility] AND SPOKE WITH DARLINE WHO CONFIRMED PATIENT IS ON THE LIST TO TRANSFER THEY ARE STILL WAITING FOR HER TO CLEAR FINANCIALLY [facility] T: [phone] F: [phone]
--- NOTE | 2019-01-17 11:29 | Pulmonology Progress Note ---
Assessment/Plan Problems: (1) Non-ST elevation (NSTEMI) myocardial infarction (2) TIA (transient ischemic attack) (3) History of hypertension Assessment/Plan pulled heparin drip line last bus monitor BP renal studies check troponin in am, coming down check electrolytes will need Cardiac cath, once more stable. d/w pts daughter daughter working on [employer] Subjective ROS Limited/Unobtainable: No Constitutional: Reports: no symptoms Respiratory: Reports: no symptoms Allergies: Coded Allergies: No Known Allergies (Unverified , 10/13/18) Objective Last 24 Hour Vital Signs Date Time Temp Pulse Resp B/P (MAP) Pulse Ox O2 Delivery O2 Flow Rate FiO2 01/17/19 09:54 86 135/83 01/17/19 09:54 86 135/83 01/17/19 09:00 Room Air 01/17/19 08:00 98.1 86 18 135/83 (100) 97 01/17/19 08:00 86 01/17/19 05:55 109/62 01/17/19 04:00 88 01/17/19 04:00 97.7 91 18 109/62 (78) 96 01/17/19 00:00 104 01/16/19 22:50 136/64 01/16/19 21:00 Room Air 01/16/19 20:35 111 139/58 01/16/19 20:00 98.2 109 20 139/58 (85) 95 01/16/19 20:00 105 01/16/19 16:00 86 01/16/19 16:00 97.7 86 18 143/66 (91) 97 01/16/19 13:09 123/61 01/16/19 12:00 84 01/16/19 11:54 97.1 79 18 123/61 (81) 98 Intake and Output 01/16/19 01/17/19 19:00 07:00 Intake Total 898.060 ml 184.447 ml Output Total 350 ml Balance 548.060 ml 184.447 ml Intake Oral 840 ml 120 ml IV Total 58.060 ml 64.447 ml Output Urine Total 350 ml # Voids 3 2 # Bowel Movements 1 General Appearance: WD/WN HEENT: normocephalic, atraumatic Respiratory/Chest: chest wall non-tender, lungs clear Breasts: no masses Cardiovascular: normal peripheral pulses, normal rate, no JVD Abdomen: normal bowel sounds, soft, non tender, no organomegaly Neurologic/Psychiatric: proposal editor II-XII grossly normal Microbiology Date/Time Source Procedure Growth Status 01/15/19 13:10 Urine,Clean Catch Urine Culture - Preliminary Resulted Laboratory Tests 01/16/19 11:35: Activated Partial Thromboplast Time > 150*H 01/16/19 19:28: Activated Partial Thromboplast Time 48H 01/17/19 02:50: Activated Partial Thromboplast Time 50H, White Blood Count 13.3H, Red Blood Count 4.32, Hemoglobin 12.2, Hematocrit 37.2, Mean Corpuscular Volume 86, Mean Corpuscular Hemoglobin 28.2, Mean Corpuscular Hemoglobin Concent 32.7, Red Cell Distribution Width 13.0, Platelet Count 287, Mean Platelet Volume 5.9L, Neutrophils (%) (Auto) 75.9H, Lymphocytes (%) (Auto) 15.4L, Monocytes (%) (Auto ) 7.2, Eosinophils (%) (Auto) 0.8, Basophils (%) (Auto) 0.6, Troponin I 1.862H Current Medications Medications (Trade) Dose Ordered Sig/Radha Route PRN Reason Start Time Stop Time Status Last Admin Dose Admin Acetaminophen (Tylenol) 650 mg Q6H PRN ORAL Mild Pain/Temp > 100.5 01/12/19 23:15 02/11/19 23:14 Amlodipine Besylate (Norvasc) 10 mg DAILY ORAL 01/13/19 09:00 02/12/19 08:59 01/17/19 09:54 Aspirin (ASA) 81 mg DAILY ORAL 01/13/19 09:00 02/12/19 08:59 01/17/19 09:54 Atorvastatin Calcium (Lipitor) 40 mg BEDTIME ORAL 01/13/19 21:00 02/12/19 20:59 01/16/19 20:35 Heparin Sodium/ Dextrose 500 ml @ 17.418 mls/ hr ADJUST PER PROTOCOL IV 01/17/19 08:00 02/16/19 07:59 Hydralazine HCl (Apresoline) 50 mg Q6H PRN ORAL SBP >160 01/12/19 23:15 02/11/19 23:14 01/13/19 12:11 Hydralazine HCl (Apresoline) 50 mg TID@0600,1400,2200 ORAL 01/13/19 14:00 02/12/19 05:59 01/16/19 22:50 Lorazepam (Ativan 2mg/ml 1ml) 0.5 mg Q8HR PRN IV For Anxiety 01/16/19 23:45 01/23/19 23:44 Meclizine HCl (Antivert) 25 mg Q8H PRN ORAL for dizziness 01/12/19 23:15 02/11/19 23:14 Metoprolol Tartrate (Lopressor) 25 mg Q12HR ORAL 01/13/19 21:00 02/12/19 20:59 01/17/19 09:54 Ondansetron HCl (Zofran) 4 mg Q4H PRN IVP Nausea & Vomiting 01/12/19 23:15 02/11/19 23:14 Laci Pat MD Jan 17, 2019 11:29
[2019-01-17 12:00] VITALS: BP 137/68
--- NOTE | 2019-01-17 15:31 | NUR ---
NURSE NOTES: communicated with Dr. Vega, to hold Heparin drip till MD visits Pt.
[2019-01-17 16:00] VITALS: BP 127/62
--- NOTE | 2019-01-17 19:38 | NUR ---
HAND-OFF: Report given to PAUL Torres. Pt. in stable condition.
--- NOTE | 2019-01-17 19:39 | NUR ---
NURSE NOTES: Got report from Gwyn MILLER. Pt in stable condition. Denies any pain. No s/s of distress or discomfort noted. Pt resting in bed comfortably. Bed in low and locked position, call light within reach, bedside table within reach. Continue to monitor.
[2019-01-17 20:00] VITALS: BP 139/75
--- NOTE | 2019-01-17 20:34 | Cardiology Progress Note ---
Assessment/Plan Assessment/Plan hypertension acute transient ischemic attack with symptoms of transient dysarthria dementia renal insuf echo here showed normal lv function trop down trend bp imporved cr is better as well removed her own iv last nite was restarted later today no pain so i stopped the heparin asa , bb , statin tele and ekg reviewed accepted at [facility] but no bed avaialblity d/w [facility] 20:34 Subjective Cardiovascular: Denies: chest pain, irregular heart rate, lightheadedness Respiratory: Denies: shortness of breath, SOB with excertion Gastrointestinal/Abdominal: Denies: abdominal pain Genitourinary: Denies: burning Objective Last 24 Hour Vital Signs Date Time Temp Pulse Resp B/P (MAP) Pulse Ox O2 Delivery O2 Flow Rate FiO2 01/17/19 16:00 89 01/17/19 16:00 97.8 96 18 127/62 (83) 97 01/17/19 15:05 137/69 01/17/19 12:00 98.2 93 18 137/68 (91) 97 01/17/19 12:00 82 01/17/19 09:54 86 135/83 01/17/19 09:54 86 135/83 01/17/19 09:00 Room Air 01/17/19 08:00 98.1 86 18 135/83 (100) 97 01/17/19 08:00 86 01/17/19 05:55 109/62 01/17/19 04:00 88 01/17/19 04:00 97.7 91 18 109/62 (78) 96 01/17/19 00:00 104 01/16/19 22:50 136/64 01/16/19 21:00 Room Air 01/16/19 20:35 111 139/58 General Appearance: no apparent distress, alert Neck: supple Cardiovascular: normal rate Respiratory/Chest: lungs clear, normal breath sounds Abdomen: normal bowel sounds, non tender, soft Extremities: non-tender, no swelling Intake and Output 01/16/19 01/17/19 19:00 07:00 Intake Total 898.060 ml 184.447 ml Output Total 350 ml Balance 548.060 ml 184.447 ml Intake Oral 840 ml 120 ml IV Total 58.060 ml 64.447 ml Output Urine Total 350 ml # Voids 3 2 # Bowel Movements 1 Laboratory Tests Test 01/17/19 02:50 White Blood Count 13.3 K/UL (4.8-10.8) H Red Blood Count 4.32 M/UL (4.20-5.40) Hemoglobin 12.2 G/DL (12.0-16.0) Hematocrit 37.2 % (37.0-47.0) Mean Corpuscular Volume 86 FL (80-99) Mean Corpuscular Hemoglobin 28.2 PG (27.0-31.0) Mean Corpuscular Hemoglobin Concent 32.7 G/DL (32.0-36.0) Red Cell Distribution Width 13.0 % (11.6-14.8) Platelet Count 287 K/UL (150-450) Mean Platelet Volume 5.9 FL (6.5-10.1) L Neutrophils (%) (Auto) 75.9 % (45.0-75.0) H Lymphocytes (%) (Auto) 15.4 % (20.0-45.0) L Monocytes (%) (Auto) 7.2 % (1.0-10.0) Eosinophils (%) (Auto) 0.8 % (0.0-3.0) Basophils (%) (Auto) 0.6 % (0.0-2.0) Activated Partial Thromboplast Time 50 SEC (23-33) H Troponin I 1.862 ng/mL (0.000-0.056) Microbiology Date/Time Source Procedure Growth Status 01/15/19 13:10 Urine,Clean Catch Urine Culture - Preliminary Resulted Micah Vega MD Jan 17, 2019 20:34
[2019-01-17] MEDS: Atorvastatin 20mg tab ORAL SCH (22:19)
[2019-01-18] VITALS (7 sets, daily range): BP systolic 121–152; BP diastolic 58–83
[2019-01-18] MEDS: HydrALAZINE 50mg tab ORAL SCH ×3 (05:41→21:29)
--- NOTE | 2019-01-18 07:00 | NUR ---
HAND-OFF: Report given to Gwyn MILLER.
[2019-01-18 07:01] LABS: BASOPHILS % (AUTO) 0.8 % (0.0-2.0); EOSINOPHILS % (AUTO) 3.5 % (0.0-3.0); HEMATOCRIT 38.3 % (37.0-47.0); HEMOGLOBIN 12.5 G/DL (12.0-16.0); LYMPHOCYTES % (AUTO) 26.5 % (20.0-45.0); MEAN CORPUSCULAR VOLUME 87 FL (80-99); MONOCYTES % (AUTO) 9.2 % (1.0-10.0); PLATELET COUNT 295 K/UL (150-450); RED BLOOD COUNT 4.39 M/UL (4.20-5.40); WHITE BLOOD COUNT 9.5 K/UL (4.8-10.8)
--- NOTE | 2019-01-18 07:10 | NUR ---
NURSE NOTES: Report received from PAUL Smallwood. Pt. AOx3. In RA. Denies any pain or SOB. R H 22g IV flushed and SL. Having breakfast. Bed on lowest position, side rails upx2, brakes engaged. Call light within easy reach. Family at bedside.
[2019-01-18 07:12] LABS: ANION GAP 5 mmol/L (5-15); BLOOD UREA NITROGEN 32 mg/dL (7-18); CARBON DIOXIDE 27 MMOL/L (21-32); CHLORIDE 109 MMOL/L (98-107); CREATININE 1.4 MG/DL (0.55-1.30); SODIUM 141 MMOL/L (136-145)
[2019-01-18] MEDS: Aspirin Baby 81mg ORAL SCH (09:14)
[2019-01-18] MEDS: Metoprolol 25mg tab ORAL SCH ×2 (09:15→21:30)
--- NOTE | 2019-01-18 12:13 | Pulmonology Progress Note ---
Assessment/Plan Problems: (1) Non-ST elevation (NSTEMI) myocardial infarction (2) TIA (transient ischemic attack) (3) History of hypertension Assessment/Plan calling transfer center at [facility], no bed available at all heparin drip was cancelled monitor BP renal studies check troponin, coming down check electrolytes will need Cardiac cath, once more stable. d/w pts daughter Subjective ROS Limited/Unobtainable: No Constitutional: Reports: no symptoms HEENT: Repors: no symptoms Respiratory: Reports: no symptoms Allergies: Coded Allergies: No Known Allergies (Unverified , 10/13/18) Objective Last 24 Hour Vital Signs Date Time Temp Pulse Resp B/P (MAP) Pulse Ox O2 Delivery O2 Flow Rate FiO2 01/18/19 09:15 92 141/58 01/18/19 09:15 92 141/58 01/18/19 09:00 94 01/18/19 09:00 Room Air 01/18/19 08:00 97.7 92 18 141/58 (85) 97 01/18/19 05:41 130/70 01/18/19 04:00 97.9 91 18 132/60 (84) 97 01/18/19 04:00 85 01/18/19 00:00 97.8 100 18 130/70 (90) 96 01/18/19 00:00 88 01/17/19 22:20 95 139/75 01/17/19 22:19 139/75 01/17/19 21:00 Room Air 01/17/19 20:00 97.7 90 19 139/75 (96) 97 01/17/19 20:00 102 01/17/19 16:00 89 01/17/19 16:00 97.8 96 18 127/62 (83) 97 01/17/19 15:05 137/69 Intake and Output 01/17/19 01/18/19 19:00 07:00 Intake Total 900 ml Output Total 1400 ml Balance -500 ml Other 900 ml Output Urine Total 1400 ml General Appearance: WD/WN HEENT: normocephalic, anicteric Respiratory/Chest: chest wall non-tender, lungs clear Breasts: no masses Cardiovascular: normal rate Abdomen: normal bowel sounds, soft, non tender Genitourinary: normal external genitalia Extremities: no clubbing Skin: no rash Microbiology Date/Time Source Procedure Growth Status 01/15/19 13:10 Urine,Clean Catch Urine Culture - Preliminary Gram Negative Bacillus 1 Gram Negative Bacillus 2 Resulted Laboratory Tests 01/18/19 06:02: White Blood Count 9.5, Red Blood Count 4.39, Hemoglobin 12.5, Hematocrit 38.3, Mean Corpuscular Volume 87, Mean Corpuscular Hemoglobin 28.4, Mean Corpuscular Hemoglobin Concent 32.5, Red Cell Distribution Width 13.0, Platelet Count 295, Mean Platelet Volume 5.8L, Neutrophils (%) (Auto) 60.0, Lymphocytes (%) (Auto) 26.5, Monocytes (%) (Auto) 9.2, Eosinophils (%) (Auto) 3.5H, Basophils (%) (Auto ) 0.8, Sodium Level 141, Potassium Level 4.0, Chloride Level 109H, Carbon Dioxide Level 27, Anion Gap 5, Blood Urea Nitrogen 32H, Creatinine 1.4H, Estimat Glomerular Filtration Rate , Glucose Level 127H, Calcium Level 9.0, Troponin I 1.444H Current Medications Medications (Trade) Dose Ordered Sig/Radha Route PRN Reason Start Time Stop Time Status Last Admin Dose Admin Acetaminophen (Tylenol) 650 mg Q6H PRN ORAL Mild Pain/Temp > 100.5 01/12/19 23:15 02/11/19 23:14 Amlodipine Besylate (Norvasc) 10 mg DAILY ORAL 01/13/19 09:00 02/12/19 08:59 01/18/19 09:15 Aspirin (ASA) 81 mg DAILY ORAL 01/13/19 09:00 02/12/19 08:59 01/18/19 09:14 Atorvastatin Calcium (Lipitor) 40 mg BEDTIME ORAL 01/13/19 21:00 02/12/19 20:59 01/17/19 22:19 Hydralazine HCl (Apresoline) 50 mg Q6H PRN ORAL SBP >160 01/12/19 23:15 02/11/19 23:14 01/13/19 12:11 Hydralazine HCl (Apresoline) 50 mg TID@0600,1400,2200 ORAL 01/13/19 14:00 02/12/19 05:59 01/18/19 05:41 Lorazepam (Ativan 2mg/ml 1ml) 0.5 mg Q8HR PRN IV For Anxiety 01/16/19 23:45 01/23/19 23:44 Meclizine HCl (Antivert) 25 mg Q8H PRN ORAL for dizziness 01/12/19 23:15 02/11/19 23:14 Metoprolol Tartrate (Lopressor) 25 mg Q12HR ORAL 01/13/19 21:00 02/12/19 20:59 01/18/19 09:15 Ondansetron HCl (Zofran) 4 mg Q4H PRN IVP Nausea & Vomiting 01/12/19 23:15 02/11/19 23:14 Laci Pat MD Jan 18, 2019 12:13
--- NOTE | 2019-01-18 13:02 | Internal Med Progress Note ---
Subjective Physician Name Ocsar Stanton Attending Physician Oscar Stanton MD Current Medications Medications (Trade) Dose Ordered Sig/Radha Route PRN Reason Start Time Stop Time Status Last Admin Dose Admin Acetaminophen (Tylenol) 650 mg Q6H PRN ORAL Mild Pain/Temp > 100.5 01/12/19 23:15 02/11/19 23:14 Amlodipine Besylate (Norvasc) 10 mg DAILY ORAL 01/13/19 09:00 02/12/19 08:59 01/18/19 09:15 Aspirin (ASA) 81 mg DAILY ORAL 01/13/19 09:00 02/12/19 08:59 01/18/19 09:14 Atorvastatin Calcium (Lipitor) 40 mg BEDTIME ORAL 01/13/19 21:00 02/12/19 20:59 01/17/19 22:19 Hydralazine HCl (Apresoline) 50 mg Q6H PRN ORAL SBP >160 01/12/19 23:15 02/11/19 23:14 01/13/19 12:11 Hydralazine HCl (Apresoline) 50 mg TID@0600,1400,2200 ORAL 01/13/19 14:00 02/12/19 05:59 01/18/19 05:41 Lorazepam (Ativan 2mg/ml 1ml) 0.5 mg Q8HR PRN IV For Anxiety 01/16/19 23:45 01/23/19 23:44 Meclizine HCl (Antivert) 25 mg Q8H PRN ORAL for dizziness 01/12/19 23:15 02/11/19 23:14 Metoprolol Tartrate (Lopressor) 25 mg Q12HR ORAL 01/13/19 21:00 02/12/19 20:59 01/18/19 09:15 Ondansetron HCl (Zofran) 4 mg Q4H PRN IVP Nausea & Vomiting 01/12/19 23:15 02/11/19 23:14 Allergies: Coded Allergies: No Known Allergies (Unverified , 10/13/18) Subjective Awake, alert, responsive, No CP or SOB, sitting up on chair. Objective Last Vital Signs Date Time Temp Pulse Resp B/P (MAP) Pulse Ox O2 Delivery O2 Flow Rate FiO2 01/18/19 12:00 97.5 82 18 121/70 (87) 97 01/18/19 09:00 Room Air Laboratory Tests Test 01/18/19 06:02 White Blood Count 9.5 K/UL (4.8-10.8) Red Blood Count 4.39 M/UL (4.20-5.40) Hemoglobin 12.5 G/DL (12.0-16.0) Hematocrit 38.3 % (37.0-47.0) Mean Corpuscular Volume 87 FL (80-99) Mean Corpuscular Hemoglobin 28.4 PG (27.0-31.0) Mean Corpuscular Hemoglobin Concent 32.5 G/DL (32.0-36.0) Red Cell Distribution Width 13.0 % (11.6-14.8) Platelet Count 295 K/UL (150-450) Mean Platelet Volume 5.8 FL (6.5-10.1) L Neutrophils (%) (Auto) 60.0 % (45.0-75.0) Lymphocytes (%) (Auto) 26.5 % (20.0-45.0) Monocytes (%) (Auto) 9.2 % (1.0-10.0) Eosinophils (%) (Auto) 3.5 % (0.0-3.0) H Basophils (%) (Auto) 0.8 % (0.0-2.0) Sodium Level 141 MMOL/L (136-145) Potassium Level 4.0 MMOL/L (3.5-5.1) Chloride Level 109 MMOL/L (98-107) H Carbon Dioxide Level 27 MMOL/L (21-32) Anion Gap 5 mmol/L (5-15) Blood Urea Nitrogen 32 mg/dL (7-18) H Creatinine 1.4 MG/DL (0.55-1.30) H Estimat Glomerular Filtration Rate mL/min (>60) Glucose Level 127 MG/DL (74-106) H Calcium Level 9.0 MG/DL (8.5-10.1) Troponin I 1.444 ng/mL (0.000-0.056) Microbiology Date/Time Source Procedure Growth Status 01/15/19 13:10 Urine,Clean Catch Urine Culture - Preliminary Gram Negative Bacillus 1 Gram Negative Bacillus 2 Resulted Intake and Output 01/17/19 01/18/19 19:00 07:00 Intake Total 900 ml Output Total 1400 ml Balance -500 ml Other 900 ml Output Urine Total 1400 ml Objective General: No acute distress, awake and alert HEENT: NCAT, sclera anicteric, PERRL, EOMI. Neck: Supple, no significant jugular venous distention, Lungs: Good inspiratory effort, clear to auscultation bilaterally, no Wheeze or Rales. Heart: Regular rate and rhythm, normal S1/S2, no murmurs. Abdomen: soft, nontender, nondistended. Normoactive bowel sounds. / Rectal: Refused and deferred. Extremities: No Cyanosis , clubbing or edema. Neuro: A&O x 3, Able to move all extremities Skin: warm, no rashes or lesions Psych: Normal mood and affect Assessment/Plan Assessment/Plan 1. Dysarthria resolved 2. Transient ischemic attack. 3. Non ST elevated myocardial infarction 4. Hypertensive emergency. 5. CKD TREATMENT: 1. Dysarthria/transient ischemic attack/cerebrovascular disease. An MRI of the brain =no acute infarc. A Neurology consultation has been obtained with Dr. Philippe Lofton. We will follow recommendations of Neurology. This appears to be a transient ischemic attack since the symptoms have now resolved. 2. Hypertensive emergency. A Cardiology consultation has been obtained with Dr. Micah Vega. Continue amlodipine, hydralazine, and metoprolol 3. non ST elevated Myocardial infarction, demand ischemia vs acute coronary syndrome. Full Code On heparin drip. Await transfer to [facility] for cardiac cath. Oscar Stanton MD Jan 18, 2019 13:02
--- NOTE | 2019-01-18 13:20 | NUR ---
TRANSFER UPDATE STILL NO BEDS AVAILABLE AT [facility] FAXED CLINICALS TO [facility]
--- NOTE | 2019-01-18 13:28 | NUR ---
RD ASSESSMENT & RECOMMENDATIONS SEE CARE ACTIVITY FOR COMPLETE ASSESSMENT DAILY ESTIMATED NEEDS: Needs based on Cardiac, 55.7kg adj 25-30 kcals/kg 1312-3067 total kcals 1-1.2 g protein/kg 56-67 g total protein 25-30 mL/kg 0279-2918 total fluid mLs NUTRITION DIAGNOSIS: Altered nutrition related lab values r/t clinical status as evidenced by elev A1C 6.1, elev Creat (1.4), elev Trop. CURRENT DIET:Cardiac PO DIET RECOMMENDATIONS: Low Na / Low fat diet / CCHO Low ADDITIONAL RECOMMENDATIONS: 1) Obtain a standing weight as able 2) accuchecks + ss coverage prn 3) Provided diet edu, cardiac/ carb control diet
--- NOTE | 2019-01-18 17:19 | Cardiology Report ---
APPROVED REPORT EKG Measurement Heart [id number] ME [id number] Normal sinus rhythm Possible Anterior infarct, age undetermined Abnormal ECG
--- NOTE | 2019-01-18 19:20 | NUR ---
HAND-OFF: Report given to PAUL Layne. Pt. in stable condition. Family at bedside.
--- NOTE | 2019-01-18 19:30 | NUR ---
NURSE NOTES: Received patient from Gwyn MILLER. Dayshift nurse at bedside, spoke with patient regarding discharge and code status. Patient and daughter both wants to be DNR/DNI. Patient verbalized her desire to be DNR/DNI. Patient is alert and oriented to self, place, and situation. Bed in low position, locked, bed alarm, call light within reach.
--- NOTE | 2019-01-18 19:51 | Cardiology Progress Note ---
Assessment/Plan Assessment/Plan hypertension acute transient ischemic attack with symptoms of transient dysarthria dementia renal insuf echo here showed normal lv function trop down trend bp imporved cr is better as well removed her own iv last nite was restarted later today no pain so i stopped the heparin asa , bb , statin tele and ekg reviewed accepted at [facility] but no bed avaialblity we have d/w case manage re possible transfer to [facility] Subjective Cardiovascular: Denies: chest pain, lightheadedness Respiratory: Denies: shortness of breath Gastrointestinal/Abdominal: Denies: abdominal pain Genitourinary: Denies: burning Objective Last 24 Hour Vital Signs Date Time Temp Pulse Resp B/P (MAP) Pulse Ox O2 Delivery O2 Flow Rate FiO2 01/18/19 17:00 97.3 91 18 148/73 (98) 97 01/18/19 16:00 97.3 91 18 150/70 (96) 97 01/18/19 16:00 90 01/18/19 14:15 121/70 01/18/19 12:00 97.5 82 18 121/70 (87) 97 01/18/19 12:00 90 01/18/19 09:15 92 141/58 01/18/19 09:15 92 141/58 01/18/19 09:00 94 01/18/19 09:00 Room Air 01/18/19 08:00 97.7 92 18 141/58 (85) 97 01/18/19 05:41 130/70 01/18/19 04:00 97.9 91 18 132/60 (84) 97 01/18/19 04:00 85 01/18/19 00:00 97.8 100 18 130/70 (90) 96 01/18/19 00:00 88 01/17/19 22:20 95 139/75 01/17/19 22:19 139/75 01/17/19 21:00 Room Air 01/17/19 20:00 97.7 90 19 139/75 (96) 97 01/17/19 20:00 102 General Appearance: no apparent distress, alert Neck: non-tender Cardiovascular: normal rate Respiratory/Chest: lungs clear Abdomen: normal bowel sounds, non tender, soft Extremities: no swelling Intake and Output 01/17/19 01/18/19 19:00 07:00 Intake Total 900 ml Output Total 1400 ml Balance -500 ml Other 900 ml Output Urine Total 1400 ml Laboratory Tests Test 01/18/19 06:02 White Blood Count 9.5 K/UL (4.8-10.8) Red Blood Count 4.39 M/UL (4.20-5.40) Hemoglobin 12.5 G/DL (12.0-16.0) Hematocrit 38.3 % (37.0-47.0) Mean Corpuscular Volume 87 FL (80-99) Mean Corpuscular Hemoglobin 28.4 PG (27.0-31.0) Mean Corpuscular Hemoglobin Concent 32.5 G/DL (32.0-36.0) Red Cell Distribution Width 13.0 % (11.6-14.8) Platelet Count 295 K/UL (150-450) Mean Platelet Volume 5.8 FL (6.5-10.1) L Neutrophils (%) (Auto) 60.0 % (45.0-75.0) Lymphocytes (%) (Auto) 26.5 % (20.0-45.0) Monocytes (%) (Auto) 9.2 % (1.0-10.0) Eosinophils (%) (Auto) 3.5 % (0.0-3.0) H Basophils (%) (Auto) 0.8 % (0.0-2.0) Sodium Level 141 MMOL/L (136-145) Potassium Level 4.0 MMOL/L (3.5-5.1) Chloride Level 109 MMOL/L (98-107) H Carbon Dioxide Level 27 MMOL/L (21-32) Anion Gap 5 mmol/L (5-15) Blood Urea Nitrogen 32 mg/dL (7-18) H Creatinine 1.4 MG/DL (0.55-1.30) H Estimat Glomerular Filtration Rate mL/min (>60) Glucose Level 127 MG/DL (74-106) H Calcium Level 9.0 MG/DL (8.5-10.1) Troponin I 1.444 ng/mL (0.000-0.056) Micah Vega MD Jan 18, 2019 19:51
--- NOTE | 2019-01-18 20:00 | NUR ---
NURSE NOTES: Notified Dr. Pat regarding patient's code status wishes, received orders to change code status to DNR/DNI.
[2019-01-18] MEDS ORDERED: Metoprolol Tartrate 12.5mg TAB ONE (21:19)
[2019-01-18] MEDS: Atorvastatin 20mg tab ORAL SCH (21:29)
--- NOTE | 2019-01-18 21:36 | NUR ---
NURSE NOTES: Notified Pharmacy, Raj, that MAR states 25mg tablet but pixis gave 2 tablets of 12.5mg of Lopressor. Instructed to manually verify with another nurse. Verified with Yang Culver RN.
[2019-01-19] VITALS: BP 148/75
[2019-01-19 04:00] VITALS: BP 119/57
[2019-01-19 05:44] VITALS: BP 138/67
[2019-01-19] MEDS: HydrALAZINE 50mg tab ORAL SCH ×2 (05:45→14:24)
--- NOTE | 2019-01-19 06:30 | NUR ---
CASE MANAGEMENT:REVIEW 01/19/19 SI: AMI. TIA 97.7 103 76 20 119/57 98% ON RA TROPONIN(+) 1.444 BUN+32 CR+1.4 IS: LOPRESSOR PO Q12 HYDRALAZINE PO TID NORVASC PO QD ASA PO QD :TELEMETRY STATUS DCP: FROM HOME PLAN TRANSFER TO [facility] OR [facility] FOR HEART CATH DC HEPARIN GTT NOW DNR/DNI
--- NOTE | 2019-01-19 06:37 | NUR ---
DISCHARGE PLANNING PATIENT HAS BEEN RE[facility] AND [facility]
--- NOTE | 2019-01-19 07:30 | NUR ---
HAND-OFF: Report given to Lois MILLER. Plan of care endorsed.
--- NOTE | 2019-01-19 07:59 | NUR ---
NURSE NOTES: Patient received from Roverto Frances RN. Patient AOx4. No complaints at this time. No s/sx of distress. RR even and unlabored on RA. Call light within reach, side rails up x2, bed low and locked. Will continue to monitor.
[2019-01-19 08:00] VITALS: BP 110/26
[2019-01-19] MEDS: Metoprolol 25mg tab ORAL SCH (08:45)
[2019-01-19] MEDS: Aspirin Baby 81mg ORAL SCH (08:53)
--- NOTE | 2019-01-19 10:56 | NUR ---
TRANSFER UPDATE CALLED [facility] AND SPOKE WITH SOFIA WHO STATED THEY ARE FULL TO CAPACITY AND ARE NOT SURE WHEN A BED WILL BE AVAILABLE CALLED [facility] AND SPOKE WITH POST CLOSING SPECIALIST, TAYLOR. PER TAYLOR FAX WAS NEVER RECEIVED REFAXED TO [facility] CC DR LIZAMA WILL ACCEPT PHYSICIAN
--- NOTE | 2019-01-19 11:24 | Pulmonology Progress Note ---
Assessment/Plan Problems: (1) Non-ST elevation (NSTEMI) myocardial infarction (2) TIA (transient ischemic attack) (3) History of hypertension Assessment/Plan doing better confused at times monitor BP renal studies check troponin, coming down check electrolytes will need Cardiac cath, once more stable. awaiting for a bed at [facility]. Subjective ROS Limited/Unobtainable: No Constitutional: Reports: no symptoms HEENT: Repors: no symptoms Respiratory: Reports: no symptoms Allergies: Coded Allergies: No Known Allergies (Unverified , 10/13/18) Objective Last 24 Hour Vital Signs Date Time Temp Pulse Resp B/P (MAP) Pulse Ox O2 Delivery O2 Flow Rate FiO2 01/19/19 08:53 101 110/26 01/19/19 08:45 101 110/56 01/19/19 08:17 Room Air 01/19/19 08:00 97.6 101 19 110/26 (54) 98 01/19/19 08:00 98 01/19/19 05:45 138/67 01/19/19 05:44 103 138/67 (90) 01/19/19 04:00 76 01/19/19 04:00 97.7 94 20 119/57 (77) 98 01/19/19 00:00 82 01/19/19 00:00 97.5 89 18 148/75 (99) 97 01/18/19 21:30 97 152/83 01/18/19 21:29 152/83 01/18/19 21:00 Room Air 01/18/19 21:00 98.2 97 18 152/83 (106) 99 01/18/19 20:00 105 01/18/19 17:00 97.3 91 18 148/73 (98) 97 01/18/19 16:00 97.3 91 18 150/70 (96) 97 01/18/19 16:00 90 01/18/19 14:15 121/70 01/18/19 12:00 97.5 82 18 121/70 (87) 97 01/18/19 12:00 90 Intake and Output 01/18/19 01/19/19 19:00 07:00 Intake Total 360 ml 540 ml Output Total 800 ml Balance 360 ml -260 ml Intake Oral 360 ml 540 ml Output Urine Total 800 ml # Voids 3 General Appearance: WD/WN HEENT: normocephalic, atraumatic Respiratory/Chest: chest wall non-tender, lungs clear Breasts: no masses Cardiovascular: normal peripheral pulses, normal rate Abdomen: normal bowel sounds, soft, non tender 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/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: 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 II-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 grossly normal Current Medications Medications (Trade) Dose Ordered Sig/Radha Route PRN Reason Start Time Stop Time Status Last Admin Dose Admin Acetaminophen (Tylenol) 650 mg Q6H PRN ORAL Mild Pain/Temp > 100.5 01/12/19 23:15 02/11/19 23:14 Amlodipine Besylate (Norvasc) 10 mg DAILY ORAL 01/13/19 09:00 02/12/19 08:59 01/19/19 08:53 Aspirin (ASA) 81 mg DAILY ORAL 01/13/19 09:00 02/12/19 08:59 01/19/19 08:53 Atorvastatin Calcium (Lipitor) 40 mg BEDTIME ORAL 01/13/19 21:00 02/12/19 20:59 01/18/19 21:29 Hydralazine HCl (Apresoline) 50 mg Q6H PRN ORAL SBP >160 01/12/19 23:15 02/11/19 23:14 01/13/19 12:11 Hydralazine HCl (Apresoline) 50 mg TID@0600,1400,2200 ORAL 01/13/19 14:00 02/12/19 05:59 01/19/19 05:45 Lorazepam (Ativan 2mg/ml 1ml) 0.5 mg Q8HR PRN IV For Anxiety 01/16/19 23:45 01/23/19 23:44 Meclizine HCl (Antivert) 25 mg Q8H PRN ORAL for dizziness 01/12/19 23:15 02/11/19 23:14 Metoprolol Tartrate (Lopressor) 25 mg Q12HR ORAL 01/13/19 21:00 02/12/19 20:59 01/18/19 21:30 Ondansetron HCl (Zofran) 4 mg Q4H PRN IVP Nausea & Vomiting 01/12/19 23:15 02/11/19 23:14 Laci Pat MD Jan 19, 2019 11:24
[2019-01-19 12:00] VITALS: BP 127/60
[2019-01-19 14:24] VITALS: BP 127/60
--- NOTE | 2019-01-19 15:21 | Internal Med Progress Note ---
Subjective Physician Name Oscar Stanton Attending Physician Oscar Stanton MD Current Medications Medications (Trade) Dose Ordered Sig/Radha Route PRN Reason Start Time Stop Time Status Last Admin Dose Admin Acetaminophen (Tylenol) 650 mg Q6H PRN ORAL Mild Pain/Temp > 100.5 01/12/19 23:15 02/11/19 23:14 Amlodipine Besylate (Norvasc) 10 mg DAILY ORAL 01/13/19 09:00 02/12/19 08:59 01/19/19 08:53 Aspirin (ASA) 81 mg DAILY ORAL 01/13/19 09:00 02/12/19 08:59 01/19/19 08:53 Atorvastatin Calcium (Lipitor) 40 mg BEDTIME ORAL 01/13/19 21:00 02/12/19 20:59 01/18/19 21:29 Hydralazine HCl (Apresoline) 50 mg Q6H PRN ORAL SBP >160 01/12/19 23:15 02/11/19 23:14 01/13/19 12:11 Hydralazine HCl (Apresoline) 50 mg TID@0600,1400,2200 ORAL 01/13/19 14:00 02/12/19 05:59 01/19/19 14:24 Lorazepam (Ativan 2mg/ml 1ml) 0.5 mg Q8HR PRN IV For Anxiety 01/16/19 23:45 01/23/19 23:44 Meclizine HCl (Antivert) 25 mg Q8H PRN ORAL for dizziness 01/12/19 23:15 02/11/19 23:14 Metoprolol Tartrate (Lopressor) 25 mg Q12HR ORAL 01/13/19 21:00 02/12/19 20:59 01/18/19 21:30 Ondansetron HCl (Zofran) 4 mg Q4H PRN IVP Nausea & Vomiting 01/12/19 23:15 02/11/19 23:14 Allergies: Coded Allergies: No Known Allergies (Unverified , 10/13/18) Subjective Awake, alert, responsive, No CP or SOB, reading magazine. Objective Last Vital Signs Date Time Temp Pulse Resp B/P (MAP) Pulse Ox O2 Delivery O2 Flow Rate FiO2 01/19/19 14:24 127/60 11/22/19 12:00 97.0 90 20 96 01/19/19 08:17 Room Air Intake and Output 01/18/19 01/19/19 19:00 07:00 Intake Total 360 ml 540 ml Output Total 800 ml Balance 360 ml -260 ml Intake Oral 360 ml 540 ml Output Urine Total 800 ml # Voids 3 Objective General: No acute distress, awake and alert HEENT: NCAT, sclera anicteric, PERRL, EOMI. Neck: Supple, no significant jugular venous distention, Lungs: Good inspiratory effort, clear to auscultation bilaterally, no Wheeze or Rales. Heart: Regular rate and rhythm, normal S1/S2, no murmurs. Abdomen: soft, nontender, nondistended. Normoactive bowel sounds. / Rectal: Refused and deferred. Extremities: No Cyanosis , clubbing or edema. Neuro: A&O x 3, Able to move all extremities Skin: warm, no rashes or lesions Psych: Normal mood and affect Assessment/Plan Assessment/Plan 1. Dysarthria resolved 2. Transient ischemic attack. 3. Non ST elevated myocardial infarction 4. Hypertensive emergency. 5. CKD TREATMENT: 1. Dysarthria/transient ischemic attack/cerebrovascular disease. An MRI of the brain =no acute infarc. A Neurology consultation has been obtained with Dr. Philippe Lofton. We will follow recommendations of Neurology. This appears to be a transient ischemic attack since the symptoms have now resolved. 2. Hypertensive emergency. A Cardiology consultation has been obtained with Dr. Micah Vega. Continue amlodipine, hydralazine, and metoprolol 3. non ST elevated Myocardial infarction, demand ischemia vs acute coronary syndrome. Full Code On heparin drip. DC to [facility] for cardiac cath. Oscar Stanton MD Jan 19, 2019 15:21
[2019-01-19] MEDS ORDERED: Tubing IV Secondary IV ONE (15:49)
--- NOTE | 2019-01-19 15:55 | NUR ---
NURSE NOTES: Patient medically discharged. Patient stable AOx4 with granddaughter. Patient accompanied to front of hospital. No belongins with patient.
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
== END 2019-01-19 15:50 | disposition home or self-care (01) | DRG 281 ==
LOC: 2E 21:20
DX: I21.4 Non-ST elevation (NSTEMI) myocardial infarction (principal); G45.9 Transient cerebral ischemic attack, unspecified; I16.1 Hypertensive emergency; N17.9 Acute kidney failure, unspecified; Z86.73 Personal history of transient ischemic attack (TIA), and cerebral infarction without residual deficits; Z79.82 Long term (current) use of aspirin; R47.1 Dysarthria and anarthria; F03.90 Unspecified dementia, unspecified severity, without behavioral disturbance, psychotic disturbance, mood disturbance, and anxiety; E78.5 Hyperlipidemia, unspecified; I12.9 Hypertensive chronic kidney disease with stage 1 through stage 4 chronic kidney disease, or unspecified chronic kidney disease; N18.9 Chronic kidney disease, unspecified; Z66 Do not resuscitate
CPT/HCPCS: 36415; 70551; 71045; 76770; 80048; 80053; 80061; 81001; 82043; 82550; 83036; 83735; 83935; 84100; 84300; 84443; 84484; 84550; 85025; 85651; 85730; 87081; 87086; 87181; 89050; 92610; 93005; 93306; 93880; 93882

== ENCOUNTER 2019-12-19 11:43 | Inpatient (IN) | payer MEDICARE, MEDICAID ==
[~2019-12-19] VITALS: Ht 154.9 cm; Wt 82.3 kg
[~2019-12-19 11:43] MED LIST changes: +ASPIRIN81 MG ORAL; +HYDRALAZINE HCL50 MG ORAL
[2019-12-19 11:50] VITALS: BP 179/75
--- NOTE | 2019-12-19 12:00 | NUR ---
ED Nurse Note: Pt brought in by ambulance from home c/o dizziness with nausea and vomiting since 0200. Pt takes medication for blood pressure at home. Respirations even and unlabored on room air. BP elevated in the 170s systolic. ED PA aware. A+Ox4, speaking in complete sentences, but at times, forgetful.
--- NOTE | 2019-12-19 12:21 | NUR ---
ED Nurse Note: pt vomited dark red emesis x 1. ED PA aware.
[2019-12-19] MEDS ORDERED: Pantoprazole Inj ONE (12:23)
[2019-12-19] MEDS ORDERED: Omnipaque-300 100ml vial INJ ONE (12:30)
[2019-12-19] MEDS ORDERED: Pantoprazole 80 MG in NS 250 ML IV ONE (12:30)
--- NOTE | 2019-12-19 12:52 | Emergency Room Report ---
History of Present Illness General Chief Complaint: Dizziness Source: EMS (Saray Oshea) Present Illness HPI 84-year-old female with cardiac history, hypertension and history of CVA/TIA presents to the emergency department complaining of dizziness and nausea that she rates as 10 out of 10 in severity x2 days. Patient reports onset of her symptoms occurred at the same time. Patient reports that when she gets up to go to the bathroom she feels very weak and as if she is walking on a boat. Patient denies notable blood in her vomit. Patient denies constipation or diarrhea. She denies abdominal pain other than when she is actively vomiting. She denies fevers or chills. She denies neck pain or photophobia. She denies headache. She denies new medications. She denies history of GI bleed. She denies paresthesias, chest pain or palpitations. She denies syncope. Pt. does not report any other symptoms at this time. She does endorse taking her last HTN medication yesterday at 10am and is now out of her medication. (Saray Oshea) Allergies: Coded Allergies: No Known Allergies (Unverified , 10/13/18) COVID-19 Screening Contact w/high risk pt: No Experienced COVID-19 symptoms?: No COVID-19 Testing performed TRAINING AND DEVELOPMENT HEAD: No (Saray Oshea) Patient History Past Medical History: see triage record Past Surgical History: none Pertinent Family History: none Last Menstrual Period: na Now: No Reviewed Nursing Documentation: PMH: Agreed; PSxH: Agreed (Saray Oshea) Nursing Documentation-PMH Past Medical History: No History, Except For Hx Cardiac Problems: Yes Hx Hypertension: Yes Hx Cancer: No Hx Gastrointestinal Problems: No Hx Neurological Problems: Yes Hx Cerebrovascular Accident: Yes Hx Transient Ischemic Attacks: Yes (Saray Oshea) Review of Systems All Other Systems: negative except mentioned in HPI (Saray Oshea) Physical Exam Vital Signs Date Time Temp Pulse Resp B/P (MAP) Pulse Ox O2 Delivery O2 Flow Rate FiO2 12/19/19 11:41 97.9 76 20 179/75 (109) 97 Room Air Sp02 EP Interpretation: reviewed, normal General Appearance: no apparent distress, alert, GCS 15, non-toxic Head: normocephalic, atraumatic Eyes: bilateral eye normal inspection, bilateral eye PERRL ENT: hearing grossly normal, normal voice Neck: full range of motion Respiratory: chest non-tender, lungs clear, normal breath sounds, no respira tory distress, no accessory muscle use, no wheezing, speaking full sentences Cardiovascular #1: regular rate, rhythm, no edema, normal capillary refill Gastrointestinal: normal bowel sounds, non tender, soft, non-distended, no guarding Rectal: deferred Musculoskeletal: normal range of motion, non-tender Neurologic: alert, motor strength/tone normal, oriented x3, sensory intact, responsive, speech normal, grossly normal, no focal defects, other - no facial droop, no nystagmus Psychiatric: judgement/insight normal Skin: normal color, diaphoresis (Saray Oshea) Medical Decision Making PA Attestation Dr. Wright is my supervising Physician whom patient management has been discussed with. (Saray Oshea) PA Attestation I participate in the care of this patient along with DAVID Richardson Briefly, 84-year-old female history of CAD, TIA presents for evaluation of lightheadedness several days. Patient has been vomiting at home. On arrival she had an episode of vomiting with dark red blood. Concern for upper GI bleed. Received Protonix, IV fluids, Zofran. Potassium repleted. Hemoglobin stable. Will admit to her PMD, Dr. Stanton. (Terrence Wright MD) Diagnostic Impression: Primary Impression: Upper GI bleeding Additional Impression: Dehydration ER Course 84-year-old female with cardiac history, hypertension and history of CVA/TIA presents to the emergency department complaining of dizziness and nausea that she rates as 10 out of 10 in severity x2 days. Patient reports onset of her symptoms occurred at the same time. Patient reports that when she gets up to go to the bathroom she feels very weak and as if she is walking on a boat. Patient denies notable blood in her vomit. Patient denies constipation or diarrhea. She denies abdominal pain other than when she is actively vomiting. She denies fevers or chills. She denies neck pain or photophobia. She denies headache. She denies new medications. She denies history of GI bleed. She denies paresthesias, chest pain or palpitations. She denies syncope. Pt. does not report any other symptoms at this time. She does endorse taking her last HTN medication yesterday at 10am and is now out of her medication. Ddx considered but are not limited to Mnire's, BPPV, labyrinthitis, cerebellar stroke, hypovolemia, cardiac cause, GI Bleed, hyperglycemia, anemia just to name a few. Vital signs: are WNL, pt. is afebrile H&PE are most consistent with Upper GI bleed. Pt. actively vomited dark blood during physical exam. No focal deficit to indicate TIA or CVA. No vertical nystagmus. ORDERS: - CBC: 14.1 WBC's -CMP: Elevated Cr. 1.4 and BUN Potassium 3.3 -Troponin: 0.01 -CK- WNL -PT/PTT : PTT of 12.5 CT chest abdomen and pelvis w. contrast: ED INTERVENTIONS: -80mg Protonix IV -1 Liter NS -4mg Zofran IV - KCl 20Meq IV DISPOSITION: at this time pt. will be admitted to Dr. Stanton for Upper GI bleed. Dr. Stanton agreed to admit the pt. and to continue pt. care management. Labs Test 12/19/19 12:30 White Blood Count 14.6 K/UL (4.8-10.8) Red Blood Count 5.33 M/UL (4.20-5.40) Hemoglobin 14.8 G/DL (12.0-16.0) Hematocrit 44.8 % (37.0-47.0) Mean Corpuscular Volume 84 FL (80-99) Mean Corpuscular Hemoglobin 27.7 PG (27.0-31.0) Mean Corpuscular Hemoglobin Concent 33.0 G/DL (32.0-36.0) Red Cell Distribution Width 13.8 % (11.6-14.8) Platelet Count 339 K/UL (150-450) Mean Platelet Volume 6.1 FL (6.5-10.1) Neutrophils (%) (Auto) % (45.0-75.0) Lymphocytes (%) (Auto) % (20.0-45.0) Monocytes (%) (Auto) % (1.0-10.0) Eosinophils (%) (Auto) % (0.0-3.0) Basophils (%) (Auto) % (0.0-2.0) Differential Total Cells Counted 100 Neutrophils % (Manual) 80 % (45-75) Lymphocytes % (Manual) 13 % (20-45) Monocytes % (Manual) 4 % (1-10) Eosinophils % (Manual) 0 % (0-3) Basophils % (Manual) 0 % (0-2) Band Neutrophils 3 % (0-8) Platelet Estimate Adequate Platelet Morphology Normal Red Blood Cell Morphology Normal Prothrombin Time 12.5 SEC (9.30-11.50) Prothromb Time International Ratio 1.1 (0.9-1.1) Activated Partial Thromboplast Time 25 SEC (23-33) Sodium Level 138 MMOL/L (136-145) Potassium Level 3.3 MMOL/L (3.5-5.1) Chloride Level 101 MMOL/L (98-107) Carbon Dioxide Level 28 MMOL/L (21-32) Anion Gap 10 mmol/L (5-15) Blood Urea Nitrogen 19 mg/dL (7-18) Creatinine 1.4 MG/DL (0.55-1.30) Estimat Glomerular Filtration Rate 43.6 mL/min (>60) Glucose Level 205 MG/DL (74-106) Calcium Level 9.1 MG/DL (8.5-10.1) Total Bilirubin 0.4 MG/DL (0.2-1.0) Aspartate Amino Transf (AST/SGOT) 21 U/L (15-37) Alanine Aminotransferase (ALT/SGPT) 24 U/L (12-78) Alkaline Phosphatase 69 U/L (46-116) Troponin I 0.017 ng/mL (0.000-0.056) Total Protein 7.7 G/DL (6.4-8.2) Albumin 4.0 G/DL (3.4-5.0) Globulin 3.7 g/dL Albumin/Globulin Ratio 1.1 (1.0-2.7) (Saray Oshea) EKG Diagnostic Results Troponin ordered: Yes When was troponin ordered?: Dec 19, 2019 EKG Time: 12:27 Rate: normal - 82 BPM Rhythm: NSR ST Segments: no acute changes ASA given to the pt in ED: No PA Scribe Text This Interpretation was scribed by DAVID Oshea. (Saray Oshea) CT/MRI/US Diagnostic Results CT/MRI/US Diagnostic Results : Imaging Test Ordered: CT abdomen pelvis with contrast Impression " ." --Per official radiology report- Please see report for specific details. (Saray Oshea) Last Vital Signs Date Time Temp Pulse Resp B/P (MAP) Pulse Ox O2 Delivery O2 Flow Rate FiO2 12/19/19 11:50 76 20 Room Air 12/19/19 11:50 97.9 179/75 97 (Saray Oshea) Disposition: ADMITTED INPATIENT Condition: Serious Saray Oshea Dec 19, 2019 12:52 Terrence Wright MD Dec 19, 2019 14:09
[2019-12-19 13:19] LABS: CALCIUM 9.1 MG/DL (8.5-10.1); CREATININE 1.4 MG/DL (0.55-1.30); POTASSIUM 3.3 MMOL/L (3.5-5.1)
[2019-12-19 13:23] LABS: HEMATOCRIT 44.8 % (37.0-47.0); HEMOGLOBIN 14.8 G/DL (12.0-16.0); MEAN CORPUSCULAR VOLUME 84 FL (80-99); PLATELET COUNT 339 K/UL (150-450); RED BLOOD COUNT 5.33 M/UL (4.20-5.40); RED CELL DISTRIBUTION WIDTH 13.8 % (11.6-14.8); WHITE BLOOD COUNT 14.6 K/UL (4.8-10.8)
[2019-12-19 13:24] LABS: ALBUMIN/GLOBULIN RATIO 1.1 (1.0-2.7); BILIRUBIN,TOTAL 0.4 MG/DL (0.2-1.0)
[2019-12-19 13:28] LABS: INR 1.1 (0.9-1.1)
--- NOTE | 2019-12-19 13:37 | NUR ---
ED Nurse Note: Pt in radiology for CT scan
--- NOTE | 2019-12-19 13:57 | NUR ---
ED Nurse Note: pt returned from Ct, no acute distress noted.
[2019-12-19 14:00] VITALS: BP 162/78
--- NOTE | 2019-12-19 14:39 | Diagnostic Imaging Report ---
Indication: Chest and abdominal pain Technique: CT of the test, abdomen and pelvis utilizing automated exposure control with intravenous contrast. Venous scanning performed. Axial, sagittal and coronal reformats presented. CT dose: Total DLP 822.1 mGycm; CTDI vol 55 mGy Comparison: None Findings: CT chest: Dependent atelectatic changes noted in the lung bases. There is no pleural effusion or pneumothorax. Few scattered small pneumatoceles are noted. No dense consolidation. Heart size within normal limits. There is no pericardial effusion. There is no saddle or large central pulmonary embolism. The thoracic aorta is normal in caliber with moderate calcification. No evidence to suggest aortic dissection. The thyroid is heterogeneous with a small nodule in involving the inferior left thyroid lobe. There is no pathologically enlarged mediastinal adenopathy. Mild degenerative changes noted in the spine. No acute osseous abnormality is seen. There is a small hiatal hernia. CT of the abdomen and pelvis: There is a 2 cm cyst in segment II of the liver. Additional subcentimeter hypodensities noted in the liver, too small to fully characterize which may represent cysts or hemangiomas although additional etiologies not excluded. Bladder contour is smooth. There are no CT evident gallstones or pericholecystic inflammatory changes. No biliary ductal dilatation. Spleen, adrenal glands and pancreas unremarkable. No peripancreatic inflammatory changes or fluid collections. Pancreatic enhancement appears uniform. There is foci of bilateral renal cortical scarring. Small probable cortical cysts noted in the upper pole the right kidney although it lesion is too small for definitive characterization. There is no urinary tract stone or hydronephrosis. No perinephric stranding or perinephric fluid collections. Bladder unremarkable. Uterus is atrophic. There is no free intraperitoneal air or fluid. Moderate retained stool noted within the rectum which is dilated to approximately 8 cm transverse distally mild rectal fecal impaction. There is colonic diverticulosis. No evidence to suggest acute diverticulitis. There is no evidence of small bowel obstruction. No focal inflammatory stranding noted within the mesenteric fat. The appendix is normal in caliber. No periappendiceal inflammatory stranding. Question some wall thickening of the distal stomach. Abdominal aorta is normal in caliber with moderate to severe atherosclerotic calcification. No pathologically enlarged lymphadenopathy. There are degenerative changes in the spine. No acute osseous abnormality. IMPRESSION: * Thickening of the wall the distal stomach which may suggest a gastritis. Correlation with endoscopy recommended. * Findings suggesting mild to moderate rectal fecal impaction. * No evidence of bowel obstruction. No free intraperitoneal air or fluid. * Dependent atelectasis in the lung bases, somewhat more pronounced in the right lung base and the possibility of small aspiration versus developing infiltrate in this region not excluded. Follow-up recommended * Atherosclerotic disease. * 2 cm simple cysts in segment II of the liver. Additional subcentimeter hypodense liver lesions too small to fully characterize but may represent cysts or hemangiomas. The CT scanner at [facility] is accredited by the [employer] and the scans are performed using protocols designed to limit radiation exposure to as low as reasonably achievable to attain images of sufficient resolution adequate for diagnostic evaluation.
--- NOTE | 2019-12-19 15:54 | NUR ---
ED Nurse Note: Report given to PAUL Pineda on 2E
[2019-12-19] MEDS: D5NS 1,000 ML IV SCH ×2 (16:00→17:41)
--- NOTE | 2019-12-19 16:10 | NUR ---
ED Nurse Note: pt tansferred safely to 2E on the monitor. Clothing brought up with patient.
--- NOTE | 2019-12-19 16:14 | NUR ---
NURSE NOTES: pt admitted to unit in stable condition. pt on vegetables cook no signs of cardiac or respiratory distress at this moment. Bed is locked and in lowest position. pt is very nauseas and is vomiting, pt was offered medication but she says she does not want anymore meds. vs/ T96.9 hr 87 R 18 BP 142/73 O2.
--- NOTE | 2019-12-19 19:13 | NUR ---
NURSE HAND-OFF REPORT: Important Events on Shift:[] pt family will call with list of meds pt takes at home Patient Status: [] full Diet: []NPO Pending Orders: []am labs 12/18 Pending Results/Labs:[] Pending MD notification:[] Latest Vital Signs: Temperature 97.8 , Pulse 86 , B/P 157 /76 , Respiratory Rate 20 , O2 SAT 97 , Room Air, O2 Flow Rate . Vital Sign Comment: [] EKG Rhythm: Sinus Rhythm Rhythm change?: N MD Notified?: -SR Response: Latest Sullivan Fall Score: 55 Fall Risk: High Risk Safety Measures: Call light Within Reach, Bed Alarm Zone 2, Side Rails Side Rails x2, Bed position Low and Locked. Fall Precautions: y Yellow Socks y Yellow Gown y Door Sign Patient Fall Education y Report given to []. Mary Kay/PAUL
--- NOTE | 2019-12-19 19:32 | NUR ---
NURSE HAND-OFF REPORT: Important Events on Shift: pt admitted today N/v and meds need to be reconciled with family member when she calls with the list. Patient Status: full Diet: NPO Pending Orders: Pending Results/Labs: Pending MD notification: Latest Vital Signs: Temperature 97.8 , Pulse 86 , B/P 157 /76 , Respiratory Rate 20 , O2 SAT 97 , Room Air, O2 Flow Rate . Vital Sign Comment: EKG Rhythm: Sinus Rhythm Rhythm change?: N MD Notified?: - MD Response: Latest Sullivan Fall Score: 55 Fall Risk: High Risk Safety Measures: Call light Within Reach, Bed Alarm Zone 2, Side Rails Side Rails x2, Bed position Low and Locked. Fall Precautions: Yellow Socks y Yellow Gown y Door Sign y Patient Fall Education Report given to Mary Kay/RN.
--- NOTE | 2019-12-19 19:35 | NUR ---
NURSE NOTES: Patient received from Miriam MILLER. Patient in stable condition. Patient states she "feels better" as she did previously. No c/o nausea and or dizziness. A&O x4. IV site on Right AC 18G running D5NS @ 100mls/hr. Call light and bedside table within reach. Bed in lowest position and locked. Will continue plan of care.
[2019-12-19 20:00] VITALS: BP 140/61
[2019-12-20] VITALS: BP 142/81
[2019-12-20] MEDS: D5NS 1,000 ML IV SCH (01:20)
[2019-12-20 04:00] VITALS: BP 138/76
[2019-12-20 07:17] LABS: INR 1.2 (0.9-1.1)
--- NOTE | 2019-12-20 07:19 | NUR ---
NURSE HAND-OFF REPORT: Important Events on Shift:[Hypoglycemia 50 initially but resolved to 222 after D50 25mls per protocol. Patient asymptomatic Patient Status: [] Diet: [Regular Puree moist, Thickened Liquid] Pending Orders: [] Pending Results/Labs:[] Pending MD notification:[] Latest Vital Signs: Temperature 98.1 , Pulse 69 , B/P 138 /76 , Respiratory Rate 18 , O2 SAT 95 , Room Air, O2 Flow Rate . Vital Sign Comment: [] EKG Rhythm: Sinus Rhythm Rhythm change?: N MD Notified?: - MD Response: Latest Sullivan Fall Score: 55 Fall Risk: High Risk Safety Measures: Call light Within Reach, Bed Alarm Zone 1, Side Rails Side Rails x3, Bed position Low and Locked. Fall Precautions: Yellow Socks Yellow Gown Door Sign Patient Fall Education Report given to [Meera MILLER]. Addendum: 12/20/19 at 0722 by Mary Kay Daniels RN WRONG PATIENT
--- NOTE | 2019-12-20 07:23 | NUR ---
NURSE HAND-OFF REPORT: Important Events on Shift:[None] Patient Status: [Stable] Diet: [NPO] Pending Orders: [] Pending Results/Labs:[] Pending MD notification:[] Latest Vital Signs: Temperature 98.1 , Pulse 69 , B/P 138 /76 , Respiratory Rate 18 , O2 SAT 95 , Room Air, O2 Flow Rate . Vital Sign Comment: [] EKG Rhythm: Sinus Rhythm Rhythm change?: N MD Notified?: - MD Response: Latest Sullivan Fall Score: 55 Fall Risk: High Risk Safety Measures: Call light Within Reach, Bed Alarm Zone 1, Side Rails Side Rails x3, Bed position Low and Locked. Fall Precautions: Yellow Socks Yellow Gown Door Sign Patient Fall Education Report given to [Dharmesh MILLER].
--- NOTE | 2019-12-20 07:30 | NUR ---
NURSE NOTES: Pt. received from PAUL Muñiz. Pt. AAOx4, breathing even and unlabored on room air, no indications of respiratory distress, no complaints of active pain, pt. reports slight dizziness, no nausea at this time. Pt. with right AC 18 g intact and patent with D5NS at 100. Pt. NPO, acknowledges and verbalized understanding. Bed low and locked, side rails x2 up, bed alarm active, and call light in reach.
[2019-12-20 07:43] LABS: ALBUMIN 3.3 G/DL (3.4-5.0); ALBUMIN/GLOBULIN RATIO 0.8 (1.0-2.7); BILIRUBIN,TOTAL 0.4 MG/DL (0.2-1.0); CALCIUM 8.5 MG/DL (8.5-10.1); CREATININE 1.1 MG/DL (0.55-1.30); POTASSIUM 3.4 MMOL/L (3.5-5.1)
[2019-12-20 07:46] LABS: BASOPHILS % (AUTO) 0.5 % (0.0-2.0); EOSINOPHILS % (AUTO) 0.2 % (0.0-3.0); HEMATOCRIT 42.6 % (37.0-47.0); HEMOGLOBIN 13.7 G/DL (12.0-16.0); LYMPHOCYTES % (AUTO) 18.7 % (20.0-45.0); MEAN CORPUSCULAR VOLUME 86 FL (80-99); MONOCYTES % (AUTO) 8.5 % (1.0-10.0); NEUTROPHILS % (AUTO) 72.1 % (45.0-75.0); PLATELET COUNT 306 K/UL (150-450); RED BLOOD COUNT 4.93 M/UL (4.20-5.40); RED CELL DISTRIBUTION WIDTH 14.4 % (11.6-14.8); WHITE BLOOD COUNT 12.4 K/UL (4.8-10.8)
[2019-12-20 08:00] VITALS: BP 157/75
[2019-12-20] MEDS: HydrALAZINE 50mg tab ORAL SCH (09:14)
[2019-12-20] MEDS: Metoprolol Succinate XL 50mg tab ORAL SCH (09:14)
--- NOTE | 2019-12-20 10:55 | Consultation ---
History of Present Illness General Date patient seen: Dec 20, 2019 Chief Complaint: Dizziness Present Illness HPI 84-year-old female with history of hypertension, CVA/TIA, DM presented to the emergency department complaining of dizziness and nausea Patient reports that when she gets up to go to the bathroom she feels very weak and as if she is walking on a boat. She had episodes of vomiting with some fresh red blood. She is admitted to telemetry for further management. Allergies: Coded Allergies: No Known Allergies (Unverified , 10/13/18) Medication History Scheduled Amlodipine Besylate* (Amlodipine Besylate*), 10 MG ORAL DAILY, (Reported) Aspirin* (Aspirin*), 81 MG ORAL DAILY, (Reported) Hydralazine Hcl* (Hydralazine Hcl*), 50 MG ORAL DAILY, (Reported) Meclizine Hcl* (Meclizine*), 25 MG ORAL DAILY, (Reported) Metoprolol Succinate* (Metoprolol Succinate*), 50 MG ORAL DAILY, (Reported) Patient History Healthcare decision maker Resuscitation status Advanced Directive on File Past Medical/Surgical History Past Medical/Surgical History: (1) History of hypertension (2) TIA (transient ischemic attack) (3) New onset type 2 diabetes mellitus (4) Constipation Review of Systems Constitutional: Reports: no symptoms Eye: Reports: no symptoms Physical Exam General Appearance: WD/WN, no apparent distress, alert Lines, tubes and drains: peripheral HEENT: normocephalic, atraumatic, anicteric, mucous membranes moist, PERRL Neck: non-tender, normal alignment, supple, normal inspection, abnormal alignment Respiratory/Chest: chest wall non-tender, lungs clear, no respiratory distress, no accessory muscle use Cardiovascular/Chest: normal peripheral pulses, normal rate, regular rhythm, regularly irregular Abdomen: normal bowel sounds, non tender, no organomegaly, no mass Last 24 Hour Vital Signs Date Time Temp Pulse Resp B/P (MAP) Pulse Ox O2 Delivery O2 Flow Rate FiO2 12/20/19 09:14 87 157/75 12/20/19 09:14 157/75 12/20/19 09:14 87 157/75 12/20/19 04:00 98.1 86 18 138/76 (96) 95 12/20/19 04:00 69 12/20/19 00:00 81 12/20/19 00:00 97.5 81 20 142/81 (101) 95 12/19/19 21:00 Room Air 12/19/19 20:00 97.5 84 20 140/61 (87) 95 12/19/19 20:00 84 12/19/19 16:48 Room Air 12/19/19 16:10 97.8 86 20 157/76 97 Room Air 12/19/19 16:00 88 12/19/19 14:00 98.0 78 20 162/78 98 Room Air 12/19/19 11:50 76 20 Room Air 12/19/19 11:50 97.9 76 20 179/75 97 Room Air 12/19/19 11:41 97.9 76 20 179/75 (109) 97 Room Air Intake and Output 12/19/19 12/20/19 19:00 07:00 # Voids 2 1 # Bowel Movements 1 1 Laboratory Tests Test 12/19/19 12:30 12/20/19 06:17 White Blood Count 14.6 K/UL (4.8-10.8) H 12.4 K/UL (4.8-10.8) H Red Blood Count 5.33 M/UL (4.20-5.40) 4.93 M/UL (4.20-5.40) Hemoglobin 14.8 G/DL (12.0-16.0) 13.7 G/DL (12.0-16.0) Hematocrit 44.8 % (37.0-47.0) 42.6 % (37.0-47.0) Mean Corpuscular Volume 84 FL (80-99) 86 FL (80-99) Mean Corpuscular Hemoglobin 27.7 PG (27.0-31.0) 27.7 PG (27.0-31.0) Mean Corpuscular Hemoglobin Concent 33.0 G/DL (32.0-36.0) 32.1 G/DL (32.0-36.0) Red Cell Distribution Width 13.8 % (11.6-14.8) 14.4 % (11.6-14.8) Platelet Count 339 K/UL (150-450) 306 K/UL (150-450) Mean Platelet Volume 6.1 FL (6.5-10.1) L 6.0 FL (6.5-10.1) L Neutrophils (%) (Auto) % (45.0-75.0) 72.1 % (45.0-75.0) Lymphocytes (%) (Auto) % (20.0-45.0) 18.7 % (20.0-45.0) L Monocytes (%) (Auto) % (1.0-10.0) 8.5 % (1.0-10.0) Eosinophils (%) (Auto) % (0.0-3.0) 0.2 % (0.0-3.0) Basophils (%) (Auto) % (0.0-2.0) 0.5 % (0.0-2.0) Differential Total Cells Counted 100 Neutrophils % (Manual) 80 % (45-75) H Lymphocytes % (Manual) 13 % (20-45) L Monocytes % (Manual) 4 % (1-10) Eosinophils % (Manual) 0 % (0-3) Basophils % (Manual) 0 % (0-2) Band Neutrophils 3 % (0-8) Platelet Estimate Adequate Platelet Morphology Normal Red Blood Cell Morphology Normal Prothrombin Time 12.5 SEC (9.30-11.50) H 12.7 SEC (9.30-11.50) H Prothromb Time International Ratio 1.1 (0.9-1.1) 1.2 (0.9-1.1) H Activated Partial Thromboplast Time 25 SEC (23-33) 25 SEC (23-33) Sodium Level 138 MMOL/L (136-145) 141 MMOL/L (136-145) Potassium Level 3.3 MMOL/L (3.5-5.1) L 3.4 MMOL/L (3.5-5.1) L Chloride Level 101 MMOL/L (98-107) 106 MMOL/L (98-107) Carbon Dioxide Level 28 MMOL/L (21-32) 27 MMOL/L (21-32) Anion Gap 10 mmol/L (5-15) 8 mmol/L (5-15) Blood Urea Nitrogen 19 mg/dL (7-18) H 13 mg/dL (7-18) Creatinine 1.4 MG/DL (0.55-1.30) H 1.1 MG/DL (0.55-1.30) Estimat Glomerular Filtration Rate 43.6 mL/min (>60) 57.7 mL/min (>60) Glucose Level 205 MG/DL (74-106) H 116 MG/DL (74-106) H Calcium Level 9.1 MG/DL (8.5-10.1) 8.5 MG/DL (8.5-10.1) Total Bilirubin 0.4 MG/DL (0.2-1.0) 0.4 MG/DL (0.2-1.0) Aspartate Amino Transf (AST/SGOT) 21 U/L (15-37) 19 U/L (15-37) Alanine Aminotransferase (ALT/SGPT) 24 U/L (12-78) 23 U/L (12-78) Alkaline Phosphatase 69 U/L (46-116) 56 U/L (46-116) Troponin I 0.017 ng/mL (0.000-0.056) Total Protein 7.7 G/DL (6.4-8.2) 7.2 G/DL (6.4-8.2) Albumin 4.0 G/DL (3.4-5.0) 3.3 G/DL (3.4-5.0) L Globulin 3.7 g/dL 3.9 g/dL Albumin/Globulin Ratio 1.1 (1.0-2.7) 0.8 (1.0-2.7) L Amylase Level 32 U/L (25-115) Lipase 113 U/L (73-393) Height (Feet): 5 Height (Inches): 2.00 Weight (Pounds): 178 Medications Current Medications Medications (Trade) Dose Ordered Sig/Radha Route PRN Reason Start Time Stop Time Status Last Admin Dose Admin Acetaminophen (Tylenol) 650 mg Q4H PRN ORAL fever 12/19/19 15:45 01/18/20 15:44 Amlodipine Besylate (Norvasc) 10 mg DAILY ORAL 12/20/19 09:00 01/19/20 08:59 12/20/19 09:14 Dextrose (Dextrose 50%) 25 ml Q30M PRN IV Hypoglycemia 12/19/19 15:45 03/18/20 15:44 Dextrose (Dextrose 50%) 50 ml Q30M PRN IV Hypoglycemia 12/19/19 15:45 03/18/20 15:44 Dextrose/Sodium Chloride 1,000 ml @ 100 mls/hr Q10H IV 12/19/19 15:45 01/18/20 15:44 12/20/19 01:20 Diphenhydramine HCl (Benadryl) 25 mg Q6H PRN ORAL Itching/Pruritis 12/19/19 15:45 01/18/20 15:44 Hydralazine HCl (Apresoline) 50 mg DAILY ORAL 12/20/19 09:00 03/19/20 08:59 12/20/19 09:14 Metoprolol Succinate (Toprol XL) 50 mg DAILY ORAL 12/20/19 09:00 03/19/20 08:59 12/20/19 09:14 Ondansetron HCl (Zofran) 4 mg Q6H PRN IVP Nausea & Vomiting 12/19/19 15:45 01/18/20 15:44 Temazepam (Restoril) 15 mg HSPRN PRN ORAL Insomnia 12/19/19 15:45 12/26/19 15:44 Assessment/Plan Problem List: (1) Upper GI bleeding ICD Codes: K92.2 - Gastrointestinal hemorrhage, unspecified SNOMED: 24198852 (2) Episode of dizziness ICD Codes: R42 - Dizziness and giddiness SNOMED: 347735005 (3) Intractable nausea and vomiting ICD Codes: R11.2 - Nausea with vomiting, unspecified SNOMED: 667678238 (4) Constipation ICD Codes: K59.00 - Constipation, unspecified SNOMED: 39162605 (5) History of hypertension ICD Codes: Z86.79 - Personal history of other diseases of the circulatory system SNOMED: 273514873 (6) History of diabetes mellitus ICD Codes: Z86.39 - Personal history of other endocrine, nutritional and metabolic disease SNOMED: 434979294 Assessment/Plan: npo iv fluids symptomatic treatment H2 blockers prbc prn GI evaluation antiemetics Antivert neuro evaluation dvt prophylaxis with SCD Laci Pat MD Dec 20, 2019 10:55
[2019-12-20] MEDS: Fleet's Mineral Oil Enema RECTAL SCH ×2 (11:45→12:00)
--- NOTE | 2019-12-20 11:45 | NUR ---
NURSE NOTES: Pt. with large formed BM, brown in color, pt refused fleet enema at this point.
[2019-12-20 12:00] VITALS: BP 124/66
[2019-12-20] MEDS ORDERED: Meclizine 25mg tab ORAL PRN (12:00)
--- NOTE | 2019-12-20 14:45 | Consultation ---
DATE OF CONSULTATION: 12/20/2019 GASTROENTEROLOGY CONSULTATION CONSULTING PHYSICIAN: Giacomo Osborne MD. REFERRING PHYSICIAN: Oscar Stanton MD. CHIEF COMPLAINT: Nausea, vomiting, abdominal pain. HISTORY OF PRESENT ILLNESS: This is an 84-year-old female with multiple medical problems, which I will dictate in a second, admitted to the hospital with complaint of severe dizziness and vomiting since admission. The patient had a CT of the abdomen and pelvis done which showed evidence of gastric wall thickening, questionable gastritis. Endoscopy was recommended. PAST MEDICAL HISTORY: 1. History of TIAs. 2. Hypertension. 3. Osteoarthritis. 4. Diabetes. ALLERGIES: No known allergies. MEDICATIONS: Please see medication reconciliation list. FAMILY HISTORY: Noncontributory. SOCIAL HISTORY: The patient denies any tobacco, alcohol, or drug abuse. PAST SURGICAL HISTORY: None. PHYSICAL EXAMINATION: VITAL SIGNS: Temperature 98.1, pulse 86, respirations 18, blood pressure 157/75. HEENT: Normocephalic and atraumatic. Sclerae are anicteric. NECK: Supple. No evidence of obvious lymphadenopathy. CARDIOVASCULAR: Regular rate and rhythm. Plus S1-S2 LUNGS: Clear to auscultation bilaterally. ABDOMEN: Positive bowel sounds. Soft and nontender. No rebound. No guarding. No peritoneal sign. EXTREMITIES: No cyanosis, no clubbing, no edema. LABORATORY DATA: White count is , hemoglobin 13, hematocrit 42, platelet count 306,000. Chem 7 - sodium 141, potassium 3.4, BUN 13, creatinine 1.1. Glucose at admission was 205, now is 116. IMAGING STUDIES: The patient had a CT of the abdomen and pelvis done, which showed evidence of possible stool impaction and thickening at the wall of the stomach. ASSESSMENT: This is an 84-year-old female with nausea, vomiting, and dizziness. At this time the cause is not clear. Possibilities would be gastritis given CT findings of gastric wall thickening. Other possibility is diabetes-induced gastroparesis given the elevated blood sugar at the time of admission. Other possibility would be severe constipation and stool impaction. PLAN: Treat constipation aggressively. Start the patient on Protonix for possible gastritis. Send hemoglobin A1c to see the chronicity of the elevated blood sugar. Plan to do endoscopy tomorrow. The procedure was explained to the patient at the bedside in the presence of the nurse and the patient agrees. I want to thank Dr. Oscar Stanton for this kind referral. Giacomo Osborne M.D. DR: SNEHAL JOB#: [id number] CC:
[2019-12-20 16:00] VITALS: BP 153/69
--- NOTE | 2019-12-20 16:15 | NUR ---
CASE MANAGEMENT: INITIAL REVIEW 84 YO F BIBA FROM HOME CC: DIZZINESS AND NAUSEA PMHx: hypertension and history of CVA/TIA SI:UPPER GI BLEED T 97.9 HR 76 RR 20 B/P 179/75 SATS 97% ON RA LABS: WBC 14.6 K 3.3 BUN 19 CR 1.4 GLU 205 IS: PROTONIX IV X1 ZOFRAN IV X1 NS BOLUS X1 CT Chest Abdomen Pelvis w/Cont: 2 cm simple cysts in segment II of the liver. Thickening of the wall the distal stomach which may suggest a gastritis. PATIENT ADMITTED TO TELE 12/19/2019 @ 1404 DCP: HOME PLAN OF CARE: npo iv fluids prbc prn GI evaluation neuro evaluation
[2019-12-20] MEDS: Docusate 100mg cap ORAL SCH (17:51)
[2019-12-20] MEDS: Lactulose 20gm/30ml UDC ORAL SCH (17:51)
--- NOTE | 2019-12-20 19:01 | NUR ---
NURSE HAND-OFF REPORT: Important Events on Shift:[pt. with moderate BM in afternoon, up to commode with x2 max assist, weak and dizzy, multiple episodes of vomiting scant saliva. Consent for EDG signed procedure scheduled 12/19, covid rapid swab performed Patient Status: sleeping Diet: clear liquid diet Pending Orders: na Pending Results/Labs:amylase lipase CBC CMP Hgb A1C Pending MD notification:na Latest Vital Signs: Temperature 97.0 , Pulse 76 , B/P 153 /69 , Respiratory Rate 19 , O2 SAT 96 , Room Air, O2 Flow Rate . Vital Sign Comment: stable EKG Rhythm: Sinus Rhythm Rhythm change?: N MD Notified?: - MD Response: Latest Sullivan Fall Score: 55 Fall Risk: High Risk Safety Measures: Call light Within Reach, Bed Alarm Zone 1, Side Rails Side Rails x3, Bed position Low and Locked. Fall Precautions: Yellow Socks Yellow Gown Door Sign Patient Fall Education Report given to .
--- NOTE | 2019-12-20 19:15 | NUR ---
NURSE NOTES: Report received from PAUL Barroso. Patient awake alert and oriented x4. No SOB or distress. Patient is asleep comfortable and able to make needs known. Bed at lowest position locked with side rails up. Bed alarm activated. Call light and bedside table within reach and emesis basin. compliance monitor in tact. Patient will be NPO midnight for EGD in AM. Explained to patient of NPO status. Will continue with plan of care.
--- NOTE | 2019-12-20 19:23 | NUR ---
HAND-OFF: Report given to PAUL Roa.
[2019-12-20 20:00] VITALS: BP 154/80
--- NOTE | 2019-12-20 20:15 | History & Physical ---
History and Physical History & Physicial Oscar Stanton MD Dec 20, 2019 20:15
[2019-12-20] MEDS: Miralax 17gm pkt ORAL SCH (21:27)
[2019-12-21] VITALS (13 sets, daily range): BP systolic 129–162; BP diastolic 53–80
--- NOTE | 2019-12-21 01:15 | History and Physical Report ---
DATE OF ADMISSION: 12/19/2019 CHIEF COMPLAINT: Dizziness. HISTORY OF PRESENT ILLNESS: This is an 84 years old very delightful female with past medical history significant hypertension, history of CVA/TIA, constipation, who presented to the emergency department complaining about dizziness associated with nausea and dry heaving. She said that the pain is 10/10 in intensity. It has been going on for the past two days, located in the epigastric area. She reports that onset of symptoms got progressively worsening. When she was trying to get up to go to the bathroom, she feels like it is very weak, unsteady, and walking on the boat. She denies any nausea or vomiting at this time, however, complained about dry heaving. Denies any constipation, diarrhea. Denies any hemoptysis or hematochezia. Denies any fever, chills, dysuria, frequency, neck pain, or fall or head trauma. Shortly after initial evaluation in the emergency department, the patient was admitted to the hospital with dizziness and abdominal pain in the epigastric area. PAST MEDICAL HISTORY/PAST SURGICAL HISTORY: As above, history of hypertension, CVA and TIA, chronic constipation, ? diabetic type 2. MEDICATIONS: At home, please refer to medication reconciliation. ALLERGIES: No known drug allergies. SOCIAL HISTORY: Denies any smoking, alcohol, or drugs. FAMILY HISTORY: Noncontributory. REVIEW OF SYSTEMS: Mostly as above. Complained about dizziness, dry heaving. Denies any loss of consciousness. Denies any seizure activity. Denies any bowel or urine incontinence. Complained about abdominal pain. Denies any chest pain. Denies any shortness of breath. PHYSICAL EXAMINATION: VITAL SIGNS: On admission, temperature 97.9, pulse of 76, respiratory rate 20, blood pressure 179/75. GENERAL: The patient is awake, responsive, in no acute distress. HEAD AND NECK: Pupils are equal and reactive to light. Extraocular movements intact. Neck was supple. No JVD. LUNGS: Good air entry. No wheezing or rales. Decreased air in the bases. HEART: S1, S2. Distant heart sounds. No murmur or gallops. ABDOMEN: Soft. Epigastric tenderness. No rebound tenderness. No fluid shift. Mildly obese. EXTREMITIES: No cyanosis, clubbing, or edema. NEUROLOGIC: Cranial nerves II through XII are grossly intact. Motor is 5/5 in all extremities. Gait was not assessed due to the patient's status. RECTAL: Refused and deferred. : Refused and deferred. PSYCHIATRIC: Mood and affect is intact. LABORATORY AND DIAGNOSTIC DATA: Laboratory on admission from the emergency department, WBC of 14.6, hemoglobin of 14, hematocrit 44, platelets is 339. Sodium 138, potassium 3.3, chloride 101, bicarb 28, BUN 19, creatinine 1.4, GFR is 43, glucose is 205, calcium is 9.1. Total bilirubin of 0.4, AST of 21, ALT of 24. PT of 12, INR 1.1, PTT of 25. Rapid COVID-19 test is negative. The patient had a CT of the chest, abdomen and pelvic, thickening of the wall of the distal stomach, which may suggest gastritis, correlated with endoscopy. Finding suggestive of small to moderate rectal fecal impaction. No evidence of bowel obstruction or free intraperitoneal air or fluid. Dependent atelectasis of lung bases, somewhat more pronounced in the right lung base, 2 cm simple cyst in the segment 2 of the liver, additional subcentimeter hypodensity liver lesion, too small to fully characterize, arthrosclerotic disease. ASSESSMENT: 1. GI bleed, possibly due to gastritis versus peptic ulcer disease. 2. History of hypertension. 3. Dizziness and off balance, most likely secondary to dehydration and hypokalemia. 4. History of CVA and TIA. 5. Chronic constipation. 6. Acute kidney injury, most likely secondary to the prerenal azotemia. 7. Hypokalemia. PLAN: Admit the patient to monitored unit. We will follow up laboratory. Start the patient on IV hydration. Discussed case with Dr. Pat, Pulmonary, Critical Care and Dr. Osborne, Gastroenterology. The patient aggressive constipation treatment Protonix p.o. Consider endoscopy in the morning. Oscar Stanton M.D. DR: JOSÉ MIGUEL JOB#: [id number] CC:
--- NOTE | 2019-12-21 07:35 | NUR ---
NURSE NOTES: GI CONSENT SIGNED BY PATIENT, DATED AND TIMED. WILL CONT TO MONITOR.
[2019-12-21 07:40] LABS: BASOPHILS % (AUTO) 0.7 % (0.0-2.0); EOSINOPHILS % (AUTO) 0.8 % (0.0-3.0); HEMATOCRIT 45.9 % (37.0-47.0); HEMOGLOBIN 14.5 G/DL (12.0-16.0); LYMPHOCYTES % (AUTO) 16.8 % (20.0-45.0); MEAN CORPUSCULAR VOLUME 87 FL (80-99); MONOCYTES % (AUTO) 6.3 % (1.0-10.0); NEUTROPHILS % (AUTO) 75.4 % (45.0-75.0); PLATELET COUNT 323 K/UL (150-450); RED BLOOD COUNT 5.26 M/UL (4.20-5.40); RED CELL DISTRIBUTION WIDTH 13.9 % (11.6-14.8); WHITE BLOOD COUNT 11.3 K/UL (4.8-10.8)
--- NOTE | 2019-12-21 07:42 | NUR ---
NURSE NOTES: Report given to PAUL Obando. Patient is stable. GI checklist done. Patient having EGD with possible biopsy.
[2019-12-21 08:01] LABS: ALANINE AMINOTRANSFERASE 24 U/L (12-78); ALBUMIN 3.4 G/DL (3.4-5.0); ALKALINE PHOSPHATASE 61 U/L (46-116); AMYLASE 28 U/L (25-115); ANION GAP 10 mmol/L (5-15); ASPARTATE AMINO TRANSFERASE 25 U/L (15-37); BILIRUBIN,TOTAL 0.4 MG/DL (0.2-1.0); BLOOD UREA NITROGEN 7 mg/dL (7-18); CALCIUM 8.4 MG/DL (8.5-10.1); CARBON DIOXIDE 25 MMOL/L (21-32); CHLORIDE 105 MMOL/L (98-107); POTASSIUM 3.5 MMOL/L (3.5-5.1); SODIUM 140 MMOL/L (136-145)
[2019-12-21] MEDS: Docusate 100mg cap ORAL SCH ×2 (09:00→17:13)
[2019-12-21] MEDS: Lactulose 20gm/30ml UDC ORAL SCH ×2 (09:00→17:12)
[2019-12-21] MEDS: HydrALAZINE 50mg tab ORAL SCH (09:09)
[2019-12-21] MEDS: Metoprolol Succinate XL 50mg tab ORAL SCH (09:09)
--- NOTE | 2019-12-21 11:01 | Pre-Procedure Note/Attestation ---
Pre-Procedure Note/Attestation Complete Prior to Procedure Planned Procedure: not applicable Procedure Narrative: egd Indications for Procedure Pre-Operative Diagnosis: gastritis Attestation I attest that I discussed the nature of the procedure; its benefits; risks and complications; and alternatives (and the risks and benefits of such alternatives), prior to the procedure, with the patient (or the patient's legal sales service representative). I attest that, if there was a reasonable possibility of needing a blood transfusion, the patient (or the patient's legal sales service representative) was given the [facility] standardized written summary, pursuant to the Marcelino Kina Blood Safety Act ([place] Health and Safety Code # 1645, as amended). I attest that I re-evaluated the patient just prior to the surgery and that there has been no change in the patient's H&P, except as documented below: Giacomo Osborne MD Dec 21, 2019 11:01
--- NOTE | 2019-12-21 11:04 | General Progress Note ---
Subjective ROS Limited/Unobtainable: Yes Allergies: Coded Allergies: No Known Allergies (Unverified , 10/13/18) Objective Last 24 Hour Vital Signs Date Time Temp Pulse Resp B/P (MAP) Pulse Ox O2 Delivery O2 Flow Rate FiO2 12/21/19 09:09 62 162/80 12/21/19 09:09 162/80 12/21/19 09:09 72 162/80 12/21/19 08:00 97.5 72 20 162/80 (107) 96 12/21/19 04:00 97.6 64 19 144/68 (93) 96 12/21/19 04:00 70 12/21/19 00:00 73 12/21/19 00:00 97.5 73 20 150/70 (96) 94 12/20/19 21:00 Room Air 12/20/19 20:00 97.5 74 18 154/80 (104) 94 12/20/19 20:00 74 12/20/19 16:00 97.0 76 19 153/69 (97) 96 12/20/19 16:00 76 12/20/19 12:00 69 12/20/19 12:00 97.0 69 18 124/66 (85) 97 Intake and Output 12/20/19 12/21/19 19:00 07:00 Intake Total 1050 ml Balance 1050 ml Intake IV Total 1050 ml # Voids 3 1 # Bowel Movements 1 1 Laboratory Tests 12/21/19 06:23: White Blood Count 11.3H, Red Blood Count 5.26, Hemoglobin 14.5, Hematocrit 45.9, Mean Corpuscular Volume 87, Mean Corpuscular Hemoglobin 27.6, Mean Corpuscular Hemoglobin Concent 31.7L, Red Cell Distribution Width 13.9, Platelet Count 323, Mean Platelet Volume 6.0L, Neutrophils (%) (Auto) 75.4H, Lymphocytes (%) (Auto) 16.8L, Monocytes (%) (Auto) 6.3, Eosinophils (%) (Auto) 0.8, Basophils (%) (Auto) 0.7, Sodium Level 140, Potassium Level 3.5, Chloride Level 105, Carbon Dioxide Level 25, Anion Gap 10, Blood Urea Nitrogen 7, Creatinine 1.0, Estimat Glomerular Filtration Rate > 60, Glucose Level 132H, Hemoglobin A1c 6.0, Calcium Level 8.4L, Total Bilirubin 0.4, Aspartate Amino Transf (AST/SGOT) 25, Alanine Aminotransferase (ALT/SGPT) 24, Alkaline Phosphatase 61, Total Protein 6.8, Albumin 3.4, Globulin 3.4, Albumin/Globulin Ratio 1.0, Amylase Level 28, Lipase 95 Height (Feet): 5 Height (Inches): 1.00 Weight (Pounds): 176 General Appearance: alert EENT: normal ENT inspection Neck: supple Cardiovascular: normal rate Respiratory/Chest: lungs clear Abdomen: normal bowel sounds, non tender, soft Extremities: non-tender Assessment/Plan Problem List: (1) Non-ST elevation (NSTEMI) myocardial infarction ICD Codes: I21.4 - Non-ST elevation (NSTEMI) myocardial infarction SNOMED: 54268301 (2) History of hypertension ICD Codes: Z86.79 - Personal history of other diseases of the circulatory system SNOMED: 026410780 (3) History of diabetes mellitus ICD Codes: Z86.39 - Personal history of other endocrine, nutritional and metabolic disease SNOMED: 754020192 (4) Upper GI bleeding ICD Codes: K92.2 - Gastrointestinal hemorrhage, unspecified SNOMED: 44507514 Assessment/Plan: plan EGD for today Giacomo Osborne MD Dec 21, 2019 11:04
--- NOTE | 2019-12-21 12:55 | Pulmonology Progress Note ---
Subjective ROS Limited/Unobtainable: Yes Allergies: Coded Allergies: No Known Allergies (Unverified , 10/13/18) Objective Last 24 Hour Vital Signs Date Time Temp Pulse Resp B/P (MAP) Pulse Ox O2 Delivery O2 Flow Rate FiO2 12/21/19 09:09 62 162/80 12/21/19 09:09 162/80 12/21/19 09:09 72 162/80 12/21/19 09:00 Room Air 12/21/19 08:00 97.5 72 20 162/80 (107) 96 12/21/19 08:00 87 12/21/19 04:00 97.6 64 19 144/68 (93) 96 12/21/19 04:00 70 12/21/19 00:00 73 12/21/19 00:00 97.5 73 20 150/70 (96) 94 12/20/19 21:00 Room Air 12/20/19 20:00 97.5 74 18 154/80 (104) 94 12/20/19 20:00 74 12/20/19 16:00 97.0 76 19 153/69 (97) 96 12/20/19 16:00 76 Intake and Output 12/20/19 12/21/19 19:00 07:00 Intake Total 1050 ml Balance 1050 ml Intake IV Total 1050 ml # Voids 3 1 # Bowel Movements 1 1 General Appearance: WD/WN HEENT: normocephalic, atraumatic Respiratory: chest wall non-tender, no respiratory distress Cardiovascular: normal peripheral pulses, normal rate, regular rhythm Abdomen: normal bowel sounds, soft, non tender, non distended, no mass Genitourinary: normal external genitalia Extremities: no cyanosis, no clubbing Skin: no rash, no lesions, no ulcers 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: 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 II-XII grossly normal Microbiology Date/Time Source Procedure Growth Status 12/20/19 18:50 Nasopharynx SARS-CoV-2 RdRp Gene Assay - Final Complete Laboratory Tests 12/21/19 06:23: White Blood Count 11.3H, Red Blood Count 5.26, Hemoglobin 14.5, Hematocrit 45.9, Mean Corpuscular Volume 87, Mean Corpuscular Hemoglobin 27.6, Mean Corpuscular Hemoglobin Concent 31.7L, Red Cell Distribution Width 13.9, Platelet Count 323, Mean Platelet Volume 6.0L, Neutrophils (%) (Auto) 75.4H, Lymphocytes (%) (Auto) 16.8L, Monocytes (%) (Auto) 6.3, Eosinophils (%) (Auto) 0.8, Basophils (%) (Auto) 0.7, Sodium Level 140, Potassium Level 3.5, Chloride Level 105, Carbon Dioxide Level 25, Anion Gap 10, Blood Urea Nitrogen 7, Creatinine 1.0, Estimat Glomerular Filtration Rate > 60, Glucose Level 132H, Hemoglobin A1c 6.0, Calcium Level 8.4L, Total Bilirubin 0.4, Aspartate Amino Transf (AST/SGOT) 25, Alanine Aminotransferase (ALT/SGPT) 24, Alkaline Phosphatase 61, Total Protein 6.8, Albumin 3.4, Globulin 3.4, Albumin/Globulin Ratio 1.0, Amylase Level 28, Lipase 95 Current Medications Medications (Trade) Dose Ordered Sig/Radha Route PRN Reason Start Time Stop Time Status Last Admin Dose Admin Acetaminophen (Tylenol) 650 mg Q4H PRN ORAL fever 12/19/19 15:45 01/18/20 15:44 Amlodipine Besylate (Norvasc) 10 mg DAILY ORAL 12/20/19 09:00 01/19/20 08:59 12/21/19 09:09 Dextrose (Dextrose 50%) 25 ml Q30M PRN IV Hypoglycemia 12/19/19 15:45 03/18/20 15:44 Dextrose (Dextrose 50%) 50 ml Q30M PRN IV Hypoglycemia 12/19/19 15:45 03/18/20 15:44 Diphenhydramine HCl (Benadryl) 25 mg Q6H PRN ORAL Itching/Pruritis 12/19/19 15:45 01/18/20 15:44 Docusate Sodium (Colace) 100 mg TWICE A DAY ORAL 12/20/19 18:00 01/19/20 17:59 Hydralazine HCl (Apresoline) 50 mg DAILY ORAL 12/20/19 09:00 03/19/20 08:59 12/21/19 09:09 Lactulose (Cephulac) 20 gm BID ORAL 12/20/19 18:00 01/19/20 17:59 Meclizine HCl (Antivert) 25 mg Q6H PRN ORAL for dizziness 12/20/19 12:00 01/19/20 11:59 Metoprolol Succinate (Toprol XL) 50 mg DAILY ORAL 12/20/19 09:00 03/19/20 08:59 12/21/19 09:09 Ondansetron HCl (Zofran) 4 mg Q6H PRN IVP Nausea & Vomiting 12/19/19 15:45 01/18/20 15:44 Polyethylene Glycol (Miralax) 17 gm BEDTIME ORAL 12/20/19 21:00 01/19/20 20:59 12/20/19 21:27 Potassium Chloride 20 meq/ Dextrose/Sodium Chloride 1,010 ml @ 100 mls/hr Q10H6M IV 12/20/19 12:30 01/18/20 12:29 12/21/19 09:10 Temazepam (Restoril) 15 mg HSPRN PRN ORAL Insomnia 12/19/19 15:45 12/26/19 15:44 Assessment/Plan Problems: (1) Upper GI bleeding (2) Episode of dizziness (3) Intractable nausea and vomiting (4) Constipation (5) History of hypertension (6) History of diabetes mellitus (7) Elevated troponin Assessment/Plan npo for EGD today f/u WBC iv fluids symptomatic treatment H2 blockers prbc prn GI evaluation antiemetics Antivert neuro evaluation dvt prophylaxis with SCD Laci Pat MD Dec 21, 2019 12:54
[2019-12-21] MEDS ORDERED: NS 500ML IVPB ONE (13:45)
--- NOTE | 2019-12-21 13:45 | Endoscopy Procedure Note ---
Endoscopy Procedure Note General Indication for Procedure: esophagitis Procedures Performed: EGD Operative Findings/Diagnosis: same Specimen: yes Pt Tolerated Procedure Well: Yes Estimated Blood Loss: none Anesthesia Anesthesiologist: natan Anesthesia: MAC Inserted Devices Implant(s) used?: No GI Core Measures 50 yrs or older w/o bx or poly: Not Applicable 10yrs. F/U recommended: Not Applicable Giacomo Osborne MD Dec 21, 2019 13:45
[2019-12-21] MEDS ORDERED: fentaNYL 100 mcg/2 mL IV ONE (14:00)
--- NOTE | 2019-12-21 14:09 | Immediate Post-Op Evaluation ---
Immediate Post-Op Evalulation Immediate Post-Op Evalulation Procedure: EGD with Bx Date of Evaluation: Dec 21, 2019 Time of Evaluation: 14:08 IV Fluids: 150 Blood Products: none Estimated Blood Loss: none Urinary Output: none Blood Pressure Systolic: 136 Blood Pressure Diastolic: 74 Pulse Rate: 72 Respiratory Rate: 18 O2 Sat by Pulse Oximetry: 99 Temperature (Fahrenheit): 97.6 Pain Score (1-10): 1 Nausea: No Vomiting: No Complications none Patient Status: reacts, patent, none Hydration Status: adequate Ian Samano MD Dec 21, 2019 14:09
--- NOTE | 2019-12-21 14:53 | NUR ---
CASE MANAGEMENT:REVIEW 12/21/19 SI:UGIB 97.5 72 20 162/80 96% ON RA WBC+11.3 IS: IVF+KCL@100/HR TOPROL XL PO QD HYDRALAZINE PO QD NORVASC PO QD : TELEMETRY STATUS DCP: FROM HOME PLAN: EGD TODAY
--- NOTE | 2019-12-21 15:00 | NUR ---
NURSE NOTES: PATIENT RETURNED TO UNIT FLOOR FROM RECOVERY FOR EGD. PATIENT IS VERBALLY RESPONSIVE AND DOES NOT FEEL LIKE EATING HER LUNCH. VSS, AFEBRILE. NO ACUTE DISTRESS NOTED. RECONNECTED TO HER IVF AND TO HER PUREWICK. NO ACUTE RESP DISTRESS NOTED. NO C/O PAIN/DISCOMFORT NOTED. CLIENT SUPPORT ADMINISTRATOR INPLACED. KEPT BED IN THE LOWEST POSITION. SIDERAILS ARE UPX3. CALL LIGHT IS WITHIN REACH. WILL CONT TO MONITOR.
--- NOTE | 2019-12-21 16:30 | NUR ---
NURSE NOTES: GRANDDAUGHTER @ BEDSIDE FEEDING PATIENT. HOB ELEVATED FOR ASPIRATION PRECAUTION. WILL CONT TO MONITOR
--- NOTE | 2019-12-21 17:11 | Internal Med Progress Note ---
Subjective Physician Name Oscar Stanton Attending Physician Oscar Stanton MD Current Medications Medications (Trade) Dose Ordered Sig/Radha Route PRN Reason Start Time Stop Time Status Last Admin Dose Admin Acetaminophen (Tylenol) 650 mg Q4H PRN ORAL fever 12/19/19 15:45 01/18/20 15:44 Amlodipine Besylate (Norvasc) 10 mg DAILY ORAL 12/20/19 09:00 01/19/20 08:59 12/21/19 09:09 Dextrose (Dextrose 50%) 25 ml Q30M PRN IV Hypoglycemia 12/19/19 15:45 03/18/20 15:44 Dextrose (Dextrose 50%) 50 ml Q30M PRN IV Hypoglycemia 12/19/19 15:45 03/18/20 15:44 Diphenhydramine HCl (Benadryl) 25 mg Q6H PRN ORAL Itching/Pruritis 12/19/19 15:45 01/18/20 15:44 Docusate Sodium (Colace) 100 mg TWICE A DAY ORAL 12/20/19 18:00 01/19/20 17:59 Hydralazine HCl (Apresoline) 50 mg DAILY ORAL 12/20/19 09:00 03/19/20 08:59 12/21/19 09:09 Lactulose (Cephulac) 20 gm BID ORAL 12/20/19 18:00 01/19/20 17:59 Meclizine HCl (Antivert) 25 mg Q6H PRN ORAL for dizziness 12/20/19 12:00 01/19/20 11:59 Metoprolol Succinate (Toprol XL) 50 mg DAILY ORAL 12/20/19 09:00 03/19/20 08:59 12/21/19 09:09 Ondansetron HCl (Zofran) 4 mg Q6H PRN IVP Nausea & Vomiting 12/19/19 15:45 01/18/20 15:44 Polyethylene Glycol (Miralax) 17 gm BEDTIME ORAL 12/20/19 21:00 01/19/20 20:59 12/20/19 21:27 Potassium Chloride 20 meq/ Dextrose/Sodium Chloride 1,010 ml @ 100 mls/hr Q10H6M IV 12/20/19 12:30 01/18/20 12:29 12/21/19 09:10 Temazepam (Restoril) 15 mg HSPRN PRN ORAL Insomnia 12/19/19 15:45 12/26/19 15:44 Allergies: Coded Allergies: No Known Allergies (Unverified , 10/13/18) Subjective awake, alert, responsive, denies any chest pain or shortness of breath, hemoglobin: 14.5. Status post EGD today. Objective Last Vital Signs Date Time Temp Pulse Resp B/P (MAP) Pulse Ox O2 Delivery O2 Flow Rate FiO2 12/21/19 16:00 96.6 72 20 135/75 (95) 97 12/21/19 14:40 Room Air 12/21/19 14:20 3 Laboratory Tests Test 12/21/19 06:23 White Blood Count 11.3 K/UL (4.8-10.8) H Red Blood Count 5.26 M/UL (4.20-5.40) Hemoglobin 14.5 G/DL (12.0-16.0) Hematocrit 45.9 % (37.0-47.0) Mean Corpuscular Volume 87 FL (80-99) Mean Corpuscular Hemoglobin 27.6 PG (27.0-31.0) Mean Corpuscular Hemoglobin Concent 31.7 G/DL (32.0-36.0) L Red Cell Distribution Width 13.9 % (11.6-14.8) Platelet Count 323 K/UL (150-450) Mean Platelet Volume 6.0 FL (6.5-10.1) L Neutrophils (%) (Auto) 75.4 % (45.0-75.0) H Lymphocytes (%) (Auto) 16.8 % (20.0-45.0) L Monocytes (%) (Auto) 6.3 % (1.0-10.0) Eosinophils (%) (Auto) 0.8 % (0.0-3.0) Basophils (%) (Auto) 0.7 % (0.0-2.0) Sodium Level 140 MMOL/L (136-145) Potassium Level 3.5 MMOL/L (3.5-5.1) Chloride Level 105 MMOL/L (98-107) Carbon Dioxide Level 25 MMOL/L (21-32) Anion Gap 10 mmol/L (5-15) Blood Urea Nitrogen 7 mg/dL (7-18) Creatinine 1.0 MG/DL (0.55-1.30) Estimat Glomerular Filtration Rate > 60 mL/min (>60) Glucose Level 132 MG/DL (74-106) H Hemoglobin A1c 6.0 % (4.3-6.0) Calcium Level 8.4 MG/DL (8.5-10.1) L Total Bilirubin 0.4 MG/DL (0.2-1.0) Aspartate Amino Transf (AST/SGOT) 25 U/L (15-37) Alanine Aminotransferase (ALT/SGPT) 24 U/L (12-78) Alkaline Phosphatase 61 U/L (46-116) Total Protein 6.8 G/DL (6.4-8.2) Albumin 3.4 G/DL (3.4-5.0) Globulin 3.4 g/dL Albumin/Globulin Ratio 1.0 (1.0-2.7) Amylase Level 28 U/L (25-115) Lipase 95 U/L (73-393) Microbiology Date/Time Source Procedure Growth Status 12/20/19 18:50 Nasopharynx SARS-CoV-2 RdRp Gene Assay - Final Complete Intake and Output 12/20/19 12/21/19 19:00 07:00 Intake Total 1050 ml 100 ml Balance 1050 ml 100 ml Intake IV Total 1050 ml 100 ml # Voids 3 1 # Bowel Movements 1 1 Objective GENERAL: Awake, responsive, in no acute distress. HEAD AND NECK: Pupils are equal and reactive to light. Extraocular movements intact. Neck was supple. No JVD. LUNGS: Good air entry. No wheezing or rales. Decreased air in the bases. HEART: S1, S2. Distant heart sounds. No murmur or gallops. ABDOMEN: Soft. less Epigastric tenderness. No rebound tenderness. No fluid shift. Mildly obese. EXTREMITIES: No cyanosis, clubbing, or edema. NEUROLOGIC: Cranial nerves II through XII are grossly intact. Motor is 5/5 in all extremities. RECTAL: Refused and deferred. : Refused and deferred. PSYCHIATRIC: Mood and affect is intact. Assessment/Plan Assessment/Plan ASSESSMENT: 1. GI bleed, possibly due to gastritis versus peptic ulcer disease. 2. History of hypertension. 3. Dizziness and off balance, most likely secondary to dehydration and hypokalemia. 4. History of CVA and TIA. 5. Chronic constipation. 6. Acute kidney injury, most likely secondary to the prerenal azotemia. 7. Hypokalemia. PLAN: In monitored unit. Monitor laboratory. IV hydration. Dr. Osborne, Gastroenterology. EGD: Esophagitis (12/21/2019) Oscar Stanton MD Dec 21, 2019 17:11
--- NOTE | 2019-12-21 17:15 | Procedure Note ---
DATE OF PROCEDURE: 12/21/2019 SURGEON: Giacomo Osborne MD. PROCEDURE: Upper endoscopy with biopsy. ANESTHESIA: Per Dr. Samano. INSTRUMENT: Olympus adult flexible upper endoscope . INDICATION: Upper GI bleeding. REASON FOR PROCEDURE: The procedure, risks, benefits, and possible consequences, including hemorrhage, aspiration, perforation and infection, and alternative treatments, were explained to the patient/legal guardian by Dr. Giacomo Osborne and the patient/legal guardian understood and accepted these risks. PROCEDURE IN DETAIL: After informed consent was obtained and the patient was adequately sedated, Olympus upper endoscope was advanced from mouth into the second portion of the duodenum and retroflexion was performed in the stomach. The patient has diffuse atrophic gastritis. Biopsy from antrum was obtained to rule out H. pylori infection. At the GE junction, there was some irregularity of the Z-line. Biopsy from the GE junction was also obtained. The patient tolerated the procedure very well without any complication. SUMMARY OF FINDINGS: 1. Atrophic gastritis, status post biopsy. 2. Irregular Z-line, status post biopsy. RECOMMENDATION: Follow biopsy results and treat accordingly. Giacomo Osborne M.D. DR: SNEHAL JOB#: [id number] CC:
--- NOTE | 2019-12-21 19:33 | NUR ---
NURSE HAND-OFF REPORT: Important Events on Shift:[EGD COMPLETED. DIET RESUMED, BSC WITH ASSIST] Patient Status: [IN STABLE] Diet: [CARDIAC] Pending Orders: [] Pending Results/Labs:[] Pending MD notification:[] Latest Vital Signs: Temperature 96.6 , Pulse 64 , B/P 135 /75 , Respiratory Rate 20 , O2 SAT 97 , Room Air, O2 Flow Rate 3 . Vital Sign Comment: [] EKG Rhythm: Sinus Rhythm Rhythm change?: N MD Notified?: - MD Response: Latest Sullivan Fall Score: 55 Fall Risk: High Risk Safety Measures: Call light Within Reach, Bed Alarm Zone 1, Side Rails Side Rails x3, Bed position Low and Locked. Fall Precautions: Yellow Socks Yellow Gown Door Sign Patient Fall Education Report given to [MARY].
--- NOTE | 2019-12-21 19:45 | NUR ---
NURSE NOTES: Report received from PAUL Obando. Patient is awake alert and makes needs known with no SOB or distress. Call light and bedside table with in reach. patient is on Cardiac diet. dish carrier intact in Sinus Rhythm. Bed at lowest position locked with side rails up and bed alram activated. Will continue with plan of care.
[2019-12-21] MEDS: Miralax 17gm pkt ORAL SCH (21:48)
[2019-12-22] VITALS: BP 130/65
[2019-12-22 04:00] VITALS: BP 134/62
--- NOTE | 2019-12-22 07:15 | NUR ---
HAND-OFF: Report given to Bea RN, Patient is stable alert and oriented.
--- NOTE | 2019-12-22 07:35 | NUR ---
NURSE NOTES: Received report from Janina/PAUL, Observed patient awake, eating breakfast in bed. On room air, No acute distress/SOB noted. Breathing even and unlabored. Able to make needs known, Denies pain at this time. Bed in low position and locked, Call light within reach, Encouraged to use call light when needed. Will continue plan of care.
[2019-12-22 08:00] VITALS: BP 130/67
[2019-12-22] MEDS: Docusate 100mg cap ORAL SCH ×2 (08:37→18:03)
[2019-12-22] MEDS: HydrALAZINE 50mg tab ORAL SCH (08:37)
[2019-12-22] MEDS: Metoprolol Succinate XL 50mg tab ORAL SCH (08:37)
[2019-12-22] MEDS: Lactulose 20gm/30ml UDC ORAL SCH ×2 (08:37→18:03)
--- NOTE | 2019-12-22 10:26 | Pulmonology Progress Note ---
Subjective Allergies: Coded Allergies: No Known Allergies (Unverified , 10/13/18) Subjective mild leukocytosis, no fevers still persistent dizziness R flank pain on RA no signs of resp distress Objective Last 24 Hour Vital Signs Date Time Temp Pulse Resp B/P (MAP) Pulse Ox O2 Delivery O2 Flow Rate FiO2 12/22/19 08:37 77 130/67 12/22/19 08:37 130/67 12/22/19 08:37 77 130/67 12/22/19 08:00 97.9 77 19 130/67 (88) 97 12/22/19 04:00 79 12/22/19 04:00 98.0 71 18 134/62 (86) 98 12/22/19 00:00 98.0 78 18 130/65 (86) 97 12/22/19 00:00 80 12/21/19 21:00 Room Air 12/21/19 20:00 97.8 82 18 148/73 (98) 97 12/21/19 20:00 68 12/21/19 18:00 64 12/21/19 16:00 96.6 72 20 135/75 (95) 97 12/21/19 15:00 97.5 72 18 132/53 (79) 96 12/21/19 14:40 97.2 68 19 146/79 99 Room Air 12/21/19 14:30 68 21 149/80 99 Room Air 12/21/19 14:20 66 24 157/74 100 Nasal Cannula 3 12/21/19 14:10 68 20 156/78 100 Nasal Cannula 3 12/21/19 14:09 72 18 99 12/21/19 14:05 69 23 136/67 100 Nasal Cannula 3 12/21/19 14:03 97.5 70 20 129/64 100 Nasal Cannula 3 12/21/19 12:00 98.6 73 20 134/61 (85) 96 12/21/19 12:00 64 Intake and Output 12/21/19 12/22/19 19:00 07:00 Intake Total 1000 ml Output Total 600 ml 250 ml Balance 400 ml -250 ml Intake IV Total 1000 ml Output Urine Total 600 ml 250 ml # Voids 1 1 # Bowel Movements 1 1 General Appearance: no acute distress, other - obese HEENT: normocephalic, atraumatic, mucous membranes moist Respiratory: chest wall non-tender, no respiratory distress Cardiovascular: normal peripheral pulses, normal rate, regular rhythm - ST on tele Abdomen: normal bowel sounds, soft, non tender - obese Genitourinary: normal external genitalia, other - R CVAT Skin: no rash, no ulcers 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 grossly normal, alert, oriented x 3, responsive Musculoskeletal: normal muscle bulk Microbiology Date/Time Source Procedure Growth Status 12/20/19 18:50 Nasopharynx SARS-CoV-2 RdRp Gene Assay - Final Complete Current Medications Medications (Trade) Dose Ordered Sig/Radha Route PRN Reason Start Time Stop Time Status Last Admin Dose Admin Acetaminophen (Tylenol) 650 mg Q4H PRN ORAL fever 12/19/19 15:45 01/18/20 15:44 Amlodipine Besylate (Norvasc) 10 mg DAILY ORAL 12/20/19 09:00 01/19/20 08:59 12/22/19 08:37 Dextrose (Dextrose 50%) 25 ml Q30M PRN IV Hypoglycemia 12/19/19 15:45 03/18/20 15:44 Dextrose (Dextrose 50%) 50 ml Q30M PRN IV Hypoglycemia 12/19/19 15:45 03/18/20 15:44 Diphenhydramine HCl (Benadryl) 25 mg Q6H PRN ORAL Itching/Pruritis 12/19/19 15:45 01/18/20 15:44 Docusate Sodium (Colace) 100 mg TWICE A DAY ORAL 12/20/19 18:00 01/19/20 17:59 12/22/19 08:37 Hydralazine HCl (Apresoline) 50 mg DAILY ORAL 12/20/19 09:00 03/19/20 08:59 12/22/19 08:37 Lactulose (Cephulac) 20 gm BID ORAL 12/20/19 18:00 01/19/20 17:59 12/22/19 08:37 Meclizine HCl (Antivert) 25 mg Q6H PRN ORAL for dizziness 12/20/19 12:00 01/19/20 11:59 Metoprolol Succinate (Toprol XL) 50 mg DAILY ORAL 12/20/19 09:00 03/19/20 08:59 12/22/19 08:37 Ondansetron HCl (Zofran) 4 mg Q6H PRN IVP Nausea & Vomiting 12/19/19 15:45 01/18/20 15:44 Polyethylene Glycol (Miralax) 17 gm BEDTIME ORAL 12/20/19 21:00 01/19/20 20:59 12/21/19 21:48 Potassium Chloride 20 meq/ Dextrose/Sodium Chloride 1,010 ml @ 100 mls/hr Q10H6M IV 12/20/19 12:30 01/18/20 12:29 12/22/19 03:48 Temazepam (Restoril) 15 mg HSPRN PRN ORAL Insomnia 12/19/19 15:45 12/26/19 15:44 Assessment/Plan Assessment/Plan ASSESSMENT Upper GI bleeding s/p EGD with biopsy Atrophic gastritis Dizziness AVA likely 2 to dehydration - resolved Hypokalemia - resolved Atelectasis, possible developing infiltrate HTN History of CVA Chronic constipation R flank pain PLAN OF CARE tele dizziness persist will get CT head and consider neuro eval CT A/P noted s/p upper endoscopy with finding of atrophic gastritis, irregular Z zone, f/up with bx result fup with CXR, O2 titrate to keep sat above 92%, off O2 and on RA now, pulse ox stable monitor H&H with goal to keep hemoglobin above 7, stable for now IV hydration AVA resolved, likely secondary to dehydration hypokalemia resolved bowel regimen Meclizine as needed BP management with BB and hydralazine fall precaution, PT eval and rx will get UA given R flank pain supportive care case discussed and evaluated by supervising physician Michelle Baig NP Dec 22, 2019 10:26
[2019-12-22 11:27] LABS: APPEARANCE,URINE SLIGHTLY CLOUDY; BILIRUBIN, URINE NEGATIVE (NEGATIVE); COLOR,URINE PALE YELLOW; GLUCOSE, URINE (UA) NEGATIVE (NEGATIVE); KETONES,URINE NEGATIVE (NEGATIVE); LEUKOCYTE ESTERASE ,URINE 3+ (NEGATIVE); NITRITE,URINE NEGATIVE (NEGATIVE); PH,URINE 8 (4.5-8.0); PROTEIN,URINE NEGATIVE (NEGATIVE); UROBILINOGEN,URINE NORMAL MG/DL (0.0-1.0)
[2019-12-22 12:00] VITALS: BP 132/61
--- NOTE | 2019-12-22 12:31 | NUR ---
P.T Note: P.T evaluation completed and tx initiated. Please refer to P.T evaluation for current functional status. Pt is alert, O x 4 , pleasant and cooperative. Pt denied c/o pain , denied c/o dizziness compare to past few days since admission. Pt presented generalized weakness affecting her balance, mobility performance and safety. Pt currently require MIN A X 1 for bed mobility, MIN a x 1 and MIN A X 1 gait/ambulation activities using the FWW. Pt will benefit from skilled P.T service to improve her strength, endurance and balance to increase mobility independence and safety. Recommend Home P.T with family assist and FWW upon DC. Thank you for this referral.
[2019-12-22 16:00] VITALS: BP 140/68
--- NOTE | 2019-12-22 16:35 | General Progress Note ---
Subjective Allergies: Coded Allergies: No Known Allergies (Unverified , 10/13/18) Subjective Feels ok no abdominal complaints Objective Last 24 Hour Vital Signs Date Time Temp Pulse Resp B/P (MAP) Pulse Ox O2 Delivery O2 Flow Rate FiO2 12/22/19 12:00 72 12/22/19 12:00 97.1 72 17 132/61 (84) 98 12/22/19 09:00 Room Air 12/22/19 08:37 77 130/67 12/22/19 08:37 130/67 12/22/19 08:37 77 130/67 12/22/19 08:00 97.9 77 19 130/67 (88) 97 12/22/19 08:00 75 12/22/19 04:00 79 12/22/19 04:00 98.0 71 18 134/62 (86) 98 12/22/19 00:00 98.0 78 18 130/65 (86) 97 12/22/19 00:00 80 12/21/19 21:00 Room Air 12/21/19 20:00 97.8 82 18 148/73 (98) 97 12/21/19 20:00 68 12/21/19 18:00 64 Intake and Output 12/21/19 12/22/19 19:00 07:00 Intake Total 1000 ml Output Total 600 ml 250 ml Balance 400 ml -250 ml Intake IV Total 1000 ml Output Urine Total 600 ml 250 ml # Voids 1 1 # Bowel Movements 1 1 Laboratory Tests 12/22/19 10:00: Urine Color Pale yellow, Urine Appearance Slightly cloudy, Urine pH 8, Urine Specific [place] 1.010, Urine Protein Negative, Urine Glucose (UA) Negative, Urine Ketones Negative, Urine Blood Negative, Urine Nitrite Negative, Urine Bilirubin Negative, Urine Urobilinogen Normal, Urine Leukocyte Esterase 3+H, Urine RBC 0-2, Urine WBC 2-4, Urine Squamous Epithelial Cells Few, Urine Bacteria ModerateH Height (Feet): 5 Height (Inches): 1.00 Weight (Pounds): 176 Objective WDWN NCAT supple CTA RR Abd soft, NT no edema Assessment/Plan Assessment/Plan: Assessment/Plan Problem List: (1) Non-ST elevation (NSTEMI) myocardial infarction ICD Codes: I21.4 - Non-ST elevation (NSTEMI) myocardial infarction SNOMED: 09790902 (2) History of hypertension ICD Codes: Z86.79 - Personal history of other diseases of the circulatory system SNOMED: 794463417 (3) History of diabetes mellitus ICD Codes: Z86.39 - Personal history of other endocrine, nutritional and metabolic disease SNOMED: 416532193 (4) Upper GI bleeding EGD showed gastritis Recommendations Check and treat HP if (+) Acid suppression PO as tolerated Radha Vargas MD Dec 22, 2019 16:35
--- NOTE | 2019-12-22 16:49 | Internal Med Progress Note ---
Subjective Date of Service: Dec 22, 2019 Physician Name JenShailesh Attending Physician Oscar Stanton MD Current Medications Medications (Trade) Dose Ordered Sig/Radha Route PRN Reason Start Time Stop Time Status Last Admin Dose Admin Acetaminophen (Tylenol) 650 mg Q4H PRN ORAL fever 12/19/19 15:45 01/18/20 15:44 Amlodipine Besylate (Norvasc) 10 mg DAILY ORAL 12/20/19 09:00 01/19/20 08:59 12/22/19 08:37 Dextrose (Dextrose 50%) 25 ml Q30M PRN IV Hypoglycemia 12/19/19 15:45 03/18/20 15:44 Dextrose (Dextrose 50%) 50 ml Q30M PRN IV Hypoglycemia 12/19/19 15:45 03/18/20 15:44 Diphenhydramine HCl (Benadryl) 25 mg Q6H PRN ORAL Itching/Pruritis 12/19/19 15:45 01/18/20 15:44 Docusate Sodium (Colace) 100 mg TWICE A DAY ORAL 12/20/19 18:00 01/19/20 17:59 12/22/19 08:37 Hydralazine HCl (Apresoline) 50 mg DAILY ORAL 12/20/19 09:00 03/19/20 08:59 12/22/19 08:37 Lactulose (Cephulac) 20 gm BID ORAL 12/20/19 18:00 01/19/20 17:59 12/22/19 08:37 Meclizine HCl (Antivert) 25 mg Q6H PRN ORAL for dizziness 12/20/19 12:00 01/19/20 11:59 Metoprolol Succinate (Toprol XL) 50 mg DAILY ORAL 12/20/19 09:00 03/19/20 08:59 12/22/19 08:37 Ondansetron HCl (Zofran) 4 mg Q6H PRN IVP Nausea & Vomiting 12/19/19 15:45 01/18/20 15:44 Polyethylene Glycol (Miralax) 17 gm BEDTIME ORAL 12/20/19 21:00 01/19/20 20:59 12/21/19 21:48 Potassium Chloride 20 meq/ Dextrose/Sodium Chloride 1,010 ml @ 100 mls/hr Q10H6M IV 12/20/19 12:30 01/18/20 12:29 12/22/19 15:08 Temazepam (Restoril) 15 mg HSPRN PRN ORAL Insomnia 12/19/19 15:45 12/26/19 15:44 Allergies: Coded Allergies: No Known Allergies (Unverified , 10/13/18) ROS Limited/Unobtainable: Yes Subjective 84 YO F admitted with Upper GI bleed. Now esophagitis. S/P endoscopy 12/21/19. Cover for Int [facility] -Dr Stanton Objective Last Vital Signs Date Time Temp Pulse Resp B/P (MAP) Pulse Ox O2 Delivery O2 Flow Rate FiO2 12/22/19 12:00 72 12/22/19 12:00 97.1 17 132/61 (84) 98 12/22/19 09:00 Room Air 12/21/19 14:20 3 Laboratory Tests Test 12/22/19 10:00 Urine Color Pale yellow Urine Appearance Slightly cloudy Urine pH 8 (4.5-8.0) Urine Specific [place] 1.010 (1.005-1.035) Urine Protein Negative (NEGATIVE) Urine Glucose (UA) Negative (NEGATIVE) Urine Ketones Negative (NEGATIVE) Urine Blood Negative (NEGATIVE) Urine Nitrite Negative (NEGATIVE) Urine Bilirubin Negative (NEGATIVE) Urine Urobilinogen Normal MG/DL (0.0-1.0) Urine Leukocyte Esterase 3+ (NEGATIVE) H Urine RBC 0-2 /HPF (0 - 2) Urine WBC 2-4 /HPF (0 - 2) Urine Squamous Epithelial Cells Few /LPF (NONE/OCC) Urine Bacteria Moderate /HPF (NONE) H Microbiology Date/Time Source Procedure Growth Status 12/20/19 18:50 Nasopharynx SARS-CoV-2 RdRp Gene Assay - Final Complete Intake and Output 12/21/19 12/22/19 19:00 07:00 Intake Total 1000 ml Output Total 600 ml 250 ml Balance 400 ml -250 ml Intake IV Total 1000 ml Output Urine Total 600 ml 250 ml # Voids 1 1 # Bowel Movements 1 1 Objective Objective GENERAL: Awake, responsive, in no acute distress. HEAD AND NECK: Pupils are equal and reactive to light. Extraocular movements intact. Neck was supple. No JVD. LUNGS: Good air entry. No wheezing or rales. Decreased air in the bases. HEART: S1, S2. Distant heart sounds. No murmur or gallops. ABDOMEN: Soft. less Epigastric tenderness. No rebound tenderness. No fluid shift. Mildly obese. EXTREMITIES: No cyanosis, clubbing, or edema. NEUROLOGIC: Cranial nerves II through XII are grossly intact. Motor is 5/5 in all extremities. RECTAL: Refused and deferred. : Refused and deferred. PSYCHIATRIC: Mood and affect is intact. Assessment/Plan Assessment/Plan Assessment/Plan Assessment/Plan Assessment/Plan ASSESSMENT: 1. GI bleed. 2. History of hypertension. 3. Dizziness and off balance, most likely secondary to dehydration and hypokalemia. 4. History of CVA and TIA. 5. Chronic constipation. 6. Acute kidney injury, most likely secondary to the prerenal azotemia. 7. Hypokalemia. 8. Esophagitis PLAN: In monitored unit. Monitor laboratory. IV hydration. Dr. Osborne, Gastroenterology. EGD: Esophagitis (12/21/2019) Shailesh Li MD Dec 22, 2019 16:49
--- NOTE | 2019-12-22 19:05 | NUR ---
NURSE HAND-OFF REPORT: Important Events on Shift:NA Patient Status: Diet: Cardiac Pending Orders: CT Head Pending Results/Labs:Morning labs Pending MD notification:NA Latest Vital Signs: Temperature 97.8 , Pulse 73 , B/P 140 /68 , Respiratory Rate 18 , O2 SAT 96 , Room Air, O2 Flow Rate 3 . Vital Sign Comment: stable EKG Rhythm: Sinus Rhythm Rhythm change?: N MD Notified?: - MD Response: Latest Sullivan Fall Score: 55 Fall Risk: High Risk Safety Measures: Call light Within Reach, Bed Alarm Zone 1, Side Rails Side Rails x3, Bed position Low and Locked. Fall Precautions: Yellow Socks Yellow Gown Door Sign Patient Fall Education Report given to Lisa/PAUL
[2019-12-22 20:00] VITALS: BP 150/72
--- NOTE | 2019-12-22 20:22 | NUR ---
NURSE NOTES: Received patient report from PAUL Figueredo. Patient shows no signs of distress or pain at the time. Patient is AO x4. IV is intact and patent. Running D5 NS 20 KCL @100cc/hr. There are no signs of erythema, infiltration, or bleeding. Patient is on room air and shows no signs of respiratory distress. Bed is in the lowest position, call light is within reach, side rails up x3. Will continue plan of care.
[2019-12-22] MEDS: Miralax 17gm pkt ORAL SCH (20:30)
[2019-12-23] VITALS: BP 151/68
--- NOTE | 2019-12-23 00:35 | NUR ---
NURSE NOTES: Patient is resting in bed. There are no signs of distress or pain. Patient cleaned and changed linens. Will continue to monitor.
[2019-12-23 04:00] VITALS: BP 148/73
--- NOTE | 2019-12-23 07:30 | NUR ---
NURSE NOTES: Received pt from PAUL Hodgson, Pt is awake and alert, pt is in RA, no SOB or acute respiratory distress noted. pt has intact iv access RAC 18G is running well. pt is on continues heart monitoring. pt is eating breakfast by observation. All needs attended, bed is locked and is in the lowest position, call light within easy reach. will continue to monitor.
--- NOTE | 2019-12-23 07:44 | NUR ---
NURSE HAND-OFF REPORT: Important Events on Shift:[NA] Patient Status: [Full code] Diet: [cardiac] Pending Orders: [] Pending Results/Labs:[] Pending MD notification:[] Latest Vital Signs: Temperature 98.1 , Pulse 71 , B/P 148 /73 , Respiratory Rate 20 , O2 SAT 96 , Room Air, O2 Flow Rate 3 . Vital Sign Comment: [] EKG Rhythm: Sinus Rhythm Rhythm change?: N MD Notified?: - MD Response: Latest Sullivan Fall Score: 55 Fall Risk: High Risk Safety Measures: Call light Within Reach, Bed Alarm Zone 1, Side Rails Side Rails x3, Bed position Low and Locked. Fall Precautions: Yellow Socks Yellow Gown Door Sign Patient Fall Education Report given to [PAUL Torres].
[2019-12-23 07:49] LABS: BASOPHILS % (AUTO) 0.7 % (0.0-2.0); EOSINOPHILS % (AUTO) 3.7 % (0.0-3.0); HEMOGLOBIN 13.9 G/DL (12.0-16.0); LYMPHOCYTES % (AUTO) 22.7 % (20.0-45.0); MEAN CORPUSCULAR VOLUME 87 FL (80-99); MONOCYTES % (AUTO) 8.7 % (1.0-10.0); NEUTROPHILS % (AUTO) 64.1 % (45.0-75.0); PLATELET COUNT 271 K/UL (150-450); RED BLOOD COUNT 5.03 M/UL (4.20-5.40); RED CELL DISTRIBUTION WIDTH 13.8 % (11.6-14.8); WHITE BLOOD COUNT 11.8 K/UL (4.8-10.8)
[2019-12-23 07:57] LABS: CALCIUM 8.3 MG/DL (8.5-10.1); CREATININE 1.1 MG/DL (0.55-1.30); POTASSIUM 3.8 MMOL/L (3.5-5.1)
[2019-12-23 08:00] VITALS: BP 147/75
[2019-12-23] MEDS: Lactulose 20gm/30ml UDC ORAL SCH ×2 (08:38→17:00)
[2019-12-23] MEDS: Docusate 100mg cap ORAL SCH ×2 (08:38→17:00)
[2019-12-23] MEDS: Metoprolol Succinate XL 50mg tab ORAL SCH (08:38)
[2019-12-23] MEDS: HydrALAZINE 50mg tab ORAL SCH ×2 (08:38→21:41)
--- NOTE | 2019-12-23 10:25 | Pulmonology Progress Note ---
Subjective ROS Limited/Unobtainable: Yes Allergies: Coded Allergies: No Known Allergies (Unverified , 10/13/18) Subjective mild leukocytosis, no fevers still persistent dizziness R flank pain -collected UA and CX, prelim UCX + GNR on RA no signs of resp distress worked with PT CT head pending Objective Last 24 Hour Vital Signs Date Time Temp Pulse Resp B/P (MAP) Pulse Ox O2 Delivery O2 Flow Rate FiO2 12/23/19 08:38 82 147/75 12/23/19 08:38 147/75 12/23/19 08:38 82 147/75 12/23/19 08:18 77 12/23/19 08:00 98.1 82 20 147/75 (99) 97 12/23/19 04:00 98.1 75 20 148/73 (98) 96 12/23/19 04:00 71 12/23/19 00:00 98.1 76 20 151/68 (95) 97 12/23/19 00:00 75 12/22/19 21:00 Room Air 12/22/19 20:00 81 12/22/19 20:00 98.1 79 18 150/72 (98) 98 12/22/19 16:00 97.8 75 18 140/68 (92) 96 12/22/19 16:00 73 12/22/19 12:00 72 12/22/19 12:00 97.1 72 17 132/61 (84) 98 Intake and Output 0 12/22/19 12/23/19 19:00 07:00 Intake Total 420 ml 1477 ml Output Total 300 ml Balance 120 ml 1477 ml Intake Oral 420 ml 100 ml IV Total 1377 ml Output Urine Total 300 ml # Voids 3 General Appearance: no acute distress, other - obese HEENT: normocephalic, atraumatic, mucous membranes moist Respiratory: chest wall non-tender, no respiratory distress Cardiovascular: normal peripheral pulses, normal rate, regular rhythm - ST on tele Abdomen: normal bowel sounds, soft, non tender - obese Genitourinary: normal external genitalia, other - R CVAT Skin: no rash, no ulcers 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, alert, oriented x 3, responsive Musculoskeletal: normal muscle bulk Microbiology Date/Time Source Procedure Growth Status 12/22/19 10:00 Urine,Clean Catch Urine Culture - Preliminary Gram Negative Alfredo Resulted 12/20/19 18:50 Nasopharynx SARS-CoV-2 RdRp Gene Assay - Final Complete Laboratory Tests 12/23/19 06:06: White Blood Count 11.8H, Red Blood Count 5.03, Hemoglobin 13.9, Hematocrit 44.0, Mean Corpuscular Volume 87, Mean Corpuscular Hemoglobin 27.5, Mean Corpuscular Hemoglobin Concent 31.5L, Red Cell Distribution Width 13.8, Platelet Count 271, Mean Platelet Volume 5.7L, Neutrophils (%) (Auto) 64.1, Lymphocytes (%) (Auto) 22.7, Monocytes (%) (Auto) 8.7, Eosinophils (%) (Auto) 3.7H, Basophils (%) (Auto) 0.7, Sodium Level 139, Potassium Level 3.8, Chloride Level 107, Carbon Dioxide Level 25, Anion Gap 7, Blood Urea Nitrogen 14, Creatinine 1.1, Estimat Glomerular Filtration Rate 57.7, Glucose Level 114H, Calcium Level 8.3L Current Medications Medications (Trade) Dose Ordered Sig/Rdaha Route PRN Reason Start Time Stop Time Status Last Admin Dose Admin Acetaminophen (Tylenol) 650 mg Q4H PRN ORAL fever 12/19/19 15:45 01/18/20 15:44 Amlodipine Besylate (Norvasc) 10 mg DAILY ORAL 12/20/19 09:00 01/19/20 08:59 12/23/19 08:38 Dextrose (Dextrose 50%) 25 ml Q30M PRN IV Hypoglycemia 12/19/19 15:45 03/18/20 15:44 Dextrose (Dextrose 50%) 50 ml Q30M PRN IV Hypoglycemia 12/19/19 15:45 03/18/20 15:44 Diphenhydramine HCl (Benadryl) 25 mg Q6H PRN ORAL Itching/Pruritis 12/19/19 15:45 01/18/20 15:44 Docusate Sodium (Colace) 100 mg TWICE A DAY ORAL 12/20/19 18:00 01/19/20 17:59 12/23/19 08:38 Hydralazine HCl (Apresoline) 50 mg DAILY ORAL 12/20/19 09:00 03/19/20 08:59 12/23/19 08:38 Lactulose (Cephulac) 20 gm BID ORAL 12/20/19 18:00 01/19/20 17:59 12/23/19 08:38 Meclizine HCl (Antivert) 25 mg Q6H PRN ORAL for dizziness 12/20/19 12:00 01/19/20 11:59 Metoprolol Succinate (Toprol XL) 50 mg DAILY ORAL 12/20/19 09:00 03/19/20 08:59 12/23/19 08:38 Ondansetron HCl (Zofran) 4 mg Q6H PRN IVP Nausea & Vomiting 12/19/19 15:45 01/18/20 15:44 Polyethylene Glycol (Miralax) 17 gm BEDTIME ORAL 12/20/19 21:00 01/19/20 20:59 12/22/19 20:30 Potassium Chloride 20 meq/ Dextrose/Sodium Chloride 1,010 ml @ 100 mls/hr Q10H6M IV 12/20/19 12:30 01/18/20 12:29 12/23/19 08:39 Temazepam (Restoril) 15 mg HSPRN PRN ORAL Insomnia 12/19/19 15:45 12/26/19 15:44 Assessment/Plan Assessment/Plan ASSESSMENT Upper GI bleeding s/p EGD with biopsy Atrophic gastritis Dizziness UTI AVA likely 2 to dehydration - resolved Hypokalemia - resolved Atelectasis, possible developing infiltrate HTN History of CVA Chronic constipation R flank pain PLAN OF CARE tele dizziness persist CT head pending consider neuro eval CT A/P noted s/p upper endoscopy with finding of atrophic gastritis, irregular Z zone, f/up with bx result fup with CXR, O2 titrate to keep sat above 92%, off O2 and on RA now, pulse ox stable monitor H&H with goal to keep hemoglobin above 7, stable for now IV hydration AVA resolved, likely secondary to dehydration hypokalemia resolved bowel regimen Meclizine as needed BP management with BB and hydralazine fall precaution, PT eval and rx given R flank pain -UA and CX obtained, UCX+ GNR, start empiric Ceftriaxone fup with final cx supportive care case discussed and evaluated by supervising physician Michelle Baig NP Dec 23, 2019 10:24
[2019-12-23] MEDS: cefTRIAXone 1 GM in D5W 55 ML IVPB SCH (11:24)
[2019-12-23 12:00] VITALS: BP 152/88
[2019-12-23] MEDS ORDERED: Gadavist 7.5mMol/7.5ml vial IV PRN (12:00)
--- NOTE | 2019-12-23 12:36 | Diagnostic Imaging Report ---
EXAM: CT Head Without Intravenous Contrast CLINICAL HISTORY: DIZZY TECHNIQUE: Axial computed tomography images of the head/brain without intravenous contrast. Sagittal and coronal reformatted images were created and reviewed. CTDI is 53.4 mGy and DLP is 992.1 mGy-cm. One or more of the following dose reduction techniques were used: automated exposure control, adjustment of the mA and/or kV according to patient size, use of iterative reconstruction technique. COMPARISON: CT head dated 06/22/18 FINDINGS: Brain: Generalized parenchymal volume loss, likely age-related. Mild periventricular white matter hypodensities. No evidence of acute intracranial hemorrhage. No mass effect or midline shift. Ventricles: Mild distention of the lateral and third ventricles, likely compensatory to the cerebral atrophy. Bones/joints: Unremarkable. No acute fracture. Soft tissues: Unremarkable. Sinuses: Unremarkable as visualized. No acute sinusitis. Mastoid air cells: Unremarkable as visualized. No mastoid effusion. IMPRESSION: 1. No acute intracranial findings. 2. Chronic age-related changes..
--- NOTE | 2019-12-23 13:00 | NUR ---
NURSE NOTES: pt signed consent form for contrast.
--- NOTE | 2019-12-23 15:18 | Internal Med Progress Note ---
Subjective Date of Service: Dec 23, 2019 Physician Name JenShailesh Attending Physician Oscar Stanton MD Current Medications Medications (Trade) Dose Ordered Sig/Radha Route PRN Reason Start Time Stop Time Status Last Admin Dose Admin Acetaminophen (Tylenol) 650 mg Q4H PRN ORAL fever 12/19/19 15:45 01/18/20 15:44 Amlodipine Besylate (Norvasc) 10 mg DAILY ORAL 12/20/19 09:00 01/19/20 08:59 12/23/19 08:38 Aspirin (ASA) 325 mg DAILY ORAL 12/24/19 09:00 02/07/20 08:59 Ceftriaxone Sodium 1 gm/ Dextrose 55 ml @ 110 mls/hr Q24H IVPB 12/23/19 10:30 12/30/19 10:29 12/23/19 11:24 Dextrose (Dextrose 50%) 25 ml Q30M PRN IV Hypoglycemia 12/19/19 15:45 03/18/20 15:44 Dextrose (Dextrose 50%) 50 ml Q30M PRN IV Hypoglycemia 12/19/19 15:45 03/18/20 15:44 Diphenhydramine HCl (Benadryl) 25 mg Q6H PRN ORAL Itching/Pruritis 12/19/19 15:45 01/18/20 15:44 Docusate Sodium (Colace) 100 mg TWICE A DAY ORAL 12/20/19 18:00 01/19/20 17:59 12/23/19 08:38 Gadobutrol (Gadavist) 7.5 mmol NOW PRN IV Radiology Procedure 12/23/19 12:00 12/26/19 11:59 Hydralazine HCl (Apresoline) 50 mg DAILY ORAL 12/20/19 09:00 03/19/20 08:59 12/23/19 08:38 Lactulose (Cephulac) 20 gm BID ORAL 12/20/19 18:00 01/19/20 17:59 12/23/19 08:38 Meclizine HCl (Antivert) 25 mg Q6H PRN ORAL for dizziness 12/20/19 12:00 01/19/20 11:59 Metoprolol Succinate (Toprol XL) 50 mg DAILY ORAL 12/20/19 09:00 03/19/20 08:59 12/23/19 08:38 Ondansetron HCl (Zofran) 4 mg Q6H PRN IVP Nausea & Vomiting 12/19/19 15:45 01/18/20 15:44 Polyethylene Glycol (Miralax) 17 gm BEDTIME ORAL 12/20/19 21:00 01/19/20 20:59 12/22/19 20:30 Potassium Chloride 20 meq/ Dextrose/Sodium Chloride 1,010 ml @ 100 mls/hr Q10H6M IV 12/20/19 12:30 01/18/20 12:29 12/23/19 08:39 Temazepam (Restoril) 15 mg HSPRN PRN ORAL Insomnia 12/19/19 15:45 12/26/19 15:44 Allergies: Coded Allergies: No Known Allergies (Unverified , 10/13/18) ROS Limited/Unobtainable: No Constitutional: Reports: no symptoms HEENT: Reports: no symptoms Cardiovascular: Reports: no symptoms Respiratory: Reports: no symptoms Gastrointestinal/Abdominal: Reports: no symptoms Genitourinary: Reports: no symptoms Neurologic/Psychiatric: Reports: no symptoms Subjective 84 YO F admitted with Upper GI bleed. Now esophagitis. S/P endoscopy 12/21/19. Cover for Int Miles -Dr Stanton Objective Last Vital Signs Date Time Temp Pulse Resp B/P (MAP) Pulse Ox O2 Delivery O2 Flow Rate FiO2 12/23/19 12:00 99.3 87 19 152/88 (109) 95 12/23/19 09:00 Room Air 12/21/19 14:20 3 Laboratory Tests Test 12/23/19 06:06 White Blood Count 11.8 K/UL (4.8-10.8) H Red Blood Count 5.03 M/UL (4.20-5.40) Hemoglobin 13.9 G/DL (12.0-16.0) Hematocrit 44.0 % (37.0-47.0) Mean Corpuscular Volume 87 FL (80-99) Mean Corpuscular Hemoglobin 27.5 PG (27.0-31.0) Mean Corpuscular Hemoglobin Concent 31.5 G/DL (32.0-36.0) L Red Cell Distribution Width 13.8 % (11.6-14.8) Platelet Count 271 K/UL (150-450) Mean Platelet Volume 5.7 FL (6.5-10.1) L Neutrophils (%) (Auto) 64.1 % (45.0-75.0) Lymphocytes (%) (Auto) 22.7 % (20.0-45.0) Monocytes (%) (Auto) 8.7 % (1.0-10.0) Eosinophils (%) (Auto) 3.7 % (0.0-3.0) H Basophils (%) (Auto) 0.7 % (0.0-2.0) Sodium Level 139 MMOL/L (136-145) Potassium Level 3.8 MMOL/L (3.5-5.1) Chloride Level 107 MMOL/L (98-107) Carbon Dioxide Level 25 MMOL/L (21-32) Anion Gap 7 mmol/L (5-15) Blood Urea Nitrogen 14 mg/dL (7-18) Creatinine 1.1 MG/DL (0.55-1.30) Estimat Glomerular Filtration Rate 57.7 mL/min (>60) Glucose Level 114 MG/DL (74-106) H Calcium Level 8.3 MG/DL (8.5-10.1) L Microbiology Date/Time Source Procedure Growth Status 12/22/19 10:00 Urine,Clean Catch Urine Culture - Preliminary Gram Negative Alfredo Resulted 12/20/19 18:50 Nasopharynx SARS-CoV-2 RdRp Gene Assay - Final Complete Intake and Output 12/22/19 12/23/19 19:00 07:00 Intake Total 420 ml 1477 ml Output Total 300 ml Balance 120 ml 1477 ml Intake Oral 420 ml 100 ml IV Total 1377 ml Output Urine Total 300 ml # Voids 3 Objective Objective GENERAL: Awake, responsive, in no acute distress. HEAD AND NECK: Pupils are equal and reactive to light. Extraocular movements intact. Neck was supple. No JVD. LUNGS: Good air entry. No wheezing or rales. Decreased air in the bases. HEART: S1, S2. Distant heart sounds. No murmur or gallops. ABDOMEN: Soft. less Epigastric tenderness. No rebound tenderness. No fluid shift. Mildly obese. EXTREMITIES: No cyanosis, clubbing, or edema. NEUROLOGIC: Cranial nerves II through XII are grossly intact. Motor is 5/5 in all extremities. RECTAL: Refused and deferred. : Refused and deferred. PSYCHIATRIC: Mood and affect is intact. Assessment/Plan Assessment/Plan Assessment/Plan Assessment/Plan Assessment/Plan ASSESSMENT: 1. GI bleed. 2. History of hypertension. 3. Dizziness and off balance, most likely secondary to dehydration and hypokalemia. 4. History of CVA and TIA. 5. Chronic constipation. 6. Acute kidney injury, most likely secondary to the prerenal azotemia. 7. Hypokalemia. 8. Esophagitis PLAN: In monitored unit. Monitor laboratory. IV hydration. Dr. Osborne, Gastroenterology. EGD: Esophagitis (12/21/2019) Shailesh Li MD Dec 23, 2019 15:18
[2019-12-23 16:00] VITALS: BP 156/84
--- NOTE | 2019-12-23 17:00 | NUR ---
NURSE NOTES: Dr Pat notified regarding WBC 11.8 and fever, waiting to call back. will continue to monitor.
--- NOTE | 2019-12-23 17:17 | General Progress Note ---
Subjective Allergies: Coded Allergies: No Known Allergies (Unverified , 10/13/18) Subjective Feels OK no abdominal complaints d/w family at bedside Objective Last 24 Hour Vital Signs Date Time Temp Pulse Resp B/P (MAP) Pulse Ox O2 Delivery O2 Flow Rate FiO2 12/23/19 16:00 100.9 94 20 156/84 (108) 96 12/23/19 15:31 93 12/23/19 12:00 99.3 87 19 152/88 (109) 95 12/23/19 11:51 82 12/23/19 09:00 Room Air 12/23/19 08:38 82 147/75 12/23/19 08:38 147/75 12/23/19 08:38 82 147/75 12/23/19 08:18 77 12/23/19 08:00 98.1 82 20 147/75 (99) 97 12/23/19 04:00 98.1 75 20 148/73 (98) 96 12/23/19 04:00 71 12/23/19 00:00 98.1 76 20 151/68 (95) 97 12/23/19 00:00 75 12/22/19 21:00 Room Air 12/22/19 20:00 81 12/22/19 20:00 98.1 79 18 150/72 (98) 98 Intake and Output 12/22/19 12/23/19 19:00 07:00 Intake Total 420 ml 1577 ml Output Total 300 ml Balance 120 ml 1577 ml Intake Oral 420 ml 100 ml IV Total 1477 ml Output Urine Total 300 ml # Voids 3 Laboratory Tests 12/23/19 06:06: White Blood Count 11.8H, Red Blood Count 5.03, Hemoglobin 13.9, Hematocrit 44.0, Mean Corpuscular Volume 87, Mean Corpuscular Hemoglobin 27.5, Mean Corpuscular Hemoglobin Concent 31.5L, Red Cell Distribution Width 13.8, Platelet Count 271, Mean Platelet Volume 5.7L, Neutrophils (%) (Auto) 64.1, Lymphocytes (%) (Auto) 22.7, Monocytes (%) (Auto) 8.7, Eosinophils (%) (Auto) 3.7H, Basophils (%) (Auto) 0.7, Sodium Level 139, Potassium Level 3.8, Chloride Level 107, Carbon Dioxide Level 25, Anion Gap 7, Blood Urea Nitrogen 14, Creatinine 1.1, Estimat Glomerular Filtration Rate 57.7, Glucose Level 114H, Calcium Level 8.3L Height (Feet): 5 Height (Inches): 1.00 Weight (Pounds): 176 Objective WDWN NCAT supple CTA RR Abd soft, NT no edema Assessment/Plan Assessment/Plan: Assessment/Plan Problem List: (1) Non-ST elevation (NSTEMI) myocardial infarction ICD Codes: I21.4 - Non-ST elevation (NSTEMI) myocardial infarction SNOMED: 63130823 (2) History of hypertension ICD Codes: Z86.79 - Personal history of other diseases of the circulatory system SNOMED: 279678700 (3) History of diabetes mellitus ICD Codes: Z86.39 - Personal history of other endocrine, nutritional and metabolic disease SNOMED: 155266790 (4) Upper GI bleeding EGD showed gastritis Recommendations Check and treat HP if (+) Acid suppression PO as tolerated Radha Vargas MD Dec 23, 2019 17:17
[2019-12-23] MEDS: Sucralfate 1gm tab ORAL SCH ×2 (18:25→21:40)
--- NOTE | 2019-12-23 19:18 | NUR ---
NURSE HAND-OFF REPORT: Important Events on Shift: Patient Status: Diet: Pending Orders: Pending Results/Labs: Pending MD notification: Latest Vital Signs: Temperature 99.0 , Pulse 94 , B/P 156 /84 , Respiratory Rate 20 , O2 SAT 96 , Room Air, O2 Flow Rate 3 . Vital Sign Comment: EKG Rhythm: Sinus Rhythm Rhythm change?: N MD Notified?: - MD Response: Latest Sullivan Fall Score: 55 Fall Risk: High Risk Safety Measures: Call light Within Reach, Bed Alarm Zone 1, Side Rails Side Rails x3, Bed position Low and Locked. Fall Precautions: Yellow Socks Yellow Gown Door Sign Patient Fall Education Report given to . Pt is awake and stable, no stress noted. Endorsed plan of care, endorsed to monitor fever.
[2019-12-23 20:00] VITALS: BP 168/92
--- NOTE | 2019-12-23 20:08 | NUR ---
NURSE NOTES: Received patient report from PAUL Torres. Patient shows no signs of distress or pain at the time. AO x4. Patient is on room air with no signs of respiratory distress. During dayshift patient had fever but currently she does not. Patients blood pressure is elevated. 181/92, Dr. Stanton is informed. Awaiting for response. IV is intact and patent. There are no signs of erythema, infiltration, or bleeding. Running D5 NS w/ 20 KCL @100cc/hr. Patient has purewick on. Bed is in the lowest position, call light is within reach, prefitter doors rails up x3. Will continue to monitor.
[2019-12-23] MEDS: Miralax 17gm pkt ORAL SCH (21:41)
[2019-12-23] MEDS ORDERED: HydrALAZINE 50mg tab ORAL PRN (21:45)
[2019-12-24] VITALS: BP 159/71
[2019-12-24 04:00] VITALS: BP 144/62
[2019-12-24 06:49] LABS: BASOPHILS % (AUTO) 0.6 % (0.0-2.0); EOSINOPHILS % (AUTO) 1.4 % (0.0-3.0); HEMATOCRIT 42.7 % (37.0-47.0); HEMOGLOBIN 13.7 G/DL (12.0-16.0); LYMPHOCYTES % (AUTO) 12.9 % (20.0-45.0); MEAN CORPUSCULAR VOLUME 86 FL (80-99); MONOCYTES % (AUTO) 8.1 % (1.0-10.0); PLATELET COUNT 256 K/UL (150-450); RED BLOOD COUNT 4.97 M/UL (4.20-5.40); RED CELL DISTRIBUTION WIDTH 13.9 % (11.6-14.8); WHITE BLOOD COUNT 12.8 K/UL (4.8-10.8)
[2019-12-24 07:06] LABS: BLOOD UREA NITROGEN 11 mg/dL (7-18); CALCIUM 8.6 MG/DL (8.5-10.1); CARBON DIOXIDE 28 MMOL/L (21-32); CHLORIDE 103 MMOL/L (98-107); CREATININE 1.3 MG/DL (0.55-1.30); POTASSIUM 3.9 MMOL/L (3.5-5.1); SODIUM 137 MMOL/L (136-145)
--- NOTE | 2019-12-24 07:30 | NUR ---
NURSE HAND-OFF REPORT: Important Events on Shift:[BP 163/92 Changed BP meds per Dr. Stanton] Patient Status: [Full code] Diet: [Cardiac] Pending Orders: [Head, neck, brain MRI] Pending Results/Labs:[NA] Pending MD notification:[NA] Latest Vital Signs: Temperature 96.8 , Pulse 80 , B/P 144 /62 , Respiratory Rate 18 , O2 SAT 95 , Room Air, O2 Flow Rate 3 . Vital Sign Comment: [NA] EKG Rhythm: Sinus Rhythm Rhythm change?: N MD Notified?: - MD Response: Latest Sullivan Fall Score: 55 Fall Risk: High Risk Safety Measures: Call light Within Reach, Bed Alarm Zone 1, Side Rails Side Rails x3, Bed position Low and Locked. Fall Precautions: Yellow Socks Yellow Gown Door Sign Patient Fall Education Report given to [PAUL Torres].
--- NOTE | 2019-12-24 07:30 | NUR ---
NURSE NOTES: Received pt from PAUL Hodgson, Pt is awake and alert, pt is in RA, no SOB or acute respiratory distress noted. pt has intact iv access RAC 18G is running well. pt is on continues heart monitoring. pt is eating breakfast by observation. no complain of pain at this moment. All needs attended, bed is locked and is in the lowest position, call light within easy reach. will continue to monitor.
[2019-12-24 08:00] VITALS: BP 159/72
[2019-12-24] MEDS: Docusate 100mg cap ORAL SCH ×2 (08:14→17:30)
[2019-12-24] MEDS: Sucralfate 1gm tab ORAL SCH ×4 (08:14→20:36)
[2019-12-24] MEDS: Lactulose 20gm/30ml UDC ORAL SCH ×2 (08:14→17:30)
[2019-12-24] MEDS: Carvedilol 6.25mg Tab ORAL SCH ×2 (08:15→20:36)
[2019-12-24] MEDS: HydrALAZINE 50mg tab ORAL SCH (08:15)
--- NOTE | 2019-12-24 08:26 | General Progress Note ---
Subjective ROS Limited/Unobtainable: No Allergies: Coded Allergies: No Known Allergies (Unverified , 10/13/18) Objective Last 24 Hour Vital Signs Date Time Temp Pulse Resp B/P (MAP) Pulse Ox O2 Delivery O2 Flow Rate FiO2 12/24/19 08:15 83 159/72 12/24/19 08:15 159/72 12/24/19 08:15 83 159/72 12/24/19 08:00 100.8 83 20 159/72 (101) 94 12/24/19 04:00 80 12/24/19 04:00 96.8 88 18 144/62 (89) 95 12/24/19 00:00 76 12/24/19 00:00 98.4 90 18 159/71 (100) 96 12/23/19 21:41 168/92 12/23/19 21:00 Room Air 12/23/19 20:00 99.1 91 20 168/92 (117) 95 12/23/19 20:00 94 12/23/19 17:27 99.0 12/23/19 16:00 100.9 94 20 156/84 (108) 96 12/23/19 15:31 93 12/23/19 12:00 99.3 87 19 152/88 (109) 95 12/23/19 11:51 82 12/23/19 09:00 Room Air 12/23/19 08:38 82 147/75 12/23/19 08:38 147/75 12/23/19 08:38 82 147/75 Intake and Output 12/23/19 12/24/19 19:00 07:00 Intake Total 1675 ml 200 ml Balance 1675 ml 200 ml Intake Oral 420 ml 200 ml IV Total 1255 ml # Voids 3 2 # Bowel Movements 1 Laboratory Tests 12/24/19 05:50: White Blood Count 12.8H, Red Blood Count 4.97, Hemoglobin 13.7, Hematocrit 42.7, Mean Corpuscular Volume 86, Mean Corpuscular Hemoglobin 27.6, Mean Corpuscular Hemoglobin Concent 32.1, Red Cell Distribution Width 13.9, Platelet Count 256, Mean Platelet Volume 6.0L, Neutrophils (%) (Auto) 77.0H, Lymphocytes (%) (Auto) 12.9L, Monocytes (%) (Auto) 8.1, Eosinophils (%) (Auto) 1.4, Basophils (%) (Auto) 0.6, Sodium Level 137, Potassium Level 3.9, Chloride Level 103, Carbon Dioxide Level 28, Blood Urea Nitrogen 11, Creatinine 1.3, Estimat Glomerular Filtration Rate 47.6, Glucose Level 117H, Calcium Level 8.6 Height (Feet): 5 Height (Inches): 1.00 Weight (Pounds): 176 General Appearance: no apparent distress EENT: normal ENT inspection Neck: supple Cardiovascular: normal rate Respiratory/Chest: decreased breath sounds Abdomen: normal bowel sounds, non tender, soft Extremities: non-tender Assessment/Plan Problem List: (1) Non-ST elevation (NSTEMI) myocardial infarction ICD Codes: I21.4 - Non-ST elevation (NSTEMI) myocardial infarction SNOMED: 42068712 (2) History of hypertension ICD Codes: Z86.79 - Personal history of other diseases of the circulatory syst em SNOMED: 866843923 (3) History of diabetes mellitus ICD Codes: Z86.39 - Personal history of other endocrine, nutritional and metabolic disease SNOMED: 600681802 (4) Upper GI bleeding ICD Codes: K92.2 - Gastrointestinal hemorrhage, unspecified SNOMED: 09075683 Assessment/Plan: Assessment/Plan Problem List: (1) Non-ST elevation (NSTEMI) myocardial infarction ICD Codes: I21.4 - Non-ST elevation (NSTEMI) myocardial infarction SNOMED: 17086898 (2) History of hypertension ICD Codes: Z86.79 - Personal history of other diseases of the circulatory system SNOMED: 425004332 (3) History of diabetes mellitus ICD Codes: Z86.39 - Personal history of other endocrine, nutritional and metabolic disease SNOMED: 702064125 (4) Upper GI bleeding EGD showed gastritis Recommendations s/p EGD: Assessment/Plan Problem List: (1) Non-ST elevation (NSTEMI) myocardial infarction ICD Codes: I21.4 - Non-ST elevation (NSTEMI) myocardial infarction SNOMED: 36114311 (2) History of hypertension ICD Codes: Z86.79 - Personal history of other diseases of the circulatory system SNOMED: 911625135 (3) History of diabetes mellitus ICD Codes: Z86.39 - Personal history of other endocrine, nutritional and metabolic disease SNOMED: 215000594 (4) Upper GI bleeding EGD showed gastritis Recommendations Check and treat HP if (+) Acid suppression PO as tolerated Giacomo Osborne MD Dec 24, 2019 08:26
--- NOTE | 2019-12-24 09:00 | NUR ---
NURSE NOTES: pt is stable, no stress noted, left unit for MRI.
--- NOTE | 2019-12-24 09:01 | Consultation ---
DATE OF CONSULTATION: 12/23/2019 NEUROLOGICAL CONSULTATION CONSULTING PHYSICIAN: Jj Ascencio MD. CHIEF COMPLAINT: This is [facility] admission for this 84-year-old right-handed woman with a history of hypertension and hyperlipidemia, currently on a statin. Previous history of transient ischemia and/or stroke. the patient new onset of vertigo and she was admitted with abdominal pain. The patient was admitted to this hospital on ___2018 with a history of dizziness, nausea, and vomiting. The patient had a head CT scan of the brain at that time, which revealed chronic age-related changes. The patient was discharged after workup on 01/12/2019. She was admitted from [facility] with a complaint of slurred speech with a heavy tongue and unable to speak for [address] Li noted she had a possible stroke 10 years ago. The patient had a brain MRI on 01/13/2019, which revealed a small chronic infarct in the left cerebellar hemisphere. There was possible amyloid angiopathy related to microhemorrhages were noted. There was subcortical hemosiderin deposits and extensive white matter abnormality, most likely advanced microvascular ischemia. The patient did not see a neurologist at that time. She was discharged on 01/19/2019. It was noted that the troponin went up to 8.9 with abnormal EKG and she was diagnosed with a [id number] MD and her blood pressure was significantly elevated on the admission, it was 236/102. The patient was discharged on medications with diagnoses of dementia, hypertensive emergency, acute kidney injury, hyperlipidemia, and non-ST elevated MD. She had dysarthria likely secondary to TIA. The patient was then transferred to [facility] . The patient apparently saw in his office as well. The patient on 12/19/2019 awoke with nausea and dry heaving. He had also pain, which was "10/10 in intensity," located in the epigastric area for the last two days. Laboratory studies revealed she had elevated white count of 14,600 with a left shift, normal hematocrit, and normal platelets. Chemistries revealed BUN of 19 with creatinine 1.4, glucose of 205. Liver functions had been normal. Sodium was normal. Potassium was a little low at 3.3. Amylase and lipase were normal. Urinalysis on 12/22/2019 revealed currently high bacteria, +3 leukocyte esterase, and only 2 to 4 white blood cells per high-power field. Pro time was a little high with a slightly elevated INR of 1.2. PTT was normal. EKG revealed possible left atrial enlargement. The patient did not have a CT scan of the brain. The BUN and creatinine are now normal. The patient denies diplopia, seizures, or blackout spells. The daughter states that her right eye appeared to . She denies any diplopia. Her face was "twisted to the right." she had a slight slurred speech on the day of admission, which has disappeared. There is no paresthesias or dysesthesias. She has some tremors in her fingers, especially in the right. She denies any muscle weakness. The patient could not dizziness. She denied any fever, chills, chest pain, palpitations, or shortness of breath. There is no neck pain, recent head or neck injury. She denied any dysphagia. She stopped smoking 30 years ago, maybe smoked half a package of cigarettes per day for a few years. She has no history of cancer or thyroid disease, peripheral vascular disease, or kidney disease. She may have hyperlipidemia. PAST MEDICAL HISTORY/PAST MEDICAL ILLNESSES: 1. Hypertension, see above. 2. Chronic constipation. 3. Possible diabetes type 2, elevated blood sugar at least 200. ALLERGIES: No known allergies. MEDICATIONS: She is on metoprolol, meclizine, hydralazine, aspirin 81 mg, and amlodipine. PAST SURGICAL HISTORY: pregnancies. SOCIAL HISTORY: She is a and has three children. FAMILY HISTORY: Father of kidney disease and mother probably of lung cancer. One brother has sinus cancer. Other siblings have hypertension. REVIEW OF SYSTEMS: Her appetite is fair to good. Weight is stable at 187 pounds home. Rest of the review of systems except for the above is noncontributory. Otherwise, she does have edema in her lower extremities. PHYSICAL EXAMINATION: GENERAL: She is a well-developed, obese woman, in no acute distress, lying in bed. VITAL SIGNS: Blood pressure is 147/75, pulse is 77 and regular, respiratory rate is 18 to 20, temperature 98.1 degrees. HEENT: She has arcus senilis and poor dentition. NECK: There is no tenderness to palpation. No muscle spasm or limitation of motion. Carotids are +2. No bruits. LUNGS: Clear to auscultation. CARDIOVASCULAR: Normal. No murmurs, rubs, S3, S4, or clicks appreciated. ABDOMEN: Abdomen is obese. Bowel sounds intact. No tenderness, masses, organomegaly. BACK: No tenderness to percussion or muscle spasm. EXTREMITIES: She has +1 pitting edema in the lower extremities. NEUROLOGIC: MENTAL STATUS: The patient is alert and awake. Judgment not tested. Affect is appropriate. Memory, intact to her birthday 1935. Immediate recalls 3/3 objects, recent recall 1/3 objects at 5 minutes. 3/3 with prompting. Intellect, similarities are concrete, train and bicycle have wheels. Orientation time, she knew it is 12/23/2019. She knew she was at [facility] second floor. Person, oriented to person. Language function, she can basically repeat a short sentence. Otherwise, she has no right or left confusion or finger agnosia. She had trouble spelling world backwards, getting only 2 letters. Rest of her language function was normal. There is no dysarthria. CRANIAL NERVE EXAMINATION: CRANIAL NERVE II: Visual [place] are intact to confrontation. Visual acuity not tested. CRANIAL NERVES III, IV, AND : Extraocular motility was full. Pupils are about 2.5 to 3 mm, sluggishly reactive to light. CRANIAL NERVE V: Facial and corneal sensation intact to light touch. CRANIAL NERVE VII: Facial strength is 5/5 bilaterally. CRANIAL NERVE VIII: Auditory acuity was intact bilaterally. CRANIAL NERVES X: Not tested because of the pain down there. CRANIAL NERVE XI: Sternocleidomastoid strength 5/5. CRANIAL NERVE XII: Tongue protrudes in the midline without fasciculations or atrophy. MUSCLE EXAMINATION: Muscle bulk and tone are normal. Strength is 5/5 proximally and distally with a fine tremor at any point on testing for [id number] testing. There is no real pronator drift. Reflexes are +1 in the upper extremities, +1 at the knees, 0 at the ankles with downgoing toes and testing for Babinski response. GAIT AND STATION: Not tested. SENSORY EXAMINATION: Proprioception, fine touch, and pinprick were intact. IMPRESSION: The patient states that some of her symptoms last more in a day. I would like to repeat her MRI scan of the brain and MRA of her neck and brain. I would change her aspirin to 325 mg assuming she does not have aspirin resistance. She has mild urinary tract infection, which could also be a risk factor for stroke. The patient is on Rocephin, amlodipine, Benadryl, hydralazine, lactulose, meclizine, metoprolol succinate, and Zofran solution. I do not find this patient has dementia. 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 She has it, although, but she denies it; however, she could have prediabetes. She probably has minimal cognitive impairment. PLAN: 1. Aspirin 325 mg a day. 2. MRI of the brain and MRA of the brain and neck. 3. I will speak to you about this case. Thank you for this interesting case. Jj Ascencio MD DR: KELBY JOB#: [id number] CC:
--- NOTE | 2019-12-24 10:23 | NUR ---
NURSE NOTES: pt came back from MRI, Pt is stable, will continue to monitor.
[2019-12-24] MEDS: cefTRIAXone 1 GM in D5W 55 ML IVPB SCH (10:27)
[2019-12-24 11:52] VITALS: BP 138/63
--- NOTE | 2019-12-24 12:57 | NUR ---
NURSE NOTES: Dr Pat visited pt and is aware about fever and WBC 12.8, MD will F/U. Will continue to monitor.
--- NOTE | 2019-12-24 13:06 | Pulmonology Progress Note ---
Subjective ROS Limited/Unobtainable: No Constitutional: Reports: no symptoms HEENT: Repors: no symptoms Respiratory: Reports: no symptoms Allergies: Coded Allergies: No Known Allergies (Unverified , 10/13/18) Objective Last 24 Hour Vital Signs Date Time Temp Pulse Resp B/P (MAP) Pulse Ox O2 Delivery O2 Flow Rate FiO2 12/24/19 11:52 98.2 75 18 138/63 (88) 97 12/24/19 11:30 82 12/24/19 09:00 Room Air 12/24/19 08:45 100.0 12/24/19 08:15 83 159/72 12/24/19 08:15 159/72 12/24/19 08:15 83 159/72 12/24/19 08:00 100.8 83 20 159/72 (101) 94 12/24/19 07:37 81 12/24/19 04:00 80 12/24/19 04:00 96.8 88 18 144/62 (89) 95 12/24/19 00:00 76 12/24/19 00:00 98.4 90 18 159/71 (100) 96 12/23/19 21:41 168/92 12/23/19 21:00 Room Air 12/23/19 20:00 99.1 91 20 168/92 (117) 95 12/23/19 20:00 94 12/23/19 17:27 99.0 12/23/19 16:00 100.9 94 20 156/84 (108) 96 12/23/19 15:31 93 Intake and Output 12/23/19 12/24/19 19:00 07:00 Intake Total 1675 ml 200 ml Balance 1675 ml 200 ml Intake Oral 420 ml 200 ml IV Total 1255 ml # Voids 3 2 # Bowel Movements 1 General Appearance: no acute distress, other - obese HEENT: normocephalic, atraumatic, mucous membranes moist Respiratory: chest wall non-tender, no respiratory distress Cardiovascular: normal peripheral pulses, normal rate, regular rhythm - ST on tele Abdomen: normal bowel sounds, soft, non tender - obese Genitourinary: normal external genitalia, other - R CVAT Skin: no rash, no ulcers 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, alert, oriented x 3, responsive Musculoskeletal: normal muscle bulk Microbiology Date/Time Source Procedure Growth Status 12/22/19 10:00 Urine,Clean Catch Urine Culture - Preliminary Gram Negative Alfredo Resulted Laboratory Tests 12/24/19 05:50: White Blood Count 12.8H, Red Blood Count 4.97, Hemoglobin 13.7, Hematocrit 42.7, Mean Corpuscular Volume 86, Mean Corpuscular Hemoglobin 27.6, Mean Corpuscular Hemoglobin Concent 32.1, Red Cell Distribution Width 13.9, Platelet Count 256, Mean Platelet Volume 6.0L, Neutrophils (%) (Auto) 77.0H, Lymphocytes (%) (Auto) 12.9L, Monocytes (%) (Auto) 8.1, Eosinophils (%) (Auto) 1.4, Basophils (%) (Auto) 0.6, Sodium Level 137, Potassium Level 3.9, Chloride Level 103, Carbon Dioxide Level 28, Blood Urea Nitrogen 11, Creatinine 1.3, Estimat Glomerular Filtration Rate 47.6, Glucose Level 117H, Calcium Level 8.6 Current Medications Medications (Trade) Dose Ordered Sig/Radha Route PRN Reason Start Time Stop Time Status Last Admin Dose Admin Acetaminophen (Tylenol) 650 mg Q4H PRN ORAL fever 12/19/19 15:45 01/18/20 15:44 12/24/19 08:15 Amlodipine Besylate (Norvasc) 10 mg DAILY ORAL 12/20/19 09:00 01/19/20 08:59 12/24/19 08:15 Aspirin (ASA) 325 mg DAILY ORAL 12/24/19 09:00 02/07/20 08:59 12/24/19 08:15 Carvedilol (Coreg) 6.25 mg EVERY 12 HOURS ORAL 12/24/19 09:00 01/23/20 08:59 12/24/19 08:15 Ceftriaxone Sodium 1 gm/ Dextrose 55 ml @ 110 mls/hr Q24H IVPB 12/23/19 10:30 12/30/19 10:29 12/24/19 10:27 Dextrose (Dextrose 50%) 25 ml Q30M PRN IV Hypoglycemia 12/19/19 15:45 03/18/20 15:44 Dextrose (Dextrose 50%) 50 ml Q30M PRN IV Hypoglycemia 12/19/19 15:45 03/18/20 15:44 Diphenhydramine HCl (Benadryl) 25 mg Q6H PRN ORAL Itching/Pruritis 12/19/19 15:45 01/18/20 15:44 Docusate Sodium (Colace) 100 mg TWICE A DAY ORAL 12/20/19 18:00 01/19/20 17:59 12/24/19 08:14 Gadobutrol (Gadavist) 7.5 mmol NOW PRN IV Radiology Procedure 12/23/19 12:00 12/26/19 11:59 Hydralazine HCl (Apresoline) 50 mg DAILY ORAL 12/20/19 09:00 03/19/20 08:59 12/24/19 08:15 Hydralazine HCl (Apresoline) 50 mg Q6H PRN ORAL SBP >160 12/23/19 21:45 03/22/20 21:44 Lactulose (Cephulac) 20 gm BID ORAL 12/20/19 18:00 01/19/20 17:59 12/24/19 08:14 Meclizine HCl (Antivert) 25 mg Q6H PRN ORAL for dizziness 12/20/19 12:00 01/19/20 11:59 Ondansetron HCl (Zofran) 4 mg Q6H PRN IVP Nausea & Vomiting 12/19/19 15:45 01/18/20 15:44 Pantoprazole (Protonix) 40 mg EVERY 12 HOURS ORAL 12/23/19 21:00 01/22/20 20:59 12/24/19 08:15 Polyethylene Glycol (Miralax) 17 gm BEDTIME ORAL 12/20/19 21:00 01/19/20 20:59 12/23/19 21:41 Potassium Chloride 20 meq/ Dextrose/Sodium Chloride 1,010 ml @ 100 mls/hr Q10H6M IV 12/20/19 12:30 01/18/20 12:29 12/24/19 08:14 Sucralfate (Carafate) 1 gm FOUR TIMES A DAY ORAL 12/23/19 18:00 03/22/20 17:59 12/24/19 12:00 Temazepam (Restoril) 15 mg HSPRN PRN ORAL Insomnia 12/19/19 15:45 12/26/19 15:44 Assessment/Plan Problems: (1) Fever (2) Upper GI bleeding (3) Episode of dizziness (4) Intractable nausea and vomiting (5) Constipation (6) History of hypertension (7) History of diabetes mellitus (8) Elevated troponin Assessment/Plan febrile, lewis culture, ID evauation f/u WBC iv fluids symptomatic treatment H2 blockers prbc prn antiemetics Antivert neuro evaluation appreciated dvt prophylaxis with SCD Laci Pat MD Dec 24, 2019 13:06
--- NOTE | 2019-12-24 13:24 | Diagnostic Imaging Report ---
Indication: Shortness of breath Technique: One view of the chest Comparison: 01/15/2019 Findings: Less optimal inspiration currently. Hazy opacities at the lung bases most likely represent overlying soft tissue. No definite acute infiltrates, effusions, or congestion. Normal heart size. Tortuous calcified aorta. No significant change Impression: No acute process
--- NOTE | 2019-12-24 13:45 | NUR ---
RADIOLOGY DEPT. CHEST X-RAY DONE.-P.DYE
--- NOTE | 2019-12-24 13:49 | Diagnostic Imaging Report ---
Indications: New onset of vertigo, nausea, vomiting Technique: 3D [id number] images obtained through the [place]. MIP reconstructions were generated in multiple rotational projections Comparison: none. Reference made to brain MRI performed at same time Findings: Patent codominant nonstenotic bilateral intracranial vertebral arteries. Patent bilateral PICA cyst. Patent proximal bilateral AICAs. Patent bilateral superior cerebellar arteries. Patent nonstenotic bilateral middle cerebral arteries. Patent left, nonvisualized right posterior communicating arteries. Patent nonstenotic bilateral distal internal carotid arteries. Patent nonstenotic bilateral middle cerebral arteries and proximal branches. Patent nonstenotic bilateral anterior cerebral arteries and proximal branches. No anterior communicating artery demonstrated. No evidence of aneurysm or vascular malformation Impression: No evidence of proximal intracranial cerebrovascular insufficiency [place] anatomy as described
--- NOTE | 2019-12-24 14:07 | NUR ---
CASE MANAGEMENT:REVIEW 12/24/19 SI: UGIB. PERSISTENT RT FLANK PAIN 100.8 83 20 159/72 94% ON RA WBC+12.6 IS: IV ROCEPHIN Q24 IVF@100/HR COREG PO Q12 ASA PO QD PROTONIX PO Q12 CARAFATE PO QID LACTULOSE PO BID HYDRALAZINE PO QD NORVASC PO QD : TELEMETRY STATUS DCP: FROM HOME PLAN: URINE AND BLOOD CULTURES PENDING
--- NOTE | 2019-12-24 14:09 | Diagnostic Imaging Report ---
Indication: Vertigo Technique: sagittal T1 fast spin echo, axial T1 FLAIR, axial T2 FLAIR, axial T2 FS PROPELLER, axial T2* GRE, axial diffusion weighted images. ADC and exponential ADC maps generated Comparison: 01/13/2019, also brain CT 12/23/2019 Findings: There is a tiny focus of restricted diffusion in the right high parietal deep white matter. No associated T2 abnormality. No other abnormal foci of restricted diffusion demonstrated. No acute hemorrhage or edema. There are numerous scattered punctate foci of susceptibility artifact seen on the GRE images, most notably in the right temporal and frontal lobes but also seen in the left basal ganglia and left parietal lobe, largely unchanged. No mass effect nor midline shift. There is age-related enlargement of the ventricles and extra axial CSF spaces. There is periventricular deep white matter high T2 signal, consistent with chronic microvascular ischemic changes. The cerebellopontine angle regions are unremarkable. Visualized orbits and sinuses are unremarkable. The mastoids are clear.. Visualized orbits and sinuses are unremarkable. Impression: Evidence of tiny acute white matter infarct in the high right parietal deep white matter Negative for acute intracranial bleed or mass effect Evidence of multiple prior microhemorrhages, also previously demonstrated, distribution suggestive of amyloid angiopathy Other chronic and age-related changes, as described
--- NOTE | 2019-12-24 14:26 | Consultation ---
History of Present Illness General Date patient seen: Dec 24, 2019 Chief Complaint: Dizziness Present Illness HPI 84 y/o F with hx of HTN, OA, HLD TIA/CVA, Dm2, chronic constipation presented to ED on with 2 days of new onset vertigo, nausea, vomiting with some fresh red blood, generalized weakness and epigastric abd pain Denied f/c, neck pain, photophobia, SOMMERS, dysuria, fall, head trauma Esophagitis -12/20 SP EGD: diffuse atrophic gastritis. Biopsy from antrum was obtained to rule out H. pylori infection. At the GE junction, there was some irregularity of the Z-line. Biopsy from the GE junction was also obtained. Allergies: Coded Allergies: No Known Allergies (Unverified , 10/13/18) Medication History Scheduled Amlodipine Besylate* (Amlodipine Besylate*), 10 MG ORAL DAILY, (Reported) Aspirin* (Aspirin*), 81 MG ORAL DAILY, (Reported) Hydralazine Hcl* (Hydralazine Hcl*), 50 MG ORAL DAILY, (Reported) Meclizine Hcl* (Meclizine*), 25 MG ORAL DAILY, (Reported) Metoprolol Succinate* (Metoprolol Succinate*), 50 MG ORAL DAILY, (Reported) Patient History Healthcare decision maker Resuscitation status Advanced Directive on File Patient History Narrative Pmhx: as above Shx: She is a and has three children. The patient denies any tobacco, alcohol, or drug abuse. Fhx: non contributory Physical Exam Physical Exam Narrative General Appearance: no apparent distress EENT: normal ENT inspection Neck: supple Cardiovascular: normal rate Respiratory/Chest: decreased breath sounds Abdomen: normal bowel sounds, non tender, soft Extremities: non-tender Last 24 Hour Vital Signs Date Time Temp Pulse Resp B/P (MAP) Pulse Ox O2 Delivery O2 Flow Rate FiO2 12/24/19 11:52 98.2 75 18 138/63 (88) 97 12/24/19 11:30 82 12/24/19 09:00 Room Air 12/24/19 08:45 100.0 12/24/19 08:15 83 159/72 12/24/19 08:15 159/72 12/24/19 08:15 83 159/72 12/24/19 08:00 100.8 83 20 159/72 (101) 94 12/24/19 07:37 81 12/24/19 04:00 80 12/24/19 04:00 96.8 88 18 144/62 (89) 95 12/24/19 00:00 76 12/24/19 00:00 98.4 90 18 159/71 (100) 96 12/23/19 21:41 168/92 12/23/19 21:00 Room Air 12/23/19 20:00 99.1 91 20 168/92 (117) 95 12/23/19 20:00 94 12/23/19 17:27 99.0 12/23/19 16:00 100.9 94 20 156/84 (108) 96 12/23/19 15:31 93 Intake and Output 12/23/19 12/24/19 19:00 07:00 Intake Total 1675 ml 200 ml Balance 1675 ml 200 ml Intake Oral 420 ml 200 ml IV Total 1255 ml # Voids 3 2 # Bowel Movements 1 Laboratory Tests Test 12/24/19 05:50 White Blood Count 12.8 K/UL (4.8-10.8) H Red Blood Count 4.97 M/UL (4.20-5.40) Hemoglobin 13.7 G/DL (12.0-16.0) Hematocrit 42.7 % (37.0-47.0) Mean Corpuscular Volume 86 FL (80-99) Mean Corpuscular Hemoglobin 27.6 PG (27.0-31.0) Mean Corpuscular Hemoglobin Concent 32.1 G/DL (32.0-36.0) Red Cell Distribution Width 13.9 % (11.6-14.8) Platelet Count 256 K/UL (150-450) Mean Platelet Volume 6.0 FL (6.5-10.1) L Neutrophils (%) (Auto) 77.0 % (45.0-75.0) H Lymphocytes (%) (Auto) 12.9 % (20.0-45.0) L Monocytes (%) (Auto) 8.1 % (1.0-10.0) Eosinophils (%) (Auto) 1.4 % (0.0-3.0) Basophils (%) (Auto) 0.6 % (0.0-2.0) Sodium Level 137 MMOL/L (136-145) Potassium Level 3.9 MMOL/L (3.5-5.1) Chloride Level 103 MMOL/L (98-107) Carbon Dioxide Level 28 MMOL/L (21-32) Blood Urea Nitrogen 11 mg/dL (7-18) Creatinine 1.3 MG/DL (0.55-1.30) Estimat Glomerular Filtration Rate 47.6 mL/min (>60) Glucose Level 117 MG/DL (74-106) H Calcium Level 8.6 MG/DL (8.5-10.1) Height (Feet): 5 Height (Inches): 1.00 Weight (Pounds): 176 Medications Current Medications Medications (Trade) Dose Ordered Sig/Radha Route PRN Reason Start Time Stop Time Status Last Admin Dose Admin Acetaminophen (Tylenol) 650 mg Q4H PRN ORAL fever 12/19/19 15:45 01/18/20 15:44 12/24/19 08:15 Amlodipine Besylate (Norvasc) 10 mg DAILY ORAL 12/20/19 09:00 01/19/20 08:59 12/24/19 08:15 Aspirin (ASA) 325 mg DAILY ORAL 12/24/19 09:00 02/07/20 08:59 12/24/19 08:15 Carvedilol (Coreg) 6.25 mg EVERY 12 HOURS ORAL 12/24/19 09:00 01/23/20 08:59 12/24/19 08:15 Ceftriaxone Sodium 1 gm/ Dextrose 55 ml @ 110 mls/hr Q24H IVPB 12/23/19 10:30 12/30/19 10:29 12/24/19 10:27 Dextrose (Dextrose 50%) 25 ml Q30M PRN IV Hypoglycemia 12/19/19 15:45 03/18/20 15:44 Dextrose (Dextrose 50%) 50 ml Q30M PRN IV Hypoglycemia 12/19/19 15:45 03/18/20 15:44 Diphenhydramine HCl (Benadryl) 25 mg Q6H PRN ORAL Itching/Pruritis 12/19/19 15:45 01/18/20 15:44 Docusate Sodium (Colace) 100 mg TWICE A DAY ORAL 12/20/19 18:00 01/19/20 17:59 12/24/19 08:14 Gadobutrol (Gadavist) 7.5 mmol NOW PRN IV Radiology Procedure 12/23/19 12:00 12/26/19 11:59 Hydralazine HCl (Apresoline) 50 mg DAILY ORAL 12/20/19 09:00 03/19/20 08:59 12/24/19 08:15 Hydralazine HCl (Apresoline) 50 mg Q6H PRN ORAL SBP >160 12/23/19 21:45 03/22/20 21:44 Lactulose (Cephulac) 20 gm BID ORAL 12/20/19 18:00 01/19/20 17:59 12/24/19 08:14 Meclizine HCl (Antivert) 25 mg Q6H PRN ORAL for dizziness 12/20/19 12:00 01/19/20 11:59 Ondansetron HCl (Zofran) 4 mg Q6H PRN IVP Nausea & Vomiting 12/19/19 15:45 01/18/20 15:44 Pantoprazole (Protonix) 40 mg EVERY 12 HOURS ORAL 12/23/19 21:00 01/22/20 20:59 12/24/19 08:15 Polyethylene Glycol (Miralax) 17 gm BEDTIME ORAL 12/20/19 21:00 01/19/20 20:59 12/23/19 21:41 Potassium Chloride 20 meq/ Dextrose/Sodium Chloride 1,010 ml @ 100 mls/hr Q10H6M IV 12/20/19 12:30 01/18/20 12:29 12/24/19 08:14 Sucralfate (Carafate) 1 gm FOUR TIMES A DAY ORAL 12/23/19 18:00 03/22/20 17:59 12/24/19 12:00 Temazepam (Restoril) 15 mg HSPRN PRN ORAL Insomnia 12/19/19 15:45 12/26/19 15:44 Assessment/Plan Assessment/Plan: Abx: Ceftriaxone 12/22- Assessment: COVID19 neg x1 -12/19 rapid COVID PCR neg Sepsis Probable UTI -12/21 u/a wbc 2-4, nit neg, cyn +3; ucx >100k GNR Ro probable bacteremia Low grade fever (new onset) Leukocytosis, improved -12/23 CXR: no acute process -12/22 Bcx p Esophagitis/gastritis UGIB -12/20 SP EGD: diffuse atrophic gastritis. Biopsy from antrum was obtained to rule out H. pylori infection. At the GE junction, there was some i rregularity of the Z-line. Biopsy from the GE junction was also obtained. -12/18 CT C/abd/p w/: Thickening of the wall the distal stomach which may suggest a gastritis. Findings suggesting mild to moderate rectal fecal impaction. No evidence of bowel obstruction. No free intraperitoneal air or fluid. Dependent atelectasis in the lung bases, somewhat more pronounced in the right lung base and the possibility of small aspiration versus developing infiltrate in this region not excluded. Atherosclerotic disease.2 cm simple cysts in segment II of the liver. Additional subcentimeter hypodense liver lesions too small to fully characterize but may represent cysts or hemangiomas. Dizziness/Vertigo -MRI brain/MRA neck: No evidence of proximal intracranial cerebrovascular insufficiency. [place] anatomy as described -CT head wo: No acute intracranial findings. Chronic age-related changes.. HTN OA HLD TIA/CVA Dm2 chronic constipation Plan: -Continue empiric Ceftriaxone #2 pending cultures -f/u cx -Monitor CBC/CMP, temperatures -GI, neuro f/u Thank you for this consultation. Will continue to follow along with you. Discussed with Izaebl Lopez M.D. Dec 24, 2019 14:26
--- NOTE | 2019-12-24 14:58 | Diagnostic Imaging Report ---
Indication: Vertigo Technique: Axial 2-D [id number] noncontrast images were obtained through the extracranial cerebral circulation, and MIP reconstructions were generated. Subsequently, IV administration of gadolinium contrast. Coronal multiphasic TRICKS acquisitions obtained through the cerebral circulation. MIP reconstructions were generated. Comparison: none Findings: [id number]-[id number] images are markedly suboptimal, due to motion artifact. Unremarkable aortic arch. Patent nonstenotic right brachiocephalic artery. Patent nonstenotic right common carotid artery. There is mild narrowing of the right internal carotid artery at the carotid bifurcation. There is suggestion of an ulceration, however. The remainder of the internal carotid artery is patent without significant stenosis. The left proximal subclavian artery is patent, nonstenotic. The proximal left vertebral artery is very poorly visualized, and narrowing at this area cannot be ruled out. There is mild stenosis of the distal intraforaminal portion of the right vertebral artery. The left proximal subclavian artery is not well visualized, grossly patent and nonstenotic. The proximal left vertebral artery is poorly visualized, and significant stenosis in this area cannot be excluded. There is suggestion of a moderate to severe stenosis of the distal intraforaminal extracranial left vertebral artery. Patent nonstenotic left common carotid artery. Patent nonstenotic left internal carotid artery. Impression: Very limited exam, as described Suspect significant stenosis of the mid to distal left vertebral artery. There is atherosclerotic plaquing of the right carotid bifurcation. No significant stenosis but there may be an ulcer Mild stenosis: Less than 50% diameter Moderate stenosis: 50-69% diameter Severe stenosis: 70+% diameter All stenosis measurements are based on NASCET criteria, using normal distal vessel diameter as the denominator
[2019-12-24 16:00] VITALS: BP 105/55
--- NOTE | 2019-12-24 17:55 | Neurology Progress Note ---
Interim History Interim History ROS Limited/Unobtainable: No Interim History patient without change.mri suggests right parietal cva small .no new sx. Review of Systems Neuro Review of Systems no change Objective Physical Exam Last Vital Signs Date Time Temp Pulse Resp B/P (MAP) Pulse Ox O2 Delivery O2 Flow Rate FiO2 12/24/19 16:00 97.5 88 20 105/55 (72) 96 12/24/19 09:00 Room Air 12/21/19 14:20 3 Laboratory Tests Test 12/24/19 05:50 White Blood Count 12.8 K/UL (4.8-10.8) H Red Blood Count 4.97 M/UL (4.20-5.40) Hemoglobin 13.7 G/DL (12.0-16.0) Hematocrit 42.7 % (37.0-47.0) Mean Corpuscular Volume 86 FL (80-99) Mean Corpuscular Hemoglobin 27.6 PG (27.0-31.0) Mean Corpuscular Hemoglobin Concent 32.1 G/DL (32.0-36.0) Red Cell Distribution Width 13.9 % (11.6-14.8) Platelet Count 256 K/UL (150-450) Mean Platelet Volume 6.0 FL (6.5-10.1) L Neutrophils (%) (Auto) 77.0 % (45.0-75.0) H Lymphocytes (%) (Auto) 12.9 % (20.0-45.0) L Monocytes (%) (Auto) 8.1 % (1.0-10.0) Eosinophils (%) (Auto) 1.4 % (0.0-3.0) Basophils (%) (Auto) 0.6 % (0.0-2.0) Sodium Level 137 MMOL/L (136-145) Potassium Level 3.9 MMOL/L (3.5-5.1) Chloride Level 103 MMOL/L (98-107) Carbon Dioxide Level 28 MMOL/L (21-32) Blood Urea Nitrogen 11 mg/dL (7-18) Creatinine 1.3 MG/DL (0.55-1.30) Estimat Glomerular Filtration Rate 47.6 mL/min (>60) Glucose Level 117 MG/DL (74-106) H Calcium Level 8.6 MG/DL (8.5-10.1) Neurologic Exam Mental Status: other - awake or.*4 can spell world backwards Cranial Nerve II: other - visual [place] intact Cranial Nerves III, IV, : other - eoms full pupils 3.00 mm intact to light Cranial Nerve V: normal facial sensations - normal facial sensations Cranial Nerve VII: no facial asymmetry, other - normal Cranial Nerve VIII: normal hearing - normal hearing Cranial Nerve XI: other - scm 5/5 Cranial Nerve XII: tongue midline - tongue midline Motor System: other - 4+/5 strength on left Coordination: other - normal Deep Tendon Reflexes: 0 ankle (L), 0 ankle (R); 1+ bicep (L), 1+ bicep (R), 1+ tricep (L), 1+ tricep (R), 1+ brachioradialis (L), 1+ brachioradialis (R), 1+ knee (R); 2+ knee (L) Gait: other - uses Jj Bowman MD Dec 24, 2019 17:55
--- NOTE | 2019-12-24 18:01 | Neurology Progress Note ---
Interim History Interim History ROS Limited/Unobtainable: No Objective Physical Exam Last Vital Signs Date Time Temp Pulse Resp B/P (MAP) Pulse Ox O2 Delivery O2 Flow Rate FiO2 12/24/19 16:00 97.5 88 20 105/55 (72) 96 12/24/19 09:00 Room Air 12/21/19 14:20 3 Laboratory Tests Test 12/24/19 05:50 White Blood Count 12.8 K/UL (4.8-10.8) H Red Blood Count 4.97 M/UL (4.20-5.40) Hemoglobin 13.7 G/DL (12.0-16.0) Hematocrit 42.7 % (37.0-47.0) Mean Corpuscular Volume 86 FL (80-99) Mean Corpuscular Hemoglobin 27.6 PG (27.0-31.0) Mean Corpuscular Hemoglobin Concent 32.1 G/DL (32.0-36.0) Red Cell Distribution Width 13.9 % (11.6-14.8) Platelet Count 256 K/UL (150-450) Mean Platelet Volume 6.0 FL (6.5-10.1) L Neutrophils (%) (Auto) 77.0 % (45.0-75.0) H Lymphocytes (%) (Auto) 12.9 % (20.0-45.0) L Monocytes (%) (Auto) 8.1 % (1.0-10.0) Eosinophils (%) (Auto) 1.4 % (0.0-3.0) Basophils (%) (Auto) 0.6 % (0.0-2.0) Sodium Level 137 MMOL/L (136-145) Potassium Level 3.9 MMOL/L (3.5-5.1) Chloride Level 103 MMOL/L (98-107) Carbon Dioxide Level 28 MMOL/L (21-32) Blood Urea Nitrogen 11 mg/dL (7-18) Creatinine 1.3 MG/DL (0.55-1.30) Estimat Glomerular Filtration Rate 47.6 mL/min (>60) Glucose Level 117 MG/DL (74-106) H Calcium Level 8.6 MG/DL (8.5-10.1) Neurologic Exam Mental Status: other - awake or.*4 can spell [place] backwards Cranial Nerve II: other - visual [place] intact Cranial Nerves III, IV, : other - eoms full pupils 3.00 mm intact to light Cranial Nerve V: normal facial sensations - normal facial sensations Cranial Nerve VII: no facial asymmetry, other - normal Cranial Nerve VIII: normal hearing - normal hearing Cranial Nerve XI: other - scm 5/5 Cranial Nerve XII: tongue midline - tongue midline Motor System: other - 4+/5 strength on left Coordination: other - normal Deep Tendon Reflexes: 0 ankle (L), 0 ankle (R); 1+ bicep (L), 1+ bicep (R), 1+ tricep (L), 1+ tricep (R), 1+ brachioradialis (L), 1+ brachioradialis (R), 1+ knee (R); 2+ knee (L) Gait: other - uses walker Impression/Recommendations Diagnostic Impression small cva right possible ulcer right carotid and stenotic vertebral arteries Recommendations continue asa 325 mg and plavix 75mg for 3 months only Jj Ascencio MD Dec 24, 2019 18:01
--- NOTE | 2019-12-24 18:48 | Internal Med Progress Note ---
Subjective Date of Service: Dec 24, 2019 Physician Name JenShailesh Attending Physician Oscar Stanton MD Current Medications Medications (Trade) Dose Ordered Sig/Radha Route PRN Reason Start Time Stop Time Status Last Admin Dose Admin Acetaminophen (Tylenol) 650 mg Q4H PRN ORAL fever 12/19/19 15:45 01/18/20 15:44 12/24/19 08:15 Amlodipine Besylate (Norvasc) 10 mg DAILY ORAL 12/20/19 09:00 01/19/20 08:59 12/24/19 08:15 Aspirin (ASA) 325 mg DAILY ORAL 12/24/19 09:00 02/07/20 08:59 12/24/19 08:15 Carvedilol (Coreg) 6.25 mg EVERY 12 HOURS ORAL 12/24/19 09:00 01/23/20 08:59 12/24/19 08:15 Ceftriaxone Sodium 1 gm/ Dextrose 55 ml @ 110 mls/hr Q24H IVPB 12/23/19 10:30 12/30/19 10:29 12/24/19 10:27 Dextrose (Dextrose 50%) 25 ml Q30M PRN IV Hypoglycemia 12/19/19 15:45 03/18/20 15:44 Dextrose (Dextrose 50%) 50 ml Q30M PRN IV Hypoglycemia 12/19/19 15:45 03/18/20 15:44 Diphenhydramine HCl (Benadryl) 25 mg Q6H PRN ORAL Itching/Pruritis 12/19/19 15:45 01/18/20 15:44 Docusate Sodium (Colace) 100 mg TWICE A DAY ORAL 12/20/19 18:00 01/19/20 17:59 12/24/19 08:14 Gadobutrol (Gadavist) 7.5 mmol NOW PRN IV Radiology Procedure 12/23/19 12:00 12/26/19 11:59 Hydralazine HCl (Apresoline) 50 mg DAILY ORAL 12/20/19 09:00 03/19/20 08:59 12/24/19 08:15 Hydralazine HCl (Apresoline) 50 mg Q6H PRN ORAL SBP >160 12/23/19 21:45 03/22/20 21:44 Lactulose (Cephulac) 20 gm BID ORAL 12/20/19 18:00 01/19/20 17:59 12/24/19 08:14 Meclizine HCl (Antivert) 25 mg Q6H PRN ORAL for dizziness 12/20/19 12:00 01/19/20 11:59 Ondansetron HCl (Zofran) 4 mg Q6H PRN IVP Nausea & Vomiting 12/19/19 15:45 01/18/20 15:44 Pantoprazole (Protonix) 40 mg EVERY 12 HOURS ORAL 12/23/19 21:00 01/22/20 20:59 12/24/19 08:15 Polyethylene Glycol (Miralax) 17 gm BEDTIME ORAL 12/20/19 21:00 01/19/20 20:59 12/23/19 21:41 Potassium Chloride 20 meq/ Dextrose/Sodium Chloride 1,010 ml @ 100 mls/hr Q10H6M IV 12/20/19 12:30 01/18/20 12:29 12/24/19 08:14 Sucralfate (Carafate) 1 gm FOUR TIMES A DAY ORAL 12/23/19 18:00 03/22/20 17:59 12/24/19 17:13 Temazepam (Restoril) 15 mg HSPRN PRN ORAL Insomnia 12/19/19 15:45 12/26/19 15:44 Allergies: Coded Allergies: No Known Allergies (Unverified , 10/13/18) ROS Limited/Unobtainable: No Constitutional: Reports: no symptoms HEENT: Reports: no symptoms Cardiovascular: Reports: no symptoms Respiratory: Reports: no symptoms Gastrointestinal/Abdominal: Reports: no symptoms Genitourinary: Reports: no symptoms Neurologic/Psychiatric: Reports: no symptoms Subjective 84 YO F admitted with Upper GI bleed. Now esophagitis. S/P endoscopy 12/21/19. Cover for Int Miles Stanton. C/O dizziness Objective Last Vital Signs Date Time Temp Pulse Resp B/P (MAP) Pulse Ox O2 Delivery O2 Flow Rate FiO2 12/24/19 16:00 97.5 88 20 105/55 (72) 96 12/24/19 09:00 Room Air 12/21/19 14:20 3 Laboratory Tests Test 12/24/19 05:50 White Blood Count 12.8 K/UL (4.8-10.8) H Red Blood Count 4.97 M/UL (4.20-5.40) Hemoglobin 13.7 G/DL (12.0-16.0) Hematocrit 42.7 % (37.0-47.0) Mean Corpuscular Volume 86 FL (80-99) Mean Corpuscular Hemoglobin 27.6 PG (27.0-31.0) Mean Corpuscular Hemoglobin Concent 32.1 G/DL (32.0-36.0) Red Cell Distribution Width 13.9 % (11.6-14.8) Platelet Count 256 K/UL (150-450) Mean Platelet Volume 6.0 FL (6.5-10.1) L Neutrophils (%) (Auto) 77.0 % (45.0-75.0) H Lymphocytes (%) (Auto) 12.9 % (20.0-45.0) L Monocytes (%) (Auto) 8.1 % (1.0-10.0) Eosinophils (%) (Auto) 1.4 % (0.0-3.0) Basophils (%) (Auto) 0.6 % (0.0-2.0) Sodium Level 137 MMOL/L (136-145) Potassium Level 3.9 MMOL/L (3.5-5.1) Chloride Level 103 MMOL/L (98-107) Carbon Dioxide Level 28 MMOL/L (21-32) Blood Urea Nitrogen 11 mg/dL (7-18) Creatinine 1.3 MG/DL (0.55-1.30) Estimat Glomerular Filtration Rate 47.6 mL/min (>60) Glucose Level 117 MG/DL (74-106) H Calcium Level 8.6 MG/DL (8.5-10.1) Microbiology Date/Time Source Procedure Growth Status 12/22/19 10:00 Urine,Clean Catch Urine Culture - Preliminary Gram Negative Alfredo Resulted Intake and Output 12/23/19 12/24/19 19:00 07:00 Intake Total 1675 ml 300 ml Balance 1675 ml 300 ml Intake Oral 420 ml 200 ml IV Total 1255 ml 100 ml # Voids 3 2 # Bowel Movements 1 Objective Objective GENERAL: Awake, responsive, in no acute distress. HEAD AND NECK: Pupils are equal and reactive to light. Extraocular movements intact. Neck was supple. No JVD. LUNGS: Good air entry. No wheezing or rales. Decreased air in the bases. HEART: S1, S2. Distant heart sounds. No murmur or gallops. ABDOMEN: Soft. less Epigastric tenderness. No rebound tenderness. No fluid shift. Mildly obese. EXTREMITIES: No cyanosis, clubbing, or edema. NEUROLOGIC: Cranial nerves II through XII are grossly intact. Motor is 5/5 in all extremities. RECTAL: Refused and deferred. : Refused and deferred. PSYCHIATRIC: Mood and affect is intact. Assessment/Plan Assessment/Plan Assessment/Plan Assessment/Plan Assessment/Plan ASSESSMENT: 1. GI bleed. 2. History of hypertension. 3. Dizziness and off balance, most likely secondary to dehydration and hypokalemia. 4. History of CVA and TIA. 5. Chronic constipation. 6. Acute kidney injury, most likely secondary to the prerenal azotemia. 7. Hypokalemia. 8. Esophagitis 9. vertigo PLAN: In monitored unit. Monitor laboratory. IV hydration. Dr. Osborne, Gastroenterology. EGD: Esophagitis (12/21/2019) Await MRI brain result Shailesh Li MD Dec 24, 2019 18:48
--- NOTE | 2019-12-24 19:33 | NUR ---
NURSE HAND-OFF REPORT: Important Events on Shift: Patient Status: Diet: Pending Orders: Pending Results/Labs: Pending MD notification: Latest Vital Signs: Temperature 97.5 , Pulse 88 , B/P 105 /55 , Respiratory Rate 20 , O2 SAT 96 , Room Air, O2 Flow Rate 3 . Vital Sign Comment: EKG Rhythm: Sinus Rhythm Rhythm change?: N MD Notified?: - MD Response: Latest Sullivan Fall Score: 55 Fall Risk: High Risk Safety Measures: Call light Within Reach, Bed Alarm Zone 1, Side Rails Side Rails x3, Bed position Low and Locked. Fall Precautions: Yellow Socks Yellow Gown Door Sign Patient Fall Education Report given to . pt is awake and stable, no stress noted. Endorsed plan of care. Endorsed to monitor fever.
--- NOTE | 2019-12-24 19:47 | NUR ---
NURSE NOTES: Received patient report from PAUL Torres. Patient shows no signs of distress or pain at the time. She is AO x4. She is on room air and shows no signs of respiratory distress. IV was changed during day shift. Its intact and patent. Running D5 NS w 20KCL @100. There are no signs of infiltration, erythema, or bleeding. Bed is in the lowest position, call light is within reach, side rails up x3. Will continue to monitor.
[2019-12-24 20:00] VITALS: BP 164/74
[2019-12-24] MEDS: Miralax 17gm pkt ORAL SCH (20:35)
--- NOTE | 2019-12-24 21:42 | NUR ---
NURSE NOTES: Patients heart rate went up to 103 sinus tachycardia. Patient shows no signs of distress or pain. Dr. Stanton informed per protocol.
[2019-12-25] VITALS: BP 135/73
[2019-12-25 04:00] VITALS: BP 145/71
--- NOTE | 2019-12-25 06:30 | General Progress Note ---
Subjective ROS Limited/Unobtainable: No Allergies: Coded Allergies: No Known Allergies (Unverified , 10/13/18) Objective Last 24 Hour Vital Signs Date Time Temp Pulse Resp B/P (MAP) Pulse Ox O2 Delivery O2 Flow Rate FiO2 12/25/19 04:00 90 12/25/19 04:00 97.7 95 18 145/71 (95) 96 12/25/19 00:00 93 12/25/19 00:00 98.6 100 20 135/73 (93) 95 12/24/19 21:00 Room Air 12/24/19 20:36 101 164/74 12/24/19 20:00 103 12/24/19 20:00 98.6 101 20 164/74 (104) 96 12/24/19 16:00 97.5 88 20 105/55 (72) 96 12/24/19 15:13 86 12/24/19 11:52 98.2 75 18 138/63 (88) 97 12/24/19 11:30 82 12/24/19 09:00 Room Air 12/24/19 08:45 100.0 12/24/19 08:15 83 159/72 12/24/19 08:15 159/72 12/24/19 08:15 83 159/72 12/24/19 08:00 100.8 83 20 159/72 (101) 94 12/24/19 07:37 81 Intake and Output 12/24/19 12/25/19 19:00 07:00 Intake Total 1455 ml 618.3 ml Balance 1455 ml 618.3 ml Intake Oral 400 ml IV Total 1055 ml 618.3 ml # Voids 3 Height (Feet): 5 Height (Inches): 1.00 Weight (Pounds): 176 General Appearance: alert EENT: normal ENT inspection Neck: normal alignment Cardiovascular: normal rate Respiratory/Chest: lungs clear Abdomen: normal bowel sounds, non tender, soft Extremities: non-tender Assessment/Plan Problem List: (1) Non-ST elevation (NSTEMI) myocardial infarction ICD Codes: I21.4 - Non-ST elevation (NSTEMI) myocardial infarction SNOMED: 10110184 (2) History of hypertension ICD Codes: Z86.79 - Personal history of other diseases of the circulatory system SNOMED: 148722762 (3) History of diabetes mellitus ICD Codes: Z86.39 - Personal history of other endocrine, nutritional and metabolic disease SNOMED: 911576944 (4) Upper GI bleeding ICD Codes: K92.2 - Gastrointestinal hemorrhage, unspecified SNOMED: 07691598 Assessment/Plan: s/p EGD: Assessment/Plan Problem List: (1) Non-ST elevation (NSTEMI) myocardial infarction ICD Codes: I21.4 - Non-ST elevation (NSTEMI) myocardial infarction SNOMED: 98120639 (2) History of hypertension ICD Codes: Z86.79 - Personal history of other diseases of the circulatory system SNOMED: 049405816 (3) History of diabetes mellitus ICD Codes: Z86.39 - Personal history of other endocrine, nutritional and metabolic disease SNOMED: 000708451 (4) Upper GI bleeding EGD showed gastritis Recommendations Check and treat HP if (+) Acid suppression PO as tolerated Giacomo Osborne MD Dec 25, 2019 06:30
--- NOTE | 2019-12-25 07:24 | NUR ---
NURSE HAND-OFF REPORT: Important Events on Shift:[NA] Patient Status: [full code] Diet: [Cardiac] Pending Orders: [NA] Pending Results/Labs:[]NA Pending MD notification:[] Latest Vital Signs: Temperature 97.7 , Pulse 95 , B/P 145 /71 , Respiratory Rate 18 , O2 SAT 96 , Room Air, O2 Flow Rate 3 . Vital Sign Comment: [NA] EKG Rhythm: Sinus Rhythm Rhythm change?: N MD Notified?: - MD Response: Latest Sullivan Fall Score: 55 Fall Risk: High Risk Safety Measures: Call light Within Reach, Bed Alarm Zone 1, Side Rails Side Rails x3, Bed position Low and Locked. Fall Precautions: Yellow Socks Yellow Gown Door Sign Patient Fall Education Report given to []PAUL Kumar.
--- NOTE | 2019-12-25 07:35 | NUR ---
NURSE NOTES: received report from PAUL Hodgson. Pt is AOx4, stable, sitting up in bed eating breakfast. Pt is stable w/ no s/s or complaints of distress at this time. Pt has a skin tear on the R rib noted. Pt IV on the R wrist 22g running D51/2 NS at 100cc, asymptomatic and intact. Pt bed low and locked, call light in reach and bed alarm on. Pt verbalized understanding.
[2019-12-25 07:38] LABS: BASOPHILS % (AUTO) 0.7 % (0.0-2.0); EOSINOPHILS % (AUTO) 2.5 % (0.0-3.0); HEMATOCRIT 40.6 % (37.0-47.0); HEMOGLOBIN 13.2 G/DL (12.0-16.0); LYMPHOCYTES % (AUTO) 15.7 % (20.0-45.0); MEAN CORPUSCULAR VOLUME 86 FL (80-99); MONOCYTES % (AUTO) 11.1 % (1.0-10.0); PLATELET COUNT 238 K/UL (150-450); RED BLOOD COUNT 4.73 M/UL (4.20-5.40); RED CELL DISTRIBUTION WIDTH 13.8 % (11.6-14.8); WHITE BLOOD COUNT 11.4 K/UL (4.8-10.8)
[2019-12-25 08:00] VITALS: BP 128/56
[2019-12-25 08:04] LABS: ALBUMIN 2.7 G/DL (3.4-5.0); ALBUMIN/GLOBULIN RATIO 0.7 (1.0-2.7); BILIRUBIN,TOTAL 0.5 MG/DL (0.2-1.0); CALCIUM 8.2 MG/DL (8.5-10.1); CREATININE 1.3 MG/DL (0.55-1.30); PHOSPHORUS 3.2 MG/DL (2.5-4.9)
--- NOTE | 2019-12-25 08:32 | Neurology Progress Note ---
Interim History Interim History ROS Limited/Unobtainable: No Interim History patiennt without change no new sxs. Objective Physical Exam Last Vital Signs Date Time Temp Pulse Resp B/P (MAP) Pulse Ox O2 Delivery O2 Flow Rate FiO2 12/25/19 04:00 90 12/25/19 04:00 97.7 18 145/71 (95) 96 12/24/19 21:00 Room Air 12/21/19 14:20 3 Laboratory Tests Test 12/25/19 06:24 White Blood Count 11.4 K/UL (4.8-10.8) H Red Blood Count 4.73 M/UL (4.20-5.40) Hemoglobin 13.2 G/DL (12.0-16.0) Hematocrit 40.6 % (37.0-47.0) Mean Corpuscular Volume 86 FL (80-99) Mean Corpuscular Hemoglobin 27.9 PG (27.0-31.0) Mean Corpuscular Hemoglobin Concent 32.5 G/DL (32.0-36.0) Red Cell Distribution Width 13.8 % (11.6-14.8) Platelet Count 238 K/UL (150-450) Mean Platelet Volume 6.0 FL (6.5-10.1) L Neutrophils (%) (Auto) 70.0 % (45.0-75.0) Lymphocytes (%) (Auto) 15.7 % (20.0-45.0) L Monocytes (%) (Auto) 11.1 % (1.0-10.0) H Eosinophils (%) (Auto) 2.5 % (0.0-3.0) Basophils (%) (Auto) 0.7 % (0.0-2.0) Erythrocyte Sedimentation Rate Pending Sodium Level 140 MMOL/L (136-145) Potassium Level 4.0 MMOL/L (3.5-5.1) Chloride Level 105 MMOL/L (98-107) Carbon Dioxide Level 26 MMOL/L (21-32) Anion Gap 9 mmol/L (5-15) Blood Urea Nitrogen 13 mg/dL (7-18) Creatinine 1.3 MG/DL (0.55-1.30) Estimat Glomerular Filtration Rate 47.6 mL/min (>60) Glucose Level 132 MG/DL (74-106) H Calcium Level 8.2 MG/DL (8.5-10.1) L Phosphorus Level 3.2 MG/DL (2.5-4.9) Magnesium Level 1.8 MG/DL (1.8-2.4) Total Bilirubin 0.5 MG/DL (0.2-1.0) Aspartate Amino Transf (AST/SGOT) 16 U/L (15-37) Alanine Aminotransferase (ALT/SGPT) 16 U/L (12-78) Alkaline Phosphatase 52 U/L (46-116) C-Reactive Protein, Quantitative 7.9 mg/dL (0.00-0.90) H Total Protein 6.4 G/DL (6.4-8.2) Albumin 2.7 G/DL (3.4-5.0) L Globulin 3.7 g/dL Albumin/Globulin Ratio 0.7 (1.0-2.7) L Neurologic Exam Mental Status: other - awake or.*4 can spell world backwards Cranial Nerve II: other - visual [place] intact Cranial Nerves III, IV, : other - eoms full pupils 3.00 mm intact to light Cranial Nerve V: normal facial sensations - normal facial sensations Cranial Nerve VII: no facial asymmetry, other - normal Cranial Nerve VIII: normal hearing - normal hearing Cranial Nerve XI: other - scm 5/5 Cranial Nerve XII: tongue midline - tongue midline Motor System: other - 4+/5 strength on left Coordination: other - normal Deep Tendon Reflexes: 0 ankle (L), 0 ankle (R); 1+ bicep (L), 1+ bicep (R), 1+ tricep (L), 1+ tricep (R), 1+ brachioradialis (L), 1+ brachioradialis (R), 1+ knee (R); 2+ knee (L) Gait: other - uses walker Impression/Recommendations Diagnostic Impression small cva right possible ulcer right carotid and stenotic vertebral arteries Recommendations continue asa 325 mg and plavix 75mg for 3 months only Jj Ascencio MD Dec 25, 2019 08:32
--- NOTE | 2019-12-25 08:39 | Neurology Progress Note ---
Interim History Interim History ROS Limited/Unobtainable: No Objective Physical Exam Last Vital Signs Date Time Temp Pulse Resp B/P (MAP) Pulse Ox O2 Delivery O2 Flow Rate FiO2 12/25/19 04:00 90 12/25/19 04:00 97.7 18 145/71 (95) 96 12/24/19 21:00 Room Air 12/21/19 14:20 3 Laboratory Tests Test 12/25/19 06:24 White Blood Count 11.4 K/UL (4.8-10.8) H Red Blood Count 4.73 M/UL (4.20-5.40) Hemoglobin 13.2 G/DL (12.0-16.0) Hematocrit 40.6 % (37.0-47.0) Mean Corpuscular Volume 86 FL (80-99) Mean Corpuscular Hemoglobin 27.9 PG (27.0-31.0) Mean Corpuscular Hemoglobin Concent 32.5 G/DL (32.0-36.0) Red Cell Distribution Width 13.8 % (11.6-14.8) Platelet Count 238 K/UL (150-450) Mean Platelet Volume 6.0 FL (6.5-10.1) L Neutrophils (%) (Auto) 70.0 % (45.0-75.0) Lymphocytes (%) (Auto) 15.7 % (20.0-45.0) L Monocytes (%) (Auto) 11.1 % (1.0-10.0) H Eosinophils (%) (Auto) 2.5 % (0.0-3.0) Basophils (%) (Auto) 0.7 % (0.0-2.0) Erythrocyte Sedimentation Rate Pending Sodium Level 140 MMOL/L (136-145) Potassium Level 4.0 MMOL/L (3.5-5.1) Chloride Level 105 MMOL/L (98-107) Carbon Dioxide Level 26 MMOL/L (21-32) Anion Gap 9 mmol/L (5-15) Blood Urea Nitrogen 13 mg/dL (7-18) Creatinine 1.3 MG/DL (0.55-1.30) Estimat Glomerular Filtration Rate 47.6 mL/min (>60) Glucose Level 132 MG/DL (74-106) H Calcium Level 8.2 MG/DL (8.5-10.1) L Phosphorus Level 3.2 MG/DL (2.5-4.9) Magnesium Level 1.8 MG/DL (1.8-2.4) Total Bilirubin 0.5 MG/DL (0.2-1.0) Aspartate Amino Transf (AST/SGOT) 16 U/L (15-37) Alanine Aminotransferase (ALT/SGPT) 16 U/L (12-78) Alkaline Phosphatase 52 U/L (46-116) C-Reactive Protein, Quantitative 7.9 mg/dL (0.00-0.90) H Total Protein 6.4 G/DL (6.4-8.2) Albumin 2.7 G/DL (3.4-5.0) L Globulin 3.7 g/dL Albumin/Globulin Ratio 0.7 (1.0-2.7) L Neurologic Exam Mental Status: other - awake or.*4 can spell world backwards Cranial Nerve II: other Cranial Nerves III, IV, : other - eoms full Cranial Nerve V: normal facial sensations - normal facial sensations, other - normal Cranial Nerve VII: no facial asymmetry, other - no change Cranial Nerve VIII: normal hearing - normal hearing, other - normal hearing Cranial Nerve XI: other - scm 5/5 Cranial Nerve XII: tongue midline - tongue midline Motor System: other - left sided weakness Coordination: other - normal ffn heel to meza vilma Deep Tendon Reflexes: 0 ankle (L), 0 ankle (R); 1+ bicep (L), 1+ bicep (R), 1+ tricep (L), 1+ tricep (R), 1+ brachioradialis (L), 1+ brachioradialis (R); 2+ knee (L), 2+ knee (R) - 2 Reflexes: flexor plantar (L), flexor plantar (R) Gait: other - not tested Impression/Recommendations Diagnostic Impression small cva right possible ulcer right carotid and stenotic vertebral arteries Recommendations continue asa 325 mg and plavix 75mg for 3 months only get physical therapy gait training Jj Ascencio MD Dec 25, 2019 08:39
[2019-12-25] MEDS: Sucralfate 1gm tab ORAL SCH ×2 (08:55→14:04)
[2019-12-25] MEDS: Carvedilol 6.25mg Tab ORAL SCH (08:55)
[2019-12-25] MEDS: Lactulose 20gm/30ml UDC ORAL SCH (08:56)
[2019-12-25] MEDS: Docusate 100mg cap ORAL SCH (08:56)
[2019-12-25] MEDS: HydrALAZINE 50mg tab ORAL SCH (10:00)
[2019-12-25] MEDS: cefTRIAXone 1 GM in D5W 55 ML IVPB SCH (10:39)
[2019-12-25 12:00] VITALS: BP 137/73
[2019-12-25] MEDS ORDERED: PLAVIX75 MG ORAL (12:27)
[2019-12-25] MEDS ORDERED: PANTOPRAZOLE SO40 MG ORAL (12:27)
[2019-12-25] MEDS ORDERED: COREG6.25 MG ORAL (12:27)
[2019-12-25] MEDS ORDERED: ASPIRIN325 MG ORAL (12:27)
[2019-12-25] MEDS ORDERED: SUCRALFATE1 GM ORAL (12:27)
--- NOTE | 2019-12-25 13:22 | Diagnostic Imaging Report ---
Indication: Dyspnea Technique: One view of the chest Comparison: 12/24/2019 Findings: There is some atelectasis at the left lung base. The heart size is normal. The aorta is tortuous and calcified. Findings are unchanged Impression: No acute process
--- NOTE | 2019-12-25 13:43 | Infectious Diseases Prog Note ---
Assessment/Plan Abx: Ceftriaxone 12/22- Assessment: COVID19 neg x1 -12/19 rapid COVID PCR neg Sepsis UTI (urinary frequency) -12/21 u/a wbc 2-4, nit neg, cyn +3; ucx >100k P ,mirabilis (R macrobid;otherwise S) Ro probable bacteremia Low grade fever (new onset); improving Leukocytosis, improved -12/23 CXR: no acute process -12/22 Bcx p Esophagitis/gastritis UGIB -12/20 SP EGD: diffuse atrophic gastritis. Biopsy from antrum was obtained to rule out H. pylori infection. At the GE junction, there was some irregularity of the Z-line. Biopsy from the GE junction was also obtained. -12/18 CT C/abd/p w/: Thickening of the wall the distal stomach which may suggest a gastritis. Findings suggesting mild to moderate rectal fecal impaction. No evidence of bowel obstruction. No free intraperitoneal air or fluid. Dependent atelectasis in the lung bases, somewhat more pronounced in the right lung base and the possibility of small aspiration versus developing infiltrate in this region not excluded. Atherosclerotic disease.2 cm simple cysts in segment II of the liver. Additional subcentimeter hypodense liver lesions too small to fully characterize but may represent cysts or hemangiomas. Dizziness/Vertigo -MRI brain/MRA neck: No evidence of proximal intracranial cerebrovascular insufficiency. [place] anatomy as described -CT head wo: No acute intracranial findings. Chronic age-related changes.. HTN OA HLD TIA/CVA Dm2 chronic constipation Plan: -Continue Ceftriaxone #3/5 for UTI -f/u cx -Monitor CBC/CMP, temperatures -GI, neuro f/u Thank you for this consultation. Will continue to follow along with you. Discussed with RN. Subjective Allergies: Coded Allergies: No Known Allergies (Unverified , 10/13/18) afebrile >24hrs wbc improving Bcx p Objective Last 24 Hour Vital Signs Date Time Temp Pulse Resp B/P (MAP) Pulse Ox O2 Delivery O2 Flow Rate FiO2 12/25/19 12:00 80 12/25/19 12:00 98.8 83 20 137/73 (94) 96 12/25/19 10:00 116/59 12/25/19 09:00 Room Air 12/25/19 08:56 101 128/56 12/25/19 08:55 101 128/86 12/25/19 08:00 97.7 101 18 128/56 (80) 96 12/25/19 08:00 90 12/25/19 04:00 90 12/25/19 04:00 97.7 95 18 145/71 (95) 96 12/25/19 00:00 93 12/25/19 00:00 98.6 100 20 135/73 (93) 95 12/24/19 21:00 Room Air 12/24/19 20:36 101 164/74 12/24/19 20:00 103 12/24/19 20:00 98.6 101 20 164/74 (104) 96 12/24/19 16:00 97.5 88 20 105/55 (72) 96 12/24/19 15:13 86 Height (Feet): 5 Height (Inches): 1.00 Weight (Pounds): 176 General Appearance: no apparent distress EENT: normal ENT inspection Neck: supple Cardiovascular: normal rate Respiratory/Chest: decreased breath sounds Abdomen: normal bowel sounds, non tender, soft Extremities: non-tender Laboratory Tests Test 12/25/19 06:24 White Blood Count 11.4 K/UL (4.8-10.8) H Red Blood Count 4.73 M/UL (4.20-5.40) Hemoglobin 13.2 G/DL (12.0-16.0) Hematocrit 40.6 % (37.0-47.0) Mean Corpuscular Volume 86 FL (80-99) Mean Corpuscular Hemoglobin 27.9 PG (27.0-31.0) Mean Corpuscular Hemoglobin Concent 32.5 G/DL (32.0-36.0) Red Cell Distribution Width 13.8 % (11.6-14.8) Platelet Count 238 K/UL (150-450) Mean Platelet Volume 6.0 FL (6.5-10.1) L Neutrophils (%) (Auto) 70.0 % (45.0-75.0) Lymphocytes (%) (Auto) 15.7 % (20.0-45.0) L Monocytes (%) (Auto) 11.1 % (1.0-10.0) H Eosinophils (%) (Auto) 2.5 % (0.0-3.0) Basophils (%) (Auto) 0.7 % (0.0-2.0) Erythrocyte Sedimentation Rate 30 MM/HR (0-30) Sodium Level 140 MMOL/L (136-145) Potassium Level 4.0 MMOL/L (3.5-5.1) Chloride Level 105 MMOL/L (98-107) Carbon Dioxide Level 26 MMOL/L (21-32) Anion Gap 9 mmol/L (5-15) Blood Urea Nitrogen 13 mg/dL (7-18) Creatinine 1.3 MG/DL (0.55-1.30) Estimat Glomerular Filtration Rate 47.6 mL/min (>60) Glucose Level 132 MG/DL (74-106) H Calcium Level 8.2 MG/DL (8.5-10.1) L Phosphorus Level 3.2 MG/DL (2.5-4.9) Magnesium Level 1.8 MG/DL (1.8-2.4) Total Bilirubin 0.5 MG/DL (0.2-1.0) Aspartate Amino Transf (AST/SGOT) 16 U/L (15-37) Alanine Aminotransferase (ALT/SGPT) 16 U/L (12-78) Alkaline Phosphatase 52 U/L (46-116) C-Reactive Protein, Quantitative 7.9 mg/dL (0.00-0.90) H Total Protein 6.4 G/DL (6.4-8.2) Albumin 2.7 G/DL (3.4-5.0) L Globulin 3.7 g/dL Albumin/Globulin Ratio 0.7 (1.0-2.7) L Current Medications Medications (Trade) Dose Ordered Sig/Radha Route PRN Reason Start Time Stop Time Status Last Admin Dose Admin Acetaminophen (Tylenol) 650 mg Q4H PRN ORAL fever 12/19/19 15:45 01/18/20 15:44 12/24/19 08:15 Amlodipine Besylate (Norvasc) 10 mg DAILY ORAL 12/20/19 09:00 01/19/20 08:59 12/25/19 08:56 Aspirin (ASA) 325 mg DAILY ORAL 12/24/19 09:00 12 08:59 12/25/19 08:56 Carvedilol (Coreg) 6.25 mg EVERY 12 HOURS ORAL 12/24/19 09:00 01/23/20 08:59 12/25/19 08:55 Ceftriaxone Sodium 1 gm/ Dextrose 55 ml @ 110 mls/hr Q24H IVPB 12/23/19 10:30 12/30/19 10:29 12/25/19 10:39 Clopidogrel Bisulfate (Plavix) 75 mg DAILY ORAL 12/25/19 09:00 01/24/20 08:59 12/25/19 08:55 Dextrose (Dextrose 50%) 25 ml Q30M PRN IV Hypoglycemia 12/19/19 15:45 03/18/20 15:44 Dextrose (Dextrose 50%) 50 ml Q30M PRN IV Hypoglycemia 12/19/19 15:45 03/18/20 15:44 Diphenhydramine HCl (Benadryl) 25 mg Q6H PRN ORAL Itching/Pruritis 12/19/19 15:45 01/18/20 15:44 Docusate Sodium (Colace) 100 mg TWICE A DAY ORAL 12/20/19 18:00 01/19/20 17:59 12/25/19 08:56 Gadobutrol (Gadavist) 7.5 mmol NOW PRN IV Radiology Procedure 12/23/19 12:00 12/26/19 11:59 Hydralazine HCl (Apresoline) 50 mg DAILY ORAL 12/20/19 09:00 03/19/20 08:59 12/24/19 08:15 Hydralazine HCl (Apresoline) 50 mg Q6H PRN ORAL SBP >160 12/23/19 21:45 03/22/20 21:44 Lactulose (Cephulac) 20 gm BID ORAL 12/20/19 18:00 01/19/20 17:59 12/25/19 08:56 Meclizine HCl (Antivert) 25 mg Q6H PRN ORAL for dizziness 12/20/19 12:00 01/19/20 11:59 Ondansetron HCl (Zofran) 4 mg Q6H PRN IVP Nausea & Vomiting 12/19/19 15:45 01/18/20 15:44 Pantoprazole (Protonix) 40 mg EVERY 12 HOURS ORAL 12/23/19 21:00 01/22/20 20:59 12/25/19 08:55 Polyethylene Glycol (Miralax) 17 gm BEDTIME ORAL 12/20/19 21:00 01/19/20 20:59 12/24/19 20:35 Potassium Chloride 20 meq/ Dextrose/Sodium Chloride 1,010 ml @ 100 mls/hr Q10H6M IV 12/20/19 12:30 01/18/20 12:29 12/24/19 22:49 Sucralfate (Carafate) 1 gm FOUR TIMES A DAY ORAL 12/23/19 18:00 03/22/20 17:59 12/25/19 08:55 Temazepam (Restoril) 15 mg HSPRN PRN ORAL Insomnia 12/19/19 15:45 12/26/19 15:44 Izabel Mary M.D. Dec 25, 2019 13:43
[2019-12-25 16:00] VITALS: BP 139/61
--- NOTE | 2019-12-25 16:15 | NUR ---
NURSE NOTES: Pt IV removed, catheter intact, minimal bleeding. Pt tele monitor removed. Pt wristband removed. Pt is stable on RA at this time. pt education given to both family and Pt. Verbalized understanding. Pt belongings taken and belongings sheet signed. Pt discharged without incident.
--- NOTE | 2019-12-27 11:29 | Discharge Summary ---
Discharge Summary Discharge Summary _ DATE OF ADMISSION: 12/19/2011 DATE OF DISCHARGE: 12/25/2019 DISCHARGED BY: Dr. Stanton REASON FOR ADMISSION: 84 years old female with past medical history of hypertension, CVA/TIA, constipation, presented to emergency department complaining of dizziness associated with nausea and dry heaving. Patient also reported abdominal pain , located in epigastric area, 10 out of 10 in intensity. Patient reported being very weak and dizzy , walking like she is on the boat. She denied visible blood in the vomitus. No diarrhea or constipation. No fever or chills. No neck pain or photophobia. No headache. No She denied chest pain and palpitations. No paresthesia or numbness of extremities. No loss of consciousness. Vital signs revealed significantly elevated blood pressure 179/75 , otherwise stable. Laboratory work-up revealed leukocytosis WBC 14.6, hemoglobin 14, hematocrit 44. Potassium 3.3. BUN 19, creatinine 1.4. Stable LFT and bilirubin. Rapid COVID-[address] scan of the chest , abdomen and pelvis revealed thickening of the wall of the distal stomach, suggesting gastritis. Mild to moderate rectal fecal impaction. No evidence of bowel obstruction. No free intraperitoneal air or fluid. Dependent atelectasis . 2 cm simple cyst in the liver. In emergency department patient was treated with Protonix and Zofran. Potassium was replaced. Patient received liter of normal saline and subsequently admitted for further management . Initially CT of the head was not performed, since patient had no focal deficits and no vertical nystagmus. Given that patient complained of dizziness along with GI symptoms, and had no focal deficits or symptoms, gave initially priority to diagnosis of GI bleeding. CONSULTANTS: neurologist Dr. Ascencio pulmonary/critical care Dr. Pat ID specialist Dr. Mary GI specialist lexis [facility] COURSE: Patient admitted to telemetry floor. Patient started on the IV hydration and proton pump inhibitor. Patient subsequently undergone on 12/20 upper endoscopy with biopsy , which revealed atrophic gastritis , status post biopsy and irregular Z-line, status post biopsy. GI specialist recommended follow-up with the biopsy results and treat accordingly. Biopsy of the stomach antrum revealed moderate chronic gastritis. Biopsy of distal esophagus revealed chronic reflux esophagitis. No intestinal metaplasia, dysplasia or malignancy. Hemoglobin and hematocrit were closely monitored with goal to keep hemoglobin above 7 and remained stable. Patient complained of right flank pain. Urinalysis was suggestive of UTI. Patient started on empiric antibiotic. Urine culture revealed Proteus. Patient completed antibiotic while in the hospital. Patient continued to complain about persistent dizziness. Meclizine provided symptomatically. Fall precaution maintained. Patient was working with physical therapist. CT of the head revealed no acute intracranial findings, but showed chronic age-related changes. Neurology consult was requested. Patient subsequently undergone MRI of the brain , which revealed tiny acute white matter infarct in the high right parietal deep white matter. Evidence of multiply prior microhemorrhages distribution was suggestive of amyloid angiopathy. MRI /MRA of the head revealed no evidence of proximal intracranial cerebrovascular insufficiency. 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 Atherosclerotic plaquing of the right carotid bifurcation. Suggestion of ulceration right internal carotid artery. Patient started on dual antiplatelet therapy with aspirin and Plavix. Plavix was recommended only for 3 months. Blood pressure was closely monitored and managed with beta-owen and calcium channel owen. Hydralazine was on board as needed for blood pressures spikes. Patient was followed -up with chest x-ray . Chest x-ray revealed no acute cardiopulmonary pathology. Renal parameters and electrolytes were closely monitored, electrolytes corrected as needed, and nephrotoxins were avoided . Hypokalemia resolved : prior to discharge potassium 4.0. Creatinine from 1.4 trended down to normal. Acute kidney injury resolved. M Bowel regimen instituted. Supportive care provided. FINAL DIAGNOSES: Acute small CVA, right Possible ulcer right carotid and stenotic vertebral artery Proteus UTI Acute kidney injury , likely secondary to dehydration - resolved Upper GI bleeding Status post EGD with biopsy Atrophic gastritis Atelectasis Hypertension with initial hypertensive urgency History of CVA Chronic constipation DISCHARGE MEDICATIONS: See Medication Reconciliation list. DISCHARGE INSTRUCTIONS: Patient was discharged home with home health services. Follow up with primary care provider in one week. I have been assigned to dictate discharge summary for this account. I was not involved in the patient's management. Michelle Baig NP Dec 27, 2019 11:29
== END 2019-12-25 16:18 | disposition home or self-care (01) | DRG 64 ==
LOC: EDBD 11:43 → EMR 13:33 → 2E 13:51 → EDBEDREQ 15:10
DX: I63.9 Cerebral infarction, unspecified (principal); I21.4 Non-ST elevation (NSTEMI) myocardial infarction; K29.41 Chronic atrophic gastritis with bleeding; N17.9 Acute kidney failure, unspecified; K92.2 Gastrointestinal hemorrhage, unspecified; N39.0 Urinary tract infection, site not specified; J98.11 Atelectasis; E87.6 Hypokalemia; E86.0 Dehydration; Z86.73 Personal history of transient ischemic attack (TIA), and cerebral infarction without residual deficits; I10 Essential (primary) hypertension; M19.91 Primary osteoarthritis, unspecified site; H81.10 Benign paroxysmal vertigo, unspecified ear; K21.00 Gastro-esophageal reflux disease with esophagitis, without bleeding; K59.09 Other constipation; E11.9 Type 2 diabetes mellitus without complications; Z87.891 Personal history of nicotine dependence; K20.90 Esophagitis, unspecified without bleeding; E78.5 Hyperlipidemia, unspecified; B96.4 Proteus (mirabilis) (morganii) as the cause of diseases classified elsewhere; I65.09 Occlusion and stenosis of unspecified vertebral artery
CPT/HCPCS: 36415; 70450; 70544; 70548; 70551; 71045; 71260; 74177; 80048; 80053; 81001; 82150; 83036; 83690; 83735; 84100; 84484; 85007; 85025; 85610; 85651; 85730; 86140; 86850; 86900; 86901; 87086; 87181; 93005; 94003; 94150; 96365; 96366; 96368; 96375; 99285; A9585; J2405; J7030; U0002